=== PATIENT | male | born 1930 | race Hispanic/Latino ===

== ENCOUNTER 2017-06-23 10:18 | Observation (INO) | payer MEDICARE, MEDICAID ==
[2017-06-23] MEDS ORDERED: Lorazepam 2 MG/ML VIAL ONE (11:19)
[2017-06-23] MEDS ORDERED: Fentanyl 100 MCG/2 ML VIAL ONE (11:19)
[2017-06-23 11:27] LABS: #Basophils 0.1 thou/uL (0.0-0.2); #Eosinphils 0.1 thou/uL (0.0-0.7); #Lymphocytes 1.3 thou/uL (1.20-3.40); #Monocytes 0.6 thou/uL (0.11-0.59); #Neutrophils 6.5 thou/uL (1.40-6.50); %Basophils 0.7 % (0.0-1.0); %Eosinophils 1.6 % (0.0-10.0); %Lymphocytes 15.3 % (21.0-51.0); %Monocytes 6.5 % (0.0-10.0); %Neutrophils 75.9 % (42.0-75.0); Mean Corpuscular HGB CONC 33.1 g/dL (32.0-36.0); Mean Corpuscular Volume 90.7 fl (80.0-94.0); Mean Platelet Volume 8.8 fL (7.4-10.4); Platelet Count 233 thou/uL (130-400); RBC Distribution Width 12.7 % (11.5-14.5); Red Blood Cell (RBC) Count 4.99 mill/uL (4.70-6.10); White Blood Cell (WBC) Count 8.6 thou/uL (4.8-10.8)
[2017-06-23 11:40] LABS: ALT (SGPT) 20 U/L (8-55); AST (SGOT) 23 U/L (5-34); Albumin 3.8 g/dL (3.4-4.8); Alkaline Phosphatase 94 U/L (40-150); Anion Gap 14 mmol/L (10-20); BUN (Urea Nitrogen) 24 mg/dL (8.4-25.7); Bilirubin, Total 0.3 mg/dL (0.2-1.2); CK (CPK) 279 U/L (30-200); Calc. Creatinine Clearance 0 mL/min (70-130); Calcium 8.8 mg/dL (7.8-10.44); Carbon Dioxide 22 mmol/L (23-31); Chloride 101 mmol/L (98-107); Estimated GFR-MDRD 39; Globulin 3.2 g/dL (2.4-3.5); Glucose 224 mg/dL (83-110); Lipase 16 U/L (8-78); Potassium 4.8 mmol/L (3.5-5.1); Sodium 132 mmol/L (136-145)
[2017-06-23 11:45] LABS: CKMB 5.4 ng/mL (0-6.6); Troponin I 0.034 ng/mL (< 0.028)
--- NOTE | 2017-06-23 12:03 | RAD ---
2 VIEWS CHEST: Date: 06/23/17 PROVIDED CLINICAL HISTORY: Cough and rib pain. FINDINGS: Comparison made with the study dated 01/27/15. Cardiac and mediastinal silhouette is within normal limits. Vascular calcifications are noted involvi ng the aortic arch. No focal consolidation, pleural fluid, or pneumothorax apparent. IMPRESSION: No evidence for an acute cardiopulmonary process. POS: [facility]
--- NOTE | 2017-06-23 13:06 | CT ---
CT OF THE CHEST AND ABDOMEN AND PELVIS: Date: 06/23/17 PROVIDED CLINICAL HISTORY: Left lower chest/left upper quadrant pain for 1 week. FINDINGS: Vascular calcification, including coronary calcium, is demonstrated. The heart, pericardium, and grea t vessels demonstrate an otherwise unremarkable unenhanced CT appearance, suboptimally evaluated with out IV contrast material. There is no evidence for thoracic lymph node enlargement with limitations due to lack of IV contrast. Lungs are free of significant opacity. No pleural fluid or pneumothorax apparent. Nonspecific, somew hat focal area of plaque-like pleural thickening involving the left hemithorax laterally at the left upper lobe, nonspecific. Bilateral renal hypodensities are present, incompletely characterized without IV contrast, but statis tically reflecting cysts. 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 The solid a bdominal organs are suboptimally evaluated without IV contrast material, but demonstrate an otherwise unremarkable unenhanced CT appearance. There is no bowel dilatation, inflammatory fat stranding, free fluid, or free air apparent. Vascular calcifications are seen. Degenerative changes are noted involving the thoracic and lumbar spine. No concerning lytic or blasti c lesions are evident. No evidence for fracture. IMPRESSION: No evidence for an acute process. Chronic findings as above. POS: [facility]
[2017-06-23 13:49] LABS: Troponin I 0.045 ng/mL (< 0.028)
[2017-06-23] MEDS ORDERED: Nitroglycerin 2% Ointment 1 INCH/1 GM Packet ONE (13:57)
--- NOTE | 2017-06-23 14:22 | PDOC.FPRHP ---
- History of Present Illness Chief Complaint: Left sided rib pain History of Present Illness: 87 yo male that presents with left sided pain that began 1 week ago. His niece states that he has had more frequent falls over the last 6 months. She also notes that he fell roughly 2 weeks ago. The patient notes the pain is in his left side. It does not radiate. He states it feels "like a mule kicked me." He denies any shortness of breath, chest pain, fever, chills, n/v/d. He denies any injury to the area. Patient states he has become more unsteady on his feet and that is the cause of his more frequent falls. He denies any loss of consciousness or palpitations. He denies recent illness or sick contacts. No other complaints at this time. ED Course: In ED given Nitropatch, 500 ml Bolus, Aspirin, Ativan, and Fentanyl - Allergies/Adverse Reactions Allergies Allergy/AdvReac Type Severity Reaction Status Date / Time No Known Drug Allergies Allergy Verified 01/27/15 11:35 - Home Medications Medication Instructions Recorded Confirmed Type Albuterol Sulfate [Ventolin HFA] 8 gm INH PRN PRN 06/23/17 06/23/17 History Aspirin [Ecotrin Low Strength] 81 mg PO DAILY 06/23/17 06/23/17 History BuPROPion XL [Wellbutrin XL] 150 mg PO DAILY 06/23/17 06/23/17 History Gabapentin 100 mg PO BID 06/23/17 06/23/17 History Glimepiride 1 mg PO QAM- 06/23/17 06/23/17 History HumaLOG [HumaLOG Vial] 5 unit SC TID- 06/23/17 06/23/17 History Insulin Detemir 100 UNITS/ML 37 unit SQ HS 06/23/17 06/23/17 History [Levemir] Insulin Detemir 100 UNITS/ML 44 unit SQ QAM 06/23/17 06/23/17 History [Levemir] Lisinopril 5 mg PO DAILY 06/23/17 06/23/17 History Tiotropium [place] [Spiriva] 18 mcg IH 06/23/17 History metFORMIN [Glucophage] 500 mg BID 06/23/17 06/23/17 History Acetaminophen [Tylenol Regular 650 mg PO Q4H PRN tab 06/24/17 Rx Strength] - History PMHx: Renal Disease, HLD, HTN, DM2 PSHx: Cholecystectomy, Prostatectomy, Orthopedic surgery Right Thumb, Left Leg FHx: Non Contributory Social: Current 1/2 PPD smoker, 80 pack years. Denies alcohol or drug use. - Review of Systems General: denies: fever/chills, weight/appetite/sleep changes Eyes: denies: eye pain, vision changes ENT: denies: nasal congestion, rhinorrhea Respiratory: reports: cough, shortness of breath. denies: congestion Cardiovascular: reports: chest pain. denies: palpitation Gastrointestinal: reports: abdominal pain. denies: nausea, vomiting, diarrhea, constipation Genitourinary: denies: incontinence Skin: denies: rashes, lesions Musculoskeletal: denies: pain, tenderness, stiffness, swelling Neurological: denies: numbness, syncope - Vital signs BP: [130/73] HR: [70] RR: [20] Tmax: [98.7] Pox: [99]% on [Rm Air] Wt: [102 kg ] - Physical Exam Constitutional: NAD, awake, alert and oriented HEENT: normocephalic and atraumatic, PERRLA, no scleral icterus, grossly normal vision, grossly normal hearing, normal nasal mucosa Neck: supple, trachea midline Chest: no-tender to palpation Heart: RRR, normal S1/S2, no murmurs/rubs/gallops Lungs: CTAB, no wheezing Abdomen: soft, bowel sounds present, no masses/distention -Abdomen: Tenderness on Left side of abdomen Musculoskeletal: normal structure, normal tone Neurological: no focal deficit, CN II-XII intact, normal sensation Skin: no rash/lesions -Skin: 3+ pitting edema bilaterally to mid calf Psychiatric: normal mood and affect, good judgment and insight, intact recent and remote memory FMR H&P: Results - Labs Result Diagrams: 06/23/17 11:20 06/24/17 04:01 Lab results: WBC 8.6 thou/uL (4.8-10.8) 06/23/17 11:20 Hgb 15.0 g/dL (14.0-18.0) 06/23/17 11:20 Hct 45.2 % (42.0-52.0) 06/23/17 11:20 MCV 90.7 fl (80.0-94.0) 06/23/17 11:20 Plt Count 233 thou/uL (130-400) 06/23/17 11:20 Neutrophils % 75.9 % (42.0-75.0) H 06/23/17 11:20 Sodium 132 mmol/L (136-145) L 06/23/17 11:20 Potassium 4.8 mmol/L (3.5-5.1) 06/23/17 11:20 Chloride 101 mmol/L (98-107) 06/23/17 11:20 Carbon Dioxide 22 mmol/L (23-31) L 06/23/17 11:20 BUN 24 mg/dL (8.4-25.7) 06/23/17 11:20 Creatinine 1.66 mg/dL (0.6-1.3) H 06/23/17 11:20 Glucose 224 mg/dL (83-110) H 06/23/17 11:20 Calcium 8.8 mg/dL (7.8-10.44) 06/23/17 11:20 Total Bilirubin 0.3 mg/dL (0.2-1.2) 06/23/17 11:20 AST 23 U/L (5-34) 06/23/17 11:20 ALT 20 U/L (8-55) 06/23/17 11:20 Alkaline Phosphatase 94 U/L (40-150) 06/23/17 11:20 Creatine Kinase 279 U/L (30-200) H 06/23/17 11:20 CK-MB (CK-2) 5.4 ng/mL (0-6.6) 06/23/17 11:20 B-Natriuretic Peptide 319.1 pg/mL (0-100) H 06/23/17 11:20 Serum Total Protein 7.0 g/dL (5.8-8.1) 06/23/17 11:20 Albumin 3.8 g/dL (3.4-4.8) 06/23/17 11:20 Lipase 16 U/L (8-78) 06/23/17 11:20 - EKG Interpretation EKG: Stable from January 2015. Normal Sinus Rhythm Incomplete RBBB, Left anterior fascicular block. FMR H&P: A/P - Problem List (1) Atypical chest pain Current Visit: Yes Status: Acute Code(s): R07.89 - OTHER CHEST PAIN (2) DM2 (diabetes mellitus, type 2) Current Visit: Yes Status: Acute (3) HLD (hyperlipidemia) Current Visit: Yes Status: Acute Code(s): E78.5 - HYPERLIPIDEMIA, UNSPECIFIED (4) HTN (hypertension) Current Visit: Yes Status: Acute Code(s): I10 - ESSENTIAL (PRIMARY) HYPERTENSION (5) COPD (chronic obstructive pulmonary disease) Current Visit: Yes Status: Acute (6) CKD (chronic kidney disease) stage 3, GFR 30-59 ml/min Current Visit: Yes Status: Acute Code(s): N18.3 - CHRONIC KIDNEY DISEASE, STAGE 3 (MODERATE) (7) Tobacco abuse Current Visit: Yes Status: Acute Code(s): Z72.0 - TOBACCO USE (8) Elevated brain natriuretic peptide (BNP) level Current Visit: Yes Status: Acute Code(s): R79.89 - OTHER SPECIFIED ABNORMAL FINDINGS OF BLOOD CHEMISTRY - Plan 1. Atypical Chest pain - Trend troponins - Stress in am - Consider ECHO - TSH, Mg, Phos - CT chest, abdomen pelvis unremarkable 2. DM2 - Continue Insulin - Accuchecks 3. HTN - Continue Lisinopril 4. COPD - Continue home meds 5. Tobacco abuse - Continue wellbutrin - Counseled on cessation 6. CKD III - Creatinine at baseline - Avoid contrast - Monitor with BMP 7. Elevated BNP - ECHO pending - Will determine if patient has HF Disposition: Stable, await troponins and stress results. FMR H&P: Upper Level - Pertinent history 87 yo male here for left sided abdomen pain. Reports he has been having more frequent falls over the last 6 months, no head trauma or LOC. was seen in [facility] last month for arm injury after fall. About a week ago he began having pain in side of abdomen, like "mule kicked side" which worsens with coughing. Significant smoking history [id number]-yr. Currently chews tobacco. Also assoc b/l leg swelling. Reports BG has not been good, morning normally runs in the 200s. Last A1c on was 7.8. - Pertinent findings GEN: NAD, AAOx3 CARD: 3+ pitting edema b/l to mid-calf Pulm: CTAb ABD: BSx4, distended, tender on left side EKG: no ST segment changes or CXR: no acute CP process - Plan Date/Time: 06/23/17 1419 I, Jay Landeros DO, have evaluated this patient and agree with findings/plan as outlined by internet marketing specialist resident. Pertinent changes/additions are listed here. 1. atypical CP r/o ACS Trops in indeterminate range, continue to trend Order stress test Continue home meds Mg, Phos, TSH Heart score 4 2. Indeterminate BNP with swelling in legs b/l, we will check TTE 3. HTN continue home meds 4. DMII on insulin continue home regimen accuchecks ACHS 5. COPD continue home medications 6. CKD III stable from clinic notes continue to monitor 7. LE swelling ECHO DNR Attending Addendum - Attending Addendum Date/Time: 06/24/17 [id number] I personally evaluated the patient and discussed the management with Dr. Goodrich today. Dr Goodrich and I discussed his care together at the time of admission as well. I agree with the History, Examination, Assessment and Plan documented above with any addition or exceptions noted below.
[2017-06-23 15:08] LABS: Troponin I 0.041 ng/mL (< 0.028)
[2017-06-23] MEDS ORDERED: Ondansetron ODT 4 MG TAB PO PRN (16:31)
[2017-06-23] MEDS ORDERED: PROVENTIL INHALER 6.7 G (200 INHALATIONS) INH PRN (16:31)
[2017-06-23 16:32] VITALS: BMI 38.5
[2017-06-23] MEDS ORDERED: FLU VACC TS2017-18 (>65YR) 0.5 ML SYRINGE IM ONE (17:45)
[2017-06-23] MEDS ORDERED: Prevnar 13-Val Conj/PF 0.5 ML SYRINGE IM ONE (17:45)
[2017-06-23 17:50] LABS: Phosphorus 3.5 mg/dL (2.3-4.7)
[2017-06-23 17:57] LABS: Troponin I 0.037 ng/mL (< 0.028)
[2017-06-23] MEDS: HumaLOG 300 UNITS/3 ML VIAL SC SCH (18:02)
[2017-06-23] MEDS: metFORMIN 500 MG TAB PO SCH (20:06)
[2017-06-23] MEDS: Gabapentin 100 MG CAP PO SCH (20:06)
[2017-06-23] MEDS ORDERED: Insulin Detemir 100 UNITS/ML 44 UNITS in Pre-Filled Syringe 1 EACH SC SCH (21:00)
[2017-06-23] MEDS ORDERED: Insulin Detemir 100 UNITS/ML 37 UNITS in Pre-Filled Syringe 1 EACH SC SCH (21:00)
[2017-06-24] MEDS: Acetaminophen 325 MG TAB PO PRN ×2 (04:40→11:54)
[2017-06-24 04:59] LABS: Anion Gap 10 mmol/L (10-20); BUN (Urea Nitrogen) 23 mg/dL (8.4-25.7); Calc. Creatinine Clearance 60 mL/min (70-130); Calcium 8.5 mg/dL (7.8-10.44); Carbon Dioxide 25 mmol/L (23-31); Cardiac Risk 4.5 (Less than 4.5); Chloride 104 mmol/L (98-107); Cholesterol 217 mg/dl (< 200 Desired); Estimated GFR-MDRD 53; Glucose 82 mg/dL (83-110); HDL Cholesterol 48 mg/dL (>60 Neg Risk); LDL Cholesterol, Calculated 133 mg/dL; Potassium 4.3 mmol/L (3.5-5.1); Sodium 135 mmol/L (136-145); Triglycerides 179 mg/dL (Less than 150)
--- NOTE | 2017-06-24 06:13 | PDOC.FM ---
- Subjective Subjective: Patient states he had a good night. He states he had good sleep. He notes that his abdominal pain on his left side is only when he coughs. He specifically denies chest pain, sob, n/v/d. He also specifically denies lightheadedness, vision changes, or problems with urination. He denies fevers or chills. He does complain of a chronic cough that has been present for some time. No other complaints today. - Objective Vital Signs & Weight: Vital Signs (12 hours) Temp Pulse Resp BP Pulse Ox 06/24/17 04:47 69 16 93 L 06/24/17 04:00 97.7 F 69 18 152/80 H 92 L 06/23/17 20:03 97.9 F 70 18 06/23/17 19:31 94 L 06/23/17 19:23 97.9 F 70 18 115/67 93 L Weight Weight 104.871 kg I&O: 06/22/17 06/23/17 06/24/17 06:59 06:59 07:59 Intake Total 630 Output Total 350 Balance 280 Result Diagrams: 06/23/17 11:20 06/24/17 04:01 <Freeman Goodrich - Last Filed: 06/24/17 07:37> - Objective Vital Signs & Weight: Vital Signs (12 hours) Temp Pulse Resp BP BP Pulse Ox 06/24/17 07:35 97.8 F 65 16 117/61 99 06/24/17 07:31 69 117/61 06/24/17 07:20 97.8 F 65 16 06/24/17 04:47 69 16 93 L 06/24/17 04:00 97.7 F 69 18 152/80 H 92 L Weight Weight 104.871 kg I&O: 06/23/17 06/24/17 06/25/17 05:59 06:59 06:59 Intake Total Output Total Balance Result Diagrams: 06/23/17 11:20 06/24/17 04:01 <Florencio Clark - Last Filed: 06/24/17 09:58> Phys Exam - Physical Examination HEENT: PERRLA, moist MMs Neck: no nodes Respiratory: no wheezing, clear to auscultation bilateral Cardiovascular: RRR, no significant murmur Gastrointestinal: soft, non-tender, no distention, positive bowel sounds Musculoskeletal: edema present 2+ to midcalf Neurological: non-focal, normal sensation, moves all 4 limbs Lymphatic: no nodes Psychiatric: normal affect, A&O x 3 Skin: no rash <Freeman Goodrich - Last Filed: 06/24/17 07:37> Dx/Plan (1) Atypical chest pain Code(s): R07.89 - OTHER CHEST PAIN Status: Acute (2) DM2 (diabetes mellitus, type 2) Status: Acute (3) HLD (hyperlipidemia) Code(s): E78.5 - HYPERLIPIDEMIA, UNSPECIFIED Status: Acute (4) HTN (hypertension) Code(s): I10 - ESSENTIAL (PRIMARY) HYPERTENSION Status: Acute (5) COPD (chronic obstructive pulmonary disease) Status: Acute (6) CKD (chronic kidney disease) stage 3, GFR 30-59 ml/min Code(s): N18.3 - CHRONIC KIDNEY DISEASE, STAGE 3 (MODERATE) Status: Acute (7) Tobacco abuse Code(s): Z72.0 - TOBACCO USE Status: Acute (8) Elevated brain natriuretic peptide (BNP) level Code(s): R79.89 - OTHER SPECIFIED ABNORMAL FINDINGS OF BLOOD CHEMISTRY Status : Acute - Plan Plan: 1. Atypical Chest pain - Troponins downtrended - Stress today - ECHO ordered - TSH, Mg, Phos - CT chest, abdomen pelvis unremarkable 2. DM2 - Continue Insulin - Accuchecks 3. HTN - Continue Lisinopril 4. COPD - Continue home meds 5. Tobacco abuse - Continue wellbutrin - Counseled on cessation 6. CKD III - Creatinine at baseline - Avoid contrast - Stable 7. Elevated BNP - ECHO pending - Will determine if patient has HF Disposition: Stable, await stress results. <Freeman Goodrich - Last Filed: 06/24/17 07:37> (1) Atypical chest pain Code(s): R07.89 - OTHER CHEST PAIN Status: Acute (2) DM2 (diabetes mellitus, type 2) Status: Acute (3) HLD (hyperlipidemia) Code(s): E78.5 - HYPERLIPIDEMIA, UNSPECIFIED Status: Acute (4) HTN (hypertension) Code(s): I10 - ESSENTIAL (PRIMARY) HYPERTENSION Status: Acute (5) COPD (chronic obstructive pulmonary disease) Status: Acute (6) CKD (chronic kidney disease) stage 3, GFR 30-59 ml/min Code(s): N18.3 - CHRONIC KIDNEY DISEASE, STAGE 3 (MODERATE) Status: Acute (7) Tobacco abuse Code(s): Z72.0 - TOBACCO USE Status: Acute (8) Elevated brain natriuretic peptide (BNP) level Code(s): R79.89 - OTHER SPECIFIED ABNORMAL FINDINGS OF BLOOD CHEMISTRY Status : Acute <Florencio Clark - Last Filed: 06/24/17 09:58> Attending Addendum - Attending Addendum Date/Time: 06/24/1758 I personally evaluated the patient and discussed the management with Dr. Goodrich. I agree with the History, Examination, Assessment and Plan documented above with any addition or exceptions noted below. <Florencio Clark - Last Filed: 06/24/17 09:58>
[2017-06-24] MEDS: HumaLOG 300 UNITS/3 ML VIAL SC SCH ×2 (07:21→13:21)
[2017-06-24] MEDS: Gabapentin 100 MG CAP PO SCH (07:30)
[2017-06-24] MEDS: metFORMIN 500 MG TAB PO SCH (07:38)
[2017-06-24] MEDS ORDERED: Glimepiride 1 MG TAB PO SCH (08:00)
[2017-06-24] MEDS ORDERED: Enoxaparin Sodium 40 MG/0.4 ML SYRINGE SC SCH (09:00)
[2017-06-24] MEDS ORDERED: Aspirin 81 mg Enteric Coated Tablet PO SCH (09:00)
[2017-06-24] MEDS ORDERED: Lisinopril 5 MG TAB PO SCH (09:00)
[2017-06-24] MEDS ORDERED: Bupropion 150 MG XL TAB PO SCH (09:00)
[2017-06-24] MEDS ORDERED: Insulin Detemir 100 UNITS/ML 44 UNITS in Pre-Filled Syringe 1 EACH SC SCH (09:00)
[2017-06-24 11:38] VITALS: BP 128/91; TEMP 98
--- NOTE | 2017-06-24 12:04 | NM ---
MYOCARDIAL PERFUSION SCAN WITH SPECT IMAGING: HISTORY: Acute coronary syndrome. TECHNIQUE/FINDINGS: Stress portion of the examination performed using 29.4 mCi 99m-technetium sestamibi 11 mCi on the res ting images. This shows a small apical defect on the stress views, which appears to fill in on the re sting images, suggesting a small focus of ischemia. WALL MOTION: There is hypokinesis of the ventricle which appears slightly more pronounced in the apex. LEFT VENTRICULAR EJECTION FRACTION: The calculated left ventricular ejection fraction is 42%. IMPRESSION: 1. Suggestion of a small area of ischemic change within the apex of the left ventricle. 2. Diminished left ventricular ejection fraction of 42% with suggestion of apical hypokinesis. Corre lation with echocardiogram is recommended. POS: [facility]
--- NOTE | 2017-06-24 14:31 | CON ---
DATE OF CONSULTATION: 06/24/2017 REASON FOR CONSULTATION: Abnormal stress study. REFERRING PROVIDER: Florencio Clark M.D. HISTORY OF PRESENT ILLNESS: Mr. Dodge is a very pleasant 87-year-old gentleman with no previous his tory of underlying coronary artery disease, who recently presented with chest pain. He states this h as been left-sided. It began after he had a deep cough. He states this pain is sharp and much worse with cough. He states if he is in a sitting position, he does not have significant discomfort. His recent stress study suggested LVEF of 42% with apical ischemia. PAST MEDICAL HISTORY: Chronic kidney disease, hypertension, hyperlipidemia, diabetes mellitus. PAST SURGICAL HISTORY: Cholecystectomy, prostatectomy, and hand surgery. SOCIAL HISTORY: Positive tobacco use. Negative alcohol use. HOME MEDICATIONS: Lisinopril, glipizide, aspirin, insulin, bupropion, metformin, Humalog, Spiriva, a nd Lipitor. REVIEW OF SYSTEMS: Ten-point review of systems is reviewed and as above, otherwise negative. PHYSICAL EXAMINATION: GENERAL: Patient is a pleasant male who is in no acute distress. The patient appears his stated age . VITAL SIGNS: Blood pressure 128/91, pulse 76, temperature 98. NEUROLOGIC: The patient is alert and oriented times 3 with no focal neurologic deficits. HEENT: Sclerae without icterus. Mouth has moist mucous membranes with normal pallor. NECK: No JVD. Carotid upstroke brisk. No bruits bilaterally. LUNGS: Clear to auscultation with unlabored respirations. BACK: No scoliosis or kyphosis. CARDIAC: Regular rate and rhythm with normal S1 and S2. No S3 or S4 noted. No significant rubs, murmurs, thrills, or gallops noted throughout the precordium. PMI is not displa slick. There is no parasternal heave. Pain to palpation noted along the left mid axillary region. ABDOMEN: Soft, nontender, nondistended. No peritoneal signs present. No hepatosplenomegaly. No abnormal striae. EXTREMITIES: 2+ femoral and 2+ dorsalis pedis pulses. No cyanosis, clubbing, or edema. SKIN: No gross abnormalities. PERTINENT LABORATORY DATA: CK troponin negative. IMAGING DATA: Echo Doppler shows LVEF difficult to assess, but does appear at the lower limits of no rmal. IMPRESSION: 1. Atypical chest pain. 2. Abnormal stress study. 3. Diabetes mellitus. 4. Tobacco abuse. RECOMMENDATIONS: His symptoms are not felt to be suggestive of angina. His symptoms are more likely to be musculoskeletal. Would recommend nonsteroidal therapy and PPI. I did discuss angiography. T he patient defers and I would agree given his symptoms. I also counseled him on cessation of all tob acco products. Plan is to follow Mr. Dodge in the next 1-2 weeks in the office.
[2017-06-24] MEDS ORDERED: Regadenoson 0.4 MG/5 ML SYRINGE ONE (16:45)
--- NOTE | 2017-06-25 14:11 | DIS-2 ---
DATE OF ADMISSION: 06/23/2017 DATE OF DISCHARGE: 06/24/2017 RESIDENT: Dr. Freeman Goodrich ADMITTING ATTENDING: Dr. Florencio Clark DISCHARGE ATTENDING: Dr. Florencio Clark CONSULTS: Cardiology, Dr. Knowles. PROCEDURES: The patient underwent a chest x-ray on 06/23/2017 that showed no evidence for acute cardiopulmonary process. The patient also underwent a chest, abdomen, and pelvis CT on 06/23/2017 that showed no evidence of an acute process, chronic findings noted. The patient also underwent an echocardiogram that showed a left ventricle ejection fraction estimated at 50-55%, some flow reversal noted suggestive of diastolic dysfunction, mild mitral regurgitation is present, mild tricuspid regurgitation. The patient also underwent a stress test nuclear medicine test on 06/24/2017 that showed suggestion of a small area of ischemic change with apex of the left ventricle, diminished left ventricular ejection fraction 42% with suggestion of apical hypokinesis. Correlation with echocardiogram is recommended. PRIMARY DIAGNOSES: 1. Atypical chest pain. 2. Diabetes mellitus type 2. 3. Hyperlipidemia. 4. Hypertension. 5. Chronic obstructive pulmonary disease. 6. Chronic kidney disease stage 3. 7. Tobacco abuse. 8. Elevated BNP. DISCHARGE MEDICATIONS: 1. Atorvastatin 40 mg daily. 2. Metformin 500 mg b.i.d. 3. Humalog 5 units subq t.i.d. with meals. 4. Gabapentin 100 mg p.o. b.i.d. 5. Wellbutrin 150 mg p.o. daily. 6. Insulin detemir 44 units subcu a.m. and 37 units subcu at bedtime. 7. Lisinopril 5 mg p.o. daily. 8. Aspirin 81 mg daily. 9. Glimepiride 1 mg p.o. q.a.m. with meals. 10. Spiriva 18 mcg inhalation. 11. Ventolin HFA 8 grams inhalation p.r.n. 12. Acetaminophen 650 mg p.o. q.4h. p.r.n. DISCONTINUED MEDICATIONS: None. HISTORY OF PRESENT ILLNESS AND HOSPITAL COURSE: An 87-year-old male who presents with left-sided pain that began 1 week ago. His niece states that he has had more frequent falls over the last 6 months. He also notes that he fell roughly 2 weeks ago. The patient notes the pain is in his left side. It does not radiate. He states it feels like "a mule kicked me". He denies any shortness of breath, chest pain, fevers, chills, nausea, vomiting, diarrhea. He denies any injury to the area. The patient states he has become more unsteady on his feet and that has caused his more frequent falls. He denies any loss of consciousness or palpitations. He denies recent illness or sick contacts. No other complaints at this time. During this hospitalization, the patient did not have any further chest pain. He did continued to complain of his left-sided abdominal pain. Especially this pain was especially worse when he coughed. He was not tender to palpation and his CT scans were unremarkable for any acute pathology. The patient had some notable lab values of a cholesterol 217, LDL 133, HDL of 48 and a heart risk ratio 4.5. Also had a TSH of 4.55. The patient also had blood pressures that ranged from a systolic in the 1-teens to as high as 150s over diastolics from 60s to the 90s. Pulses are within normal limits and he was afebrile. The patient was seen by Dr. Knowles of Cardiology and he recommended that his symptoms were not suggestive of angina. He most likely has a musculoskeletal etiology to his pain. He recommends nonsteroidal therapy and a PPI. The patient deferred an angiography at this time. He was counseled extensively on cessation of tobacco products. Plan to follow up with Mr. Dodge in the next 1- 2 weeks in his office. The patient was counseled extensively on taking better care of himself with diet and exercise as well as smoking cessation. The patient will be following up with Dr. Bakari Shah his PCP and will try to work with his left-sided abdominal pain further. Otherwise, the patient had no further complications during his hospitalization and was discharged in appropriate condition. DISPOSITION: Stable. DISCHARGE INSTRUCTIONS: 1. Location: He will be discharged home to the care of himself and his niece. 2. Diet will be a heart healthy diet and a diabetic diet, combined. 3. Activity will be with as tolerated with cardiopulmonary limits. 4. Follow up will be with his PCP, Dr. Bakari Shah in the next 3-7 days as [address] as Dr. Knowles, of Cardiology in the next 1-2 weeks. I discussed further management of his abnormal stress test. We wish this ora the best of luck and hope he has no further complications from this disease. CHARLENE
--- NOTE | 2017-06-30 12:36 | EKG ---
Test Reason : Blood Pressure : / mmHG Vent. Rate : 069 BPM Atrial Rate : 069 BPM P-R Int : 180 ms QRS Dur : 124 ms QT Int : 430 ms P-R-T Axes : -25 -76 023 degrees QTc Int : 460 ms Normal sinus rhythm Right bundle branch block Left anterior fascicular block Bifascicular block Septal infarct , age undetermined Abnormal ECG Confirmed by CORRIE LEON, HU ([id number]), editorial director FERNANDO ALTMAN ([id number]) on 06/30/2017 12:36:01 PM Referred By: Confirmed By:HU DENTON MD
== END 2017-06-24 14:06 | disposition home or self-care (01) ==
LOC: ERS 10:18 → 2SW 14:25
PROVIDERS: ADMIT Family Medicine; ATTEND Family Medicine
DX: R07.89 Other chest pain (principal); E78.5 Hyperlipidemia, unspecified; J44.9 Chronic obstructive pulmonary disease, unspecified; E11.22 Type 2 diabetes mellitus with diabetic chronic kidney disease; I12.9 Hypertensive chronic kidney disease with stage 1 through stage 4 chronic kidney disease, or unspecified chronic kidney disease; N18.3 Chronic kidney disease, stage 3 (moderate); F17.200 Nicotine dependence, unspecified, uncomplicated; R79.89 Other specified abnormal findings of blood chemistry; R74.8 Abnormal levels of other serum enzymes; R26.81 Unsteadiness on feet; F17.210 Nicotine dependence, cigarettes, uncomplicated; Z79.82 Long term (current) use of aspirin; Z79.4 Long term (current) use of insulin; Z79.899 Other long term (current) drug therapy; Z90.49 Acquired absence of other specified parts of digestive tract; Z90.79 Acquired absence of other genital organ(s); Z98.890 Other specified postprocedural states; Z91.81 History of falling
CPT/HCPCS: 71046; 71250; 74177; 78452; 80048; 80061; 82010; 82550; 82553; 82962; 83690; 83735; 83880; 84100; 84484 ×2; 93005; 93017; 93306; 94640; 94760; 96361; 96372; 96374; 96375; 99285; A9500; G0378; 36415; 36416; 80053; 84443; 85025; J1650; J1815; J2060; J2785; J3010

== ENCOUNTER 2017-09-10 17:00 | Emergency (ER) | payer MEDICARE, MEDICAID ==
[2017-09-10] MEDS ORDERED: Adacel (T-DAP) 0.5 ML VIAL ONE (17:44)
--- NOTE | 2017-09-10 18:39 | RAD ---
RIGHT HIP SERIES: INDICATIONS: Laceration. Pain. FINDINGS: There is moderate osteoarthritis without evidence of acute fracture. Vascular calcification is prese nt. IMPRESSION: No acute osseous abnormality of the right hip. POS: [facility]
[2017-09-10] MEDS ORDERED: HYDROcodone/Acetaminophen 10/325 mg Tablet ONE (18:49)
--- NOTE | 2017-09-10 18:55 | RAD ---
LEFT HAND THREE VIEWS: INDICATIONS: Injury. Pain. FINDINGS: Scattered osteoarthritis is present. There is no fracture or dislocation. Vascular calcifications a re seen. IMPRESSION: No acute osseous abnormality of the left hand. POS: [facility]
--- NOTE | 2017-09-10 18:57 | RAD ---
RIGHT HAND THREE VIEWS: INDICATIONS: Injury. Pain. Laceration. FINDINGS: Extension of the thumb IP joint limits visualization. There is scattered osteoarthritis. No acute f racture. Vascular calcification is present. There is soft tissue prominence. Correlate clinically. IMPRESSION: No acute osseous abnormality of the right hand identified. There is persistent extension at the thum b interphalangeal joint, limiting visualization in this region. Correlate clinically. POS: [facility]
--- NOTE | 2017-09-10 18:57 | RAD ---
RIGHT WRIST THREE VIEWS: INDICATIONS: Injury. Pain. Laceration. FINDINGS: No evidence of fracture. There is osteoarthritis. Vascular calcification is present. IMPRESSION: No acute osseous abnormality of the right wrist. POS: [facility]
== END 2017-09-10 21:49 | disposition home or self-care (01) ==
LOC: ERS 17:00
DX: S61.411A Laceration without foreign body of right hand, initial encounter (principal); S60.222A Contusion of left hand, initial encounter; Z71.6 Tobacco abuse counseling; I10 Essential (primary) hypertension; E11.9 Type 2 diabetes mellitus without complications; E78.5 Hyperlipidemia, unspecified; Z79.4 Long term (current) use of insulin; F17.210 Nicotine dependence, cigarettes, uncomplicated; W19.XXXA Unspecified fall, initial encounter
CPT/HCPCS: 36416; 90471; 90715; 99406

== ENCOUNTER 2017-10-08 09:21 | Outpatient (CLI) | payer MEDICARE, OTHER ==
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
[2017-10-14] MEDS ORDERED: Sodium Chloride 0.9% 15 ML NEB ONE (14:42)
== END 2017-10-08 09:22 | disposition home or self-care (01) ==
LOC: WCC 09:21
PROVIDERS: ATTEND Family Medicine
DX: E11.622 Type 2 diabetes mellitus with other skin ulcer (principal); L98.499 Non-pressure chronic ulcer of skin of other sites with unspecified severity; E11.22 Type 2 diabetes mellitus with diabetic chronic kidney disease; I12.9 Hypertensive chronic kidney disease with stage 1 through stage 4 chronic kidney disease, or unspecified chronic kidney disease; N18.3 Chronic kidney disease, stage 3 (moderate); J44.9 Chronic obstructive pulmonary disease, unspecified
CPT/HCPCS: 11042; 82962; 97139; G0463; 36416; 99203; A4218

== ENCOUNTER 2017-10-18 20:10 | Emergency (ER) | payer MEDICARE, MEDICAID ==
[2017-10-18] MEDS ORDERED: Fleet Enema 133 ML BOT PR SCH (21:00)
--- NOTE | 2017-10-18 21:02 | RAD ---
ABDOMINAL SURVEY WITH UPRIGHT CHEST AND TWO VIEW ABDOMEN: 10/18/17 INDICATIONS: Abdominal pain. Constipation. FINDINGS: The lungs appear clear. Bowel gas pattern unremarkable. No free air. No soft tissue mass or abnormal calcification. IMPRESSION: Unremarkable bowel gas pattern. POS: CATY
== END 2017-10-18 22:12 | disposition home or self-care (01) ==
LOC: ERS 20:10
DX: K59.00 Constipation, unspecified (principal); E78.5 Hyperlipidemia, unspecified; I10 Essential (primary) hypertension; E11.9 Type 2 diabetes mellitus without complications; F17.210 Nicotine dependence, cigarettes, uncomplicated; Z79.4 Long term (current) use of insulin; Z79.891 Long term (current) use of opiate analgesic
CPT/HCPCS: 74022

== ENCOUNTER 2018-01-24 10:12 | Day surgery (SDC) | payer MEDICARE, MEDICAID ==
[2018-01-23 09:27] VITALS: BMI 36.3
--- NOTE | 2018-01-24 13:35 | OP ---
DATE OF PROCEDURE: 01/24/2018 GI ENDOSCOPY NOTE SURGEON: Gordo Ambrosio M.D. SCOOP OPERATOR SURGEON: None. PROCEDURES: 1. Esophagogastroduodenoscopy with biopsies. 2. Colonoscopy with snare polypectomy. INDICATIONS: 1. Dysphagia. 2. Left upper quadrant abdominal pain. 3. Constipation. MEDICATIONS: See anesthesia record. FINDINGS: After discussion of the risks, benefits and alternatives of the procedure, informed consen t was obtained and witnessed. Pre-endoscopic cardiopulmonary examination was satisfactory. Timeout was performed before sedation was achieved. Sedation was achieved with anesthesia assistance in the endoscopy unit. A Pentax adult upper endoscope was placed into the oropharynx and passed through the cricopharyngeus under direct visualization. The proximal and mid esophageal mucosa appeared normal. In the distal esophagus just above the GE junction, there is LA grade C erosive esophagitis for a d istance of about 2 cm. There is no associated stricture visible in this area. The endoscope was adv anced through the GE junction, and into the stomach. Forward and retroflexed views of the entire gas tric mucosa were obtained. In the gastric antrum and body, there is patchy erythema and edema with a few small nonbleeding erosions scattered throughout. Biopsies were obtained from the gastric antrum and body to rule out H. pylori infection. The endoscope was advanced through the pylorus and into t first and second portions of the duodenum, which were unremarkable. The upper endoscope was compl etely withdrawn and the patient was repositioned. Digital rectal exam was performed which was unremarkable. A Pentax adult colonoscope was inserted in to the anus and passed forward to the cecum in the usual fashion. The cecal base was identified by t he appendiceal orifice as well as the ileocecal valve. The terminal ileum was intubated and the ilea l mucosa appeared normal. The colonoscope was then slowly withdrawn in a gradual and circumferential manner with careful examination of the entire colonic mucosa. The quality of the prep was adequate. In the cecum, there were 3 polyps measuring from 3 mm to 8 mm in diameter. These were completely r emoved with hot snare and retrieved for pathology. In the sigmoid colon, there was a larger polyp me asuring about 1.4 cm in diameter. This was on a short stalk. This polyp was completely removed with hot snare and retrieved for pathology. In the rectum, there was a smaller polyp measuring about 3 m m. This was completely removed with hot snare and retrieved for pathology. There is diverticulosis throughout the colon, but quite heavy in the sigmoid colon. Retroflexion of the rectum was otherwise unremarkable. The colonoscope was completely withdrawn and the patient allowed to recover. The pat ient tolerated the procedure well. There were no immediate post-procedure complications. IMPRESSION: 1. Erosive gastritis, biopsied. 2. Distal erosive esophagitis. 3. Esophagus empirically dilated with Savary dilator to 18 mm without difficulty. 4. Three cecal polyps, all removed with hot snare. 5. Single sigmoid colon polyp, 1.4 cm in diameter, completely removed with hot snare. 6. A 3 mm rectal polyp, completely removed with hot snare. 7. Colonic diverticulosis, heaviest in the sigmoid colon. RECOMMENDATIONS: 1. We will start him on a daily PPI. 2. He needs to quit smoking. No NSAID use. 3. Follow up pathology on the gastric biopsies and colon polyps. 4. No further colonoscopy is recommended despite he is having polyps on this exam, due to his age an d comorbidities. 5. We will have him follow up in clinic in about 1 month.
== END 2018-01-24 14:00 | disposition home or self-care (01) ==
LOC: SDC 10:12
PROVIDERS: ATTEND Internal Medicine
PROC: 0DB68ZX Excision of Stomach, Via Natural or Artificial Opening Endoscopic, Diagnostic (ICD-10-PCS; principal; 2018-01-24)
PROC: 0D758ZZ Dilation of Esophagus, Via Natural or Artificial Opening Endoscopic (ICD-10-PCS; 2018-01-24)
PROC: 0DBH8ZX Excision of Cecum, Via Natural or Artificial Opening Endoscopic, Diagnostic (ICD-10-PCS; 2018-01-24)
PROC: 0DBN8ZX Excision of Sigmoid Colon, Via Natural or Artificial Opening Endoscopic, Diagnostic (ICD-10-PCS; 2018-01-24)
PROC: 0DBP8ZX Excision of Rectum, Via Natural or Artificial Opening Endoscopic, Diagnostic (ICD-10-PCS; 2018-01-24)
DX: D12.0 Benign neoplasm of cecum (principal); D12.5 Benign neoplasm of sigmoid colon; D12.8 Benign neoplasm of rectum; K29.50 Unspecified chronic gastritis without bleeding; K25.9 Gastric ulcer, unspecified as acute or chronic, without hemorrhage or perforation; K20.9 Esophagitis, unspecified; K57.30 Diverticulosis of large intestine without perforation or abscess without bleeding; R13.10 Dysphagia, unspecified; K59.09 Other constipation; E11.40 Type 2 diabetes mellitus with diabetic neuropathy, unspecified; M19.90 Unspecified osteoarthritis, unspecified site; F17.210 Nicotine dependence, cigarettes, uncomplicated; E78.00 Pure hypercholesterolemia, unspecified; I10 Essential (primary) hypertension; E66.9 Obesity, unspecified; Z68.36 Body mass index [BMI] 36.0-36.9, adult; Z79.4 Long term (current) use of insulin; Z79.82 Long term (current) use of aspirin; Z79.899 Other long term (current) drug therapy; Z91.010 Allergy to peanuts
CPT/HCPCS: 36416; 88305; 88312

== ENCOUNTER 2018-04-26 14:23 | Inpatient (IN) | payer MEDICARE, MEDICAID ==
[2018-04-26 14:47] LABS: #Eosinphils 0.2 thou/uL (0.0-0.7); #Monocytes 0.6 thou/uL (0.11-0.59); #Neutrophils 6.1 thou/uL (1.40-6.50); %Basophils 0.2 % (0.0-1.0); %Eosinophils 2.2 % (0.0-10.0); %Lymphocytes 12.4 % (21.0-51.0); %Monocytes 7.2 % (0.0-10.0); %Neutrophils 78.1 % (42.0-75.0); Hemoglobin 11.9 g/dL (14.0-18.0); Mean Corpuscular HGB CONC 30.7 g/dL (32.0-36.0); Mean Corpuscular Hemoglobin 26.9 pg (27.0-31.0); Mean Corpuscular Volume 87.7 fL (78.0-98.0); Mean Platelet Volume 8.8 fL (7.4-10.4); Platelet Count 231 thou/uL (130-400); RBC Distribution Width 14.5 % (11.5-14.5); Red Blood Cell (RBC) Count 4.41 mill/uL (4.70-6.10); White Blood Cell (WBC) Count 7.8 thou/uL (4.8-10.8)
--- NOTE | 2018-04-26 15:11 | RAD ---
RADIOGRAPH CHEST 1 VIEW: Date: 04/26/18 Time: 1438 HOURS HISTORY: 88-year-old male with dyspnea. COMPARISON: 06/23/17. FINDINGS: There is a new finding of a least mild cardiomegaly. The lungs are hypoinflated on current study. The re is another new finding of silhouetting of the bilateral hemidiaphragms, left greater than right, d ue to pulmonary parenchymal densities at the bases of the bilateral lower lobes, left greater than ri ght. It is uncertain whether or not there are small pleural effusions. All of the visualized lung fie lds appear diffusely slightly hazy. No pneumothorax. IMPRESSION: Opacities at the bilateral lower lobe lung bases, left greater than right. Uncertain whether these re present atelectasis, pneumonia, and/or pleura effusions. A lateral view may be useful. JN [] POS: TPC
[2018-04-26 15:20] LABS: ALT (SGPT) 16 U/L (8-55); AST (SGOT) 21 U/L (5-34); Albumin 3.5 g/dL (3.4-4.8); Alkaline Phosphatase 107 U/L (40-150); Anion Gap 16 mmol/L (10-20); BUN (Urea Nitrogen) 23 mg/dL (8.4-25.7); Bilirubin, Total 0.3 mg/dL (0.2-1.2); CK (CPK) 264 U/L (30-200); Calc. Creatinine Clearance 0 mL/min (70-130); Calcium 8.6 mg/dL (7.8-10.44); Carbon Dioxide 21 mmol/L (23-31); Chloride 105 mmol/L (98-107); Estimated GFR-MDRD 42; Globulin 3.2 g/dL (2.4-3.5); Glucose 126 mg/dL (83-110); Potassium 5.3 mmol/L (3.5-5.1); Protein, Total 6.7 g/dL (5.8-8.1); Sodium 137 mmol/L (136-145)
[2018-04-26] MEDS ORDERED: Furosemide 40 MG/4 ML VIAL ONE (15:33)
[2018-04-26] MEDS ORDERED: Furosemide 20 MG/2 ML VIAL ONE (15:38)
[2018-04-26 15:47] LABS: CKMB 7.3 ng/mL (0-6.6)
--- NOTE | 2018-04-26 16:26 | PDOC.FPRHP ---
- History of Present Illness Chief Complaint: SOB History of Present Illness: Mr Dodge presents directly from clinic for CHF exacerbation. He reports for the last week he has had increasing shortness of breath, especially when trying to move around. Denies SOB at rest. He reports lower extremity swelling for 1-2 months, his stomach has also felt enlarged. He reports that his penis has been too swollen to retract the foreskin to clean, however he has urinated normally. He denies any chest pain, nausea, vomiting or diarrhea. ED Course: aspirin, IV lasix 60 mg - Allergies/Adverse Reactions Allergies Allergy/AdvReac Type Severity Reaction Status Date / Time No Known Drug Allergies Allergy Verified 01/23/18 09:28 - Home Medications Medication Instructions Recorded Confirmed Type Albuterol Sulfate [Ventolin HFA] 8 gm INH PRN PRN 06/23/17 01/23/18 History Aspirin [Ecotrin Low Strength] 81 mg PO DAILY 06/23/17 01/23/18 History Gabapentin 100 mg PO BID 06/23/17 01/23/18 History Glimepiride 1 mg PO QAM-WM 06/23/17 01/23/18 History Tiotropium [place] [Spiriva] 18 mcg IH DAILY 06/23/17 01/23/18 History metFORMIN [Glucophage] 500 mg PO BID 06/23/17 01/23/18 History Atorvastatin Calcium [Lipitor] 40 mg PO DAILY 30 Days #30 tab 06/24/17 01/23/18 Rx Insulin Glargine,Hum.Rec.Anlog 35 unit SQ BID 01/23/18 01/23/18 History [Basaglar Kwikpen U-100] - History PMHx: DM2, diastolic CHF, COPD, HTN, CKD3 PSHx: cholecystectomy, prostatectomy, R thumb, L leg FHx: unknown Social: No recent alcohol, drug use. 1/2 PPD, 80 pack year hx. - Review of Systems General: denies: fever/chills Eyes: denies: vision changes ENT: denies: nasal congestion Respiratory: reports: cough, shortness of breath Cardiovascular: reports: edema. denies: chest pain Gastrointestinal: reports: other (abdominal swelling). denies: nausea, vomiting , diarrhea Genitourinary: reports: other (penile swelling, no difficulty with urination) Skin: denies: rashes Musculoskeletal: reports: tenderness, swelling - Vital signs BP: 175/84 HR: 97 RR: 19 Tmax: 98.5 Pox: 96% on RA Wt: 113 kg - Physical Exam Constitutional: awake, alert and oriented HEENT: normocephalic and atraumatic, PERRLA, grossly normal vision, grossly normal hearing, MMM, oropharynx clear Heart: RRR, normal S1/S2 (exam limited by body habitus) Lungs: CTAB, good air movement Abdomen: non-tender, bowel sounds present, other (distention with fluid wave) Musculoskeletal: normal structure, normal tone Neurological: no focal deficit Skin: capillary refill <2 seconds, other (significant pitting b/l LE edema up to chest. mild weeping of b/l LE. penile swelling, bah in place.) FMR H&P: Results - Labs Result Diagrams: 04/26/18 14:37 04/26/18 14:37 Lab results: WBC 7.8 thou/uL (4.8-10.8) 04/26/18 14:37 Hgb 11.9 g/dL (14.0-18.0) L 04/26/18 14:37 Hct 38.7 % (42.0-52.0) L 04/26/18 14:37 MCV 87.7 fL (78.0-98.0) 04/26/18 14:37 Plt Count 231 thou/uL (130-400) 04/26/18 14:37 Neutrophils % 78.1 % (42.0-75.0) H 04/26/18 14:37 Sodium 137 mmol/L (136-145) 04/26/18 14:37 Potassium 5.3 mmol/L (3.5-5.1) H 04/26/18 14:37 Chloride 105 mmol/L (98-107) 04/26/18 14:37 Carbon Dioxide 21 mmol/L (23-31) L 04/26/18 14:37 BUN 23 mg/dL (8.4-25.7) 04/26/18 14:37 Creatinine 1.57 mg/dL (0.7-1.3) H 04/26/18 14:37 Glucose 126 mg/dL (83-110) H 04/26/18 14:37 Calcium 8.6 mg/dL (7.8-10.44) 04/26/18 14:37 Total Bilirubin 0.3 mg/dL (0.2-1.2) 04/26/18 14:37 AST 21 U/L (5-34) 04/26/18 14:37 ALT 16 U/L (8-55) 04/26/18 14:37 Alkaline Phosphatase 107 U/L (40-150) 04/26/18 14:37 Creatine Kinase 264 U/L (30-200) H 04/26/18 14:37 CK-MB (CK-2) 7.3 ng/mL (0-6.6) H* 04/26/18 14:37 B-Natriuretic Peptide 1772.2 pg/mL (0-100) H 04/26/18 14:37 Serum Total Protein 6.7 g/dL (5.8-8.1) 04/26/18 14:37 Albumin 3.5 g/dL (3.4-4.8) 04/26/18 14:37 FMR H&P: A/P - Problem List (1) CHF exacerbation Current Visit: No Status: Acute Code(s): I50.9 - HEART FAILURE, UNSPECIFIED (2) Hyperkalemia Current Visit: No Status: Acute Code(s): E87.5 - HYPERKALEMIA (3) CKD (chronic kidney disease) stage 3, GFR 30-59 ml/min Current Visit: No Status: Acute Code(s): N18.3 - CHRONIC KIDNEY DISEASE, STAGE 3 (MODERATE) (4) COPD (chronic obstructive pulmonary disease) Current Visit: No Status: Acute (5) DM2 (diabetes mellitus, type 2) Current Visit: No Status: Acute (6) Elevated brain natriuretic peptide (BNP) level Current Visit: No Status: Acute Code(s): R79.89 - OTHER SPECIFIED ABNORMAL FINDINGS OF BLOOD CHEMISTRY (7) HLD (hyperlipidemia) Current Visit: No Status: Acute Code(s): E78.5 - HYPERLIPIDEMIA, UNSPECIFIED (8) HTN (hypertension) Current Visit: No Status: Acute Code(s): I10 - ESSENTIAL (PRIMARY) HYPERTENSION (9) Tobacco abuse Current Visit: No Status: Acute Code(s): Z72.0 - TOBACCO USE - Plan 88 yo M with PMH DM, diastolic CHF, COPD, CKD3 presents with one week history of worsening SOB with exertion. CHF exacerbation - 06/2017 echo showed EF 50-55% with diastolic dysfucntion - 06/2017 stress test showed small apex ischemia and hypokineses. Dr. Knowles at that time attributed symptoms to MSK, not angina, and recommended NSAIDs and PPI - per Dr. Goodrich, patient was taken off diuretics by Dr. Strickland - received 60 mg IV lasix in ED. Will continue diuresis with 40 mg IV daily - BNP 1772 - strict I/Os, fluid restriction - CKMB 7.3, trop 0.042, continue to trend two more trops - EKG with t wave inversion V1-3, right axis deviation, possible block. - Echo ordered Mild Hyperkalemia - 5.3 in ED - Expect lowering with diuretics, will monitor on am BMP Anemia - Hgb 11.9, MCV 87 - could be 2/2 chronic disease - will monitor on am CBC CKD3 - seems to be at baseline. Cr 1.57, GFR 42 on admission - per clinic has seen Dr. Strickland for this previously. May discuss case with him. IDDM - per clinic records, home regimen glargine 38 units BID with lispro 3u tid. Hold home glimepiride. - patient unable to confirm any home medications and says to ask niece who is not present - Will start home glargine with accuchecks and SSI HTN - BP 140-170s systolic in ED - ASA 81, nifedipine xl 30 mg daily, will restart HLD - continue home atorvastatin 40 mg daily COPD - current smoker, 80 pack year hx - has rx for ventolin prn, spiriva. Patient says he does not know what inhalers are. Tobacco abuse - nicotine patch, encourage cessation Diet: Ppx: lovenox Dispo: admit to inpatient telemetry, expected stay >2 midnights FMR H&P: Upper Level - Pertinent history 88 yo M who presents for chief complaint of worsening shortness of breath, LE edema and abdominal distention that has gotten progressively worse over the last couple of weeks. He said nothing he has tried works but cannot thoroughly describe what he has tried. He denies any chest pain, productive cough, dysuria , hematuria, fever or chills. He has never felt like this before. - Pertinent findings Slightly hypertensive Labs and imaging reviewed Gen: awake, alert, interactive HEENT: atraumatic, normocephalic CV: RRR, no murmur noted RESP: CTAB ABD: distended, nontender to palpation, bowel sounds present, fluid wave present : scrotal and penile swelling (approx 2-3X normal penile diameter) EXT: trace pitting edema to lower back - Plan Date/Time: 04/26/18 1626 88 yo M with PMHx dCHF who presents with anasarca and SOB 2/2 CHF exacerbation 1. CHF exacerbation - Diuresis, strict I/O, daily weights, fluid restrict diet - Repeat ECHO - Has seen Dr. Knowles 2. Anasarca - Possibly exclusively related to CHF however may be other source - Consider diagnostic paracentesis - Lasix diuresis 3. HTN - Home meds 4. Tobacco abuse, possible COPD - Denies using inhalers at home - Encouraged cessation 5. IDDM - Home insulin - ACHS accuchecks - CC diet 6. Hyperkalemia - Lasix as above 7. CKD - Follows with Dr. Strickland - Renally dose meds - Monitor BMP 8. Elevated troponin - No chest pain - Likely 2/2 demand ischemia - Repeat I, Susan Segundo MD, PGY-3, have evaluated this patient and agree with findings/ plan as outlined by internet application developer resident. Pertinent changes/additions are listed here. Addendum - Attending - Attending Attestation Date/Time: 04/26/18 1756 I personally evaluated the patient and discussed the management with Dr. Dia and Sanya I agree with the History, Examination, Assessment and Plan documented above with any addition or exceptions noted below. 88 yo male with multiple medical conditions presents for SOB Patient with progressive SOB and swelling. VS reviewed. Labs reviewed. Previous records reviewed. Imaging reviewed. Exam repeated by myself. 1. Acute CHF exacerbation: Continue diuresis. Repeat ECHO. Trend enzymes. Continuous tele monitoring. Cards as needed. 2. Ascites on exam: Would consider therapeutic and dx tap in AM. Previous imaging reviewed. However no dedicated liver imaging performed. No changes in liver enzymes. No significant findings on exam concerning for liver pathology. Likely right sided heart failure resulting in severe fluid overload. Albumin stable and adequate. 3. CKD3: Stable. Monitor. Will likely change due to lasix use. 4. HTN urgency: Elevated BP on arrival. Monitor and treat. Adjust home dose medications as needed. Will monitor other co-morbidities and adjust medications as needed. Hardik
[2018-04-26 16:47] LABS: Bilirubin Negative (Negative); Blood, Urine Negative (Negative); Clarity CLEAR (Clear); Glucose, Urine (Dipstick) Negative (Negative); Leukocyte Negative (Negative); Nitrite Negative (Negative); Protein, Urine (Dipstick) 30 mg/dL (Neg-Trace); Specific Gravity, Urine 1.015 (1.002-1.036); Urobilinogen 0.2 mg/dL (0.2-1.0)
[2018-04-26 16:49] LABS: Bacteria/HPF None Seen HPF (None Seen); Hyaline Casts/LPF 0-3 HYALINE CAST LPF (0-3 Hyaline); Pathc Cast-AUWi Flag 0.14 (0-2.49); RBC/HPF 0-3 HPF (0-3); Squamous Epithelial None Seen HPF (0-3); WBC/HPF None Seen HPF (0-3)
[2018-04-26] MEDS ORDERED: PROVENTIL INHALER 6.7 G (200 INHALATIONS) INH PRN (17:50)
[2018-04-26 18:24] LABS: Troponin I 0.054 ng/mL (< 0.028)
[2018-04-26 20:59] LABS: Troponin I 0.044 ng/mL (< 0.028)
[2018-04-26] MEDS ORDERED: INSULIN GLARGINE HUM REC ANLOG SQ SCH (21:00)
[2018-04-26] MEDS ORDERED: [UNRECOGNIZED DRUG - OTHER] SQ SCH (21:00)
[2018-04-26] MEDS ORDERED: Dextrose 5% in Water 1,000 ML IV PRN (21:17)
[2018-04-26] MEDS ORDERED: Ondansetron ODT 4 MG TAB PO PRN (21:17)
[2018-04-26] MEDS ORDERED: Dextrose 50% Abboject 50 ML SYRINGE SLOW IVP PRN (21:17)
[2018-04-26] MEDS: Ipratropium Bromide 2.5 ml Neb NEB SCH ×2 (21:48→21:49)
[2018-04-27 04:56] LABS: #Eosinphils 0.1 thou/uL (0.0-0.7); #Lymphocytes 1.5 thou/uL (1.20-3.40); #Monocytes 0.9 thou/uL (0.11-0.59); #Neutrophils 7.5 thou/uL (1.40-6.50); %Basophils 0.2 % (0.0-1.0); %Eosinophils 1.4 % (0.0-10.0); %Lymphocytes 14.5 % (21.0-51.0); %Monocytes 8.9 % (0.0-10.0); Hemoglobin 11.5 g/dL (14.0-18.0); Mean Corpuscular HGB CONC 31.3 g/dL (32.0-36.0); Mean Corpuscular Hemoglobin 26.8 pg (27.0-31.0); Mean Corpuscular Volume 85.7 fL (78.0-98.0); Mean Platelet Volume 9.2 fL (7.4-10.4); Platelet Count 236 thou/uL (130-400); RBC Distribution Width 14.3 % (11.5-14.5)
[2018-04-27] MEDS ORDERED: Furosemide 40 MG/4 ML VIAL SLOW IVP SCH ×2 (05:00→09:00)
[2018-04-27 05:01] LABS: Anion Gap 12 mmol/L (10-20); BUN (Urea Nitrogen) 25 mg/dL (8.4-25.7); Calc. Creatinine Clearance 59 mL/min (70-130); Calcium 8.8 mg/dL (7.8-10.44); Carbon Dioxide 27 mmol/L (23-31); Chloride 104 mmol/L (98-107); Estimated GFR-MDRD 49; Potassium 4.2 mmol/L (3.5-5.1); Sodium 139 mmol/L (136-145)
[2018-04-27 05:07] LABS: Glucose 39 mg/dL (83-110)
--- NOTE | 2018-04-27 05:09 | PDOC.EVN ---
Event Note - Event Note Event Note: Called to patient bedside by nursing staff for concern of hematuria around 0445. Patient sitting up in chair reporting SOB. He was unaware of any penile bleeding. Nursing staff reporting blood and pus from bah catheter earlier tonight. He has blood tinged urine now with some clots. Examined bah catheter bag- blood tinged urine, no gross clots seen in current bag. Bah catheter protruding very taut from meatus. Some evidence for dried blood around meatus. No active bleeding from meatus. Significant penile swelling. Recommend moving bah catheter thigh estrada (statlock) closer to penile shaft. Will hold AM ASA and DC ppx lovenox. Will obtain new UA and urine ccx. Consider consult to urology later this morning. Will give lasix dose now in nat[place] of waiting until 0900.
[2018-04-27] MEDS: Gabapentin 100 MG CAP PO SCH ×3 (05:16→20:18)
[2018-04-27] MEDS: Nicotine 21 MG PATCH TD SCH ×2 (05:17→15:40)
[2018-04-27] MEDS: Insulin Glargine 38 UNITS in Pre-Filled Syringe 1 EACH SC SCH ×2 (05:17→11:39)
--- NOTE | 2018-04-27 06:07 | PDOC.FM ---
- Subjective Subjective: Mr. Dodge was laying nearly flat in bed and complained of SOB ever since the nurse gave him lasix. I sat patient up on side of bed. Wheezing on exam, ordered a duoneb considering patient's history of copd. No chest pain or heart palpitations. Patient denies any other complaints apart from SOB. - Objective MAR Reviewed: Yes Vital Signs & Weight: Vital Signs (12 hours) Temp Pulse Resp BP Pulse Ox 04/27/18 04:00 98.3 F 90 19 144/75 H 93 L 04/26/18 23:55 98.0 F 86 22 H 159/91 H 95 04/26/18 21:49 80 12 96 Weight Weight 113.171 kg Result Diagrams: 04/27/18 04:21 04/27/18 04:21 Phys Exam - Physical Examination Constitutional: NAD Respiratory: wheezing present Cardiovascular: RRR, no significant murmur Gastrointestinal: non-tender, positive bowel sounds (distended w/ fluid wave) Musculoskeletal: edema present (anasarca, 4+ pitting edema b/l LE) some blood in bah, not actively bleeding, no clots Neurological: moves all 4 limbs Skin: cap refill <2 seconds Dx/Plan (1) CHF exacerbation Code(s): I50.9 - HEART FAILURE, UNSPECIFIED Status: Acute (2) Hyperkalemia Code(s): E87.5 - HYPERKALEMIA Status: Acute (3) CKD (chronic kidney disease) stage 3, GFR 30-59 ml/min Code(s): N18.3 - CHRONIC KIDNEY DISEASE, STAGE 3 (MODERATE) Status: Acute (4) COPD (chronic obstructive pulmonary disease) Status: Acute (5) DM2 (diabetes mellitus, type 2) Status: Acute (6) Elevated brain natriuretic peptide (BNP) level Code(s): R79.89 - OTHER SPECIFIED ABNORMAL FINDINGS OF BLOOD CHEMISTRY Status : Acute (7) HLD (hyperlipidemia) Code(s): E78.5 - HYPERLIPIDEMIA, UNSPECIFIED Status: Acute (8) HTN (hypertension) Code(s): I10 - ESSENTIAL (PRIMARY) HYPERTENSION Status: Acute (9) Tobacco abuse Code(s): Z72.0 - TOBACCO USE Status: Acute - Plan Plan: 88 yo M with PMH DM, diastolic CHF, COPD, CKD3 presents with one week history of worsening SOB with exertion. CHF exacerbation - 06/2017 echo showed EF 50-55% with diastolic dysfunction - 06/2017 stress test showed small apex ischemia and hypokineses. Dr. Knowles at that time attributed symptoms to MSK, not angina, and recommended NSAIDs and PPI - per Dr. Goodrich, patient was taken off diuretics by Dr. Strickland - received 60 mg IV lasix in ED. Will continue diuresis with 40 mg IV daily - BNP 1772 - strict I/Os, fluid restriction. No output recorded yet. Continue to monitor bah. - troponins trended x3 and stayed stable overnight - EKG with t wave inversion V1-3, right axis deviation, possible block. - Echo pending Mild Hyperkalemia, resolved - 5.3 in ED-->4.2 Anemia - Hgb 11, MCV 87 - likely 2/2 chronic disease - will monitor on CBC CKD3 - Cr 1.57, GFR 42 on admission, now 1.38 - per clinic has seen Dr. Strickland for this previously and was stopped on diuretics IDDM - per clinic records, home regimen glargine 38 units BID with lispro 3u tid. Hold home glimepiride. - patient unable to confirm any home medications and says to ask niece who is not present - Continue accuchecks and SSI - Patient given home 38 units, BG dropped to 39 overnight, will decrease insulin dose today. HTN - BP 140-170s systolic in ED - ASA 81, nifedipine xl 30 mg daily, continue HLD - continue home atorvastatin 40 mg daily COPD - current smoker, 80 pack year hx - has rx for ventolin prn, spiriva. Patient says he does not know what inhalers are. - added duonebs prn Tobacco abuse - nicotine patch, encourage cessation Diet: Ppx: lovenox Dispo: Plan to continue diuresis, pending workup Addendum - Attending - Attending Attestation Date/Time: 04/27/18 1022 I personally evaluated the patient and discussed the management with Dr. Dia. I agree with the History, Examination, Assessment and Plan documented above with any addition or exceptions noted below. The patient received IV lasix this morning. Lungs were mostly clear. He did have blood in his bah overnight. UA and culture are pending. Echo is pending. Continue diuresis.
[2018-04-27 07:42] LABS: Prothrombin Time 13.7 SEC (12.0-14.7)
[2018-04-27 07:43] LABS: PTT 32.2 SEC (22.9-36.1)
[2018-04-27] MEDS: Ipratropium Bromide 2.5 ml Neb NEB SCH ×3 (08:31→18:02)
[2018-04-27 08:58] LABS: RBC/HPF 21-50 HPF (0-3); Squamous Epithelial None Seen HPF (0-3); Transitional Epithelial NONE SEEN HPF (0-3)
[2018-04-27 08:59] LABS: Bacteria/HPF Rare-Few HPF (None Seen); WBC/HPF 0-3 HPF (0-3)
[2018-04-27] MEDS ORDERED: Spiriva 18 MCG CAP (Box of 5 Caps) INH SCH (09:00)
[2018-04-27] MEDS ORDERED: Enoxaparin Sodium 40 MG/0.4 ML SYRINGE SC SCH (09:00)
[2018-04-27] MEDS ORDERED: Prevnar 13-Val Conj/PF 0.5 ML SYRINGE IM ONE (09:00)
[2018-04-27] MEDS: Aspirin 81 mg Enteric Coated Tablet PO SCH (09:25)
[2018-04-27] MEDS: Atorvastatin Calcium 40 MG TAB PO SCH (09:25)
[2018-04-27] MEDS: NIFEdipine XL 30 MG TAB PO SCH (09:26)
[2018-04-27] MEDS: HumaLOG 300 UNITS/3 ML VIAL SC PRN ×2 (16:55→20:07)
[2018-04-27] MEDS: Insulin Glargine 20 UNITS in Pre-Filled Syringe 1 EACH SC SCH (20:06)
[2018-04-28] MEDS: Ipratropium Bromide 2.5 ml Neb NEB SCH ×5 (00:21→23:36)
[2018-04-28 05:26] LABS: #Eosinphils 0.1 thou/uL (0.0-0.7); #Lymphocytes 0.9 thou/uL (1.20-3.40); #Neutrophils 8.8 thou/uL (1.40-6.50); %Basophils 0.1 % (0.0-1.0); %Eosinophils 0.9 % (0.0-10.0); %Lymphocytes 8.3 % (21.0-51.0); %Monocytes 9.5 % (0.0-10.0); %Neutrophils 81.3 % (42.0-75.0); Hemoglobin 10.7 g/dL (14.0-18.0); Mean Corpuscular HGB CONC 31.1 g/dL (32.0-36.0); Mean Corpuscular Hemoglobin 26.9 pg (27.0-31.0); Mean Corpuscular Volume 86.5 fL (78.0-98.0); Platelet Count 207 thou/uL (130-400); RBC Distribution Width 14.2 % (11.5-14.5); Red Blood Cell (RBC) Count 3.99 mill/uL (4.70-6.10); White Blood Cell (WBC) Count 10.8 thou/uL (4.8-10.8)
[2018-04-28 05:53] LABS: Anion Gap 13 mmol/L (10-20); BUN (Urea Nitrogen) 29 mg/dL (8.4-25.7); Calc. Creatinine Clearance 56 mL/min (70-130); Calcium 8.6 mg/dL (7.8-10.44); Carbon Dioxide 28 mmol/L (23-31); Chloride 103 mmol/L (98-107); Estimated GFR-MDRD 46; Glucose 70 mg/dL (83-110); Potassium 4.1 mmol/L (3.5-5.1); Sodium 140 mmol/L (136-145)
--- NOTE | 2018-04-28 05:54 | PDOC.FM ---
- Subjective Subjective: Mr. Dodge says his SOB has improved some. Has no other complaints this morning other than feeling cold. - Objective MAR Reviewed: Yes Vital Signs & Weight: Vital Signs (12 hours) Temp Pulse Resp BP BP Pulse Ox 04/28/18 04:01 97.8 F 77 22 H 100/58 L 93 L 04/28/18 00:26 96 04/28/18 00:21 75 18 96 04/28/18 00:06 97.7 F 93 22 H 146/65 H 95 04/27/18 20:05 98.4 F 80 22 H 116/54 L 94 L 04/27/18 18:01 88 22 H 92 L Weight Weight 112.491 kg I&O: 04/26/18 04/27/18 04/28/18 06:59 06:59 06:59 Intake Total 1980 Output Total 900 Balance 1080 Result Diagrams: 04/28/18 04:29 04/28/18 04:29 Phys Exam - Physical Examination Constitutional: NAD Respiratory: wheezing present (diffuse expiratory wheezes) Cardiovascular: RRR, no significant murmur (exam limited d/t body habitus) Gastrointestinal: non-tender (distended w/ fluid wave), positive bowel sounds 4+ pitting edema b/l LE. Not weeping. Neurological: non-focal Skin: normal turgor, cap refill <2 seconds Deviation from normal: R face dark pigmentation Dx/Plan (1) CHF exacerbation Code(s): I50.9 - HEART FAILURE, UNSPECIFIED Status: Acute (2) Hyperkalemia Code(s): E87.5 - HYPERKALEMIA Status: Acute (3) CKD (chronic kidney disease) stage 3, GFR 30-59 ml/min Code(s): N18.3 - CHRONIC KIDNEY DISEASE, STAGE 3 (MODERATE) Status: Acute (4) COPD (chronic obstructive pulmonary disease) Status: Acute (5) DM2 (diabetes mellitus, type 2) Status: Acute (6) Elevated brain natriuretic peptide (BNP) level Code(s): R79.89 - OTHER SPECIFIED ABNORMAL FINDINGS OF BLOOD CHEMISTRY Status : Acute (7) HLD (hyperlipidemia) Code(s): E78.5 - HYPERLIPIDEMIA, UNSPECIFIED Status: Acute (8) HTN (hypertension) Code(s): I10 - ESSENTIAL (PRIMARY) HYPERTENSION Status: Acute (9) Tobacco abuse Code(s): Z72.0 - TOBACCO USE Status: Acute - Plan Plan: 88 yo M with PMH DM, diastolic CHF, COPD, CKD3 presents with one week history of worsening SOB with exertion. CHF exacerbation - 06/2017 echo showed EF 50-55% with diastolic dysfunction - 06/2017 stress test showed small apex ischemia and hypokineses. Dr. Knowles at that time attributed symptoms to MSK, not angina, and recommended NSAIDs and PPI - per Dr. Goodrich, patient was taken off diuretics by Dr. Strickland - received 60 mg IV lasix in ED. Will continue diuresis with 40 mg IV daily - BNP 1772 - strict I/Os, fluid restriction - Echo read pending - increase lasix to 40 iv bid today Penile/scrotal swelling - worsens with sitting upright, denies pain - bah in place. Has had blood tinged urine, likely 2/2 trauma. No active bleeding - will continue to hold lovenox for bleeding - pending urine culture COPD, with possible exacerbation - current smoker, 80 pack year hx - has rx for ventolin, spiriva. Patient says he does not know what inhalers are. - added duonebs prn - has had wheezing/SOB. No sign of infection - start prenidsone 40 PO for 5 day course - wean O2 to keep sats 88-92% Mild Hyperkalemia, resolved - 5.3 in ED-->4.2 Anemia - Hgb 10, MCV 87 - likely 2/2 chronic disease - will monitor on CBC CKD3 - Cr 1.57, GFR 42 on admission, now 1.38 - per clinic has seen Dr. Strickland for this previously and was stopped on diuretics IDDM - per clinic records, home regimen glargine 38 units BID with lispro 3u tid. Hold home glimepiride. - Continue accuchecks and SSI - Patient given home 38 units, BG dropped to 39 overnight. Insulin was decreased to 20 units BID, will titrate up as needed. HTN - BP 140-170s systolic in ED - ASA 81, nifedipine xl 30 mg daily, continue HLD - continue home atorvastatin 40 mg daily Tobacco abuse - nicotine patch, encourage cessation Diet: Ppx: lovenox Dispo: Plan to continue diuresis, pending workup Addendum - Attending - Attending Attestation Date/Time: 04/28/18 5719 I personally evaluated the patient and discussed the management with Dr. Dia. I agree with the History, Examination, Assessment and Plan documented above with any addition or exceptions noted below. Pt required oxygen again this morning and is wheezing on exam. He still has penile and lower extremity edema. Urine culture is pending but urine is still blood-tinged. Pt is afebrile. Will increase lasix to bid and monitor creatinine. Will also add prednisone for copd exacerbation and continue nebs.
[2018-04-28] MEDS ORDERED: Furosemide 40 MG/4 ML VIAL SLOW IVP SCH (09:00)
[2018-04-28] MEDS: Insulin Glargine 20 UNITS in Pre-Filled Syringe 1 EACH SC SCH ×2 (09:15→21:40)
[2018-04-28] MEDS: NIFEdipine XL 30 MG TAB PO SCH (09:17)
[2018-04-28] MEDS: Atorvastatin Calcium 40 MG TAB PO SCH (09:17)
[2018-04-28] MEDS: Gabapentin 100 MG CAP PO SCH ×2 (09:17→21:41)
[2018-04-28] MEDS ORDERED: predniSONE 20 MG TAB PO SCH (10:15)
[2018-04-28] MEDS: HumaLOG 300 UNITS/3 ML VIAL SC PRN ×2 (11:06→23:35)
[2018-04-28] MEDS: Furosemide 40 MG/4 ML VIAL SLOW IVP SCH (21:41)
[2018-04-28] MEDS: Nicotine 21 MG PATCH TD SCH (22:00)
[2018-04-29 05:51] LABS: #Lymphocytes 0.6 thou/uL (1.20-3.40); #Monocytes 0.6 thou/uL (0.11-0.59); #Neutrophils 9.3 thou/uL (1.40-6.50); %Eosinophils 0.1 % (0.0-10.0); Hemoglobin 11.3 g/dL (14.0-18.0); Mean Corpuscular HGB CONC 31.4 g/dL (32.0-36.0); Mean Corpuscular Hemoglobin 26.9 pg (27.0-31.0); Mean Corpuscular Volume 85.7 fL (78.0-98.0); Mean Platelet Volume 9.5 fL (7.4-10.4); Platelet Count 215 thou/uL (130-400); RBC Distribution Width 14.3 % (11.5-14.5); Red Blood Cell (RBC) Count 4.21 mill/uL (4.70-6.10); White Blood Cell (WBC) Count 10.5 thou/uL (4.8-10.8)
[2018-04-29 06:01] LABS: Anion Gap 16 mmol/L (10-20); BUN (Urea Nitrogen) 40 mg/dL (8.4-25.7); Calc. Creatinine Clearance 45 mL/min (70-130); Calcium 8.7 mg/dL (7.8-10.44); Carbon Dioxide 25 mmol/L (23-31); Chloride 101 mmol/L (98-107); Estimated GFR-MDRD 36; Glucose 228 mg/dL (83-110); Potassium 4.2 mmol/L (3.5-5.1); Sodium 138 mmol/L (136-145)
--- NOTE | 2018-04-29 06:55 | PDOC.FM ---
- Subjective Subjective: NAEO. Reports mild SOB with exertion. No dysuria or flank pain. Feels swelling is about the same. - Objective MAR Reviewed: Yes Vital Signs & Weight: Vital Signs (12 hours) Temp Pulse Resp BP Pulse Ox 04/29/18 04:00 97 F L 84 20 111/58 L 94 L 04/28/18 23:36 96 04/28/18 20:22 99.3 F 76 18 108/53 L 96 04/28/18 19:32 94 L 04/28/18 19:31 96 Weight Weight 111.448 kg I&O: 04/27/18 04/28/18 04/29/18 06:59 06:59 06:59 Intake Total 2290 730 Output Total 1450 1600 Balance 840 -870 Result Diagrams: 04/29/18 04:55 04/29/18 04:55 Phys Exam - Physical Examination Constitutional: NAD HEENT: moist MMs, sclera anicteric Respiratory: no wheezing, clear to auscultation bilateral Cardiovascular: RRR 2+ edema BLE Neurological: moves all 4 limbs Psychiatric: normal affect Deviation from normal: bah in place, white discharge in foreskin fold around penis Dx/Plan (1) Balanitis Code(s): N48.1 - BALANITIS Status: Acute (2) CHF exacerbation Code(s): I50.9 - HEART FAILURE, UNSPECIFIED Status: Acute (3) CKD (chronic kidney disease) stage 3, GFR 30-59 ml/min Code(s): N18.3 - CHRONIC KIDNEY DISEASE, STAGE 3 (MODERATE) Status: Acute (4) COPD (chronic obstructive pulmonary disease) Status: Acute (5) DM2 (diabetes mellitus, type 2) Status: Acute (6) HLD (hyperlipidemia) Code(s): E78.5 - HYPERLIPIDEMIA, UNSPECIFIED Status: Acute (7) HTN (hypertension) Code(s): I10 - ESSENTIAL (PRIMARY) HYPERTENSION Status: Acute (8) Tobacco abuse Code(s): Z72.0 - TOBACCO USE Status: Acute - Plan Plan: 88 yo M with PMH DM2, diastolic CHF, COPD, CKD3 presents with acute CHF exacerbation CHFrEF exacerbation - 06/2017 echo showed EF 50-55% with diastolic dysfunction - 06/2017 stress test showed small apex ischemia and hypokineses. Dr. Knowles at that time attributed symptoms to MSK, not angina, and recommended NSAIDs and PPI - per Dr. Goodrich, patient was taken off diuretics by Dr. Strickland - Echo 04/29: EF 35-39% - UOP 870cc/24hr, continue 40IV lasix BID - Continue strict I/Os, fluid restriction, daily wts - Will start on appropriate HF meds: BB - Will consult cards for new diagnosis of CHFrEF Balanitis -One time dose of fluconazole 75mg due to creatinine clearance -Nystatin powder Penile/scrotal swelling - worsens with sitting upright, denies pain - bah in place due to concern for obstruction from swelling - Hx of blood tinged urine, likely 2/2 trauma. No active bleeding at this time - however will continue to hold lovenox - AMEENA score 3 - Urine cx pending COPD, with possible exacerbation - current smoker, 80 pack year hx - home ventolin, spiriva - added duonebs prn - has had wheezing/SOB. No sign of infection - start prenidsone 40 PO for 5 day course - not on home O2 will wean with sat% goal range 88-92% Mild Hyperkalemia, resolved - 5.3 in ED-->4.2 Anemia, normocytic - Hgb 11, MCV 87 - likely 2/2 chronic disease - will monitor on daily CBC CKD3b - Cr 1.57 -> 1.8 - per clinic has seen Dr. Strickland for this previously and was stopped on diuretics IDDM2 - per clinic records, home regimen glargine 38 units BID with lispro 3u tid. Hold home glimepiride. - Required 6U SS yesterday, will Inc Lantus 22 units BID - Continue accuchecks and SSI HTN - BP 140-170s systolic in ED - ASA 81, nifedipine xl 30 mg daily, continue HLD - continue home atorvastatin 40 mg daily Tobacco abuse - nicotine patch, encourage cessation Diet: Ppx: lovenox (held) Dispo: Inc lantus to continue optimal glucose control. Continue diuresis with IV lasix. Nystatin and diflucan for balnitis. Awaiting cardiology recommendations Addendum - Attending - Attending Attestation Date/Time: 04/29/18 1421 I personally evaluated the patient and discussed the management with Dr. Strickland I agree with the History, Examination, Assessment and Plan documented above .
[2018-04-29] MEDS: Ipratropium Bromide 2.5 ml Neb NEB SCH ×3 (07:22→21:03)
[2018-04-29] MEDS: Gabapentin 100 MG CAP PO SCH ×2 (08:35→20:45)
[2018-04-29] MEDS: Atorvastatin Calcium 40 MG TAB PO SCH (08:35)
[2018-04-29] MEDS: NIFEdipine XL 30 MG TAB PO SCH (08:35)
[2018-04-29] MEDS: Insulin Glargine 22 UNITS in Pre-Filled Syringe 1 EACH SC SCH ×2 (08:35→20:43)
[2018-04-29] MEDS: predniSONE 20 MG TAB PO SCH (08:35)
[2018-04-29] MEDS: Furosemide 40 MG/4 ML VIAL SLOW IVP SCH (08:36)
[2018-04-29] MEDS ORDERED: Fluconazole 10 mg/ml Oral Suspension PO SCH (11:45)
[2018-04-29] MEDS: HumaLOG 300 UNITS/3 ML VIAL SC PRN ×3 (12:02→20:45)
[2018-04-29 13:42] LABS: Actual Bicarbonate (HCO3a) 21.3 mEq/L (22-28); CO2 Tension 40.1 mmHg (35.0-45.0); Calcium, Ionized 1.07 mmol/L (1.12-1.30); Carboxyhemoglobin (COHb) 1.3 gm% (0.0-3.0); Hemoglobin (Hb) 12.1 g/dL (14.0-18.0); O2 Tension (PaO2) 90.9 mmHg (> 60.0); Potassium - ABG Lab 4.54 mmol/L (3.70-5.30); pH, Arterial 7.34 (7.35-7.45)
[2018-04-29] MEDS ORDERED: Furosemide 40 MG TAB PO SCH (14:00)
[2018-04-29 14:17] LABS: ALV-art Gradient 58.615 (0-20); Puncture Site RRA
[2018-04-29] MEDS: hydrALAZINE 25 MG TAB PO SCH ×2 (15:55→20:44)
[2018-04-29] MEDS ORDERED: Furosemide 100 MG/10 ML VIAL SLOW IVP SCH ×2 (16:00)
[2018-04-29] MEDS: Nystatin Powder 15 GM BOT TOP PRN ×2 (16:08→20:46)
[2018-04-29] MEDS: DOBUTamine 500 mg/250 ml 250 ML IVPB SCH (16:10)
[2018-04-29] MEDS ORDERED: Furosemide 20 MG TAB PO SCH ×2 (21:00)
[2018-04-29] MEDS: Nicotine 21 MG PATCH TD SCH (21:39)
[2018-04-30] MEDS: Ipratropium Bromide 2.5 ml Neb NEB SCH ×4 (00:22→18:52)
[2018-04-30] MEDS ORDERED: Calcium Carbonate 500 MG ChewTAB PO PRN (00:26)
[2018-04-30] MEDS ORDERED: Simethicone Chewable 80 MG TAB PO PRN (00:26)
[2018-04-30] MEDS: DOBUTamine 500 mg/250 ml 250 ML IVPB SCH ×2 (05:34→23:16)
[2018-04-30] MEDS: Furosemide 100 MG/10 ML VIAL SLOW IVP SCH ×2 (05:35→14:42)
[2018-04-30] MEDS: HumaLOG 300 UNITS/3 ML VIAL SC PRN ×4 (05:37→20:56)
[2018-04-30 05:56] LABS: #Lymphocytes 0.7 thou/uL (1.20-3.40); #Monocytes 0.9 thou/uL (0.11-0.59); #Neutrophils 8.8 thou/uL (1.40-6.50); %Basophils 0.1 % (0.0-1.0); %Eosinophils 0.2 % (0.0-10.0); %Lymphocytes 6.3 % (21.0-51.0); %Monocytes 8.2 % (0.0-10.0); %Neutrophils 85.2 % (42.0-75.0); Hemoglobin 10.2 g/dL (14.0-18.0); Mean Corpuscular HGB CONC 31.2 g/dL (32.0-36.0); Mean Corpuscular Hemoglobin 26.7 pg (27.0-31.0); Mean Corpuscular Volume 85.7 fL (78.0-98.0); Mean Platelet Volume 9.6 fL (7.4-10.4); Platelet Count 197 thou/uL (130-400); RBC Distribution Width 14.4 % (11.5-14.5); Red Blood Cell (RBC) Count 3.81 mill/uL (4.70-6.10); White Blood Cell (WBC) Count 10.3 thou/uL (4.8-10.8)
[2018-04-30 06:13] LABS: Anion Gap 15 mmol/L (10-20); BUN (Urea Nitrogen) 57 mg/dL (8.4-25.7); Calc. Creatinine Clearance 39 mL/min (70-130); Calcium 8.5 mg/dL (7.8-10.44); Carbon Dioxide 27 mmol/L (23-31); Chloride 98 mmol/L (98-107); Estimated GFR-MDRD 30; Glucose 397 mg/dL (83-110); Potassium 4.6 mmol/L (3.5-5.1); Sodium 135 mmol/L (136-145)
--- NOTE | 2018-04-30 06:23 | PDOC.FM ---
- Objective Vital Signs & Weight: Vital Signs (12 hours) Temp Pulse Resp BP BP BP Pulse Ox 04/30/18 03:28 97.8 F 90 18 140/65 93 L 04/30/18 00:22 86 16 93 L 04/30/18 00:00 89 152/69 H 04/29/18 21:03 81 16 92 L 04/29/18 20:44 96 145/67 H 04/29/18 20:40 93 L 04/29/18 19:29 98.4 F 96 18 145/67 H 93 L Weight Admit Weight 113.171 kg Weight 111.811 kg I&O: 04/28/18 04/29/18 04/30/18 06:59 06:59 06:59 Intake Total 2290 730 1270 Output Total 1450 1600 850 Balance 840 -870 420 Result Diagrams: 04/30/18 05:43 04/30/18 05:43 Dx/Plan (1) Balanitis Code(s): N48.1 - BALANITIS Status: Acute (2) CHF exacerbation Code(s): I50.9 - HEART FAILURE, UNSPECIFIED Status: Acute (3) CKD (chronic kidney disease) stage 3, GFR 30-59 ml/min Code(s): N18.3 - CHRONIC KIDNEY DISEASE, STAGE 3 (MODERATE) Status: Acute (4) COPD (chronic obstructive pulmonary disease) Status: Acute (5) DM2 (diabetes mellitus, type 2) Status: Acute (6) HLD (hyperlipidemia) Code(s): E78.5 - HYPERLIPIDEMIA, UNSPECIFIED Status: Acute (7) HTN (hypertension) Code(s): I10 - ESSENTIAL (PRIMARY) HYPERTENSION Status: Acute (8) Tobacco abuse Code(s): Z72.0 - TOBACCO USE Status: Acute - Plan Plan: 88 yo M with PMH DM2, diastolic CHF, COPD, CKD3 presents with acute CHF exacerbation CHFrEF exacerbation - 06/2017 echo showed EF 50-55% with diastolic dysfunction - 06/2017 stress test showed small apex ischemia and hypokineses. Dr. Knowles at that time attributed symptoms to MSK, not angina, and recommended NSAIDs and PPI - per Dr. Goodrich, patient was taken off diuretics by Dr. Strickland - Echo 04/29: EF 35-39% - UOP 870cc/24hr, continue 40IV lasix BID - Continue strict I/Os, fluid restriction, daily wts - Will start on appropriate HF meds: BB - Will consult cards for new diagnosis of CHFrEF CHRISTIAN on CKD3b - Cr 1.57 -> 1.8 - per clinic has seen Dr. Strickland for this previously and was stopped on diuretics Balanitis -One time dose of fluconazole 75mg due to creatinine clearance -Nystatin powder Penile/scrotal swelling - worsens with sitting upright, denies pain - bah in place due to concern for obstruction from swelling - Hx of blood tinged urine, likely 2/2 trauma. No active bleeding at this time - however will continue to hold lovenox - AMEENA score 3 - Urine cx pending COPD, with possible exacerbation - current smoker, 80 pack year hx - home ventolin, spiriva - added duonebs prn - has had wheezing/SOB. No sign of infection - start prenidsone 40 PO for 5 day course - not on home O2 will wean with sat% goal range 88-92% Mild Hyperkalemia, resolved - 5.3 in ED-->4.2 Anemia, normocytic - Hgb 11, MCV 87 - likely 2/2 chronic disease - will monitor on daily CBC IDDM2 - per clinic records, home regimen glargine 38 units BID with lispro 3u tid. Hold home glimepiride. - Required 6U SS yesterday, will Inc Lantus 22 units BID - Continue accuchecks and SSI HTN - BP 140-170s systolic in ED - ASA 81, nifedipine xl 30 mg daily, continue HLD - continue home atorvastatin 40 mg daily Tobacco abuse - nicotine patch, encourage cessation Diet: HH Ppx: lovenox (held) Dispo: Inc lantus to continue optimal glucose control. Continue diuresis with IV lasix. Nystatin and diflucan for balnitis. Awaiting cardiology recommendations
[2018-04-30] MEDS ORDERED: Insulin Regular 300 UNITS/3 ML VIAL SC PRN (06:30)
[2018-04-30] MEDS ORDERED: Insulin Glargine 26 UNITS in Pre-Filled Syringe 1 EACH SC SCH (06:31)
[2018-04-30] MEDS ORDERED: Insulin Glargine 24 UNITS in Pre-Filled Syringe 1 EACH SC SCH (06:32)
--- NOTE | 2018-04-30 06:42 | PDOC.FM ---
Addendum entered and electronically signed by Aminta Strickland MD 04/30/18 10:07 : Will inc. Lantus 10units BID for optimal glucose control. Continue ACHS. Original Note: - Subjective Subjective: NAEO. Reports still feeling SOB with exertion. No dysuria or penile pain, but moist around area. - Objective MAR Reviewed: Yes Vital Signs & Weight: Vital Signs (12 hours) Temp Pulse Resp BP BP BP Pulse Ox 04/30/18 03:28 97.8 F 90 18 140/65 93 L 04/30/18 00:22 86 16 93 L 04/30/18 00:00 89 152/69 H 04/29/18 21:03 81 16 92 L 04/29/18 20:44 96 145/67 H 04/29/18 20:40 93 L 04/29/18 19:29 98.4 F 96 18 145/67 H 93 L Weight Admit Weight 113.171 kg Weight 111.811 kg I&O: 04/28/18 04/29/18 04/30/18 06:59 06:59 06:59 Intake Total 2290 730 1270 Output Total 1450 1600 850 Balance 840 -870 420 Result Diagrams: 04/30/18 05:43 04/30/18 05:43 Phys Exam - Physical Examination Constitutional: NAD hyperpigmented skin around R side of face (birthmark) Neck: full ROM Respiratory: no wheezing, clear to auscultation bilateral Cardiovascular: RRR, no significant murmur 2+ edema up to mid thighs. bandaged legs b/l Neurological: moves all 4 limbs Psychiatric: normal affect, A&O x 3 Deviation from normal: moist around penis when foreskin retracted, white residue Dx/Plan (1) CHF exacerbation Code(s): I50.9 - HEART FAILURE, UNSPECIFIED Status: Acute (2) Balanitis Code(s): N48.1 - BALANITIS Status: Acute (3) CKD (chronic kidney disease) stage 3, GFR 30-59 ml/min Code(s): N18.3 - CHRONIC KIDNEY DISEASE, STAGE 3 (MODERATE) Status: Acute (4) COPD (chronic obstructive pulmonary disease) Status: Acute (5) DM2 (diabetes mellitus, type 2) Status: Acute (6) HLD (hyperlipidemia) Code(s): E78.5 - HYPERLIPIDEMIA, UNSPECIFIED Status: Acute (7) HTN (hypertension) Code(s): I10 - ESSENTIAL (PRIMARY) HYPERTENSION Status: Acute (8) Tobacco abuse Code(s): Z72.0 - TOBACCO USE Status: Acute - Plan Plan: 88 yo M with PMH DM2, diastolic CHF, COPD, CKD3 presents with acute CHF exacerbation CHFrEF exacerbation - 06/2017 echo showed EF 50-55% with diastolic dysfunction - 06/2017 stress test showed small apex ischemia and hypokineses. Dr. Knowles at that time attributed symptoms to MSK, not angina, and recommended NSAIDs and PPI - Echo 04/29: EF 35-39% - UOP 850cc/24hr, continue 80IV lasix BID per cards - dobutamine gtt at 5mcg/hr - BB upon discharge - Continue strict I/Os, fluid restriction, daily wts CHRISTIAN on CKD3b - Cr 1.57 -> 1.8 -> 2.09 - Suspected cardiorenal component Balanitis -One time dose of fluconazole 75mg due to creatinine clearance -Nystatin powder, educate on care and maintenance Penile/scrotal swelling - worsens with sitting upright, denies pain - bah in place due to concern for obstruction from swelling - Hx of blood tinged urine, likely 2/2 trauma. No active bleeding at this time - however will continue to hold lovenox - AMEENA score 3 - Urine cx with presumptive enterococcus with <5000CFU, will d/c bah today COPD, with possible exacerbation - current smoker, 80 pack year hx - home ventolin, spiriva - added duonebs prn - has had wheezing/SOB. No sign of infection -continue prenidsone 40 PO for 5 day course - not on home O2 will wean with sat% goal range 88-92% Mild Hyperkalemia, resolved - 5.3 in ED-->4.2 Anemia, normocytic - Hgb 11, MCV 87 - likely 2/2 chronic disease - will monitor on daily CBC IDDM2 - per clinic records, home regimen glargine 38 units BID with lispro 3u tid. Hold home glimepiride. - High POC glucose, also on steroids - Continue Lantus BID, will continue to titrate to goal - Inc to moderate SS - Continue accuchecks and SSI HTN - Hydralazine TID - ASA 81, nifedipine xl 30 mg daily, continue HLD - continue home atorvastatin 40 mg daily Tobacco abuse - nicotine patch, encourage cessation Diet: HH Ppx: lovenox (held) Dispo: Inc to moderate SS for better coverage during this prednisone course. Continue diuresis with IV lasix. Nystatin and diflucan for balinitis. On dobutamine drip. Worsening renal function, likely cardiorenal, will continue to monitor with daily BMPs. Continue COPD meds and 5 day prednisone course. Will d/ c olvin. Addendum - Attending - Attending Attestation Date/Time: 04/30/18 1232 I personally evaluated the patient and discussed the management with Dr. Strickland I agree with the History, Examination, Assessment and Plan documented above with any addition or exceptions noted below.patient feeling better continue monitor RFT responding to dobutamine infusion. will need Improved BS control.
[2018-04-30] MEDS: hydrALAZINE 25 MG TAB PO SCH ×3 (09:32→20:56)
[2018-04-30] MEDS: predniSONE 20 MG TAB PO SCH (09:32)
[2018-04-30] MEDS: Atorvastatin Calcium 40 MG TAB PO SCH (09:32)
[2018-04-30] MEDS: Gabapentin 100 MG CAP PO SCH ×2 (09:32→20:57)
[2018-04-30] MEDS: Nystatin Powder 15 GM BOT TOP PRN (09:39)
--- NOTE | 2018-04-30 09:48 | CON ---
DATE OF CONSULTATION: HISTORY OF PRESENT ILLNESS: The patient is an unfortunate 88-year-old gentleman , who presents with lower extremity swelling and dyspnea .The patient has a history of diastolic heart failure. The patient also has diabetes mellitus and hypertension. The patient presented with increasing lower extremity swelling and scrotal edema. The patient denied having any chest discomfort. PAST MEDICAL HISTORY: 1. Diabetes mellitus. 2. Hypertension. 3. Chronic renal insufficiency. 4. Congestive heart failure. 5. COPD. PAST SURGICAL HISTORY: Prostatectomy, leg surgery, thumb surgery, and cholecystectomy. FAMILY HISTORY: No strong family history of coronary artery disease. SOCIAL HISTORY: Long history of tobacco abuse. MEDICATIONS ON ADMISSION: See nursing list. REVIEW OF SYSTEMS: Ten-point system, otherwise unremarkable. PHYSICAL EXAMINATION: GENERAL: Obese gentleman. VITAL SIGNS: Blood pressure 126/73. NECK: Showed neck is full. LUNGS: Have crackles in both bases. HEART: Regular rate and rhythm. Normal S1 and S2. ABDOMEN: His abdomen is distended. EXTREMITIES: Showed severe bilateral edema. VASCULAR: Radial pulses 2+. LABORATORY DATA: Sodium 138, potassium 4.2, chloride 101, bicarb 25, BUN 40, creatinine 1.8, and glucose is 228. His white blood cell count was 10.5, hemoglobin 11.3, hematocrit 36.1, and his platelets were 215. His EKG revealed him to have normal sinus rhythm, right bundle branch block, and left anterior fascicular block. Echocardiogram revealed a moderate decreased left ventricular ejection fraction 30% to 35%. IMPRESSION: 1. Congestive heart failure, acute systolic. 2. Hypertension. 3. Diabetes mellitus. 4. Renal insufficiency. 5. Tobacco abuse. 6. Obesity. This gentleman presents with new onset congestive heart failure. The patient's creatinine has been rising since being placed on Lasix. At this time, we would recommend treating the patient with dobutamine. The patient should not be taking any calcium channel trang with his low ejection fraction. We will add low-dose hydralazine for afterload reduction. We will follow this patient with you through his hospitalization. Job ID: [id number] [facility]
[2018-04-30 10:03] LABS: Lactic Acid 2.4 mmol/L (0.5-2.2)
--- NOTE | 2018-04-30 17:43 | PDOC.CTH ---
Cardiology Progress Note - Subjective Pt fels better today but still SOB. Crackles noted bilaterally on PE. - Objective Vital Signs Temp Pulse Pulse Pulse Resp BP BP 04/30/18 15:43 97.4 F L 82 16 04/30/18 12:56 86 16 04/30/18 12:05 97.4 F L 88 18 04/30/18 11:45 88 86 133/66 131/61 04/30/18 09:30 04/30/18 07:51 90 18 04/30/18 07:28 97.8 F 84 16 BP Pulse Ox Pulse Ox Pulse Ox 04/30/18 15:43 134/63 92 L 04/30/18 12:56 04/30/18 12:05 133/76 97 04/30/18 11:45 97 98 04/30/18 09:30 98 04/30/18 07:51 04/30/18 07:28 131/61 98 Admit Weight 249 lb 8 oz Weight 246 lb 8 oz 04/29/18 04/30/18 05/01/18 06:59 06:59 06:59 Intake Total 730 1270 Output Total 1600 850 Balance -870 420 - Physical Examination General/Neuro: alert & oriented x3, NAD Neck: carotid US brisk, no JVD present Lungs: CTA, other: (crackels bilaterally) Heart: PMI normal, RRR Abdomen: NT/ND, soft Extremities: + femoral B - Telemetry Telemetry Rhythm: SR - Labs Result Diagrams: 04/30/18 05:43 04/30/18 05:43 Troponin/CKMB CK-MB (CK-2) 7.3 ng/mL (0-6.6) H* 04/26/18 14:37 Troponin I 0.044 ng/mL (< 0.028) H 04/26/18 20:23 - Assessment/Plan Acute on chronic systolic HF Acute on chronic kidney disease HTN DM Difficult situation given recent increase in creatinine and continued need for diuresis Check in AM. If still elevated, consider dobutrex Pt has been against invasive measures in the past including angio
[2018-04-30] MEDS ORDERED: Insulin Glargine 27 UNITS in Pre-Filled Syringe 1 EACH SC SCH (21:00)
[2018-04-30] MEDS ORDERED: Insulin Glargine 22 UNITS in Pre-Filled Syringe 1 EACH SC SCH (21:00)
[2018-04-30] MEDS: Nicotine 21 MG PATCH TD SCH (21:06)
[2018-05-01] MEDS: Ipratropium Bromide 2.5 ml Neb NEB SCH ×4 (01:23→20:15)
[2018-05-01] MEDS ORDERED: Insulin Glargine 35 UNITS in Pre-Filled Syringe 1 EACH SC SCH ×2 (01:30→21:00)
[2018-05-01] MEDS ORDERED: Tamsulosin HCl 0.4 MG CAP PO SCH (01:45)
[2018-05-01] MEDS ORDERED: HumaLOG 300 UNITS/3 ML VIAL SC SCH ×3 (01:45→17:00)
[2018-05-01] MEDS: HumaLOG 300 UNITS/3 ML VIAL SC PRN (05:39)
[2018-05-01] MEDS: Furosemide 100 MG/10 ML VIAL SLOW IVP SCH ×2 (05:42→14:34)
--- NOTE | 2018-05-01 06:15 | PDOC.FM ---
- Subjective Subjective: Had bah placed back in due to bladder scan >500cc. Endorses SOB w/ exertion. Leg swelling about the same . - Objective Vital Signs & Weight: Vital Signs (12 hours) Temp Pulse Resp BP BP Pulse Ox 05/01/18 03:14 97.8 F 85 22 H 159/76 H 92 L 05/01/18 01:23 84 18 95 05/01/18 00:00 85 141/64 H 04/30/18 20:56 93 146/63 H 04/30/18 20:35 94 L 04/30/18 19:10 98.1 F 93 20 146/63 H 94 L 04/30/18 18:52 85 18 90 L Weight Admit Weight 113.171 kg Weight 113.489 kg I&O: 04/29/18 04/30/18 05/01/18 06:59 06:59 06:59 Intake Total 730 1270 509 Output Total 0881 517 7791 Balance -870 420 1316 Result Diagrams: 05/01/18 07:06 05/01/18 07:06 Phys Exam - Physical Examination Constitutional: NAD HEENT: PERRLA, moist MMs Respiratory: no wheezing, clear to auscultation bilateral Cardiovascular: RRR, no significant murmur 1+ edema up to lower knees b/l Neurological: non-focal Psychiatric: normal affect, A&O x 3 Dx/Plan (1) CHF exacerbation Code(s): I50.9 - HEART FAILURE, UNSPECIFIED Status: Acute (2) Balanitis Code(s): N48.1 - BALANITIS Status: Acute (3) CKD (chronic kidney disease) stage 3, GFR 30-59 ml/min Code(s): N18.3 - CHRONIC KIDNEY DISEASE, STAGE 3 (MODERATE) Status: Acute (4) COPD (chronic obstructive pulmonary disease) Status: Acute (5) DM2 (diabetes mellitus, type 2) Status: Acute (6) HLD (hyperlipidemia) Code(s): E78.5 - HYPERLIPIDEMIA, UNSPECIFIED Status: Acute (7) HTN (hypertension) Code(s): I10 - ESSENTIAL (PRIMARY) HYPERTENSION Status: Acute (8) Tobacco abuse Code(s): Z72.0 - TOBACCO USE Status: Acute - Plan Plan: 88 yo M with PMH DM2, diastolic CHF, COPD, CKD3 presents with acute CHF exacerbation CHFrEF exacerbation - 06/2017 echo showed EF 50-55% with diastolic dysfunction - 06/2017 stress test showed small apex ischemia and hypokineses. Dr. Knowles at that time attributed symptoms to MSK, not angina, and recommended NSAIDs and PPI - Echo 04/29: EF 35-39% - Weight and fluid status unchanged. Cards on board for continuing 80IV lasix, dobutamine gtt - BB upon discharge - Continue strict I/Os, daily wts, will dec to 1200cc/day for diet CHRISTIAN on CKD3b - Cr 1.57 -> 1.8 -> 2.09 - Suspected cardiorenal component IDDM2 - per clinic records, home regimen glargine 38 units BID with lispro 3u tid. Hold home glimepiride. - High POC glucose in 300-400s, also on steroids - Inc Lantus BID to 33units - Inc to moderate SS - Continue accuchecks and SSI Balanitis -One time dose of fluconazole 75mg due to creatinine clearance -Nystatin powder, educate on care and maintenance Penile/scrotal swelling - worsens with sitting upright, denies pain - bah in place due to urinary retention - Hx of blood tinged urine, likely 2/2 trauma. No active bleeding at this time - however will continue to hold lovenox - AMEENA score 3 - Urine cx with presumptive enterococcus with <5000CFU, will d/c bah today COPD, with possible exacerbation - current smoker, 80 pack year hx - home ventolin, spiriva - added duonebs prn - has had wheezing/SOB. No sign of infection -continue prenidsone 40 PO for 5 day course - not on home O2 will wean with sat% goal range 88-92% Mild Hyperkalemia, resolved - 5.3 in ED-->4.2 Anemia, normocytic - Hgb 11, MCV 87 - likely 2/2 chronic disease - will monitor on daily CBC HTN - Hydralazine TID - ASA 81, nifedipine xl 30 mg daily, continue HLD - continue home atorvastatin 40 mg daily Tobacco abuse - nicotine patch, encourage cessation Diet: HH Ppx: lovenox (held) Dispo: Inc to moderate SS for better coverage during this prednisone course. Also continue to titrate up Lantus BID to achieve glucose <200s. Continue diuresis with IV lasix and dobutamine gtt. Appreciate cards recs. Nystatin & conservative care for balinitis. Continue COPD meds and 5 day prednisone course. Continue bah at this time. Addendum - Attending - Attending Attestation Date/Time: 05/01/182006 I personally evaluated the patient and discussed the management with Dr. Strickland I agree with the History, Examination, Assessment and Plan documented above with any addition or exceptions noted below.
[2018-05-01 07:42] LABS: #Lymphocytes 0.7 thou/uL (1.20-3.40); #Monocytes 0.8 thou/uL (0.11-0.59); #Neutrophils 7.5 thou/uL (1.40-6.50); %Eosinophils 0.2 % (0.0-10.0); %Lymphocytes 7.3 % (21.0-51.0); %Monocytes 8.9 % (0.0-10.0); %Neutrophils 83.6 % (42.0-75.0); Hemoglobin 10.4 g/dL (14.0-18.0); Mean Corpuscular HGB CONC 31.5 g/dL (32.0-36.0); Mean Corpuscular Hemoglobin 26.9 pg (27.0-31.0); Mean Corpuscular Volume 85.5 fL (78.0-98.0); Mean Platelet Volume 9.6 fL (7.4-10.4); Platelet Count 185 thou/uL (130-400); RBC Distribution Width 14.4 % (11.5-14.5); Red Blood Cell (RBC) Count 3.86 mill/uL (4.70-6.10)
[2018-05-01 08:01] LABS: Anion Gap 16 mmol/L (10-20); BUN (Urea Nitrogen) 66 mg/dL (8.4-25.7); Calc. Creatinine Clearance 40 mL/min (70-130); Calcium 8.7 mg/dL (7.8-10.44); Carbon Dioxide 26 mmol/L (23-31); Chloride 98 mmol/L (98-107); Estimated GFR-MDRD 31; Glucose 269 mg/dL (83-110); Potassium 4.5 mmol/L (3.5-5.1); Sodium 135 mmol/L (136-145)
[2018-05-01] MEDS: Gabapentin 100 MG CAP PO SCH ×2 (08:14→21:07)
[2018-05-01] MEDS: predniSONE 20 MG TAB PO SCH (08:14)
[2018-05-01] MEDS: hydrALAZINE 25 MG TAB PO SCH ×3 (08:14→21:07)
[2018-05-01] MEDS ORDERED: INSULIN GLARGINE SC SCH (09:00)
[2018-05-01] MEDS ORDERED: PRE FILLED SC SCH (09:00)
[2018-05-01] MEDS ORDERED: Calcium Carbonate 500 MG ChewTAB PO PRN (11:01)
--- NOTE | 2018-05-01 14:08 | RAD ---
RADIOGRAPH CHEST FRONTAL VIEW: Comparison: 04-26-18 Indication: Shortness of breath, decreased oscultation of the lower lung zones. FINDINGS: There is added pleural and parenchymal density at the inferior chest bilaterally. There is enlargemen t of the cardiac silhouette and pulmonary vasculature with interstitial prominence bilaterally. IMPRESSION: 1. Bibasilar opacities indicating pleural fluid with adjacent edema and/or pneumonia. 2. Evidence of CHF. 3. Recommend follow up to resolution. POS: LIA
[2018-05-01] MEDS: DOBUTamine 500 mg/250 ml 250 ML IVPB SCH (14:34)
--- NOTE | 2018-05-01 15:38 | PRG ---
DATE OF SERVICE: SUBJECTIVE: The patient continues with shortness of breath. He continues to have crackles noted bilaterally. His urine output has been less than ideal. His blood pressure and heart rate are stable. No chest pain or pressure noted. After review of his previous records, his LVEF on a stress study was estimated at 42%. He did have apical ischemia with no overt areas of ischemia. Medical therapy is recommended. This was in 2018. His followup echo yesterday did show an LVEF of 30% to 35% per Dr. Daniel Suh. This is likely slightly lower than his previous stress study. I had discussed angiography with the patient in the past, the patient preferred medical therapy. OBJECTIVE: VITAL SIGNS: Blood pressure 144/62, pulse 88, and temperature 97.9. Weight up 1 pound per nurse's notes with total output of 1316. GENERAL: Patient is a pleasant male who is in no acute distress. The patient appears their stated age. NEUROLOGIC: The patient is alert and oriented x3 with no focal neurologic deficits. HEENT: Sclerae without icterus. Mouth has moist mucous membranes with normal pallor. NECK: No JVD. Carotid upstroke brisk. No bruits bilaterally. LUNGS: Clear to auscultation with unlabored respirations. Crackles noted bilaterally with decreased breath sounds on right versus left. BACK: No scoliosis or kyphosis. CARDIAC: Regular rate and rhythm with normal S1 and S2. No S3 or S4 noted. No significant rubs, murmurs, thrills, or gallops noted throughout the precordium. PMI is not displaced. There is no parasternal heave. ABDOMEN: Soft, nontender, nondistended. No peritoneal signs present. No hepatosplenomegaly. No abnormal striae. EXTREMITIES: 2+ femoral and 2+ dorsalis pedis pulses. No cyanosis, clubbing, or edema. SKIN: No gross abnormalities. IMAGING: Chest x-ray dated 05/01/2018, pneumonia versus a pleural effusion. PERTINENT LABS: Hemoglobin 10.4. Creatinine 2.04, which is up from 1.8. IMPRESSION: 1. Acute on chronic systolic heart failure. 2. Questionable pneumonia. 3. Acute on chronic kidney disease. RECOMMENDATIONS: At this point, Lasix will be continued. We will need to consult with Nephrology. This may be prerenal, but does have a baseline chronic kidney disease. At this point, we will continue conservative therapy until the patient stabilizes and we will consider angiography, although at this point, we will need to discuss with the patient and family. Continue low-dose Dobutrex, aspirin, and atorvastatin. Beta trang therapy has been discontinued. Avoid DELBERT inhibitors therapy and ARB. Job ID: [id number]
[2018-05-01] MEDS: Insulin Regular 300 UNITS/3 ML VIAL SC PRN ×2 (15:46→21:09)
[2018-05-01] MEDS: Atorvastatin Calcium 40 MG TAB PO SCH (21:07)
[2018-05-01] MEDS: Tamsulosin HCl 0.4 MG CAP PO SCH (21:07)
[2018-05-01] MEDS: Nicotine 21 MG PATCH TD SCH (21:08)
[2018-05-02] MEDS: Ipratropium Bromide 2.5 ml Neb NEB SCH ×5 (02:00→23:39)
[2018-05-02 05:12] LABS: #Lymphocytes 0.6 thou/uL (1.20-3.40); #Monocytes 0.8 thou/uL (0.11-0.59); #Neutrophils 6.5 thou/uL (1.40-6.50); %Basophils 0.4 % (0.0-1.0); %Eosinophils 0.2 % (0.0-10.0); %Monocytes 9.9 % (0.0-10.0); %Neutrophils 81.5 % (42.0-75.0); Hemoglobin 10.4 g/dL (14.0-18.0); Mean Corpuscular HGB CONC 31.3 g/dL (32.0-36.0); Mean Corpuscular Hemoglobin 26.8 pg (27.0-31.0); Mean Corpuscular Volume 85.7 fL (78.0-98.0); Mean Platelet Volume 9.7 fL (7.4-10.4); Platelet Count 182 thou/uL (130-400); RBC Distribution Width 14.2 % (11.5-14.5); Red Blood Cell (RBC) Count 3.86 mill/uL (4.70-6.10)
[2018-05-02] MEDS: Furosemide 100 MG/10 ML VIAL SLOW IVP SCH ×2 (05:36→15:01)
[2018-05-02 05:38] LABS: Anion Gap 15 mmol/L (10-20); BUN (Urea Nitrogen) 66 mg/dL (8.4-25.7); Calc. Creatinine Clearance 44 mL/min (70-130); Calcium 8.4 mg/dL (7.8-10.44); Carbon Dioxide 26 mmol/L (23-31); Chloride 95 mmol/L (98-107); Estimated GFR-MDRD 34; Glucose 252 mg/dL (83-110); Potassium 4.2 mmol/L (3.5-5.1); Sodium 132 mmol/L (136-145)
[2018-05-02] MEDS: DOBUTamine 500 mg/250 ml 250 ML IVPB SCH ×2 (06:15→20:55)
[2018-05-02] MEDS ORDERED: HumaLOG 300 UNITS/3 ML VIAL SC SCH (08:00)
[2018-05-02] MEDS: hydrALAZINE 25 MG TAB PO SCH ×3 (09:35→20:36)
[2018-05-02] MEDS: Gabapentin 100 MG CAP PO SCH ×2 (09:35→20:36)
[2018-05-02] MEDS: predniSONE 20 MG TAB PO SCH (09:35)
[2018-05-02] MEDS: Insulin Regular 300 UNITS/3 ML VIAL SC PRN ×4 (09:39→20:39)
--- NOTE | 2018-05-02 11:43 | PDOC.FM ---
- Subjective Subjective: NAEO. No complaints. Swelling feels the same. Denies fevers, productive cough, SOB. - Objective MAR Reviewed: Yes Vital Signs & Weight: Vital Signs (12 hours) Temp Pulse Resp BP Pulse Ox 05/02/18 09:35 87 05/02/18 08:00 98.2 F 87 18 136/66 94 L 05/02/18 06:42 88 16 95 05/02/18 03:40 97.9 F 91 12 159/71 H 95 05/02/18 02:00 91 16 94 L Weight Admit Weight 113.171 kg Weight 113.081 kg I&O: 05/01/18 05/02/18 05/03/18 06:59 06:59 06:59 Intake Total 509 1416 Output Total 1825 1625 Balance -1316 -209 Result Diagrams: 05/02/18 04:32 05/02/18 04:32 Phys Exam - Physical Examination Constitutional: NAD HEENT: moist MMs, sclera anicteric Neck: no JVD, full ROM dec lung sounds in R lower base, fine expiratory wheezing lower legs wrapped, 2+ edema up toknees Neurological: moves all 4 limbs Psychiatric: normal affect, A&O x 3 Dx/Plan (1) CHF exacerbation Code(s): I50.9 - HEART FAILURE, UNSPECIFIED Status: Acute (2) Balanitis Code(s): N48.1 - BALANITIS Status: Acute (3) CKD (chronic kidney disease) stage 3, GFR 30-59 ml/min Code(s): N18.3 - CHRONIC KIDNEY DISEASE, STAGE 3 (MODERATE) Status: Acute (4) COPD (chronic obstructive pulmonary disease) Status: Acute (5) DM2 (diabetes mellitus, type 2) Status: Acute (6) HLD (hyperlipidemia) Code(s): E78.5 - HYPERLIPIDEMIA, UNSPECIFIED Status: Acute (7) HTN (hypertension) Code(s): I10 - ESSENTIAL (PRIMARY) HYPERTENSION Status: Acute (8) Tobacco abuse Code(s): Z72.0 - TOBACCO USE Status: Acute (9) BPH (benign prostatic hyperplasia) Code(s): N40.0 - BENIGN PROSTATIC HYPERPLASIA WITHOUT LOWER URINRY TRACT SYMP Status: Acute - Plan Plan: 88 yo M with PMH DM2, diastolic CHF, COPD, CKD3 presents with acute CHF exacerbation CHFrEF exacerbation - 06/2017 echo showed EF 50-55% with diastolic dysfunction - 06/2017 stress test showed small apex ischemia and hypokineses. Dr. Knowels at that time attributed symptoms to MSK, not angina, and recommended NSAIDs and PPI - Echo 04/29: EF 35-39% - Weight and fluid status unchanged. Cards on board for continuing 80IV lasix, dobutamine gtt - BB upon discharge - Continue strict I/Os, daily wts, will dec to 1200cc/day for diet - Possible cardiac cath today CHRISTIAN on CKD3b - Cr 1.57 -> 1.8 -> 2.09 -> 1.8 - Suspected cardiorenal component IDDM2 - per clinic records, home regimen glargine 38 units BID with lispro 3u tid. Hold home glimepiride. - High POC glucose in 300-400s, also on steroids - Inc Lantus BID to 33units - Inc to moderate SS - Continue accuchecks and SSI Balanitis -One time dose of fluconazole 75mg due to creatinine clearance -Nystatin powder, educate on care and maintenance Penile/scrotal swelling - worsens with sitting upright, denies pain - bah in place due to urinary retention - Hx of blood tinged urine, likely 2/2 trauma. No active bleeding at this time - however will continue to hold lovenox - AMEENA score 3 - Urine cx with presumptive enterococcus with <5000CFU, will d/c bah today COPD, with possible exacerbation - current smoker, 80 pack year hx - home ventolin, spiriva - added duonebs prn - has had wheezing/SOB. No sign of infection -continue prenidsone 40 PO for 5 day course - not on home O2 will wean with sat% goal range 88-92% Mild Hyperkalemia, resolved - 5.3 in ED-->4.2 Anemia, normocytic - Hgb 11, MCV 87 - likely 2/2 chronic disease - will monitor on daily CBC HTN - Hydralazine TID - ASA 81, nifedipine xl 30 mg daily, continue HLD - continue home atorvastatin 40 mg daily Tobacco abuse - nicotine patch, encourage cessation BPH -flomax Diet: HH Ppx: lovenox (held for possible cardiac cath) Dispo: Inc pre-meal and long acting insulin. Continue diuresis with IV lasix and dobutamine gtt, renal function improved. Appreciate cards recs-possible cardiac cath today. Nystatin & conservative care for balinitis. Continue COPD meds and 5 day prednisone course. Bah clamp. Addendum - Attending - Attending Attestation Date/Time: 05/02/18 [id number] I personally evaluated the patient and discussed the management with Dr. Strickland I agree with the History, Examination, Assessment and Plan documented above with any addition or exceptions noted below.
[2018-05-02] MEDS ORDERED: Metolazone 5 MG TAB PO SCH (12:15)
[2018-05-02] MEDS: Insulin Glargine 38 UNITS in Pre-Filled Syringe 1 EACH SC SCH ×2 (12:22→20:54)
[2018-05-02] MEDS: HumaLOG 300 UNITS/3 ML VIAL SC SCH ×2 (12:23→17:21)
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
--- NOTE | 2018-05-02 16:46 | PRG ---
DATE OF SERVICE: 05/02/2018 SUBJECTIVE: Mr. Dodge is doing better. His shortness of breath has improved, his creatinine has also improved. Less crackles noted on physical exam. OBJECTIVE: VITAL SIGNS: Blood pressure 167/77, pulse 85, and temperature 98.1. LUNGS: Crackles bilaterally, although improved. HEART: Regular rate and rhythm. ABDOMEN: Soft, nontender, and nondistended. EXTREMITIES: 2+ pitting edema. LABORATORY DATA: Hemoglobin 10.4, creatinine of 1.8 which is down from 2.04. IMPRESSION: 1. Acute systolic heart failure. 2. Chronic kidney disease. RECOMMENDATION: I had a long discussion with Mr. Dodge about how to proceed. I discussed and recommended coronary angiography given his decrease in LVEF. I did feel he likely has underlying coronary disease as the etiology. I also discussed medical therapy as a second option. The patient has no immediate family. He has difficulty in deciding how to proceed. At this point, he would like to proceed with medical therapy. This was his previous decision as well. Certainly, at 88, maybe no mortality benefit. We will discuss the LifeVest with the patient in a.m. Otherwise, continue to avoid DELBERT inhibitor therapy and ARB. He is currently on Dobutrex. We will discontinue Dobutrex in a.m. and add p.o. Coreg. Job ID: [id number]
[2018-05-02] MEDS: Atorvastatin Calcium 40 MG TAB PO SCH (20:36)
[2018-05-02] MEDS: Tamsulosin HCl 0.4 MG CAP PO SCH (20:40)
[2018-05-02] MEDS: Nicotine 21 MG PATCH TD SCH (20:41)
[2018-05-03] MEDS: Furosemide 100 MG/10 ML VIAL SLOW IVP SCH ×2 (05:25→15:10)
--- NOTE | 2018-05-03 07:11 | PRG ---
DATE OF SERVICE: 05/03/2018 RENAL MEDICINE SUBJECTIVE: Mr. Dodge is an 88-year-old male, who was seen by the Renal Service for his acute kidney injury on top of his chronic renal failure. He was initially admitted for CHF. He is on IV dobutamine and diuretics. Creatinine is stable. We are awaiting this a.m. repeat creatinine. No new complaints. Shortness of breath is clinically improved. OBJECTIVE: VITAL SIGNS: Blood pressure is 128/63, heart rate 86, respiratory rate 16, temperature 97.9, and pulse ox 93%. GENERAL: Noted to be awake, alert, sitting comfortable, obese, not in distress. SKIN: Adequate turgor. HEENT: Slightly pale conjunctivae. Anicteric sclerae. NECK: No neck mass. No carotid bruits. No JVD. CHEST: No deformities. LUNGS: Decreased breath sounds. HEART: Normal sinus rhythm. No murmurs. No gallops. No rubs. ABDOMEN: Globular, soft, nontender. No masses. EXTREMITIES: Positive for edema. MEDICATIONS: Medications of May 03, 2018, was reviewed. LABORATORY DATA: Laboratories of May 02, 2018, white count 8, hemoglobin 10.4. Sodium 132, potassium 4.2, chloride 95, carbon dioxide 26, BUN 66, creatinine 1.88, glucose 252, and calcium 8.4. Basic met of May 03, 2018, pending. ASSESSMENT AND PLAN: 1. Acute kidney injury on top of his chronic renal failure, superimposed prerenal azotemia on top of his chronic renal failure. Creatinine yesterday was 1.88, which is slightly improved from the last few days. Continue current management. Continue IV dobutamine and IV Lasix. We will adjust Lasix as needed. There is no indication for any dialytic intervention. 2. Congestive heart failure, clinically improving on IV diuretics. Consider rechecking basic met and CBC in a.m. again. 3. Borderline anemia. We will continue to observe. If it drops below 10, we will initiate Epogen and iron supplementation. Job ID: [id number]
[2018-05-03] MEDS: Ipratropium Bromide 2.5 ml Neb NEB SCH ×3 (07:53→18:29)
[2018-05-03 08:15] LABS: #Lymphocytes 0.7 thou/uL (1.20-3.40); #Monocytes 0.7 thou/uL (0.11-0.59); #Neutrophils 6.8 thou/uL (1.40-6.50); %Basophils 0.2 % (0.0-1.0); %Eosinophils 0.3 % (0.0-10.0); %Lymphocytes 7.9 % (21.0-51.0); %Monocytes 8.8 % (0.0-10.0); %Neutrophils 82.8 % (42.0-75.0); Hemoglobin 11.3 g/dL (14.0-18.0); Mean Corpuscular HGB CONC 30.6 g/dL (32.0-36.0); Platelet Count 197 thou/uL (130-400); RBC Distribution Width 14.2 % (11.5-14.5); Red Blood Cell (RBC) Count 4.35 mill/uL (4.70-6.10); White Blood Cell (WBC) Count 8.3 thou/uL (4.8-10.8)
[2018-05-03 08:39] LABS: Anion Gap 16 mmol/L (10-20); BUN (Urea Nitrogen) 65 mg/dL (8.4-25.7); Calc. Creatinine Clearance 43 mL/min (70-130); Carbon Dioxide 30 mmol/L (23-31); Chloride 95 mmol/L (98-107); Estimated GFR-MDRD 35; Glucose 148 mg/dL (83-110); Potassium 4.1 mmol/L (3.5-5.1); Sodium 137 mmol/L (136-145)
[2018-05-03] MEDS: Gabapentin 100 MG CAP PO SCH ×2 (08:44→21:42)
[2018-05-03] MEDS: predniSONE 20 MG TAB PO SCH (08:44)
[2018-05-03] MEDS: Metolazone 2.5 MG TAB PO SCH (08:45)
[2018-05-03] MEDS: hydrALAZINE 25 MG TAB PO SCH ×3 (08:45→21:41)
[2018-05-03] MEDS: Insulin Glargine 38 UNITS in Pre-Filled Syringe 1 EACH SC SCH ×2 (08:47→21:42)
[2018-05-03] MEDS: HumaLOG 300 UNITS/3 ML VIAL SC SCH ×3 (08:48→17:36)
--- NOTE | 2018-05-03 09:14 | PDOC.FM ---
- Subjective Subjective: NAEO. Feels much better with breathing. Denies productive cough, fevers. Reports no change in leg swelling. - Objective MAR Reviewed: Yes Vital Signs & Weight: Vital Signs (12 hours) Temp Pulse Resp BP BP Pulse Ox 05/03/18 08:45 76 141/67 H 05/03/18 07:56 92 L 05/03/18 07:53 76 16 05/03/18 03:50 97.9 F 86 16 128/63 93 L 05/02/18 23:39 92 L Weight Admit Weight 113.171 kg Weight 111.402 kg I&O: 05/02/18 05/03/18 05/04/18 06:59 06:59 06:59 Intake Total 1416 1390 Output Total 1625 3850 Balance -209 -2460 Result Diagrams: 05/03/18 07:15 05/03/18 07:15 Phys Exam - Physical Examination Constitutional: NAD HEENT: moist MMs dec lung sounds in R base Cardiovascular: RRR, no significant murmur Gastrointestinal: soft, non-tender 2+ edema up to mid thights Psychiatric: normal affect, A&O x 3 Deviation from normal: bah in place Dx/Plan (1) CHF exacerbation Code(s): I50.9 - HEART FAILURE, UNSPECIFIED Status: Acute (2) Balanitis Code(s): N48.1 - BALANITIS Status: Acute (3) CKD (chronic kidney disease) stage 3, GFR 30-59 ml/min Code(s): N18.3 - CHRONIC KIDNEY DISEASE, STAGE 3 (MODERATE) Status: Acute (4) COPD (chronic obstructive pulmonary disease) Status: Acute (5) DM2 (diabetes mellitus, type 2) Status: Acute (6) HLD (hyperlipidemia) Code(s): E78.5 - HYPERLIPIDEMIA, UNSPECIFIED Status: Acute (7) HTN (hypertension) Code(s): I10 - ESSENTIAL (PRIMARY) HYPERTENSION Status: Acute (8) Tobacco abuse Code(s): Z72.0 - TOBACCO USE Status: Acute (9) BPH (benign prostatic hyperplasia) Code(s): N40.0 - BENIGN PROSTATIC HYPERPLASIA WITHOUT LOWER URINRY TRACT SYMP Status: Acute - Plan Plan: 88 yo M with PMH DM2, diastolic CHF, COPD, CKD3 presents with acute CHF exacerbation CHFrEF exacerbation - 06/2017 echo showed EF 50-55% with diastolic dysfunction - 06/2017 stress test showed small apex ischemia and hypokineses. Dr. Knowles at that time attributed symptoms to MSK, not angina, and recommended NSAIDs and PPI - Echo 04/29: EF 35-39% - Weight and fluid status unchanged. Cards on board for continuing 80IV lasix, dobutamine gtt - BB upon discharge - Continue strict I/Os, daily wts, will dec to 1200cc/day for diet - Continue cardiac medical mgmt - Another dose of metolazone CHRISTIAN on CKD3b - Cr 1.57 -> 1.8 -> 2.09 -> 1.8 - Suspected cardiorenal component IDDM2 - per clinic records, home regimen glargine 38 units BID with lispro 3u tid. Hold home glimepiride. - High POC glucose in 300-400s, also on steroids - Inc Lantus BID to 33units - Inc lispro - Inc to moderate SS - Continue accuchecks and SSI Balanitis -One time dose of fluconazole 75mg due to creatinine clearance -Nystatin powder, educate on care and maintenance Penile/scrotal swelling - worsens with sitting upright, denies pain - bah in place due to urinary retention - Hx of blood tinged urine, likely 2/2 trauma. No active bleeding at this time - however will continue to hold lovenox - AMEENA score 3 - Urine cx with presumptive enterococcus with <5000CFU, will d/c bah today COPD, with possible exacerbation - current smoker, 80 pack year hx - home ventolin, spiriva - added duonebs prn - has had wheezing/SOB. No sign of infection -continue prenidsone 40 PO for 5 day course - not on home O2 will wean with sat% goal range 88-92% Mild Hyperkalemia, resolved - 5.3 in ED-->4.2 Anemia, normocytic - Hgb 11, MCV 87 - likely 2/2 chronic disease - will monitor on daily CBC HTN - Hydralazine TID - ASA 81, nifedipine xl 30 mg daily, continue HLD - continue home atorvastatin 40 mg daily Tobacco abuse - nicotine patch, encourage cessation BPH -flomax Diet: HH Ppx: lovenox (held for possible cardiac cath) Dispo: Inc pre-meal and long acting insulin. Continue diuresis with IV lasix and dobutamine gtt, renal function mildly improved. Will give another dose of metolazone. Patient opted for medical mgmt, possible life vest. Nystatin & conservative care for balinitis. Bladder training with bah clamp trial. SNF/ [facility] placement. Have PT reassess. Addendum - Attending - Attending Attestation Date/Time: 05/03/18 5619 I personally evaluated the patient and discussed the management with Dr. Strickland I agree with the History, Examination, Assessment and Plan documented above with any addition or exceptions noted below. Patient declining heart cath request medical management.
[2018-05-03] MEDS ORDERED: Carvedilol 6.25 MG TAB PO SCH (10:00)
[2018-05-03] MEDS: Insulin Regular 300 UNITS/3 ML VIAL SC PRN ×2 (11:11→17:35)
--- NOTE | 2018-05-03 12:15 | PDOC.CTH ---
Cardiology Progress Note - Subjective No complaints other than lack of sleep. Good output. No CP. Still edematous. - Objective Vital Signs Temp Pulse Resp BP BP Pulse Ox 05/03/18 11:10 121/55 L 05/03/18 08:45 76 141/67 H 05/03/18 08:00 97.4 F L 77 18 141/67 H 92 L 05/03/18 07:56 92 L 05/03/18 07:53 76 16 05/03/18 03:50 97.9 F 86 16 128/63 93 L Admit Weight 249 lb 8 oz Weight 245 lb 9.6 oz 05/02/18 05/03/18 05/04/18 06:59 06:59 06:59 Intake Total 1416 1390 Output Total 1625 3850 Balance -209 -2460 - Physical Examination General/Neuro: alert & oriented x3 Neck: no JVD present Lungs: CTA, other: ( BS at bases bilaterally.) Heart: RRR Abdomen: NT/ND Extremities: + edema B - Telemetry Telemetry Rhythm: SR - Labs Result Diagrams: 05/03/18 07:15 05/03/18 07:15 Troponin/CKMB CK-MB (CK-2) 7.3 ng/mL (0-6.6) H* 04/26/18 14:37 Troponin I 0.044 ng/mL (< 0.028) H 04/26/18 20:23 - Assessment/Plan 1. Acute on chronic systolic CHF 2. DORA on CKD 3. HTN 4. HLD 5. DM-II Continue diuresis. Coreg started today. Will titrate dosage. Vest prior to discharge if patient agreeable.
[2018-05-03] MEDS: Heparin 5,000 UNITS/ML VIAL SC SCH ×2 (15:10→21:43)
[2018-05-03] MEDS: Carvedilol 6.25 MG TAB PO SCH (17:38)
[2018-05-03] MEDS: Atorvastatin Calcium 40 MG TAB PO SCH (21:42)
[2018-05-03] MEDS: Nicotine 21 MG PATCH TD SCH (21:42)
[2018-05-03] MEDS: Tamsulosin HCl 0.4 MG CAP PO SCH (21:42)
[2018-05-04] MEDS: Ipratropium Bromide 2.5 ml Neb NEB SCH ×4 (00:19→19:12)
--- NOTE | 2018-05-04 06:00 | PDOC.FM ---
- Subjective Subjective: NAEO. Denies dysuria. Reports diuresing well. No problems with breathing, keeping feet elevated. Able to walk around without problems. - Objective MAR Reviewed: Yes Vital Signs & Weight: Vital Signs (12 hours) Temp Pulse Resp BP BP Pulse Ox 05/04/18 04:00 97.8 F 70 20 116/66 92 L 05/04/18 00:19 67 16 95 05/04/18 00:00 64 106/60 05/03/18 19:00 98.3 F 67 18 95/63 92 L 05/03/18 18:29 75 16 93 L Weight Admit Weight 113.171 kg Weight 111.402 kg I&O: 05/02/18 05/03/18 05/04/18 06:59 06:59 06:59 Intake Total 1416 1390 650 Output Total 1625 3850 1600 Balance -209 -2460 -950 Result Diagrams: 05/03/18 07:15 05/04/18 07:23 Phys Exam - Physical Examination Constitutional: NAD HEENT: sclera anicteric mild expiratory wheezing 1+ edema up to shins bilat. Neurological: non-focal, moves all 4 limbs Psychiatric: normal affect, A&O x 3 Dx/Plan (1) CHF exacerbation Code(s): I50.9 - HEART FAILURE, UNSPECIFIED Status: Acute (2) Balanitis Code(s): N48.1 - BALANITIS Status: Acute (3) CKD (chronic kidney disease) stage 3, GFR 30-59 ml/min Code(s): N18.3 - CHRONIC KIDNEY DISEASE, STAGE 3 (MODERATE) Status: Acute (4) COPD (chronic obstructive pulmonary disease) Status: Acute (5) DM2 (diabetes mellitus, type 2) Status: Acute (6) HLD (hyperlipidemia) Code(s): E78.5 - HYPERLIPIDEMIA, UNSPECIFIED Status: Acute (7) HTN (hypertension) Code(s): I10 - ESSENTIAL (PRIMARY) HYPERTENSION Status: Acute (8) Tobacco abuse Code(s): Z72.0 - TOBACCO USE Status: Acute (9) BPH (benign prostatic hyperplasia) Code(s): N40.0 - BENIGN PROSTATIC HYPERPLASIA WITHOUT LOWER URINRY TRACT SYMP Status: Acute - Plan Plan: 88 yo M with PMH DM2, diastolic CHF, COPD, CKD3 presents with acute CHF exacerbation CHFrEF exacerbation - 06/2017 echo showed EF 50-55% with diastolic dysfunction - 06/2017 stress test showed small apex ischemia and hypokineses. Dr. Knowles at that time attributed symptoms to MSK, not angina, and recommended NSAIDs and PPI - Echo 04/29: EF 35-39% - Weight and fluid status unchanged. 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 No active bleeding at this time - however will continue to hold lovenox - AMEENA score 3 - Urine cx with presumptive enterococcus with <5000CFU, will d/c bah today COPD, with possible exacerbation - current smoker, 80 pack year hx - home ventolin, spiriva - added duonebs prn - has had wheezing/SOB. No sign of infection -continue prenidsone 40 PO for 5 day course - not on home O2 will wean with sat% goal range 88-92% Mild Hyperkalemia, resolved - 5.3 in ED-->4.2 Anemia, normocytic - Hgb 11, MCV 87 - likely 2/2 chronic disease - will monitor on daily CBC HTN - Hydralazine TID - ASA 81, nifedipine xl 30 mg daily, continue HLD - continue home atorvastatin 40 mg daily Tobacco abuse - nicotine patch, encourage cessation BPH -flomax Diet: HH Ppx: lovenox Dispo: Inc qAM insulin to achieve better daytime glycemic control. Good diuresing s/p metolazone, continue IV lasix. Possible life vest, appreciate cards recs. Nystatin & conservative care for balinitis. Bladder training with bah clamp trial. SNF placement pending. Have PT reassess for SNF candidacy. Addendum - Attending - Attending Attestation Date/Time: 05/04/18 0359 I personally evaluated the patient and discussed the management with Dr. Strickland I agree with the History, Examination, Assessment and Plan documented above with any addition or exceptions noted below.
[2018-05-04] MEDS: Furosemide 100 MG/10 ML VIAL SLOW IVP SCH (06:24)
[2018-05-04 07:57] LABS: Anion Gap 17 mmol/L (10-20); BUN (Urea Nitrogen) 82 mg/dL (8.4-25.7); Calc. Creatinine Clearance 41 mL/min (70-130); Calcium 8.9 mg/dL (7.8-10.44); Carbon Dioxide 29 mmol/L (23-31); Chloride 96 mmol/L (98-107); Estimated GFR-MDRD 33; Potassium 3.8 mmol/L (3.5-5.1); Sodium 138 mmol/L (136-145)
[2018-05-04] MEDS ORDERED: Glimepiride 1 MG TAB PO SCH (08:00)
[2018-05-04 08:01] LABS: Glucose 55 mg/dL (83-110)
[2018-05-04] MEDS: HumaLOG 300 UNITS/3 ML VIAL SC SCH ×3 (08:33→17:17)
[2018-05-04] MEDS: Aspirin 81 mg Enteric Coated Tablet PO SCH (08:39)
[2018-05-04] MEDS: Carvedilol 6.25 MG TAB PO SCH ×2 (08:39→17:26)
[2018-05-04] MEDS: hydrALAZINE 25 MG TAB PO SCH ×3 (08:39→21:38)
[2018-05-04] MEDS: Heparin 5,000 UNITS/ML VIAL SC SCH ×3 (08:40→21:20)
[2018-05-04] MEDS: Metolazone 2.5 MG TAB PO SCH (08:40)
[2018-05-04] MEDS: Gabapentin 100 MG CAP PO SCH ×2 (08:40→21:20)
[2018-05-04] MEDS: Insulin Glargine 42 UNITS in Pre-Filled Syringe 1 EACH SC SCH (08:41)
[2018-05-04] MEDS ORDERED: Metolazone 2.5 MG TAB PO SCH ×2 (08:45→09:00)
[2018-05-04] MEDS ORDERED: Furosemide 100 MG/10 ML VIAL SLOW IVP SCH (09:55)
[2018-05-04] MEDS ORDERED: Furosemide 40 MG/4 ML VIAL SLOW IVP SCH (10:00)
--- NOTE | 2018-05-04 13:02 | EKG ---
Test Reason : DIFF BREATHING Blood Pressure : / mmHG Vent. Rate : 089 BPM Atrial Rate : 089 BPM P-R Int : 180 ms QRS Dur : 120 ms QT Int : 392 ms P-R-T Axes : 024 -64 102 degrees QTc Int : 476 ms Normal sinus rhythm Right bundle branch block Left anterior fascicular block Bifascicular block Abnormal ECG Confirmed by JAGDEEP GRAHAM ([id number]), web content editor BRADEN POOLE ([id number]) on 05/04/2018 1:01:49 PM Referred By: Confirmed By:JAGDEEP GRAHAM
[2018-05-04] MEDS: Furosemide 40 MG/4 ML VIAL SLOW IVP SCH (15:10)
[2018-05-04] MEDS ORDERED: Lisinopril 2.5 MG TAB PO SCH (18:00)
[2018-05-04] MEDS ORDERED: Insulin Glargine 38 UNITS in Pre-Filled Syringe 1 EACH SC SCH (21:00)
[2018-05-04] MEDS: Atorvastatin Calcium 40 MG TAB PO SCH (21:20)
[2018-05-04] MEDS: Tamsulosin HCl 0.4 MG CAP PO SCH (21:20)
[2018-05-04] MEDS: Nicotine 21 MG PATCH TD SCH (21:22)
[2018-05-05] MEDS: Ipratropium Bromide 2.5 ml Neb NEB SCH ×4 (00:17→18:45)
[2018-05-05] MEDS: Furosemide 40 MG/4 ML VIAL SLOW IVP SCH ×2 (05:29→14:00)
--- NOTE | 2018-05-05 06:06 | PDOC.FM ---
- Subjective Subjective: NAEO. Reports breathing about the same. Feels weak today. - Objective MAR Reviewed: Yes Vital Signs & Weight: Vital Signs (12 hours) Temp Pulse Resp BP BP BP Pulse Ox 05/05/18 03:33 97.5 F L 65 20 101/63 94 L 05/05/18 00:17 62 16 95 05/04/18 23:50 101/53 L 05/04/18 21:38 61 106/51 L 05/04/18 20:10 97.7 F 62 16 106/51 L 92 L 05/04/18 19:12 65 20 90 L Weight Admit Weight 113.171 kg Weight 108.908 kg I&O: 05/03/18 05/04/18 05/05/18 06:59 06:59 06:59 Intake Total 3854 749 9760 Output Total 3850 3150 1950 Balance -2460 -2350 -497 Result Diagrams: 05/03/18 07:15 05/05/18 07:09 Phys Exam - Physical Examination Constitutional: NAD HEENT: PERRLA Neck: no JVD Respiratory: no wheezing mildly dec breath sounds on RLL base Cardiovascular: RRR, no significant murmur 2+ edema up to knees bilat Neurological: moves all 4 limbs Psychiatric: normal affect, A&O x 3 Dx/Plan (1) CHF exacerbation Code(s): I50.9 - HEART FAILURE, UNSPECIFIED Status: Acute (2) Balanitis Code(s): N48.1 - BALANITIS Status: Acute (3) CKD (chronic kidney disease) stage 3, GFR 30-59 ml/min Code(s): N18.3 - CHRONIC KIDNEY DISEASE, STAGE 3 (MODERATE) Status: Acute (4) COPD (chronic obstructive pulmonary disease) Status: Acute (5) DM2 (diabetes mellitus, type 2) Status: Acute (6) HLD (hyperlipidemia) Code(s): E78.5 - HYPERLIPIDEMIA, UNSPECIFIED Status: Acute (7) HTN (hypertension) Code(s): I10 - ESSENTIAL (PRIMARY) HYPERTENSION Status: Acute (8) Tobacco abuse Code(s): Z72.0 - TOBACCO USE Status: Acute (9) BPH (benign prostatic hyperplasia) Code(s): N40.0 - BENIGN PROSTATIC HYPERPLASIA WITHOUT LOWER URINRY TRACT SYMP Status: Acute - Plan Plan: 88 yo M with PMH DM2, diastolic CHF, COPD, CKD3 presents with acute CHF exacerbation CHFrEF exacerbation - 06/2017 echo showed EF 50-55% with diastolic dysfunction - 06/2017 stress test showed small apex ischemia and hypokineses. Dr. Knowles at that time attributed symptoms to MSK, not angina, and recommended NSAIDs and PPI - Echo 04/29: EF 35-39% - Weight and fluid status unchanged. 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 No active bleeding at this time - Urine cx with presumptive enterococcus with <5000CFU, will d/c bah today COPD, with possible exacerbation - current smoker, 80 pack year hx - home ventolin, spiriva - added duonebs prn - has had wheezing/SOB. No sign of infection -continue prenidsone 40 PO for 5 day course - not on home O2 will wean with sat% goal range 88-92% Mild Hyperkalemia, resolved - 5.3 in ED-->4.2 Anemia, normocytic - Hgb 11, MCV 87 - likely 2/2 chronic disease - will monitor on daily CBC HTN - Hydralazine TID - ASA 81, nifedipine xl 30 mg daily, continue HLD - continue home atorvastatin 40 mg daily Tobacco abuse - nicotine patch, encourage cessation BPH -flomax Diet: HH Ppx: lovenox Dispo: Continue monitoring POC glucoses, will dec nighttime insulin and premeal insulin. Good diuresing s/p metolazone, continue IV lasix. Possible life vest, appreciate cards recs. Nystatin & conservative care for balinitis. SNF placement pending. Have PT reassess for SNF candidacy. Addendum - Attending - Attending Attestation Date/Time: 05/05/18 1065 I personally evaluated the patient and discussed the management with Dr. Strickland I agree with the History, Examination, Assessment and Plan documented above with any addition or exceptions noted below. continue adjust insulin hypogylcemia s/p completion steroids. Recommend tolerating higher BS verse hypogylcemia at this time. Consult Urology regard failed voiding trials.
[2018-05-05 08:04] LABS: Anion Gap 18 mmol/L (10-20); BUN (Urea Nitrogen) 90 mg/dL (8.4-25.7); Calc. Creatinine Clearance 40 mL/min (70-130); Calcium 8.5 mg/dL (7.8-10.44); Carbon Dioxide 29 mmol/L (23-31); Chloride 95 mmol/L (98-107); Estimated GFR-MDRD 33; Potassium 3.6 mmol/L (3.5-5.1); Sodium 138 mmol/L (136-145)
[2018-05-05 08:09] LABS: Glucose 47 mg/dL (83-110)
[2018-05-05] MEDS: Gabapentin 100 MG CAP PO SCH ×2 (08:49→21:59)
[2018-05-05] MEDS: Carvedilol 6.25 MG TAB PO SCH ×2 (08:49→18:32)
[2018-05-05] MEDS: HumaLOG 300 UNITS/3 ML VIAL SC SCH ×4 (08:49→18:30)
[2018-05-05] MEDS: Aspirin 81 mg Enteric Coated Tablet PO SCH (08:49)
[2018-05-05] MEDS: Metolazone 2.5 MG TAB PO SCH ×2 (08:50→10:01)
[2018-05-05] MEDS: hydrALAZINE 25 MG TAB PO SCH ×3 (08:50→22:00)
[2018-05-05] MEDS: Heparin 5,000 UNITS/ML VIAL SC SCH ×3 (08:52→22:03)
[2018-05-05] MEDS ORDERED: Furosemide 20 MG TAB PO SCH (09:00)
--- NOTE | 2018-05-05 09:46 | PRG ---
DATE OF SERVICE: 05/05/2018 RENAL MEDICINE SUBJECTIVE: Mr. Dodge is an 88-year-old male, who was admitted for CHF. He is being seen by the Renal Service for his acute kidney injury. This is on top of his underlying chronic renal failure from diabetic nephropathy. Renal function remained stable. Still currently on diuretics, which has been adjusted recently. No new complaints. Still feeling tired, but shortness of breath is improved. OBJECTIVE: VITAL SIGNS: Blood pressure 106/51, heart rate 65, respiratory rate 20, temperature 97.5, and pulse oximetry 94%. GENERAL: The patient is awake, obese, sitting comfortable, not in overt distress. SKIN: Adequate turgor. HEENT: He has pinkish conjunctivae. Anicteric sclerae. No neck mass. No carotid bruits. No JVD. CHEST: No deformities. LUNGS: Decreased breath sounds. HEART: Normal sinus rhythm. No murmur. No gallops. No rubs. ABDOMEN: Globular, soft, and nontender. No masses. EXTREMITIES: Positive for edema. MEDICATIONS: Medications of May 05, 2018 were reviewed. LABORATORY DATA: Laboratories of May 03, 2018; white count 8.3, hemoglobin 11.3. May 05, 2018; sodium 138, potassium 3.6, chloride 95, carbon dioxide 29, BUN 90, creatinine 1.95, glucose 47, repeat is 88, and calcium 8.5. ASSESSMENT AND PLAN: 1. Acute kidney injury on top of his chronic renal failure. Stable renal function. Continue current diuretic regimen. Recently Lasix has been decreased to 40 mg IV q.12. Continue current management. No indication for any dialytic intervention. 2. Congestive heart failure, clinically much improved. 3. Agree with current management. Job ID: [id number]
[2018-05-05] MEDS: Insulin Glargine 42 UNITS in Pre-Filled Syringe 1 EACH SC SCH (10:01)
--- NOTE | 2018-05-05 13:36 | PRG ---
DATE OF SERVICE: 05/04/2018 SUBJECTIVE: Mr. Dodge is an 88-year-old male with chronic renal failure from diabetic nephropathy, admitted for CHF. IV dobutamine and IV diuresis have been started. Creatinine is about the same. My plan is to decrease Lasix from 80 IV q.12 to 40 mg IV q.12. He still has some mild edema. His shortness of breath is much improved. The patient denies any chest pain. OBJECTIVE: VITAL SIGNS: Blood pressure is 119/57, heart rate 60, respiratory rate 18, temperature 97.4, and pulse ox 95%. GENERAL: Awake, alert, sitting comfortable, obese, not in distress. SKIN: Adequate turgor. HEENT: Pinkish conjunctivae. Anicteric sclerae. NECK: No neck mass. No carotid bruits. No JVD. CHEST: No deformities. LUNGS: Clear breath sounds. No wheezing. No crackles. HEART: Normal sinus rhythm. No murmur. No gallops. No rubs. ABDOMEN: Globular, soft, nontender. No masses. EXTREMITIES: Positive for edema. MEDICATIONS: Medications of May 04, 2018, was reviewed. LABORATORY DATA: Laboratories of 05/04/18 - reviewed Job ID: [id number] MTDD
--- NOTE | 2018-05-05 13:37 | PRG ---
DATE OF SERVICE: 05/04/2018 ADDENDUM: PHYSICAL EXAMINATION: VITAL SIGNS: Blood pressure 119/57, heart rate 60, respiratory rate 12, and pulse ox 95%. General: Awake, alert, obese, comfortable, not in distress. SKIN: Adequate turgor. HEENT: Pinkish conjunctivae. Anicteric sclerae. NECK: No neck mass. No carotid bruits. No JVD. CHEST: No deformities. LUNGS: Clear breath sounds. No wheezing. No crackles. HEART: Normal sinus rhythm. No murmurs. No gallops. No rubs. ABDOMEN: Globular, soft, and nontender. No masses. EXTREMITIES: Positive for edema. MEDICATIONS: Medications of May 04, 2018, reviewed. LABORATORY DATA: Laboratories of May 03, 2018; hemoglobin 11.3. On May 04, 2018; BUN is 82, creatinine 1.95, calcium 8.9, and potassium 3.8. ASSESSMENT AND PLAN: 1. Congestive heart failure, clinically much improved. Continue diuretic regimen. My plan is to decrease Lasix from 80 IV q.12 to 40 mg IV q.12. 2. Acute kidney injury/chronic renal failure - creatinine is now at 1.95, slightly higher from yesterday. His baseline is about 1.4. I will reduce Lasix dose. No indication for any dialytic intervention. Job ID: [id number]
--- NOTE | 2018-05-05 18:47 | CON ---
DATE OF CONSULTATION: 05/05/2018 REASON FOR CONSULTATION: Urinary retention and hematuria. HISTORY OF PRESENT ILLNESS: Mr. Dodge is an 88-year-old gentleman admitted to the hospital for exacerbation of CHF on 04/26/2018. He actually presented to the emergency room complaining that he was unable to expose the head of his penis for cleaning. This is a result of rather significant edema of the foreskin and scrotum. He was noted that time to be in exacerbation of CHF and has since been admitted in being treated for that diagnosis. He denies any voiding problems with the Moreland catheter was placed. He had a little hematuria when the catheter was placed, but it cleared. The catheter was removed several days ago and replaced when he was unable to void. He denied any sensation of the need to void prior to the catheter being replaced. He also denies any prior voiding difficulties. His prior urologic history does include surgery on the prostate approximately 6 years ago. According to the patient, he had a prostate surgery six years ago in [place]. He also states that he was told he had prostate cancer after the surgery. To the best of my understanding, he underwent a TURP at that time. He denies knowing why he had the surgery performed. Other than the scrotal and penile edema, he denies any urologic history other than erectile dysfunction. PAST MEDICAL HISTORY: Congestive heart failure, type 2 diabetes mellitus, COPD, hypertension, and chronic kidney disease. PAST SURGICAL HISTORY: Left leg surgery, right thumb surgery, cholecystectomy, and TURP. FAMILY HISTORY: Noncontributory. SOCIAL HISTORY: He was a half pack a day smoker for many years. He denies excessive alcohol use. He currently lives with his niece. REVIEW OF SYSTEMS: RESPIRATORY: He does have shortness of breath on exertion. CARDIOVASCULAR: History of CHF and worsening edema. GASTROINTESTINAL: Denies any nausea or vomiting. GENITOURINARY: Please see history of present illness. MUSCULOSKELETAL: He is unable to walk well, although he can move some with a walker. PHYSICAL EXAMINATION: VITAL SIGNS: Blood pressure 138/82, pulse 82, and respiratory rate 16. GENERAL: He is overweight. He is in no distress. He is alert and oriented x3. CARDIOVASCULAR: No murmurs auscultated. ABDOMEN: Soft and nontender. No palpable masses. Liver and spleen not palpable. No abdominal tenderness. : He has edema of the foreskin, which makes exposure of the glans penis difficult. He also has scrotal edema. EXTREMITIES: Lower extremities, marked edema. 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 Urine culture 04/26, small growth of enterococcus. IMPRESSION: Mr. Dodge has penoscrotal edema from congestive heart failure. A Moreland catheter was placed to monitor urine output. I believe as he did not complain of any voiding problems. It was removed several days ago and replaced as he was unable to void. The patient; however, states that he can urinate normally. Apparently, he has had a prior TURP and was diagnosed with prostate cancer at that time. I am unaware that he has received any followup since then. RECOMMENDATIONS: 1. I would leave the catheter in place until his edema is improved as it may be difficult to replace the Moreland catheter because of the penile edema. 2. PSA. 3. Urine for cytology. 4. He needs cystoscopy, cytology is abnormal and/or his urinary retention persists. Job ID: [id number]
[2018-05-05] MEDS: Tamsulosin HCl 0.4 MG CAP PO SCH (21:59)
[2018-05-05] MEDS: Lisinopril 2.5 MG TAB PO SCH (22:00)
[2018-05-05] MEDS: Atorvastatin Calcium 40 MG TAB PO SCH (22:00)
[2018-05-05] MEDS: Nicotine 21 MG PATCH TD SCH (22:01)
[2018-05-05] MEDS: Insulin Glargine 28 UNITS in Pre-Filled Syringe 1 EACH SC SCH (22:02)
[2018-05-05] MEDS: Insulin Regular 300 UNITS/3 ML VIAL SC PRN (22:03)
[2018-05-06] MEDS: Ipratropium Bromide 2.5 ml Neb NEB SCH ×5 (00:32→23:24)
[2018-05-06] MEDS: Furosemide 40 MG/4 ML VIAL SLOW IVP SCH ×2 (05:43→13:10)
--- NOTE | 2018-05-06 05:51 | PDOC.FM ---
- Subjective Subjective: NAEO. Pt feels weak. No dysuria. - Objective MAR Reviewed: Yes Vital Signs & Weight: Vital Signs (12 hours) Temp Pulse Resp BP BP Pulse Ox 05/06/18 03:44 97.5 F L 69 20 98/54 L 94 L 05/05/18 22:00 70 99/51 L 05/05/18 20:05 98.5 F 69 18 99/54 L 94 L 05/05/18 18:45 70 16 92 L 05/05/18 18:32 106/51 L Weight Admit Weight 113.171 kg Weight 108.908 kg I&O: 05/04/18 05/05/18 05/06/18 06:59 06:59 06:59 Intake Total 800 1453 960 Output Total 3150 8626 1300 Balance -7554 -286 -303 Result Diagrams: 05/06/18 08:46 05/06/18 08:46 Phys Exam - Physical Examination Constitutional: NAD HEENT: PERRLA, moist MMs Neck: no nodes, full ROM dec breath sounds Cardiovascular: RRR, no significant murmur Gastrointestinal: soft, non-tender 2+ edema up to ankle, 1+ right below knees Neurological: moves all 4 limbs Psychiatric: normal affect, A&O x 3 Dx/Plan (1) CHF exacerbation Code(s): I50.9 - HEART FAILURE, UNSPECIFIED Status: Acute (2) Balanitis Code(s): N48.1 - BALANITIS Status: Acute (3) CKD (chronic kidney disease) stage 3, GFR 30-59 ml/min Code(s): N18.3 - CHRONIC KIDNEY DISEASE, STAGE 3 (MODERATE) Status: Acute (4) COPD (chronic obstructive pulmonary disease) Status: Acute (5) DM2 (diabetes mellitus, type 2) Status: Acute (6) HLD (hyperlipidemia) Code(s): E78.5 - HYPERLIPIDEMIA, UNSPECIFIED Status: Acute (7) HTN (hypertension) Code(s): I10 - ESSENTIAL (PRIMARY) HYPERTENSION Status: Acute (8) Tobacco abuse Code(s): Z72.0 - TOBACCO USE Status: Acute (9) BPH (benign prostatic hyperplasia) Code(s): N40.0 - BENIGN PROSTATIC HYPERPLASIA WITHOUT LOWER URINRY TRACT SYMP Status: Acute - Plan Plan: 88 yo M with PMH DM2, diastolic CHF, COPD, CKD3 presents with acute CHF exacerbation CHFrEF exacerbation - 06/2017 echo showed EF 50-55% with diastolic dysfunction - 06/2017 stress test showed small apex ischemia and hypokineses. Dr. Knowles at that time attributed symptoms to MSK, not angina, and recommended NSAIDs and PPI - Echo 04/29: EF 35-39% -dobutamine gtt discontinued - Continuing 40IV lasix, nephro recs - BB upon discharge - Continue strict I/Os, daily wts, 1200cc/day for diet - s/p metolazone x3, will give another dose today - Life vest discussion and planning Acute urinary retention with hematuria -History of what sounds like TURP with dx of prostate CA, per pt -Unsure of whether he had follow up with this -PSA mildly elevated, but low value likely from bah trauma -Urology on board -Pending urine cell block/cytology -Continue bah for now -Outpt f/u if continues to experience AUR or abnl cell block 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 No active bleeding at this time - Urine cx with presumptive enterococcus with <5000CFU, will d/c bah today COPD, with possible exacerbation - current smoker, 80 pack year hx - home ventolin, spiriva - added duonebs prn - has had wheezing/SOB. No sign of infection - completed prenidsone 40 PO for 5 day course - not on home O2 will wean with sat% goal range 88-92% Mild Hyperkalemia, resolved - 5.3 in ED-->4.2 Anemia, normocytic - Hgb 11, MCV 87 - likely 2/2 chronic disease - will monitor on daily CBC HTN - Hydralazine TID - ASA 81, nifedipine xl 30 mg daily, continue HLD - continue home atorvastatin 40 mg daily Tobacco abuse - nicotine patch, encourage cessation BPH -flomax Diet: HH Ppx: lovenox Dispo: Continue monitoring POC glucoses, will dec nighttime insulin and premeal insulin. Good diuresing s/p metolazone, continue IV lasix. Possible life vest, appreciate cards recs. Nystatin & conservative care for balinitis. SNF placement pending. Have PT reassess for SNF candidacy. Addendum - Attending - Attending Attestation Date/Time: 05/06/18 0550 I personally evaluated the patient and discussed the management with Dr. Strickland I agree with the History, Examination, Assessment and Plan documented above with any addition or exceptions noted below. patient complaining of weakness this morning and is less alert than baseline. Acute on chronic CHF exacerbation-diuresing well. On beta trang/DELBERT inh. Had to hold metolazone this am as bp borderline low. Acute kidney injury of CKD- mild bump to 2.23. Continue to check daily and adjust meds as needed Borderline hypotension- hold hydralazine for now. If BP <90 consider IV bolus. Leukocytosis- in light of weakness and bp will check procalcitonin, UA and cx, CXR, and blood cx to rule out infection as the cause. DM- several hypoglycemia events yesterday. Titrate insulin to goal sugar <200. Urinary retention- appreciate urology recs. Bah catheter for now.
[2018-05-06] MEDS ORDERED: Insulin Glargine 28 UNITS in Pre-Filled Syringe 1 EACH SC SCH (06:44)
[2018-05-06] MEDS ORDERED: Insulin Glargine 26 UNITS in Pre-Filled Syringe 1 EACH SC SCH (06:47)
[2018-05-06] MEDS ORDERED: Metolazone 2.5 MG TAB PO SCH (08:49)
[2018-05-06] MEDS: Carvedilol 6.25 MG TAB PO SCH ×2 (09:00→18:11)
[2018-05-06] MEDS: Aspirin 81 mg Enteric Coated Tablet PO SCH (09:01)
[2018-05-06] MEDS: HumaLOG 300 UNITS/3 ML VIAL SC SCH ×3 (09:01→18:03)
[2018-05-06] MEDS: Gabapentin 100 MG CAP PO SCH ×2 (09:01→20:16)
[2018-05-06] MEDS: Heparin 5,000 UNITS/ML VIAL SC SCH ×3 (09:01→20:18)
--- NOTE | 2018-05-06 09:05 | PRG ---
DATE OF SERVICE: 05/06/2018 SUBJECTIVE: Mr. Dodge is an 88-year-old male, who was admitted for exacerbation of CHF and being followed by the Renal Service for his acute kidney injury on top of his chronic renal failure. Renal function has remained stable. Adjustment with his medications have been made. Recently, he was started on lisinopril at 25 mg p.o. b.i.d. This was suggested by Cardiology. In addition, his CHF remains improved. For that reason, metolazone is being given. We will continue with the current diuretic regimen. No indication for any dialytic intervention. The patient denies any chest pain or any worsening shortness of breath. OBJECTIVE: VITAL SIGNS: Blood pressure is 98/54, heart rate 69, respiratory rate 20, temperature 97.5, and pulse ox 94%. GENERAL: Awake, sitting comfortable, not in overt distress. Obese. SKIN: Adequate turgor. HEENT: He has a pinkish conjunctivae. Anicteric sclerae. NECK: No neck mass. No carotid bruits. No JVD. CHEST: No deformities. LUNGS: Decreased breath sounds. HEART: Normal sinus rhythm. No murmurs. No gallops. No rubs. ABDOMEN: Globular, soft, nontender. No masses. EXTREMITIES: No edema. No deformities. MEDICATIONS: Medications of May 06, 2018, reviewed. LABORATORY DATA: Laboratories of May 06, 2018, pending. Laboratories of May 05, 2018; BUN 90, creatinine 1.95. PSA is noted at 89.96. ASSESSMENT AND PLAN: 1. Acute kidney injury on top of his chronic renal failure. Stable renal function. Continue current diuretic regimen. Please note, the patient is on Lasix, metolazone, and lisinopril. Should the renal function worsen in the next few days, I will probably decrease the dose of lisinopril. 2. Continue current management. No indication for any dialytic intervention. 3. Elevated PSA - follow up with his urologist as an outpatient. Overall, agree with current management. Job ID: [id number]
[2018-05-06 09:22] LABS: Anion Gap 17 mmol/L (10-20); BUN (Urea Nitrogen) 95 mg/dL (8.4-25.7); Calc. Creatinine Clearance 35 mL/min (70-130); Calcium 8.3 mg/dL (7.8-10.44); Carbon Dioxide 29 mmol/L (23-31); Chloride 93 mmol/L (98-107); Estimated GFR-MDRD 28; Glucose 221 mg/dL (83-110); Potassium 3.7 mmol/L (3.5-5.1); Sodium 135 mmol/L (136-145)
[2018-05-06 10:06] LABS: Band 2 % (5-11); Eosinophils 1 % (0-10); Hemoglobin 11.8 g/dL (14.0-18.0); Hypochromia SLIGHT = 6-15 cells (100X) (0-5/hpf); Lymphocytes 4 % (21-51); MDiff Complete? YES; Mean Corpuscular HGB CONC 30.8 g/dL (32.0-36.0); Mean Corpuscular Hemoglobin 26.6 pg (27.0-31.0); Mean Corpuscular Volume 86.5 fL (78.0-98.0); Mean Platelet Volume 10.7 fL (7.4-10.4); Monocytes 4 % (0-10); Neutrophil 89 % (42-75); Platelet Count 194 thou/uL (130-400); Platelet Morphology Comment Appears Adequate; RBC Distribution Width 14.2 % (11.5-14.5); Red Blood Cell (RBC) Count 4.42 mill/uL (4.70-6.10); White Blood Cell (WBC) Count 13.6 thou/uL (4.8-10.8)
[2018-05-06] MEDS: Insulin Glargine 26 UNITS in Pre-Filled Syringe 1 EACH SC SCH (11:19)
[2018-05-06] MEDS: hydrALAZINE 25 MG TAB PO SCH ×3 (11:28→20:22)
[2018-05-06] MEDS: Lisinopril 2.5 MG TAB PO SCH ×2 (11:29→20:17)
[2018-05-06] MEDS: Metolazone 2.5 MG TAB PO SCH (11:34)
[2018-05-06 12:47] LABS: Bilirubin Negative (Negative); Blood, Urine Large (Negative); Clarity CLOUDY (Clear); Glucose, Urine (Dipstick) Negative (Negative); Leukocyte Moderate (Negative); Nitrite Negative (Negative); Protein, Urine (Dipstick) Negative (Neg-Trace); Specific Gravity, Urine 1.012 (1.002-1.036); Urobilinogen 0.2 mg/dL (0.2-1.0); pH, Urine 6.5 (5.0-9.0)
[2018-05-06 12:51] LABS: Bacteria/HPF 2+ HPF (None Seen); Hyaline Casts/LPF 4-6 HYALINE CAST LPF (0-3 Hyaline); Pathc Cast-AUWi Flag 1.88 (0-2.49); RBC/HPF GREATER THAN 50-TNTC HPF (0-3)
[2018-05-06 13:08] LABS: Renal Epithelial None Seen HPF (0-3); Transitional Epithelial NONE SEEN HPF (0-3)
[2018-05-06 13:12] VITALS: BMI 39.5
--- NOTE | 2018-05-06 14:04 | RAD ---
PORTABLE AP CHEST: Date: 05/06/18 HISTORY: Shortness of breath. COMPARISON: 05/01/18. FINDINGS: Again noted are pleural and parenchymal changes at each lung base, which may be related to bilateral pleural effusions and atelectasis. Bibasilar pneumonia cannot be entirely excluded. Cardiac silhouett e is magnified by projection. Pulmonary vasculature is within normal limits. There has been no interv al change from prior exam. IMPRESSION: Overall stable bibasilar pleural and parenchymal lung changes, probably related to bilateral pleural effusions and atelectasis. Pneumonia at either lung base could not be excluded. POS: [facility]
--- NOTE | 2018-05-06 16:14 | PDOC.EVN ---
Event Note - Event Note Event Note: Called and spoke with Renny Mejía who has decided to make patient DNAR. I informed her this means that in the event of cardiac or respiratory distress or arrest the patient would be allowed to pass without intervention. She expressed understanding. I also informed her the primary team thinks the patients AMS may be caused by an infection and have started him on antibiotics. Also checking cardiac enzymes. Will update later. Discussed with Dr. Chauhan.
[2018-05-06] MEDS: Vancomycin HCl 1.5 GM in Sodium Chloride 0.9% 250 ML 300 ML IVPB SCH (16:37)
[2018-05-06] MEDS: Acetaminophen 325 MG TAB PO PRN ×2 (16:40→20:17)
[2018-05-06 17:49] LABS: CKMB 2.6 ng/mL (0-6.6)
[2018-05-06] MEDS: Piperacillin/Tazobactam 2.25 GM in Sodium Chloride 0.9% 100 ML IVPB SCH ×2 (18:15→23:30)
--- NOTE | 2018-05-06 18:16 | PRG ---
DATE OF SERVICE: 05/06/2018 SUBJECTIVE: The patient's breathing has improved. His creatinine did worsen over the weekend. His platelet count also has decreased. OBJECTIVE: VITAL SIGNS: Blood pressure 132/65, pulse 71, temperature 101.5. LUNGS: Clear to auscultation, much improved. HEART: Regular rate and rhythm. ABDOMEN: Soft, nontender, and nondistended. EXTREMITIES: 1+ pitting edema. PERTINENT LABORATORY DATA: Hemoglobin 11.8, white blood cell count increased to 13.6. Peak troponin 0.386. IMPRESSION: 1. Mildly elevated troponin. 2. Cardiomyopathy likely ischemic. 3. Recent infection. RECOMMENDATIONS: Mr. Dodge's situation has certainly been complex. He has not been wanting to be forthcoming in his decisions. He has had no family to assist in his decision management. He is not interested in proceeding with a more aggressive approach from a CV standpoint. At this point, recommend medical therapy. He had a recent fever. He was also made DNR. At this point, we will continue medical therapy. His elevated troponin is likely related to demand ischemia. Job ID: [id number]
[2018-05-06] MEDS: Tamsulosin HCl 0.4 MG CAP PO SCH (20:16)
[2018-05-06] MEDS: Atorvastatin Calcium 40 MG TAB PO SCH (20:17)
[2018-05-06] MEDS: guaiFENesin ER 600 MG TAB PO SCH (20:17)
[2018-05-06] MEDS: Nicotine 21 MG PATCH TD SCH (20:18)
[2018-05-06] MEDS: Insulin Glargine 28 UNITS in Pre-Filled Syringe 1 EACH SC SCH (20:19)
[2018-05-06] MEDS ORDERED: Furosemide 40 MG/4 ML VIAL SLOW IVP SCH (23:00)
[2018-05-07] MEDS: Piperacillin/Tazobactam 2.25 GM in Sodium Chloride 0.9% 100 ML IVPB SCH ×4 (05:11→23:37)
[2018-05-07] MEDS: Furosemide 40 MG/4 ML VIAL SLOW IVP SCH (05:12)
[2018-05-07 05:41] LABS: Anion Gap 17 mmol/L (10-20); BUN (Urea Nitrogen) 103 mg/dL (8.4-25.7); Calc. Creatinine Clearance 30 mL/min (70-130); Calcium 7.8 mg/dL (7.8-10.44); Carbon Dioxide 30 mmol/L (23-31); Chloride 94 mmol/L (98-107); Estimated GFR-MDRD 23; Glucose 113 mg/dL (83-110); Potassium 3.7 mmol/L (3.5-5.1); Sodium 137 mmol/L (136-145)
[2018-05-07 06:09] LABS: Band 11 % (5-11); Hemoglobin 10.4 g/dL (14.0-18.0); Lymphocytes 7 % (21-51); MDiff Complete? YES; Mean Corpuscular HGB CONC 31.2 g/dL (32.0-36.0); Mean Corpuscular Volume 86.4 fL (78.0-98.0); Mean Platelet Volume 10.7 fL (7.4-10.4); Monocytes 1 % (0-10); Neutrophil 81 % (42-75); Platelet Count 202 thou/uL (130-400); RBC Distribution Width 14.3 % (11.5-14.5); Red Blood Cell (RBC) Count 3.85 mill/uL (4.70-6.10); White Blood Cell (WBC) Count 19.6 thou/uL (4.8-10.8)
--- NOTE | 2018-05-07 07:43 | PDOC.FM ---
- Subjective Subjective: Elevated troponins overnight, seen by cardiology and thought to be due to demand ischemia. Pt not interested in aggressive intervention at this time. Denies chest pain this morning, feels week. - Objective MAR Reviewed: Yes Vital Signs & Weight: Vital Signs (12 hours) Temp Pulse Resp BP BP Pulse Ox 05/07/18 04:00 98.4 F 58 L 20 99/54 L 96 05/07/18 00:00 98.2 F 60 20 90/46 L 94 L 05/06/18 23:24 65 16 94 L 05/06/18 22:00 90 L 05/06/18 20:22 99 119/60 05/06/18 20:17 99 119/60 05/06/18 19:40 100.2 F H 87 20 119/60 90 L Weight Admit Weight 113.171 kg Weight 108.318 kg I&O: 05/06/18 05/07/18 05/08/18 06:59 06:59 06:59 Intake Total 1320 945 Output Total 2325 1200 Balance -1005 -255 Result Diagrams: 05/07/18 04:41 05/07/18 04:41 Phys Exam - Physical Examination looks weak HEENT: moist MMs Neck: full ROM dec breath sounds, no crackles or wheezing Gastrointestinal: soft, non-tender 2+ edema up to mid shins Neurological: non-focal, moves all 4 limbs Deviation from normal: bah in place, A&O x1 (around baseline) Dx/Plan (1) CHF exacerbation Code(s): I50.9 - HEART FAILURE, UNSPECIFIED Status: Acute (2) Balanitis Code(s): N48.1 - BALANITIS Status: Acute (3) CKD (chronic kidney disease) stage 3, GFR 30-59 ml/min Code(s): N18.3 - CHRONIC KIDNEY DISEASE, STAGE 3 (MODERATE) Status: Acute (4) COPD (chronic obstructive pulmonary disease) Status: Acute (5) DM2 (diabetes mellitus, type 2) Status: Acute (6) HLD (hyperlipidemia) Code(s): E78.5 - HYPERLIPIDEMIA, UNSPECIFIED Status: Acute (7) HTN (hypertension) Code(s): I10 - ESSENTIAL (PRIMARY) HYPERTENSION Status: Acute (8) Tobacco abuse Code(s): Z72.0 - TOBACCO USE Status: Acute (9) BPH (benign prostatic hyperplasia) Code(s): N40.0 - BENIGN PROSTATIC HYPERPLASIA WITHOUT LOWER URINRY TRACT SYMP Status: Acute - Plan Plan: 88 yo M with PMH DM2, diastolic CHF, COPD, CKD3 presents with acute CHF exacerbation CHFrEF exacerbation - 06/2017 echo showed EF 50-55% with diastolic dysfunction - 06/2017 stress test showed small apex ischemia and hypokineses. Dr. Knowles at that time attributed symptoms to MSK, not angina, and recommended NSAIDs and PPI - Echo 04/29: EF 35-39% - dobutamine gtt discontinued - Continuing 40IV lasix, however due to low-normal BPs appreciate further nephro recs on this - BB upon discharge - Continue strict I/Os, daily wts, 1200cc/day for diet - s/p metolazone x3 - Will call niece (POA) to discuss life vest as option Elevated troponins -Per cards 2/2 demand ischemia -EKG no ST elevation -gave IV lasix x1 -Will recheck Leukocytosis - no bands, however due to clinical status & CXR with possible PNA, will continue until blood cultures return - vanc & zosyn renally dosed - trend CBC Acute urinary retention with hematuria -History of what sounds like TURP with dx of prostate CA, per pt -Unsure of whether he had follow up with this -PSA mildly elevated, but low value likely from bah trauma -Urology on board -Pending urine cell block/cytology -Continue bah for now -Outpt f/u if continues to experience AUR or abnl cell block 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 prerenal from diuresing Non-hemolytic strep UTI -covered with vanc & zosyn -will adjust based on urine cx IDDM2 - per clinic records, home regimen glargine 38 units BID with lispro 3u tid - Continue Lantus BID, d/c home glimepiride - Continue lispro TID - Moderate SS - Continue accuchecks and SSI Balanitis -One time dose of fluconazole 75mg due to creatinine clearance -Nystatin powder, educate on care and maintenance Penile/scrotal swelling - worsens with sitting upright, denies pain - bah in place due to urinary retention - Hx of blood tinged urine, likely 2/2 trauma. No active bleeding at this time - Urine cx with presumptive enterococcus with <5000CFU, will d/c bah today COPD, with possible exacerbation - current smoker, 80 pack year hx - home ventolin, spiriva - added duonebs prn - has had wheezing/SOB. No sign of infection - completed prenidsone 40 PO for 5 day course - not on home O2 will wean with sat% goal range 88-92% Mild Hyperkalemia, resolved - 5.3 in ED-->4.2 Anemia, normocytic - Hgb 11, MCV 87 - likely 2/2 chronic disease - will monitor on daily CBC HTN - Hydralazine TID - ASA 81, nifedipine xl 30 mg daily, continue HLD - continue home atorvastatin 40 mg daily Tobacco abuse - nicotine patch, encourage cessation BPH -flomax Diet: HH Ppx: lovenox Dispo: Continue monitoring POC glucoses, no change to insulin todya. Hold IV lasix for nodue to low-normal BPs and worsening creatinine, appreciate further nephro recso on this. Possible life vest-will discuss with marv. Continue renally dosed vanc & zosyn, pending urine culture. Will closely monitor today. Nystatin & conservative care for balinitis. Approved for SNF at [facility]. Addendum - Attending - Attending Attestation Date/Time: 05/07/18 7727 I personally evaluated the patient and discussed the management with Dr. Strickland I agree with the History, Examination, Assessment and Plan documented above with any addition or exceptions noted below. GBS UTI and bacteremia-continue vanc and zosyn until susceptibilites return. acute on chronic systolic CHF Demand ischemia Acute kidney injury of CKD -Dec IV lasix to once daily and d/c metolazone and hold lisinopril until kidney function improves.
[2018-05-07] MEDS: Ipratropium Bromide 2.5 ml Neb NEB SCH ×3 (07:56→19:15)
[2018-05-07 08:49] LABS: CKMB 2.2 ng/mL (0-6.6)
[2018-05-07] MEDS: Gabapentin 100 MG CAP PO SCH ×2 (09:01→20:40)
[2018-05-07] MEDS: Aspirin 81 mg Enteric Coated Tablet PO SCH (09:01)
[2018-05-07] MEDS: guaiFENesin ER 600 MG TAB PO SCH ×2 (09:01→20:40)
[2018-05-07] MEDS: Insulin Glargine 26 UNITS in Pre-Filled Syringe 1 EACH SC SCH (09:01)
[2018-05-07] MEDS: Heparin 5,000 UNITS/ML VIAL SC SCH ×3 (09:02→20:40)
[2018-05-07] MEDS: hydrALAZINE 25 MG TAB PO SCH (09:02)
[2018-05-07] MEDS: HumaLOG 300 UNITS/3 ML VIAL SC SCH ×3 (09:03→17:34)
[2018-05-07] MEDS: Carvedilol 6.25 MG TAB PO SCH ×2 (09:04→16:47)
[2018-05-07] MEDS: Lisinopril 2.5 MG TAB PO SCH (09:05)
--- NOTE | 2018-05-07 09:29 | PRG ---
DATE OF SERVICE: 05/07/2018 RENAL MEDICINE SUBJECTIVE: Mr. Dodge is an 88-year-old male, who was admitted for CHF and being followed by the Renal Service for his acute kidney injury on top of his chronic renal failure. During the last few days, renal function has been worsening. His lisinopril has been placed on hold. Diuretics have also been placed on hold. His CHF remains unimproved. He is off IV dobutamine at the present time. The patient is undecided regarding long-term treatment. This morning, he is mildly short of breath, but not in upper respiratory distress. OBJECTIVE: VITAL SIGNS: Blood pressure 99/54, heart rate 58, respiratory rate 20, temperature 98.4, pulse ox 96%. GENERAL: Noted to be awake, supine, obese, not in distress. SKIN: Adequate turgor. HEENT: He has a pinkish conjunctivae. Anicteric sclerae. No neck mass. No carotid bruits. No JVD. CHEST: No deformities. LUNGS: Decreased breath sounds. HEART: Normal sinus rhythm. No murmur. No gallops. No rubs. ABDOMEN: Globular, soft, nontender. No masses. EXTREMITIES: Positive for edema. MEDICATIONS: Medications of May 07, 2018, was reviewed. LABORATORY DATA: Laboratories of May 07, 2018; white count 19.6, hemoglobin 10.4, sodium 137, potassium 3.7, chloride 94, carbon dioxide 30, BUN 103, creatinine 2.62, glucose 113, calcium 7.8. Troponin I 0.726. ASSESSMENT AND PLAN: 1. Congestive heart failure-clinically unimproved. Underlying ischemia remains as a possibility. The patient is unable to decide whether to pursue an aggressive treatment, but he is veering towards conservative management. 2. Acute kidney injury/chronic renal failure, worsening renal dysfunction. This may be a reflection of worsening heart failure. Continue supportive care. Agree with resumption of diuretic regimen. No indication for an emergent dialysis with this patient. 3. Elevated PSA-the patient has been evaluated by his urologist in the past. He is not a surgical candidate for any intervention at the present time. Overall, prognosis remains guarded with this patient. Agree with conservative management. Job ID: [id number]
[2018-05-07] MEDS: Insulin Regular 300 UNITS/3 ML VIAL SC PRN ×2 (12:22→17:34)
--- NOTE | 2018-05-07 19:43 | PRG ---
DATE OF SERVICE: 05/07/2018 SUBJECTIVE: Mr. Dodge continues to be hypotensive. He did have positive blood cultures for strep. He currently has no complaints. PHYSICAL EXAMINATION: VITAL SIGNS: Blood pressure 91/50, pulse 60, and temperature 97.7. LUNGS: Minimal crackles noted bilaterally. HEART: Regular rate and rhythm. ABDOMEN: Soft, nontender, and nondistended. EXTREMITIES: 2+ pitting edema. PERTINENT LABORATORY DATA: White blood cell count 19.6, hemoglobin 10.4, and platelet count of 202. Creatinine 2.62 with a GFR of 23. IMPRESSION: 1. Hypotension. 2. Sepsis. 3. Cardiomyopathy, likely ischemic. RECOMMENDATIONS: At this point, we will discontinue all blood pressure medication. We will discontinue lisinopril and Lasix in addition to Coreg and hydralazine. He is on antibiotic therapy for coverage of sepsis. His hypotension is likely related to underlying sepsis. Unfortunately, his creatinine also continues to be elevated. Prognosis, currently guarded. Job ID: [id number]
[2018-05-07] MEDS: Atorvastatin Calcium 40 MG TAB PO SCH (20:39)
[2018-05-07] MEDS: Tamsulosin HCl 0.4 MG CAP PO SCH (20:42)
[2018-05-07] MEDS: Insulin Glargine 28 UNITS in Pre-Filled Syringe 1 EACH SC SCH (20:42)
[2018-05-07] MEDS: Nicotine 21 MG PATCH TD SCH (20:43)
[2018-05-08] MEDS: Ipratropium Bromide 2.5 ml Neb NEB SCH ×5 (02:07→23:51)
[2018-05-08] MEDS: Piperacillin/Tazobactam 2.25 GM in Sodium Chloride 0.9% 100 ML IVPB SCH ×4 (05:59→23:35)
--- NOTE | 2018-05-08 06:00 | PDOC.FM ---
Addendum entered and electronically signed by Aminta Strickland MD 05/08/18 09:32 : Plan: sepsis 2/2UTI: WBC and procal trending down. ucx growing enterococcus and strep. cover with zosyn pending s/s, will transition then Original Note: - Subjective Subjective: NAEO. Patient a little more alert today. Still feels weak. No complaints. - Objective MAR Reviewed: Yes Vital Signs & Weight: Vital Signs (12 hours) Temp Pulse Resp BP BP Pulse Ox 05/08/18 04:00 97.9 F 59 L 20 120/57 L 96 05/08/18 02:07 58 L 18 97 05/07/18 23:54 97.5 F L 68 20 112/53 L 97 05/07/18 19:30 98.0 F 66 20 121/57 L 93 L 05/07/18 19:15 63 20 94 L Weight Admit Weight 113.171 kg Weight 108.318 kg I&O: 05/06/18 05/07/18 05/08/18 06:59 06:59 06:59 Intake Total 1320 945 920 Output Total 2325 1200 450 Balance -1005 -255 470 Result Diagrams: 05/08/18 06:24 05/08/18 06:24 Phys Exam - Physical Examination Constitutional: NAD HEENT: moist MMs dec breath sounds b/l Cardiovascular: RRR, no significant murmur Gastrointestinal: soft, non-tender Musculoskeletal: edema present 2+ at knees Neurological: non-focal, moves all 4 limbs Dx/Plan (1) Bacteremia due to coagulase-negative Staphylococcus Code(s): R78.81 - BACTEREMIA Status: Acute (2) UTI (urinary tract infection), bacterial Code(s): N39.0 - URINARY TRACT INFECTION, SITE NOT SPECIFIED; A49.9 - BACTERIAL INFECTION, UNSPECIFIED Status: Acute (3) Demand ischemia of myocardium Code(s): I24.8 - OTHER FORMS OF ACUTE ISCHEMIC HEART DISEASE Status: Acute (4) CHF exacerbation Code(s): I50.9 - HEART FAILURE, UNSPECIFIED Status: Acute (5) Balanitis Code(s): N48.1 - BALANITIS Status: Acute (6) CKD (chronic kidney disease) stage 3, GFR 30-59 ml/min Code(s): N18.3 - CHRONIC KIDNEY DISEASE, STAGE 3 (MODERATE) Status: Acute (7) COPD (chronic obstructive pulmonary disease) Status: Acute (8) DM2 (diabetes mellitus, type 2) Status: Acute (9) HLD (hyperlipidemia) Code(s): E78.5 - HYPERLIPIDEMIA, UNSPECIFIED Status: Acute (10) HTN (hypertension) Code(s): I10 - ESSENTIAL (PRIMARY) HYPERTENSION Status: Acute (11) Tobacco abuse Code(s): Z72.0 - TOBACCO USE Status: Acute (12) BPH (benign prostatic hyperplasia) Code(s): N40.0 - BENIGN PROSTATIC HYPERPLASIA WITHOUT LOWER URINRY TRACT SYMP Status: Acute - Plan Plan: 88 yo M with PMH DM2, diastolic CHF, COPD, CKD3 presents with acute CHF exacerbation Strep. agalactiae bacteremia -positive /2 cultures on 05/07 -Continue zosyn, pending s/s -trend CBC, procal Non-hemolytic strep UTI ->100K CFU -zosyn for empiric coverage, pending s/s Low BPs -ddx includes heart failure vs. early sepsis -BPs >90/50 with MAP >62 -hold all anti-hypertensives, per cards -continue to closely monitor, bolus if MAPs drop CHFrEF exacerbation - 06/2017 echo showed EF 50-55% with diastolic dysfunction - 06/2017 stress test showed small apex ischemia and hypokineses. Dr. Knowles at that time attributed symptoms to MSK, not angina, and recommended NSAIDs and PPI - Echo 04/29: EF 35-39% - dobutamine gtt discontinued -continue 40 IV lasix - BB upon discharge - Continue strict I/Os, daily wts, 1200cc/day for diet - s/p metolazone x3 - Will call niece (POA) to discuss life vest as option Demand ischemia in setting of acute CHF -elevated troponins -EKG no ST elevation, tele monitoring Acute urinary retention with hematuria -History of what sounds like TURP with dx of prostate CA, per pt -Unsure of whether he had follow up with this -PSA mildly elevated, but low value likely from bah trauma -Urology on board -Pending urine cell block/cytology -Continue bah for now -Outpt f/u if continues to experience AUR or abnl cell block 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 prerenal from diuresing IDDM2 - per clinic records, home regimen glargine 38 units BID with lispro 3u tid - Continue Lantus BID, d/c home glimepiride - Continue lispro TID - Moderate SS - Continue accuchecks and SSI Balanitis -One time dose of fluconazole 75mg due to creatinine clearance -Nystatin powder, educate on care and maintenance Penile/scrotal swelling - worsens with sitting upright, denies pain - bah in place due to urinary retention - Hx of blood tinged urine, likely 2/2 trauma. No active bleeding at this time - Urine cx with presumptive enterococcus with <5000CFU, will d/c bah today COPD, with possible exacerbation - current smoker, 80 pack year hx - home ventolin, spiriva - added duonebs prn - has had wheezing/SOB. No sign of infection - completed prenidsone 40 PO for 5 day course - not on home O2 will wean with sat% goal range 88-92% Mild Hyperkalemia, resolved - 5.3 in ED-->4.2 Anemia, normocytic - Hgb 11, MCV 87 - likely 2/2 chronic disease - will monitor on daily CBC HTN - Hydralazine TID - ASA 81, nifedipine xl 30 mg daily, continue HLD - continue home atorvastatin 40 mg daily Tobacco abuse - nicotine patch, encourage cessation BPH -flomax Diet: HH Ppx: lovenox Dispo: Continue monitoring POC glucoses, continue to trate insulin as needed. CHF: holding diuretics due to low BPs from bacteremia. Possible life vest-will discuss with niece when pt more stabilized. Strep bacteremia & UTI: Continue renally zosyn, pending urine and blood culture. Low BPs: hold antihypertensives per cards. Continue to closely monitor to maintain MAP >60 . Nystatin & conservative care for balinitis. Acute urinary retention: pending cell block, bah in place.. Approved for SNF at [facility]. Addendum - Attending - Attending Attestation Date/Time: 05/08/18 [id number] I personally evaluated the patient and discussed the management with Dr. Strickland I agree with the History, Examination, Assessment and Plan documented above with any addition or exceptions noted below. GBS bacteremia Enterococcus UTI -continue Zosyn until sensitivities return. Will get Dr. Ballard input once sensitivities arrive for length of treatment Hypotension- resolved with holding medications. Continue to hold Acute on chronic CKD- check Cr daily- appreciate renal recs Acute systolic CHF exac-holding all bp meds secondary to bp. demand ischemia- patient asymptomatic.
[2018-05-08 07:22] LABS: #Eosinphils 0.2 thou/uL (0.0-0.7); #Lymphocytes 0.9 thou/uL (1.20-3.40); #Monocytes 0.9 thou/uL (0.11-0.59); #Neutrophils 7.5 thou/uL (1.40-6.50); %Basophils 0.5 % (0.0-1.0); %Eosinophils 2.2 % (0.0-10.0); %Lymphocytes 9.1 % (21.0-51.0); %Neutrophils 79.3 % (42.0-75.0); Hemoglobin 10.6 g/dL (14.0-18.0); Mean Corpuscular HGB CONC 30.9 g/dL (32.0-36.0); Mean Corpuscular Volume 87.5 fL (78.0-98.0); Mean Platelet Volume 10.5 fL (7.4-10.4); Platelet Count 205 thou/uL (130-400); RBC Distribution Width 14.2 % (11.5-14.5); Red Blood Cell (RBC) Count 3.94 mill/uL (4.70-6.10); White Blood Cell (WBC) Count 9.4 thou/uL (4.8-10.8)
[2018-05-08 07:42] LABS: Anion Gap 20 mmol/L (10-20); BUN (Urea Nitrogen) 114 mg/dL (8.4-25.7); Calc. Creatinine Clearance 27 mL/min (70-130); Calcium 7.7 mg/dL (7.8-10.44); Carbon Dioxide 29 mmol/L (23-31); Chloride 94 mmol/L (98-107); Estimated GFR-MDRD 21; Glucose 72 mg/dL (83-110); Potassium 3.6 mmol/L (3.5-5.1); Sodium 139 mmol/L (136-145)
[2018-05-08] MEDS ORDERED: Furosemide 40 MG/4 ML VIAL SLOW IVP SCH (09:00)
[2018-05-08] MEDS: HumaLOG 300 UNITS/3 ML VIAL SC SCH ×3 (09:12→17:46)
[2018-05-08] MEDS: guaiFENesin ER 600 MG TAB PO SCH ×2 (09:13→21:01)
[2018-05-08] MEDS: Gabapentin 100 MG CAP PO SCH ×2 (09:13→21:01)
[2018-05-08] MEDS: Insulin Glargine 26 UNITS in Pre-Filled Syringe 1 EACH SC SCH (09:13)
[2018-05-08] MEDS: Heparin 5,000 UNITS/ML VIAL SC SCH ×3 (09:13→14:38)
[2018-05-08] MEDS: Aspirin 81 mg Enteric Coated Tablet PO SCH (09:13)
--- NOTE | 2018-05-08 09:41 | PRG ---
DATE OF SERVICE: 05/08/2018 SUBJECTIVE: Mr. Dodge is an 88-year-old male, who was admitted for CHF. He has developed bacteremia and is currently being treated with IV antibiotics. Due to the low blood pressure, his DELBERT inhibitors, diuretics have been placed on hold. We are following him up for his acute kidney injury on top of his chronic renal failure. The worsening BUN and creatinine may be explained from possible prerenal azotemia-secondary to? of a possible sepsis. If renal function will further worsen over the next several days, my bias is to consider giving him some albumin infusion. His BUN is noted at 114 today. I do not feel there is any indication for any dialytic intervention. His GFR is 21 mL/minute. The patient looks comfortable. He denies any chest pain or shortness of breath. OBJECTIVE: VITAL SIGNS: Blood pressure 120/57, heart rate 59, respiratory rate 20, temperature 97.9, pulse oximetry 96%. GENERAL: Awake, supine, comfortable, not in distress. SKIN: Adequate turgor. HEENT: He has pinkish conjunctivae. Anicteric sclerae. No neck mass. No carotid bruits. No JVD. CHEST: No deformities. LUNGS: Clear breath sounds. No wheezing. No crackles. HEART: Normal sinus rhythm. No murmurs, gallops, or rubs. ABDOMEN: Globular, soft, nontender. No masses. Positive for bowel sounds. Negative for epigastric bruits. EXTREMITIES: Positive for edema. MEDICATIONS: Medications of May 08, 2018, was reviewed. LABORATORY DATA: Laboratories of May 08, 2018, white count 9.4, hemoglobin 10.6. Sodium 139, potassium 3.6, chloride 94, carbon dioxide 29, BUN 114, creatinine 2.88, GFR 21 mL/minute, calcium 7.7, procalcitonin 1.56. ASSESSMENT AND PLAN: 1. Acute kidney injury/chronic renal failure secondary to assume prerenal azotemia. This could be hemodynamically-mediated renal dysfunction. This has multifactorial etiologies. This includes history of decreased ejection fraction, previous use of diuretics, and DELBERT inhibitors. Sepsis is also consideration. 2. No indication for any dialytic intervention. Continue supportive care. Continue to hold off diuretics. If renal function remains unimproved, I will probably challenge him with albumin infusion in a.m. 3. Bacteremia on IV antibiotics. 4. Congestive heart failure, clinically asymptomatic of DELBERT inhibitors and diuretics. 5. Overall prognosis remains guarded. Job ID: [id number]
--- NOTE | 2018-05-08 12:23 | RAD ---
PA AND LATERAL VIEWS CHEST: Date: 05/08/18 HISTORY: Shortness of breath. FINDINGS/IMPRESSION: Comparison made with exam of 05/06/18. The heart is enlarged. The aorta is tortuous. Interval improvement of the bibasilar infiltrates has o ccurred with small bilateral pleural effusions and adjacent mild infiltrate/atelectatic changes. POS: [facility]
[2018-05-08 15:24] LABS: Vancomycin, Trough 10.7 ug/mL
--- NOTE | 2018-05-08 15:48 | PDOC.CTH ---
Cardiology Progress Note - Subjective No overnight events. Chart reviewed - Objective Vital Signs Temp Pulse Pulse Pulse Resp BP BP 05/08/18 13:58 68 20 05/08/18 13:50 61 20 05/08/18 11:26 97.1 F L 63 20 05/08/18 09:30 60 63 121/56 L 107/55 L 05/08/18 09:00 97.2 F L 60 18 05/08/18 07:23 60 20 05/08/18 04:00 97.9 F 59 L 20 BP BP Pulse Ox 05/08/18 13:58 94 L 05/08/18 13:50 94 L 05/08/18 11:26 117/56 L 94 L 05/08/18 09:30 05/08/18 09:00 110/56 L 98 05/08/18 07:23 96 05/08/18 04:00 120/57 L 96 Admit Weight 249 lb 8 oz Weight 241 lb 8 oz 05/07/18 05/08/18 05/09/18 06:59 06:59 06:59 Intake Total 945 1010 Output Total 1200 850 Balance -255 160 - Physical Examination General/Neuro: alert & oriented x3 Lungs: CTA Heart: RRR Abdomen: soft Extremities: + edema B - Labs Result Diagrams: 05/08/18 06:24 05/08/18 06:24 Troponin/CKMB CK-MB (CK-2) 2.2 ng/mL (0-6.6) 05/07/18 04:41 Troponin I 0.726 ng/mL (< 0.028) H* 05/07/18 04:41 - Assessment/Plan 1. Acute on chronic systolic CHF 2. DORA on CKD 3. HTN 4. HLD 5. DM-II 6. urosepsis Cardiac medications held for now as patient hypotensive and septic. Cr increasing and monitored through renal. Will try to resume Coreg as BP tolerates.
[2018-05-08 16:46] LABS: PTT 27.7 SEC (22.9-36.1); Prothrombin Time 13.3 SEC (12.0-14.7)
[2018-05-08] MEDS: Insulin Glargine 28 UNITS in Pre-Filled Syringe 1 EACH SC SCH (21:01)
[2018-05-08] MEDS: Atorvastatin Calcium 40 MG TAB PO SCH (21:01)
[2018-05-08] MEDS: Tamsulosin HCl 0.4 MG CAP PO SCH (21:01)
[2018-05-08] MEDS: Nicotine 21 MG PATCH TD SCH (21:05)
[2018-05-09] MEDS: Piperacillin/Tazobactam 2.25 GM in Sodium Chloride 0.9% 100 ML IVPB SCH (05:23)
[2018-05-09 05:50] LABS: Anion Gap 18 mmol/L (10-20); BUN (Urea Nitrogen) 110 mg/dL (8.4-25.7); Calc. Creatinine Clearance 30 mL/min (70-130); Calcium 7.9 mg/dL (7.8-10.44); Carbon Dioxide 27 mmol/L (23-31); Chloride 95 mmol/L (98-107); Estimated GFR-MDRD 23; Glucose 246 mg/dL (83-110); Potassium 3.6 mmol/L (3.5-5.1); Sodium 136 mmol/L (136-145)
--- NOTE | 2018-05-09 05:51 | PDOC.FM ---
- Subjective Subjective: Patient much improved today, has appetite. Denies fevers, chills, chest pain, problems breathing. - Objective MAR Reviewed: Yes Vital Signs & Weight: Vital Signs (12 hours) Temp Pulse Resp BP BP Pulse Ox 05/09/18 03:22 98.4 F 65 14 109/51 L 92 L 05/08/18 23:51 67 20 05/08/18 20:56 98.4 F 63 20 130/61 93 L 05/08/18 18:28 69 16 92 L 05/08/18 17:54 96.9 F L 87 16 123/60 92 L Weight Admit Weight 113.171 kg Weight 109.543 kg I&O: 05/07/18 05/08/18 05/09/18 06:59 06:59 06:59 Intake Total 945 1010 1640 Output Total 9091 117 4947 Balance -255 160 390 Result Diagrams: 05/09/18 04:50 05/09/18 04:50 Phys Exam - Physical Examination Constitutional: NAD HEENT: moist MMs Neck: supple, full ROM fair respiratory effort with dec breath sounds Cardiovascular: RRR, no significant murmur Gastrointestinal: soft, non-tender 2+ edema up to knees bilaterally Neurological: non-focal, moves all 4 limbs Psychiatric: normal affect, A&O x 3 Dx/Plan (1) Bacteremia due to coagulase-negative Staphylococcus Code(s): R78.81 - BACTEREMIA Status: Acute (2) UTI (urinary tract infection), bacterial Code(s): N39.0 - URINARY TRACT INFECTION, SITE NOT SPECIFIED; A49.9 - BACTERIAL INFECTION, UNSPECIFIED Status: Acute (3) Demand ischemia of myocardium Code(s): I24.8 - OTHER FORMS OF ACUTE ISCHEMIC HEART DISEASE Status: Acute (4) CHF exacerbation Code(s): I50.9 - HEART FAILURE, UNSPECIFIED Status: Acute (5) Balanitis Code(s): N48.1 - BALANITIS Status: Acute (6) CKD (chronic kidney disease) stage 3, GFR 30-59 ml/min Code(s): N18.3 - CHRONIC KIDNEY DISEASE, STAGE 3 (MODERATE) Status: Acute (7) COPD (chronic obstructive pulmonary disease) Status: Acute (8) DM2 (diabetes mellitus, type 2) Status: Acute (9) HLD (hyperlipidemia) Code(s): E78.5 - HYPERLIPIDEMIA, UNSPECIFIED Status: Acute (10) HTN (hypertension) Code(s): I10 - ESSENTIAL (PRIMARY) HYPERTENSION Status: Acute (11) Tobacco abuse Code(s): Z72.0 - TOBACCO USE Status: Acute (12) BPH (benign prostatic hyperplasia) Code(s): N40.0 - BENIGN PROSTATIC HYPERPLASIA WITHOUT LOWER URINRY TRACT SYMP Status: Acute - Plan Plan: 88 yo M with PMH DM2, diastolic CHF, COPD, CKD3 presents with acute CHF exacerbation Strep. agalactiae bacteremia -positive 2/2 cultures on 05/07 -Continue zosyn, ID consult for abx duration -WBC and procal trending dwn Enterococcus UTI ->100K CFU -zosyn for empiric coverage, bah care -consult Dr. Ballard for duration of tx once s/s return Low BPs, improved -ddx includes heart failure vs. early sepsis -BPs improved with holding antihypertensives and abx tx -BP>100s, DBP >50s -consider resuming antihypertensives today, appreciate cards recs -consider resuming lasix as renal fx allows -continue to closely monitor, bolus if MAPs drop CHFrEF exacerbation - 06/2017 echo showed EF 50-55% with diastolic dysfunction - 06/2017 stress test showed small apex ischemia and hypokineses. Dr. Knowles at that time attributed symptoms to MSK, not angina, and recommended NSAIDs and PPI - Echo 04/29: EF 35-39% - dobutamine gtt discontinued - BB upon discharge - Continue strict I/Os, daily wts, 1200cc/day for diet - s/p metolazone x3 - Will call niece (POA) to discuss life vest as option - Consider resuming IV lasix as renal function allows, appreciate nephro recs Demand ischemia in setting of acute CHF -elevated troponins -EKG no ST elevation, tele monitoring Acute urinary retention with hematuria -History of what sounds like TURP with dx of prostate CA, per pt -Unsure of whether he had follow up with this -PSA mildly elevated, but low value likely from bah trauma -Urology on board -Pending urine cell block/cytology -Continue bha for now -Outpt f/u if continues to experience AUR or abnl cell block 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 prerenal from diuresing IDDM2 - per clinic records, home regimen glargine 38 units BID with lispro 3u tid - Continue Lantus BID, d/c home glimepiride - stable on current regimen, continue Balanitis -One time dose of fluconazole 75mg due to creatinine clearance -Nystatin powder, educate on care and maintenance Penile/scrotal swelling - worsens with sitting upright, denies pain - bah in place due to urinary retention - Hx of blood tinged urine, likely 2/2 trauma. No active bleeding at this time COPD, with possible exacerbation - current smoker, 80 pack year hx - home ventolin, spiriva - added duonebs prn - has had wheezing/SOB. No sign of infection - completed prenidsone 40 PO for 5 day course - not on home O2 will wean with sat% goal range 88-92% Mild Hyperkalemia, resolved - 5.3 in ED-->4.2 Anemia, normocytic - Hgb 11, MCV 87 - likely 2/2 chronic disease - will monitor on daily CBC HTN - see plan above - Hydralazine TID - ASA 81, nifedipine xl 30 mg daily, continue HLD - continue home atorvastatin 40 mg daily Tobacco abuse - nicotine patch, encourage cessation BPH -flomax Diet: HH Ppx: heparin Dispo: Enterococcus UTI- GBS bacteremia-Change to IV ampicillin, appreciate ID recs. BPs improved with abx course SBP >100, DBP >50. Will consider IV lasix for HF if renal fx improves, can consider resuming anti hypertensives. HF- restart coreg, hold off on diuretics. Possible life vest-will discuss with niece when pt more stabilized. Nystatin & conservative care for balinitis. Acute urinary retention: pending cell block, bah in place. Approved for SNF at [place]. Addendum - Attending - Attending Attestation Date/Time: 05/09/18 9818 I personally evaluated the patient and discussed the management with Dr. Strickland. Patient much more alert and closer to baseline. I agree with the History, Examination, Assessment and Plan documented above with any addition or exceptions noted below. GBS bacteremia Enterococcus UTI- will deescalate to IV ampicillin and appreciate ID recs on length of treatment Acute renal insufficiency on CKD- cr improved this am. Continue to hold lasix and DELBERT Inh. Working toward d/c to SNF- possible tomorrow vs sunday pending course
[2018-05-09] MEDS: Ipratropium Bromide 2.5 ml Neb NEB SCH ×3 (06:59→18:59)
[2018-05-09 07:57] LABS: #Eosinphils 0.2 thou/uL (0.0-0.7); #Lymphocytes 0.9 thou/uL (1.20-3.40); #Monocytes 0.8 thou/uL (0.11-0.59); #Neutrophils 7.3 thou/uL (1.40-6.50); %Basophils 0.1 % (0.0-1.0); %Eosinophils 2.4 % (0.0-10.0); %Lymphocytes 9.4 % (21.0-51.0); %Monocytes 8.5 % (0.0-10.0); %Neutrophils 79.7 % (42.0-75.0); Mean Corpuscular HGB CONC 29.4 g/dL (32.0-36.0); Mean Corpuscular Hemoglobin 25.4 pg (27.0-31.0); Mean Corpuscular Volume 86.5 fL (78.0-98.0); Mean Platelet Volume 10.7 fL (7.4-10.4); Platelet Count 236 thou/uL (130-400); RBC Distribution Width 14.2 % (11.5-14.5); Red Blood Cell (RBC) Count 4.32 mill/uL (4.70-6.10); White Blood Cell (WBC) Count 9.2 thou/uL (4.8-10.8)
[2018-05-09 08:45] LABS: MDiff Complete? YES; Polychromasia SLIGHT = 2-3 cells (100X) (0-2/hpf)
[2018-05-09] MEDS ORDERED: Heparin 5,000 UNITS/ML VIAL SC SCH (09:00)
--- NOTE | 2018-05-09 09:18 | PRG ---
DATE OF SERVICE: 05/09/2018 RENAL MEDICINE. SUBJECTIVE: The patient remains unchanged. No acute events noted last night. No new complaints today. Please note, diuretics and blood pressure medication has been hold previously due to low blood pressure. Creatinine is actually remaining stable with this patient with a creatinine today of 2.6 and yesterday this was 2.88 at 1 time. The patient's creatinine was said to have fluctuated in the past. No other complaints today. OBJECTIVE: VITAL SIGNS: Blood pressure is 102/60 and heart rate 70. GENERAL: Awake, sitting comfortable, not in overt distress, and obese. SKIN: Adequate turgor. HEENT: He has pinkish conjunctivae. Anicteric sclerae. NECK: No neck mass. No carotid bruits. No JVD. CHEST: No deformities. LUNGS: Decreased breath sounds. HEART: Normal sinus rhythm. No murmurs, gallops, or rubs. ABDOMEN: Globular, soft, and nontender. No masses. EXTREMITIES: Positive for edema. MEDICATIONS: Medications of May 09, 2018, was reviewed. LABORATORY DATA: Laboratories of May 09, 2018, white count 9.2 and hemoglobin is 11. Sodium 135, potassium 3.7, chloride 93, carbon dioxide 29, BUN 95, and creatinine 2.23, this was May 06, 2018. May 09, 2018; sodium 136, potassium 3.6, chloride 95, carbon dioxide 27, BUN 110, creatinine 2.6, glucose 246, and calcium 7.9. ASSESSMENT AND PLAN: 1. Bacteremia - on IV antibiotics. 2. Acute kidney injury/chronic renal failure. Hemodynamically-mediated dysfunction. Continue supportive care. No indication for any dialytic intervention. Continuing to hold off diuretics and angiotensin-converting enzyme inhibitors. Overall prognosis remains guarded. Job ID: [id number]
[2018-05-09] MEDS: Gabapentin 100 MG CAP PO SCH ×2 (09:27→20:17)
[2018-05-09] MEDS: guaiFENesin ER 600 MG TAB PO SCH ×2 (09:27→20:17)
[2018-05-09] MEDS: Aspirin 81 mg Enteric Coated Tablet PO SCH (09:27)
[2018-05-09] MEDS: HumaLOG 300 UNITS/3 ML VIAL SC SCH ×3 (09:27→17:06)
[2018-05-09] MEDS: Insulin Glargine 26 UNITS in Pre-Filled Syringe 1 EACH SC SCH (09:29)
[2018-05-09] MEDS ORDERED: Ampicillin 2 GM in Sodium Chloride 0.9% 100 ML IVPB SCH (13:00)
--- NOTE | 2018-05-09 13:50 | PRG ---
DATE OF SERVICE: SUBJECTIVE: Mr. Dodge appears much better today. He is more alert. His blood pressures have been more stable. His lisinopril, Coreg, and hydralazine were all discontinued yesterday. OBJECTIVE: VITAL SIGNS: Blood pressure 132/88, pulse 65, temperature 97.8. LUNGS: Minimal crackles bilaterally. HEART: Regular rate and rhythm. ABDOMEN: Soft, nontender, and nondistended. 1+ pitting edema. IMPRESSION: 1. Sepsis. 2. Cardiomyopathy of unknown etiology. 3. Edema. 4. Hypertension. RECOMMENDATIONS: Mr. Dodge appears improved. At this point, recommend slowly adding back hydralazine. His creatinine is elevated at 2.6. We will avoid DELBERT inhibitor therapy and ARB. We will also avoid Coreg given a heart rate in the low 60s. Job ID: [id number]
[2018-05-09] MEDS: hydrALAZINE 10 MG TAB PO SCH ×2 (16:29→20:17)
[2018-05-09] MEDS: Ampicillin 2 GM in Sodium Chloride 0.9% 100 ML IVPB SCH (16:30)
[2018-05-09] MEDS: Insulin Glargine 28 UNITS in Pre-Filled Syringe 1 EACH SC SCH (20:15)
[2018-05-09] MEDS: Acetaminophen 325 MG TAB PO PRN (20:15)
[2018-05-09] MEDS: Nicotine 21 MG PATCH TD SCH (20:16)
[2018-05-09] MEDS: Atorvastatin Calcium 40 MG TAB PO SCH (20:17)
[2018-05-09] MEDS: Tamsulosin HCl 0.4 MG CAP PO SCH (20:17)
--- NOTE | 2018-05-09 22:13 | CON ---
DATE OF CONSULTATION: 05/09/2018 REASON FOR CONSULTATION: Bacteremia. HISTORY OF PRESENT ILLNESS: This is an 88-year-old patient who has a history of hyperlipidemia, hypertension, type 2 diabetes, and stage 3 chronic renal insufficiency, who presented to the emergency room with worsening swelling in the lower extremities and dyspnea on exertion, unable to cross one of his rooms without getting short of breath. He did not have any fever or chills. No chest pain or cough. No abdominal pain. He also complains of swelling of the foreskin of his penis, which would prevent him from retracting it. He is still able to urinate without difficulty. Initial BP was 150/84, pulse 74, and temperature 98.5, and he remained afebrile in the emergency room. Initial exam showed inspiratory crackles in the right and left lung base. Normal heart sounds. The abdomen was protuberant, but not tender. He had penile edema. The lower extremities with venous insufficiency and 4+ lower extremity edema all the way to the knees. Initial laboratory data with white cell count 8.3, hemoglobin 11, platelets 197, 82% neutrophils. Sodium 137 and creatinine 1.57, which is a little bit higher than his baseline. His initial troponin 0.042 and C-reactive protein 10.86, albumin 3.5. Since admission, the patient has had 2/2 sets of blood cultures on the with positive for group B Streptococcus. Urine culture with Enterococcus faecalis. He did not have blood culture sets obtained upon admission. On May 01, about 5 days after admission, he had a Moreland catheter inserted because of urinary retention and a postvoid residual greater than 500 mL. Echocardiogram demonstrated EF 50 % to 55% with diastolic dysfunction, apical hypokinesis. On May 06, the patient had a temp elevation up to 101.5 and 2 sets of blood cultures were submitted which resulted with group B Streptococcus. At the same time, there was an increase in the white cell count, which peaked at 19.6 with a left shift. Repeat chest x-ray showed cardiomegaly, improvement in bibasilar infiltrates. Currently, Mr. Dodge is sitting by the bedside. He denies any headaches. No sore throat. Mild to moderate dyspnea. No chest pain. No abdominal pain. Tenderness in the scrotal area, but only when doing exam. No knee pain. He denies any leg symptoms at this point in time. PAST MEDICAL HISTORY: Type 2 diabetes, CHF mostly diastolic, COPD, chronic smoking, CKD 3, hypertension. PAST SURGICAL HISTORY: Cholecystectomy, TURP. FAMILY HISTORY: Includes diabetes type 2 and obesity. SOCIAL HISTORY: Current smoking habit, still active for many years. No alcoholic beverage use. CURRENT MEDICATIONS: Proventil, ampicillin q.6, Lipitor, Tums, dextrose, Mucinex, insulin, nicotine, tamsulosin, and vancomycin. PHYSICAL EXAMINATION: VITAL SIGNS: T-max 101.5 on May 06. He has been afebrile since. Blood pressure 140/66, pulse 66, respirations 18, O2 saturation 93% to 96%. SKIN: With bilateral stasis dermatitis and lower extremity edema. Multiple areas of superficial ulceration in the lower extremities with hyperpigmentation. The patient has peripheral IV access and Moreland catheter. The patient has a birthmark with hyperpigmentation on the right side of the facial area. Ocular movements conjugate with mild conjunctival hyperemia. Nasal passages are patent. Oral cavity with no remarkable findings. NECK: Supple. No jugular venous distention. LUNGS: Symmetric air entry. Faint basilar crackles. No wheezing. CARDIAC: S1, S2. No S3 or S4. ABDOMEN: Protuberant, but not tender to palpation. : Penile and scrotal edema. Scrotum is tender to palpation, but no erythema. EXTREMITIES: Lower extremities are covered by dressing, but they do have evidence of stasis dermatitis, quite a bit of edema and superficial ulcerations. LABORATORY DATA: The latest labs; white cell count is 9.2, hemoglobin 11, platelets 236. Creatinine is 2.62, sodium 137, potassium 3.7. ASSESSMENT: 1. Type 2 diabetes. 2. Renal insufficiency stage 3. 3. Diastolic dysfunction with congestive heart failure. 4. Venous insufficiency with numerous ulcerations in the lower extremities with some areas of early cellulitis. 5. Scrotal edema. 6. Group B strep bacteremia, which was identified after admission. 7. Urinary retention, requiring Moreland catheterization. DISCUSSION: The organism isolated from the blood cultures is probably unrelated to the urinary findings. It is more likely to represent a penetration of the blood stream from the skin ulcers in the lower extremities. He also has some cellulitis associated with those ulcers. I do not see any evidence of vascular access inflammatory change. Blood cultures were not taken on admission, so it is possible that he had positive blood cultures upon admission that it was not identified. He does not have evidence of deep-seated dissemination to endocardium, lungs, bone and joints. Therefore, should be able to transition to oral amoxicillin for discharge planning and treat for approximately 2 weeks. He will need continuation of compressive dressing. Evidently, he has so many other issues that are poorly controlled, particularly the persistent smoking. Job ID: [id number] MTDD
[2018-05-10] MEDS: Ipratropium Bromide 2.5 ml Neb NEB SCH ×3 (00:42→13:36)
[2018-05-10] MEDS: Ampicillin 2 GM in Sodium Chloride 0.9% 100 ML IVPB SCH ×3 (00:55→12:50)
[2018-05-10 04:16] VITALS: TEMP 97.9
[2018-05-10 05:33] LABS: #Eosinphils 0.3 thou/uL (0.0-0.7); #Lymphocytes 0.7 thou/uL (1.20-3.40); #Monocytes 0.6 thou/uL (0.11-0.59); #Neutrophils 5.6 thou/uL (1.40-6.50); %Basophils 0.5 % (0.0-1.0); %Eosinophils 3.8 % (0.0-10.0); %Lymphocytes 9.2 % (21.0-51.0); %Monocytes 8.7 % (0.0-10.0); %Neutrophils 77.8 % (42.0-75.0); Hemoglobin 11.8 g/dL (14.0-18.0); Mean Corpuscular HGB CONC 30.9 g/dL (32.0-36.0); Mean Corpuscular Volume 87.3 fL (78.0-98.0); Platelet Count 242 thou/uL (130-400); RBC Distribution Width 14.6 % (11.5-14.5); Red Blood Cell (RBC) Count 4.36 mill/uL (4.70-6.10); White Blood Cell (WBC) Count 7.2 thou/uL (4.8-10.8)
[2018-05-10 05:40] LABS: Anion Gap 19 mmol/L (10-20); BUN (Urea Nitrogen) 99 mg/dL (8.4-25.7); Calc. Creatinine Clearance 34 mL/min (70-130); Calcium 8.1 mg/dL (7.8-10.44); Carbon Dioxide 25 mmol/L (23-31); Chloride 97 mmol/L (98-107); Estimated GFR-MDRD 27; Glucose 215 mg/dL (83-110); Potassium 4.5 mmol/L (3.5-5.1); Sodium 136 mmol/L (136-145)
--- NOTE | 2018-05-10 09:00 | PDOC.FM ---
- Subjective Subjective: NAEO. Wants to eat more. No SOB, no chest pain, fevers dysuria. - Objective MAR Reviewed: Yes Vital Signs & Weight: Vital Signs (12 hours) Temp Pulse Resp BP Pulse Ox 05/10/18 07:41 65 18 95 05/10/18 04:12 97.9 F 60 18 134/62 94 L 05/10/18 00:42 62 20 Weight Admit Weight 113.171 kg Weight 109.543 kg I&O: 05/09/18 05/10/18 05/11/18 06:59 06:59 06:59 Intake Total 1640 1840 Output Total 1250 1450 Balance 390 390 Result Diagrams: 05/10/18 04:42 05/10/18 04:41 Phys Exam - Physical Examination Constitutional: NAD HEENT: PERRLA, moist MMs Neck: full ROM Respiratory: no wheezing, clear to auscultation bilateral Gastrointestinal: soft, non-tender Musculoskeletal: edema present 2+ edema up to knees, no erythma in LE Neurological: non-focal, moves all 4 limbs Psychiatric: normal affect, A&O x 3 Dx/Plan (1) Bacteremia due to coagulase-negative Staphylococcus Code(s): R78.81 - BACTEREMIA Status: Acute (2) UTI (urinary tract infection), bacterial Code(s): N39.0 - URINARY TRACT INFECTION, SITE NOT SPECIFIED; A49.9 - BACTERIAL INFECTION, UNSPECIFIED Status: Acute (3) Demand ischemia of myocardium Code(s): I24.8 - OTHER FORMS OF ACUTE ISCHEMIC HEART DISEASE Status: Acute (4) CHF exacerbation Code(s): I50.9 - HEART FAILURE, UNSPECIFIED Status: Acute (5) Balanitis Code(s): N48.1 - BALANITIS Status: Acute (6) CKD (chronic kidney disease) stage 3, GFR 30-59 ml/min Code(s): N18.3 - CHRONIC KIDNEY DISEASE, STAGE 3 (MODERATE) Status: Acute (7) COPD (chronic obstructive pulmonary disease) Status: Acute (8) DM2 (diabetes mellitus, type 2) Status: Acute (9) HLD (hyperlipidemia) Code(s): E78.5 - HYPERLIPIDEMIA, UNSPECIFIED Status: Acute (10) HTN (hypertension) Code(s): I10 - ESSENTIAL (PRIMARY) HYPERTENSION Status: Acute (11) Tobacco abuse Code(s): Z72.0 - TOBACCO USE Status: Acute (12) BPH (benign prostatic hyperplasia) Code(s): N40.0 - BENIGN PROSTATIC HYPERPLASIA WITHOUT LOWER URINRY TRACT SYMP Status: Acute - Plan Plan: 88 yo M with PMH DM2, diastolic CHF, COPD, CKD3 presents with acute CHF exacerbation Strep. agalactiae bacteremia likely from lower extremity cellulitis -positive 2/2 cultures on 05/07 -WBC and procal trending dwn -oral ampicillin Enterococcus UTI ->100K CFU - oral ampicillin Low BPs, improved -ddx includes heart failure vs. early sepsis -BPs improved with holding antihypertensives and abx tx -BP>100s, DBP >50s -consider resuming antihypertensives today, appreciate cards recs -consider resuming lasix as renal fx allows -continue to closely monitor, bolus if MAPs drop CHFrEF exacerbation - 06/2017 echo showed EF 50-55% with diastolic dysfunction - 06/2017 stress test showed small apex ischemia and hypokineses. Dr. Knowles at that time attributed symptoms to MSK, not angina, and recommended NSAIDs and PPI - Echo 04/29: EF 35-39% - dobutamine gtt discontinued - BB upon discharge - Continue strict I/Os, daily wts, 1200cc/day for diet - s/p metolazone x3 - Consider resuming IV lasix as renal function allows, appreciate nephro recs Demand ischemia in setting of acute CHF -elevated troponins -EKG no ST elevation, tele monitoring Acute urinary retention with hematuria -History of what sounds like TURP with dx of prostate CA, per pt -Unsure of whether he had follow up with this -PSA mildly elevated, but low value likely from bah trauma -Urology on board -Pending urine cell block/cytology -Continue bah for now -Outpt f/u if continues to experience AUR or abnl cell block 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 prerenal from diuresing IDDM2 - per clinic records, home regimen glargine 38 units BID with lispro 3u tid - Continue Lantus BID, d/c home glimepiride - stable on current regimen, continue Balanitis -One time dose of fluconazole 75mg due to creatinine clearance -Nystatin powder, educate on care and maintenance Penile/scrotal swelling - worsens with sitting upright, denies pain - bah in place due to urinary retention - Hx of blood tinged urine, likely 2/2 trauma. No active bleeding at this time COPD, with possible exacerbation - current smoker, 80 pack year hx - home ventolin, spiriva - added duonebs prn - has had wheezing/SOB. No sign of infection - completed prenidsone 40 PO for 5 day course - not on home O2 will wean with sat% goal range 88-92% Mild Hyperkalemia, resolved - 5.3 in ED-->4.2 Anemia, normocytic - Hgb 11, MCV 87 - likely 2/2 chronic disease - will monitor on daily CBC HTN - see plan above - Hydralazine TID - ASA 81, nifedipine xl 30 mg daily, continue HLD - continue home atorvastatin 40 mg daily Tobacco abuse - nicotine patch, encourage cessation BPH -flomax Diet: HH Ppx: heparin (held) Dispo: Enterococcus UTI;GBS bacteremia-oral amoxicillin for two weeks. BPs improved with abx course SBP >100, DBP >50, hydalazine resumed. CHRISTIAN-improving- Continue IV lasix PRN today, give renal function time to improve. HF- lasix, prn, hydralazine to reduce afterload, hold coreg due to low pulse. Nystatin & conservative care for balinitis. Acute urinary retention: pending cell block, bah in place. uro outpt followup. Approved for SNF at [place]. Stable for d/c today. Addendum - Attending - Attending Attestation Date/Time: 05/10/18 6973 I personally evaluated the patient and discussed the management with Dr. Strickland I agree with the History, Examination, Assessment and Plan documented above with any addition or exceptions noted below. Stable for transfer to SNF. No lasix or lisinopril on discharge as CHRISTIAN. Can consider restarting in the outpatient setting. Restart beta trang as HR and bp will tolerate
--- NOTE | 2018-05-10 09:19 | PRG ---
DATE OF SERVICE: 05/10/2018 SUBJECTIVE: Mr. Dodge is an 88-year-old male with acute kidney injury on top of his chronic renal failure. He had a presumptive hemodynamically-mediated renal dysfunction. Overtime, renal function has been stabilizing. His diuretics and DELBERT inhibitors have been placed on hold. During this hospitalization, he was also found to be bacteremic, currently on IV antibiotics. ID has evaluated this patient and recommendation is to convert him to oral antibiotics in the next few days. No other complaints today. He is complaining of not getting enough food from his diet. No complaints of chest pain or shortness of breath. OBJECTIVE: VITAL SIGNS: Blood pressure is 134/62, heart rate 60, respiratory rate 18, temperature 97.9, and pulse ox 94%. GENERAL: The patient is awake, alert, comfortable, not in overt distress. SKIN: Adequate turgor. HEENT: He has pinkish conjunctivae. Anicteric sclerae. NECK: No neck mass. No carotid bruits. No JVD. CHEST: No deformities. LUNGS: Clear breath sounds. HEART: Normal sinus rhythm. No murmurs. No gallops. No rubs. ABDOMEN: Globular, soft, nontender. No masses. EXTREMITIES: Positive for edema. Positive for dressing. MEDICATIONS: Medications of May 10, 2018, was reviewed. LABORATORY DATA: Laboratories of May 10, 2018; sodium 136, potassium 4.5, chloride 97, carbon dioxide 25, BUN 99, creatinine 2.31, glucose 215, and calcium 8.1. White count 7.2, hemoglobin 11.8, hematocrit 38.1. Sodium 136, potassium 4.5, chloride 97, carbon dioxide 25, BUN 99, creatinine 2.31, glucose 215, and calcium 8.1. ASSESSMENT AND PLAN: 1. Acute kidney injury on top of chronic renal failure, improving renal function. Most recent creatinine now is 2.31. I would probably continue to hold off diuretics for the moment. With this patient, there is no indication for any dialytic intervention. 2. Congestive heart failure, clinically improved. Coreg has been resumed. 3. Bacteremia - ID following. Currently, the patient is on IV ampicillin. Overall, prognosis remains guarded. Job ID: [id number]
[2018-05-10] MEDS: hydrALAZINE 10 MG TAB PO SCH ×2 (09:45→16:47)
[2018-05-10] MEDS: Aspirin 81 mg Enteric Coated Tablet PO SCH (09:45)
[2018-05-10] MEDS: Gabapentin 100 MG CAP PO SCH (09:46)
[2018-05-10] MEDS: guaiFENesin ER 600 MG TAB PO SCH (09:46)
[2018-05-10] MEDS: Insulin Glargine 26 UNITS in Pre-Filled Syringe 1 EACH SC SCH (09:46)
[2018-05-10] MEDS: HumaLOG 300 UNITS/3 ML VIAL SC SCH ×3 (09:50→17:26)
--- NOTE | 2018-05-10 13:27 | PRG ---
DATE OF SERVICE: 05/10/2018 SUBJECTIVE: Mr. Dodge is currently stable, no current complaints. His main concern today is not getting enough biscuits for breakfast. OBJECTIVE: VITAL SIGNS: Blood pressure 182/70, pulse 66, and temperature 97.9. LUNGS: Clear to auscultation. HEART: Regular rate and rhythm. ABDOMEN: Soft, nontender, and nondistended. EXTREMITIES: 1+ pitting edema. IMPRESSION: 1. Cardiomyopathy of unknown etiology. 2. Sepsis. 3. Renal insufficiency. RECOMMENDATIONS: Mr. Dodge appears to be cardiovascularly stable. There is no interest in LifeVest or ICD at this point. We will continue current medical therapy. We would recommend adding Coreg 3.125 one p.o. b.i.d. in addition to continuing hydralazine. The patient is going to be sent to detention. No further recommendations. Job ID: [id number]
[2018-05-10] MEDS ORDERED: Furosemide 20 MG TAB PO SCH (14:00)
[2018-05-10] MEDS: Insulin Regular 300 UNITS/3 ML VIAL SC PRN (14:11)
[2018-05-10] MEDS ORDERED: AMOXicillin 250 MG CAP PO SCH (15:00)
[2018-05-10] MEDS: Vancomycin HCl 1.5 GM in Sodium Chloride 0.9% 250 ML 300 ML IVPB SCH (16:48)
[2018-05-10 16:53] VITALS: BP 158/70
[2018-05-10] MEDS ORDERED: Carvedilol 3.125 MG TAB PO SCH (17:00)
--- NOTE | 2018-05-11 07:22 | DIS ---
DATE OF ADMISSION: 04/26/2018 DATE OF DISCHARGE: 05/10/2018 ADMITTING ATTENDING: Dr. Baca. DISCHARGE ATTENDING: Dr. Chauhan. CONSULTS: 1. Cardiology, Dr. Suh and Dr. Knowles 2. Nephrology, Dr. Suman Strickland. 3. Urology, Dr. Faith. 4. Infectious Disease, Dr. Ballard. PROCEDURES: None. PRIMARY DIAGNOSES: 1. Streptococcus agalactiae bacteremia, likely secondary to lower extremity cellulitis. 2. Enterococcus faecalis urinary tract infection. 3. Acute on chronic heart failure exacerbation with reduced ejection fraction ( 30 to 35%) 4. Demand ischemia. 5. Chronic obstructive pulmonary disease exacerbation. 6. Balanitis. 7. Acute urinary retention, requiring Moreland. 8. Acute kidney injury on chronic kidney disease. 9. Anasarca. SECONDARY DIAGNOSES: 1. Insulin dependent diabetes mellitus 2. 2. Hyperlipidemia. 3. Hypertension. 4. CKD 3. 5. Tobacco abuse. 6. BPH. DISCHARGE MEDICATIONS: 1. Aspirin 81 mg p.o. daily. 2. Coreg 3.125 mg p.o. b.i.d. with meal. 3. Lasix 20 mg p.o. b.i.d. 4. Hydralazine 10 mg p.o. t.i.d. 5. Amoxicillin 250 mg p.o. t.i.d. for 14 days. 6. Aspirin 100 mg p.o. b.i.d. 7. Spiriva 18 mcg inhaled daily. 8. Ventolin 8 g inhaled p.r.n. short of breath and wheezing. 9. Atorvastatin 40 mg p.o. daily. 10. Tylenol 650 mg p.o. q.4 hours p.r.n. for fever or pain. 11. Tums 1000 mg p.o. q.4 hours p.r.n. for upset stomach. 12. Glucagon 1 mg/1 mL vial 1 mg IM p.r.n. for hypoglycemia. 13. Mucinex 600 mg p.o. q.12 hours p.r.n. for chest congestion. 14. Humalog 8 units subcu t.i.d. with meals. 15. Lantus 28 units subcu h.s. 16. Lantus 26 units subcu a.m. 17. DuoNeb 3 mL nebulized q.4 hours p.r.n. for short of breath and wheezing. 18. Nicotine 21 mg transdermal patch q.24 hours. 19. Nystatin one bottle topical b.i.d. p.r.n., now scheduled. 20. Zofran 4 mg p.o. q.6 hours p.r.n. for nausea. 21. Simethicone 80 mg p.o. p.r.n. for constipation. 22. Flomax 0.4 mg p.o. q.h.s. 23. Please titrate Lantus units as needed to achieve a fasting blood glucose of less than 120 or postprandial less than 200. 24. Metformin 500 mg p.o. b.i.d. 25. Glimepiride 1 mg p.o. q.a.m. with meal. 26. Lantus 35 units subcu b.i.d. HISTORY OF PRESENT ILLNESS/HOSPITAL COURSE: Mr. Dodge is an 88-year-old male with heart failure with reduced ejection fraction, who presented to the ED for feeling short of breath and scrotal swelling. He was admitted for acute on chronic CHF exacerbation and extreme anasarca. Echo showed an ejection fraction of 35% to 39%, which was decreased from a June 2017 echo showing EF of 50% to 55%. Hospital course was complicated by diuretics causing an CHRISTIAN. Worsening CHRISTIAN was also thought to be due to his worsening heart failure. He was started on dobutamine drip for duration of 4 days with mild improvement in his creatinine. We continued aggressive diuresing during the whole course of admission with improvement in clinical fluid status. CHRISTIAN on CKD: Nephrology consulted due to rising creatinine despite cardiac inotropic support and IV diuretics. No indications for HD as it was thought worsening CHRISTIAN was secondary to decompensating heart failure and low BPs. Pt. later developed systemic infection with strep agalactiae which could also have contributed to his CHRISTIAN. Strep agalactiae bacteremia: Patient developed this likely secondary to lower extremity cellulitis from inc. hydrostatic pressure skin changes. He was started on antibiotics and clinically improved over the course of a few days. As blood pressure improved so did his renal function. Infectious disease was consulted with rx to continue oral abx for two weeks. Acute urinary retention: The patient also experienced new onset acute urinary retention during this hospital admission. He failed multiple Moreland clamping trials. Due to patient's history requiring TURP . However, Flomax did not improve retention. Urology was then consulted and recommended outpatient followup. He did continue to experience acute urinary retention. Cell block cytology came back abnormal. PSA was mildly elevated at 89. However, Dr. Faith required no further workup in regard to that since prostate cancer typically manifest levels greater than 500. Balanitis: The patient experienced balanitis infection during hospital course and was given a one time dose of Diflucan with continued conservative care with nystatin powder. He will need continuation of this at SNF until scrotal swelling has decreased with continued diuresis. COPD:: Pt was also treated for chronic obstructive pulmonary disease exacerbation, and received a 5-day course of steroids in addition to intermittently requiring DuoNeb treatment. He is typically on maintenance medications, all of which have been resumed upon his discharge. Hematuria: In addition, the patient experienced intermittent episodes of hematuria. Urinalysis confirmed presence of red blood cells, but the first two UAs were not consistent with UTI. It was thought this was due to trauma from insertion of Moreland catheter. Due to this, patient was discontinued on any DVT prophylaxis. Insulin-dependent DM 2: The patient is a type 2 diabetic. Typically takes Lantus 35 units subcu b.i.d. with short-acting premeal insulin. However, the patient's home requirement was decreased in this hospital course due to a couple of mildly symptomatic hypoglycemic episodes, never involving seizures. Please continue to adjust insulin as required as the patient may have an overall new requirement upon leaving the hospital. Acute kidney injury on chronic kidney disease: Due to persistence of acute kidney injury, Nephrology was consulted. Never had indication for hemodialysis, however, DELBERT and ARB therapy was held. In addition, IV Lasix had to be held for a couple of days due to the rise in creatinine. Upon discharge, the patient's creatinine was still elevated but improved at 2.31 (admission creatinine 1.57). Instructions were made to hold off on DELBERT and ARB therapy. Mildly diuresing with 20 mg p.o. Lasix b.i.d. Plan to follow up with Nephrology in 3 to 4 weeks to reassess this. Demand ischemia: During hospital course, patient decompensated and had elevated troponins of 0.3. EKG did not show any acute ST elevations. Cardiology was immediately consulted and thought that the rising troponins were due to demand ischemia from extreme heart failure since the patient has been off diuretics for the past few days due to low blood pressures and worsening kidney function. At this time, discussion was held with the patient, who once again opted out of aggressive management, only want to continue with medical management. Troponin trended down. Social circumstances: Before admission, the patient was living with niece. However, upon talking with her, she was unable to care for him adequately. The patient agreed to going to SNF for few weeks in order to regain his strength. HF: Gave metolazone in order to appropriately diurese. Upon discharge, the patient was mildly clinically fluid overloaded with 2+ edema up to the knees; however, no respiratory distress. He will need to be continuously diuresed in the outpatient setting, keeping a close eye on his renal function and electrolytes. Upon discharge, a lower dose of Coreg was added due to his pulse rate in the low 60s. Also, hydralazine t.i.d. will be used to reduce afterload for his heart failure to manage blood pressure. DISPOSITION: Stable with long-term prognosis guarded. DISCHARGE INSTRUCTIONS: 1. Location, SNF at [facility]. 2. Diet, fluid-restricted diet less than 1200 mL a day unless otherwise indicated by Cardiology. Heart healthy and carb consistent diet. 3. Activity, as tolerated. FOLLOWUP: 1. Please follow up with PCP, Dr. oGodrich within 7 days. 2. Please follow up with Dr. Knowles in about 2 weeks. 3. Please follow up at cardiac rehab 4. Please follow up with Dr. Faith if still experiencing acute urinary retention requiring Moreland assistance. Also, please follow up with him if results of urine cell block cytology are abnormal. 5. Please follow up with applicator sprayer, Dr. Strickland, in 4 weeks to review renal function and to discuss resuming DELBERT and ARB therapy. 6. Please follow up with [facility]. Additional instructions for SNF: 1. Please check BMP in one week. If creatinine increases, hold Lasix only giving it p.r.n. for edema. Follow up with applicator sprayer, Dr. Suman Strickland in 3 to 4 weeks. 2. Diet. Please allow him to eat what he wants to eat as long as he can stick with less than 1200 mL a day of fluids. 3. Insulin-dependent diabetes: Please titrate long-acting insulin as needed to avoid hypoglycemics with goal of fasting blood glucose of less than 120, postprandial less than 220, using sliding scale as needed. 4. If pulse is less than 60, hold Coreg, follow up with PCP or Cardiology for further management of this. 5. Please continue with wound care for lower extremities, continue to elevate legs. 6. Strict I and Os to make sure not retaining fluid. 7. Moreland care, contract Moreland clamping trial. If unable to remove Moreland, please follow up with Urology. 8. Please make sure to contact PCP for results of urine cell cytology. If abnormal, will need referral to urology. 9. Balanitis: Please continue conservative care with nystatin powder. Job ID: [id number] [facility]
== END 2018-05-10 17:40 | DRG 291 ==
LOC: ERS 14:23 → ERHOLD 17:38 → 2SE 23:24 → 2NO 04-28 12:46
PROVIDERS: ADMIT Student in an Organized Health Care Education/Training Program; ATTEND Student in an Organized Health Care Education/Training Program
DX: I13.0 Hypertensive heart and chronic kidney disease with heart failure and stage 1 through stage 4 chronic kidney disease, or unspecified chronic kidney disease (principal); I50.23 Acute on chronic systolic (congestive) heart failure; R18.8 Other ascites; N17.9 Acute kidney failure, unspecified; I24.8 Other forms of acute ischemic heart disease; N39.0 Urinary tract infection, site not specified; R78.81 Bacteremia; L03.119 Cellulitis of unspecified part of limb; J44.1 Chronic obstructive pulmonary disease with (acute) exacerbation; F17.210 Nicotine dependence, cigarettes, uncomplicated; E11.22 Type 2 diabetes mellitus with diabetic chronic kidney disease; N18.3 Chronic kidney disease, stage 3 (moderate); E87.5 Hyperkalemia; R79.89 Other specified abnormal findings of blood chemistry; E78.5 Hyperlipidemia, unspecified; D64.9 Anemia, unspecified; I16.0 Hypertensive urgency; R31.9 Hematuria, unspecified; Z66 Do not resuscitate; N48.1 Balanitis; N50.89 Other specified disorders of the male genital organs; N40.1 Benign prostatic hyperplasia with lower urinary tract symptoms; R33.8 Other retention of urine; E11.40 Type 2 diabetes mellitus with diabetic neuropathy, unspecified; E11.51 Type 2 diabetes mellitus with diabetic peripheral angiopathy without gangrene; B95.1 Streptococcus, group B, as the cause of diseases classified elsewhere; B95.2 Enterococcus as the cause of diseases classified elsewhere; I42.9 Cardiomyopathy, unspecified; Z79.82 Long term (current) use of aspirin; Z79.4 Long term (current) use of insulin
CPT/HCPCS: 36415; 36416; 51702; 71045; 71046; 80048; 80053; 80202; 81003; 81015; 82550; 82553; 82805; 83605; 83735; 83880; 84145; 84153; 84443; 84484; 85025; 85610; 85652; 85730; 86140; 87040; 87077; 87086; 87149; 87186; 88112; 93005; 93010; 93306; 93798; 94640; 94760; 96374; J0290; J1250; J1644; J1815; J1940; J2543; J3370; J7050; J7506; J7620

== ENCOUNTER 2018-05-21 15:43 | Inpatient (IN) | payer MEDICARE, MEDICAID ==
[2018-05-21 16:17] LABS: #Eosinphils 0.1 thou/uL (0.0-0.7); #Lymphocytes 0.9 thou/uL (1.20-3.40); #Monocytes 0.5 thou/uL (0.11-0.59); #Neutrophils 4.3 thou/uL (1.40-6.50); %Basophils 0.2 % (0.0-1.0); %Eosinophils 2.3 % (0.0-10.0); %Lymphocytes 15.3 % (21.0-51.0); %Neutrophils 74.2 % (42.0-75.0); Hemoglobin 10.1 g/dL (14.0-18.0); Mean Corpuscular HGB CONC 30.6 g/dL (32.0-36.0); Mean Corpuscular Volume 88.3 fL (78.0-98.0); Mean Platelet Volume 9.6 fL (7.4-10.4); Platelet Count 182 thou/uL (130-400); RBC Distribution Width 15.2 % (11.5-14.5); Red Blood Cell (RBC) Count 3.75 mill/uL (4.70-6.10); White Blood Cell (WBC) Count 5.8 thou/uL (4.8-10.8)
--- NOTE | 2018-05-21 16:21 | RAD ---
CHEST ONE VIEW: History: Chest pain. Leg swelling. Comparison: 05-08-18 FINDINGS: Cardiac silhouette is magnified and enlarged. Pulmonary vasculature is slightly engorged with widespr ead reticular nodular interstitial prominence. Mediastinum is midline with aortic calcification. No l obar consolidation or evidence of pneumothorax. IMPRESSION: 1. Cardiomegaly with mild pulmonary vascular congestion. 2. Atherosclerosis. POS: [facility]
[2018-05-21 16:36] LABS: Bilirubin Negative (Negative); Blood, Urine Negative (Negative); Clarity CLEAR (Clear); Glucose, Urine (Dipstick) 250 mg/dL (Negative); Leukocyte Negative (Negative); Nitrite Negative (Negative); Protein, Urine (Dipstick) Trace mg/dL (Neg-Trace); Specific Gravity, Urine 1.015 (1.002-1.036); Urobilinogen 0.2 mg/dL (0.2-1.0); pH, Urine 5.5 (5.0-9.0)
[2018-05-21 16:37] LABS: ALT (SGPT) 25 U/L (8-55); AST (SGOT) 23 U/L (5-34); Albumin 3.2 g/dL (3.4-4.8); Alkaline Phosphatase 121 U/L (40-150); Anion Gap 12 mmol/L (10-20); BUN (Urea Nitrogen) 63 mg/dL (8.4-25.7); Bilirubin, Total 0.3 mg/dL (0.2-1.2); Calc. Creatinine Clearance 0 mL/min (70-130); Calcium 8.6 mg/dL (7.8-10.44); Carbon Dioxide 28 mmol/L (23-31); Chloride 101 mmol/L (98-107); Estimated GFR-MDRD 24; Globulin 3.6 g/dL (2.4-3.5); Glucose 273 mg/dL (83-110); Potassium 5.4 mmol/L (3.5-5.1); Protein, Total 6.8 g/dL (5.8-8.1); Sodium 136 mmol/L (136-145)
[2018-05-21 17:00] LABS: CKMB 2.8 ng/mL (0-6.6)
[2018-05-21] MEDS ORDERED: Furosemide 40 MG/4 ML VIAL ONE (17:21)
--- NOTE | 2018-05-21 18:09 | ULT ---
SCROTAL ULTRASOUND: 05/21/18 HISTORY: Testicular pain and swelling. Multiple longitudinal and transverse images of the scrotum is obtained using a multihertz linear arra y transducer. Real time, color flow and spectral waveform doppler analysis demonstrate both testicles to be of normal contour, axis and size. The right testicle measures 3.6 x 3.2 x 2.9 cm, while the le ft measures 3.6 x 2.8 x 2.6 cm. good flow seen in both testicles. No evidence of testicular torsion s een. A small cyst seen in the right testicle measuring 1.0 x 0.9 x 0.8 cm. There is diffuse edema seen within the scrotum. The epididymi are also mildly enlarged. No evidence of varicocele seen. IMPRESSION: 1. No evidence of testicular masses or torsions. 2. Diffuse scrotal edema. POS: [facility]
--- NOTE | 2018-05-21 18:38 | PDOC.FPRHP ---
- History of Present Illness Chief Complaint: BLE and scrotal swelling History of Present Illness: 88 yo M with PMH DM2, diastolic CHF, COPD, CKD3 presents with BLE edema and scrotal swelling. Per the ED, patient was sent in as nurse reported worsening bilateral lower extremity and scrotal swelling for the past few days. It appears that the patient checked himself out from SNF because he didn't like it and went home with niece. Patient is a poor historian. Denies CP, states his SOB is improved, has chronic cough. States that his scrotum and penis only hurt when touched. Denies fevers/chills, palpitations. ED: Patient received 40 mg PO lasix. CXR showed cardiomegaly with pulmonary vascular congestion and atherosclerosis. EKG showed wide QRS, RBBB, and T wave inversions in 2,3 and AVF, and left axis deviation. Trop was 0.047, BNP almost 1500. K elevated at 5.4. BUN/Cr 63/2.50. Scrotal sono showed diffuse scrotal edema. - Allergies/Adverse Reactions Allergies Allergy/AdvReac Type Severity Reaction Status Date / Time No Known Drug Allergies Allergy Verified 01/23/18 09:28 - Home Medications Medication Instructions Recorded Confirmed Type Albuterol Sulfate [Ventolin HFA] 8 gm INH PRN PRN 06/23/17 04/27/18 History Aspirin [Ecotrin Low Strength] 81 mg PO DAILY 06/23/17 04/27/18 History Gabapentin 100 mg PO BID 06/23/17 04/27/18 History Tiotropium Hunter [Spiriva] 18 mcg IH DAILY 06/23/17 04/27/18 History Atorvastatin Calcium [Lipitor] 40 mg PO DAILY 30 Days #30 tab 06/24/17 04/27/18 Rx Acetaminophen [Tylenol Regular 650 mg PO Q4H PRN tab 05/10/18 Rx Strength] Amoxicillin [Amoxil] 250 mg PO TID 14 Days cap 05/10/18 Rx Calcium Carbonate [Tums] 1,000 mg PO Q4H PRN tab 05/10/18 Rx Carvedilol [Coreg] 3.125 mg PO BID-WM tab 05/10/18 Rx Furosemide [Lasix] 20 mg PO 0900,1400 tab 05/10/18 Rx Glucagon 1 mg IM PRN PRN vial 05/10/18 Rx HumaLOG [HumaLOG Vial] 8 units SC TID-WM vial 05/10/18 Rx Insulin Glargine [Lantus Vial] 26 units SC QAM vial 05/10/18 Rx Insulin Glargine [Lantus Vial] 28 units SC HS vial 05/10/18 Rx Ipratropium/Albuterol Sulfate 3 ml NEB [id number] PRN neb 05/10/18 Rx [DuoNeb] Nicotine [Nicoderm CQ] 21 mg TD Q24HR patch 05/10/18 Rx Nystatin [Mycostatin Powder] 1 bot TOP BID PRN bot 05/10/18 Rx Ondansetron [Zofran ODT] 4 mg PO Q6H PRN tab 05/10/18 Rx Simethicone [Mylicon Chewable] 80 mg PO PCHS PRN tab 05/10/18 Rx Tamsulosin HCl [Flomax] 0.4 mg PO HS cap 05/10/18 Rx guaiFENesin ER [Mucinex] 600 mg PO Q12HR tab 05/10/18 Rx hydrALAZINE [Apresoline] 10 mg PO TID tab 05/10/18 Rx - History PMHx: DM2, systolic and diastolic CHF, COPD, HTN, CKD3, HLD PSHx: cholecystectomy, prostatectomy, R thumb, L leg vein surgery FHx: son with "hole in his heart" Social: Denied recent alcohol use, denied illicit drug use. Recently quit smoking (3 weeks ago) and uses nicoderm patch. 40 pack year hx (80 years, 1/2 ppd) - Review of Systems General: denies: fever/chills, weight/appetite/sleep changes (no appetite changes) Eyes: denies: eye pain, vision changes ENT: denies: nasal congestion, rhinorrhea Respiratory: reports: cough, shortness of breath. denies: congestion Cardiovascular: reports: edema. denies: chest pain, palpitation Gastrointestinal: reports: diarrhea. denies: nausea, vomiting, constipation, abdominal pain, GI bleeding Genitourinary: reports: incontinence, other (swollen penis) Skin: denies: rashes, lesions Musculoskeletal: reports: pain (penis TTP), swelling Psychological: denies: anxiety, depression - Vital signs BP: [119/63] HR: [61] RR: [18] Tmax: [99] Pox: [98]% on [RA] Wt: [115 kg] - Physical Exam Constitutional: NAD, awake, alert and oriented HEENT: normocephalic and atraumatic, PERRLA, conjunctiva clear, MMM, oropharynx clear, other (Right sided shaquille, decreased hearing bilat) Neck: supple, no LAD Heart: RRR, normal S1/S2, no murmurs/rubs/gallops, other (3+ pitting edema in BLE, scrotum and penis very edematous, urinary catheter in place) Lungs: CTAB, no respiratory distress, no wheezing, no retractions Abdomen: non-tender, bowel sounds present, other (distended) Musculoskeletal: normal structure, normal tone Skin: other (Ulcer on L leg, venous stasis rash on BLE) Heme/Lymphatic: no unusual bruising or bleeding, no purpura Psychiatric: other (Poor historian, intact recent and remote memory) FMR H&P: Results - Labs Result Diagrams: 05/21/18 16:04 05/21/18 16:04 Lab results: WBC 5.8 thou/uL (4.8-10.8) 05/21/18 16:04 Hgb 10.1 g/dL (14.0-18.0) L 05/21/18 16:04 Hct 33.1 % (42.0-52.0) L 05/21/18 16:04 MCV 88.3 fL (78.0-98.0) 05/21/18 16:04 Plt Count 182 thou/uL (130-400) 05/21/18 16:04 Neutrophils % 74.2 % (42.0-75.0) 05/21/18 16:04 Sodium 136 mmol/L (136-145) 05/21/18 16:04 Potassium 5.4 mmol/L (3.5-5.1) H 05/21/18 16:04 Chloride 101 mmol/L (98-107) 05/21/18 16:04 Carbon Dioxide 28 mmol/L (23-31) 05/21/18 16:04 BUN 63 mg/dL (8.4-25.7) H 05/21/18 16:04 Creatinine 2.50 mg/dL (0.7-1.3) H 05/21/18 16:04 Glucose 273 mg/dL (83-110) H 05/21/18 16:04 Calcium 8.6 mg/dL (7.8-10.44) 05/21/18 16:04 Total Bilirubin 0.3 mg/dL (0.2-1.2) 05/21/18 16:04 AST 23 U/L (5-34) 05/21/18 16:04 ALT 25 U/L (8-55) 05/21/18 16:04 Alkaline Phosphatase 121 U/L (40-150) 05/21/18 16:04 CK-MB (CK-2) 2.8 ng/mL (0-6.6) 05/21/18 16:04 B-Natriuretic Peptide 1493.4 pg/mL (0-100) H 05/21/18 16:04 Serum Total Protein 6.8 g/dL (5.8-8.1) 05/21/18 16:04 Albumin 3.2 g/dL (3.4-4.8) L 05/21/18 16:04 Urine Ketones Negative mg/dL (Negative) 05/21/18 16:17 Urine Blood Negative (Negative) 05/21/18 16:17 Urine Nitrite Negative (Negative) 05/21/18 16:17 Ur Leukocyte Esterase Negative (Negative) 05/21/18 16:17 - EKG Interpretation EKG: Stable from last EKG RBBB, T wave inversion 2, 3, AVF; left axis deviation QRS prolonged today, 130 from 120 last visit - Radiology Interpretation Chest x-ray Status: image reviewed by me, report reviewed by me Additional comment: cardiomegaly and pulmonary vascular congestion Other Status: report reviewed by me Additional comment: Ultrasound scrotum: diffuse scrotal edema FMR H&P: A/P - Problem List (1) Anemia Current Visit: Yes Status: Acute Code(s): D64.9 - ANEMIA, UNSPECIFIED (2) Diarrhea Current Visit: Yes Status: Acute Code(s): R19.7 - DIARRHEA, UNSPECIFIED (3) Venous stasis ulcer Current Visit: Yes Status: Acute Code(s): I83.009 - VARICOSE VEINS OF UNSP LOWER EXTREMITY W ULCER OF UNSP SITE; L97.909 - NON-PRS CHRONIC ULC UNSP PRT OF UNSP LOW LEG W UNSP SEVERITY (4) Urinary retention Current Visit: Yes Status: Acute Code(s): R33.9 - RETENTION OF URINE, UNSPECIFIED (5) BPH (benign prostatic hyperplasia) Current Visit: No Status: Acute Code(s): N40.0 - BENIGN PROSTATIC HYPERPLASIA WITHOUT LOWER URINRY TRACT SYMP (6) CHF exacerbation Current Visit: No Status: Acute Code(s): I50.9 - HEART FAILURE, UNSPECIFIED (7) CKD (chronic kidney disease) stage 3, GFR 30-59 ml/min Current Visit: No Status: Acute Code(s): N18.3 - CHRONIC KIDNEY DISEASE, STAGE 3 (MODERATE) (8) COPD (chronic obstructive pulmonary disease) Current Visit: No Status: Acute (9) DM2 (diabetes mellitus, type 2) Current Visit: No Status: Acute (10) Demand ischemia of myocardium Current Visit: No Status: Acute Code(s): I24.8 - OTHER FORMS OF ACUTE ISCHEMIC HEART DISEASE (11) Elevated brain natriuretic peptide (BNP) level Current Visit: No Status: Acute Code(s): R79.89 - OTHER SPECIFIED ABNORMAL FINDINGS OF BLOOD CHEMISTRY (12) HLD (hyperlipidemia) Current Visit: No Status: Acute Code(s): E78.5 - HYPERLIPIDEMIA, UNSPECIFIED (13) HTN (hypertension) Current Visit: No Status: Acute Code(s): I10 - ESSENTIAL (PRIMARY) HYPERTENSION (14) Hyperkalemia Current Visit: No Status: Acute Code(s): E87.5 - HYPERKALEMIA (15) Tobacco abuse Current Visit: No Status: Acute Code(s): Z72.0 - TOBACCO USE - Plan 88 yo M with PMH DM2, diastolic CHF, COPD, CKD3 presents with acute CHF exacerbation and BLE edema CHFrEF exacerbation - LE edema bilaterally with scrotal swelling - Patient has likely not been fluid-restricting at nieces home after checking himself out of SNF - 06/2017 stress test showed small apex ischemia and hypokineses. Dr. Knowles at that time attributed symptoms to MSK, not angina, and recommended NSAIDs and PPI - Echo 04/29: EF 35-39% - Strict I/Os, daily wts, 1200 ml/day fluid restriction - Lasix 40 mg IV given in ED - Continue lasix, hold if hypotensive, continue monitoring kidney function - Start metolazone 5 mg - Hold Kevin/ARB due to decreased kidney function - Consult Heart failure team Bilateral Lower Extremity Edema with Penile and Scrotal swelling 2/2 CHF exacerbation -3+ in legs, up to level of scrotum and penis -Present on last visit, appears to be worsening -Penile U/S showed diffuse scrotal edema -Keep Bah in place Demand ischemia in setting of acute CHF -elevated troponin, continue to trend -EKG no ST elevation, tele monitoring CHRISTIAN on CKD3b - Cr 2.50, stable from last visit - Consider cardio-renal syndrome - likely will improve with diuresis Mild Hyperkalemia - 5.4 in ED - Likely will resolve with lasix - Monitor with AM CMP Hx Strep. agalactiae bacteremia likely from lower extremity cellulitis -positive 2/2 cultures on 05/07 -WBC wnl today -on Oral amoxicillin for 2 weeks, d/c after May 24, 2018 Hx Enterococcus UTI ->100K CFU - oral amoxicillin x2 weeks, discontinue after May Hx of urinary retention -History of likely TURP with dx of prostate CA -PSA mildly elevated last hospitalization -Bah in place since last hospitalization, continue -Consult urology outpatient for urinary retention, as planned after last hospital visit IDDM2 - Continue home regimen glargine 38 units BID with lispro 3u tid - Continue Lantus BID COPD - Quit smoking 3 weeks ago, on nicotine patch daily, 40 pack year hx - home ventolin, spiriva - duonebs prn Anemia, normocytic - Hgb 10.1 - likely 2/2 chronic disease - will monitor on daily CBC HTN - see plan above - continue home medications HLD - continue home atorvastatin 40 mg daily Tobacco abuse - nicotine patch - Quit smoking 3 weeks ago - 40 PY history BPH -flomax -Consult urology outpatient Venous Stasis ulcer -Wound Care consulted Diarrhea -Patient reported had diarrhea this AM -C diff pending Diet: HH, Consistent carb, fluid restrict 1200 ml/day Ppx: Heparin Dispo: Admit to tele inpatient. LOS> 2midnights FMR H&P: Upper Level - Pertinent history Jayjay Dodge is an 88 year old male with a history of HFrEF (EF 30-35%) who was sent to the ED from home due to worsening bilateral extremity and scrotal edema over the past 3 days. Was recently hospitalized for HFwith reduced EF about 2 weeks ago and was discharged to [facility]. - Pertinent findings BP: 134/72 P: 71 RR: 18 T: 99.1 O2: 99% on RA General: alert and oriented; in no distress Heart: RRR, no MRG Lungs: clear to auscultation bilaterally, no crackles, wheezes, rhonchi Abdomen: softly distended; no tenderness; Extremities: 2+ pitting edema; lower extremity redness with no clear demarcation ; no increase warmth. LLE with ~ 5x2 cm superficial ulceration. Genitourinary: diffuse scrotal and penile edema; bah catheter in place. - Plan Date/Time: 05/21/181837 I, Isa Shelton, have evaluated this patient and agree with findings/plan as outlined by internal affairs investigator resident. Pertinent changes/additions are listed here. Acute decompensated Heart failure with reduced ejection fraction - lower extremity and scrotal edema - BNP worse compared to discharge. - evidence of end organ damage (renal hypoperfusion?) - Will give Lasix now and Metolazone. - may consider dobutamine gtt to improve renal perfusion - Lasix 40 IV mg BID;will start Coreg and Hydralazine; hold for hypotension - will hold off on KEVIN given depressed renal function - strict I&Os, daily weights, O2 prn; fluid restriction Elevated troponin - likely secondary to demand ischemia. - EKG shows stable RBBB. - trend trops. Acute on chronic kidney failure - likely secondary to cardiorenal syndrome. - will continue diuresis - pt may need dobutamine if no improvement with IV diuresis - Monitor BMPs Hyperkalemia - mild; will likely improve with Lasix - No EKG changes. - recheck BMP in AM. Diabetes Mellltius - will restart home regimen - ACHS accuchecks. Chronic venous stasis, with possible LLE ulcer - will consult wound care. COPD - not in acute exacerbation - continue home meds. Urinary retention - will keep bah in place, as it will likely be extremely difficult to replace once removed. - continue Flomax. Addendum - Attending - Attending Attestation Date/Time: 05/21/182122 I personally evaluated the patient and discussed the management with Dr. Parnell/ Cat. I agree with the History, Examination, Assessment and Plan documented above with any addition or exceptions noted below. Patient with history of HFrEF and recent hospitalization for fluid overload as well as bacteremia presenting with progressive lower extremity edema. He denies chest, shortness of breath at rest, palpitations. Exam shows dependent edema and pitting edema in the lower extremities as well as scrotal edema. Lungs overtly clear. BNP elevated from previous admission, Cr elevated mildly. Patient will be admitted for HF exacerbation. Lasix IV as well as Metolazone, monitor BP closely. Will have to consider Dobutamine with cardiology consultation if renal function worsens with diuresis. Monitor mild hyperkalemia likely to resolve with diuresis. Has bah in place for urinary retention and will remain and strict I/O obtained.
[2018-05-21 19:48] LABS: Troponin I 0.047 ng/mL (< 0.028)
[2018-05-21] MEDS ORDERED: Metolazone 5 MG TAB PO SCH (20:45)
[2018-05-21] MEDS ORDERED: Dextrose 5% in Water 1,000 ML IV PRN ×2 (21:09→21:52)
[2018-05-21] MEDS ORDERED: Acetaminophen 325 MG TAB PO PRN (21:09)
[2018-05-21] MEDS ORDERED: Acetaminophen 650 MG Suppository PR PRN (21:09)
[2018-05-21] MEDS ORDERED: Ondansetron PF 4 MG/2 ML Vial IVP PRN (21:09)
[2018-05-21] MEDS ORDERED: Ondansetron ODT 4 MG TAB PO PRN (21:09)
[2018-05-21] MEDS ORDERED: Dextrose 50% Abboject 50 ML SYRINGE SLOW IVP PRN ×2 (21:09→21:52)
[2018-05-21] MEDS: Heparin 5,000 UNITS/ML VIAL SC SCH (21:41)
[2018-05-21] MEDS: Insulin Regular 300 UNITS/3 ML VIAL SC PRN (21:42)
[2018-05-21] MEDS ORDERED: Furosemide 40 MG/4 ML VIAL SLOW IVP SCH (21:45)
[2018-05-21] MEDS ORDERED: Nystatin Powder 15 GM BOT TOP PRN (21:52)
[2018-05-21] MEDS ORDERED: Nicotine 14 MG PATCH TD SCH (22:00)
[2018-05-21] MEDS: Nicotine 21 MG PATCH TD SCH (23:50)
[2018-05-22] MEDS ORDERED: Ondansetron ODT 4 MG TAB PO PRN (01:19)
[2018-05-22] MEDS ORDERED: PROVENTIL INHALER 6.7 G (200 INHALATIONS) INH PRN (01:19)
[2018-05-22] MEDS ORDERED: Simethicone Chewable 80 MG TAB PO PRN (01:19)
[2018-05-22 05:37] LABS: #Eosinphils 0.1 thou/uL (0.0-0.7); #Lymphocytes 1.1 thou/uL (1.20-3.40); #Monocytes 0.6 thou/uL (0.11-0.59); #Neutrophils 5.2 thou/uL (1.40-6.50); %Basophils 0.5 % (0.0-1.0); %Eosinophils 1.7 % (0.0-10.0); %Lymphocytes 16.1 % (21.0-51.0); %Monocytes 8.8 % (0.0-10.0); Hemoglobin 9.9 g/dL (14.0-18.0); Mean Corpuscular HGB CONC 31.1 g/dL (32.0-36.0); Mean Corpuscular Volume 86.7 fL (78.0-98.0); Mean Platelet Volume 9.3 fL (7.4-10.4); Platelet Count 181 thou/uL (130-400); RBC Distribution Width 14.9 % (11.5-14.5); Red Blood Cell (RBC) Count 3.68 mill/uL (4.70-6.10); White Blood Cell (WBC) Count 7.1 thou/uL (4.8-10.8)
[2018-05-22] MEDS: Furosemide 40 MG/4 ML VIAL SLOW IVP SCH ×2 (05:40→14:27)
[2018-05-22 05:59] LABS: ALT (SGPT) 26 U/L (8-55); AST (SGOT) 25 U/L (5-34); Albumin 3.1 g/dL (3.4-4.8); Alkaline Phosphatase 114 U/L (40-150); Anion Gap 14 mmol/L (10-20); BUN (Urea Nitrogen) 59 mg/dL (8.4-25.7); Bilirubin, Total 0.5 mg/dL (0.2-1.2); Calc. Creatinine Clearance 38 mL/min (70-130); Calcium 8.4 mg/dL (7.8-10.44); Carbon Dioxide 28 mmol/L (23-31); Chloride 101 mmol/L (98-107); Estimated GFR-MDRD 29; Globulin 3.3 g/dL (2.4-3.5); Glucose 210 mg/dL (83-110); Potassium 4.9 mmol/L (3.5-5.1); Protein, Total 6.4 g/dL (5.8-8.1); Sodium 138 mmol/L (136-145)
[2018-05-22] MEDS ORDERED: Furosemide 40 MG/4 ML VIAL SLOW IVP SCH (06:00)
--- NOTE | 2018-05-22 06:07 | PDOC.FM ---
- Subjective Subjective: NAEO. Patient reports being uncomfortable sitting in bed and wants to hang his feet of side of bed. Denies any SOB worse than baseline. Denies any diarrhea. Says he just had a loose BM after taking Mg for constipation. - Objective MAR Reviewed: Yes Vital Signs & Weight: Vital Signs (12 hours) Temp Pulse Resp BP Pulse Ox 05/22/18 04:00 97.8 F 76 20 168/77 H 94 L 05/22/18 03:19 94 L 05/22/18 01:55 24 H 92 L 05/22/18 01:50 24 H 85 L 05/22/18 00:00 98.0 F 71 20 137/63 92 L 05/21/18 20:00 94 L 05/21/18 19:57 98 F 68 20 122/57 L 94 L Weight Weight 114.487 kg I&O: 05/20/18 05/21/18 05/22/18 06:59 06:59 06:59 Intake Total 628 Output Total 2150 Balance -1522 Result Diagrams: 05/22/18 05:24 05/22/18 05:24 Phys Exam - Physical Examination Constitutional: NAD HEENT: moist MMs, sclera anicteric Neck: supple, full ROM Respiratory: wheezing present Cardiovascular: RRR, no significant murmur Gastrointestinal: positive bowel sounds + distension Musculoskeletal: edema present pitting edema up to scrotum that is TTP Neurological: non-focal, moves all 4 limbs Psychiatric: normal affect, A&O x 3 Skin: no rash Deviation from normal: chronic venous stasis changed in B/L LEs w/ scattered ulcerations -: LLE wrapped with clean, dry and intact gauze on exam Dx/Plan (1) CHF exacerbation Code(s): I50.9 - HEART FAILURE, UNSPECIFIED Status: Acute (2) Anemia Code(s): D64.9 - ANEMIA, UNSPECIFIED Status: Acute (3) Diarrhea Code(s): R19.7 - DIARRHEA, UNSPECIFIED Status: Acute (4) Venous stasis ulcer Code(s): I83.009 - VARICOSE VEINS OF UNSP LOWER EXTREMITY W ULCER OF UNSP SITE; L97.909 - NON-PRS CHRONIC ULC UNSP PRT OF UNSP LOW LEG W UNSP SEVERITY Status : Acute (5) BPH (benign prostatic hyperplasia) Code(s): N40.0 - BENIGN PROSTATIC HYPERPLASIA WITHOUT LOWER URINRY TRACT SYMP Status: Acute (6) CKD (chronic kidney disease) stage 3, GFR 30-59 ml/min Code(s): N18.3 - CHRONIC KIDNEY DISEASE, STAGE 3 (MODERATE) Status: Acute (7) COPD (chronic obstructive pulmonary disease) Status: Acute (8) DM2 (diabetes mellitus, type 2) Status: Acute (9) Elevated brain natriuretic peptide (BNP) level Code(s): R79.89 - OTHER SPECIFIED ABNORMAL FINDINGS OF BLOOD CHEMISTRY Status : Acute (10) HLD (hyperlipidemia) Code(s): E78.5 - HYPERLIPIDEMIA, UNSPECIFIED Status: Acute (11) HTN (hypertension) Code(s): I10 - ESSENTIAL (PRIMARY) HYPERTENSION Status: Acute (12) Hyperkalemia Code(s): E87.5 - HYPERKALEMIA Status: Acute (13) Tobacco abuse Code(s): Z72.0 - TOBACCO USE Status: Acute (14) UTI (urinary tract infection), bacterial Code(s): N39.0 - URINARY TRACT INFECTION, SITE NOT SPECIFIED; A49.9 - BACTERIAL INFECTION, UNSPECIFIED Status: Acute - Plan Plan: 88 yo M with PMH DM2, diastolic CHF, COPD, CKD3 presents with acute CHF exacerbation and BLE edema CHFrEF exacerbation - LE edema bilaterally extending up into scrotum. Scrotal U/S done to r/o any other potential causes of swelling and just showed diffuse scrotal edema, therefore mostly likely onyl 2/2 CHf exacerbation. - Patient has likely not been fluid-restricting at [facility] after checking himself out of SNF - Echo 04/29: EF 35-39% - Strict I/Os, daily wts, 1200 ml/day fluid restriction - Lasix 40 mg IV given in ED - negative fluid balance of 2.15L overnight - Will continue metolazone with lasix as tolerated by patient and continue monitoring kidney function closely. - Will hold Kevin/ARB due to decreased kidney function but consider initiating an additional med for HTN as patient's BP has been persistently elevated. - Will consult Heart failure team Demand ischemia in setting of acute CHF - Slightly elevated troponin on admission, but much less compared to last visit. Repeat trop stable at .047. - EKG showed no ST elevation. Will continue tele monitoring. 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 - Will continue diuresis as tolerated by patient and continue to monitor renal function closely. Mild Hyperkalemia, resovled. - K down to 4.9 this AM. - Will continue to monitor with AM BMPs. Hx Strep. agalactiae bacteremia likely from lower extremity cellulitis -positive 2/2 cultures on 05/07 -WBC wnl today - Will continue pral amoxicillin through May 24, 2018, to complete 2 week course as recommended by ID during last admission. Hx Enterococcus UTI ->100K CFU on last admission - Will continue oral amoxicillin x2 weeks, discontinue after May 24, 2018. Hx of urinary retention -History of likely TURP with dx of prostate CA -PSA mildly elevated last hospitalization -[place] in place since last hospitalization, continue -Consult urology outpatient for urinary retention, as planned after last hospital visit IDDM2 - Aware, will start on ACHS accuchecks and moderate SSI. - Continue home regimen with glargine 35 units BID with lispro 8u tid w/ meals. Will adjust insulin regimen PRN based on SSI requirements. - Will continue to monitor BG closely while in hospital. COPD - Quit smoking 3 weeks ago, on nicotine patch daily, 40 pack year hx - Will continue home ventolin & spiriva - duonebs prn Anemia, normocytic - Hgb 10.1 & stable at 9.9 this AM - likely 2/2 chronic disease - will monitor w/ daily CBCs HTN - see plan above - holding home KEVIN/ARB 2/2 CHRISTIAN HLD - continue home atorvastatin 40 mg daily Tobacco abuse - nicotine patch - Quit smoking 3 weeks ago - 40 PY history BPH -flomax -Consult urology outpatient Venous Stasis ulcer -Wound Care consulted Diarrhea -Patient reported had diarrhea this AM but says it is from taking Mg citrate. -Will consider d/c C diff order. Diet: HH, Consistent carb, fluid restrict 1200 ml/day Ppx: Heparin IVFs: None Abx: PO amoxicillin Dispo: Will continue aggressive diueresis as tolerated by patient consult CM for placement to a different facility upon d/c.
[2018-05-22] MEDS: Ipratropium Bromide 2.5 ml Neb NEB SCH ×3 (06:34→18:23)
[2018-05-22] MEDS ORDERED: Carvedilol 3.125 MG TAB PO SCH (08:00)
[2018-05-22] MEDS: HumaLOG 300 UNITS/3 ML VIAL SC SCH ×3 (08:42→16:58)
[2018-05-22] MEDS: Atorvastatin Calcium 40 MG TAB PO SCH (08:43)
[2018-05-22] MEDS: hydrALAZINE 10 MG TAB PO SCH ×3 (08:43→20:57)
[2018-05-22] MEDS: Carvedilol 25 MG TAB PO SCH ×2 (08:43→20:58)
[2018-05-22] MEDS: Gabapentin 100 MG CAP PO SCH ×2 (08:43→20:57)
[2018-05-22] MEDS: AMOXicillin 250 MG CAP PO SCH ×3 (08:43→20:57)
[2018-05-22] MEDS: guaiFENesin ER 600 MG TAB PO SCH ×2 (08:43→20:58)
[2018-05-22] MEDS: Heparin 5,000 UNITS/ML VIAL SC SCH ×3 (08:43→20:59)
[2018-05-22] MEDS: Aspirin 81 mg Enteric Coated Tablet PO SCH (08:44)
[2018-05-22] MEDS ORDERED: Prevnar 13-Val Conj/PF 0.5 ML SYRINGE IM ONE (09:00)
[2018-05-22] MEDS ORDERED: Insulin Glargine 26 UNITS in Pre-Filled Syringe SC SCH (09:00)
[2018-05-22] MEDS: Insulin Glargine 35 UNITS in Pre-Filled Syringe SC SCH ×2 (10:44→20:59)
[2018-05-22 11:42] LABS: Troponin I 0.059 ng/mL (< 0.028)
[2018-05-22] MEDS: Insulin Regular 300 UNITS/3 ML VIAL SC PRN ×2 (11:55→16:57)
--- NOTE | 2018-05-22 12:43 | PRG ---
DATE OF SERVICE: 05/22/2018 Mr. Dodge is an 88-year-old man with a history of heart failure. Evidently, he left a SNF facility about 4 days ago and returned home to a niece. Over the ensuing days, he has developed increased edema to the point where he has significant scrotal edema. He presented to our emergency room with these above complaints and has been admitted. We are currently diuresing him. Even during our morning round interview, he fell asleep during the interview and certainly suggestive of obstructive sleep apnea for which he has the appropriate body habitus. I would suggest a sleep study as an outpatient when he is discharged. For now, we will continue with medical management of his heart failure and also increase diuresis given his significant edema. Job ID: [id number]
--- NOTE | 2018-05-22 13:19 | PQF ---
CLINICAL DOCUMENTATION IMPROVEMENT CLARIFICATION FORM: ICD-10 Updated PLEASE DO AN ADDENDUM TO THE PROGRESS NOTE WITH ANY DOCUMENTATION UPDATES OR ADDITIONS AND CARRY THROUGH TO DC SUMMARY. THANK YOU. DATE: 05/22/18 ATTN: DR. MAYNARD Please exercise your independent, professional judgment in responding to the clarification form. Clinical indicators are provided on the bottom of this form for your review Please check appropriate box(s): HEART FAILURE: TYPE: [ x ] Systolic / HFrEF [ ] Diastolic / HFpEF [ ] Combined Systolic / Diastolic [ ] Other diagnosis [ ] Unable to determine In addition, please specify: Present on Admission (POA): [x ] Yes [ ] No [ ] Unable to determine For continuity of documentation, please document condition throughout progress notes and discharge summary. Thank You. CLINICAL INDICATORS - SIGNS / SYMPTOMS / LABS PROGRESS NOTE 05/22: "CHF EXACERBATION, ACUTE" BNP 1493.4 RISKS: HYPERTENSION H/O CHF CKD STAGE 3 TREATMENT: LASIX IV (ER-PRESENT) COREG (STARTED 05/22) TELEMETRY MONITORING FLUID RESTRICTION (PER PROGRESS NOTE 05/22) (This form is maintained as a part of the permanent medical record) 2014 [employer]. All Rights Reserved CARLOS ENRIQUE [email or web address] Office: [phone] [facility]
[2018-05-22] MEDS: Tamsulosin HCl 0.4 MG CAP PO SCH (20:57)
[2018-05-22] MEDS: Nicotine 21 MG PATCH TD SCH (20:59)
[2018-05-22] MEDS ORDERED: Insulin Glargine 28 UNITS in Pre-Filled Syringe SC SCH (21:00)
[2018-05-23] MEDS: Ipratropium Bromide 2.5 ml Neb NEB SCH ×5 (01:53→23:07)
[2018-05-23] MEDS: Furosemide 40 MG/4 ML VIAL SLOW IVP SCH ×2 (05:30→15:26)
[2018-05-23 05:44] LABS: ALT (SGPT) 22 U/L (8-55); AST (SGOT) 25 U/L (5-34); Alkaline Phosphatase 91 U/L (40-150); Anion Gap 15 mmol/L (10-20); BUN (Urea Nitrogen) 58 mg/dL (8.4-25.7); Bilirubin, Total 0.5 mg/dL (0.2-1.2); Calc. Creatinine Clearance 41 mL/min (70-130); Calcium 8.3 mg/dL (7.8-10.44); Carbon Dioxide 27 mmol/L (23-31); Chloride 100 mmol/L (98-107); Estimated GFR-MDRD 32; Globulin 3.3 g/dL (2.4-3.5); Glucose 164 mg/dL (83-110); Potassium 4.7 mmol/L (3.5-5.1); Protein, Total 6.3 g/dL (5.8-8.1); Sodium 137 mmol/L (136-145)
[2018-05-23] MEDS ORDERED: HumaLOG 300 UNITS/3 ML VIAL SC SCH (06:07)
--- NOTE | 2018-05-23 06:12 | PDOC.FM ---
- Subjective Subjective: NAEO. Patient reports feeling like his SOB is improving. Denies any chest pain, N/V/D or constipation. Says he feel pretty good this AM. - Objective MAR Reviewed: Yes Vital Signs & Weight: Vital Signs (12 hours) Temp Pulse Resp BP BP BP Pulse Ox 05/23/18 03:15 99.2 F 57 L 15 126/58 L 94 L 05/23/18 01:53 54 L 18 97 05/22/18 20:57 61 159/70 H 05/22/18 20:00 96.5 F L 61 18 159/70 H 97 05/22/18 18:23 55 L 18 99 Weight Admit Weight 115.212 kg Weight 113.653 kg I&O: 05/21/18 05/22/18 05/23/18 06:59 06:59 06:59 Intake Total 628 480 Output Total 2150 1880 Balance -1522 -1400 Result Diagrams: 05/22/18 05:24 05/23/18 04:34 Phys Exam - Physical Examination Constitutional: NAD HEENT: moist MMs, sclera anicteric birthmark across R face Neck: supple, full ROM Respiratory: no wheezing, no rales, no rhonchi, clear to auscultation bilateral Cardiovascular: RRR, no significant murmur Gastrointestinal: positive bowel sounds + distension Musculoskeletal: edema present Edema from B/L feet extending into his scrotum, slightly improved from yesterday Neurological: non-focal, moves all 4 limbs Psychiatric: normal affect, A&O x 3 Skin: no rash, normal turgor Dx/Plan (1) CHF exacerbation Code(s): I50.9 - HEART FAILURE, UNSPECIFIED Status: Acute (2) Anemia Code(s): D64.9 - ANEMIA, UNSPECIFIED Status: Acute (3) Diarrhea Code(s): R19.7 - DIARRHEA, UNSPECIFIED Status: Acute (4) Venous stasis ulcer Code(s): I83.009 - VARICOSE VEINS OF UNSP LOWER EXTREMITY W ULCER OF UNSP SITE; L97.909 - NON-PRS CHRONIC ULC UNSP PRT OF UNSP LOW LEG W UNSP SEVERITY Status : Acute (5) BPH (benign prostatic hyperplasia) Code(s): N40.0 - BENIGN PROSTATIC HYPERPLASIA WITHOUT LOWER URINRY TRACT SYMP Status: Acute (6) CKD (chronic kidney disease) stage 3, GFR 30-59 ml/min Code(s): N18.3 - CHRONIC KIDNEY DISEASE, STAGE 3 (MODERATE) Status: Acute (7) COPD (chronic obstructive pulmonary disease) Status: Acute (8) DM2 (diabetes mellitus, type 2) Status: Acute (9) Elevated brain natriuretic peptide (BNP) level Code(s): R79.89 - OTHER SPECIFIED ABNORMAL FINDINGS OF BLOOD CHEMISTRY Status : Acute (10) HLD (hyperlipidemia) Code(s): E78.5 - HYPERLIPIDEMIA, UNSPECIFIED Status: Acute (11) HTN (hypertension) Code(s): I10 - ESSENTIAL (PRIMARY) HYPERTENSION Status: Acute (12) Hyperkalemia Code(s): E87.5 - HYPERKALEMIA Status: Acute (13) Tobacco abuse Code(s): Z72.0 - TOBACCO USE Status: Acute (14) UTI (urinary tract infection), bacterial Code(s): N39.0 - URINARY TRACT INFECTION, SITE NOT SPECIFIED; A49.9 - BACTERIAL INFECTION, UNSPECIFIED Status: Acute - Plan Plan: 88 yo M with PMH DM2, diastolic CHF, COPD, CKD3 presents with acute CHF exacerbation and BLE edema CHFrEF exacerbation - LE edema bilaterally extending up into scrotum. - Strict I/Os, daily wts, 1200 ml/day fluid restriction. - negative fluid balance of 1400mL overnight. - Will continue IV lasix BID and consider increasing the dose today as tolerated by patient. Kidney function has actually improved since initiating diuresis. Will continue to monitor closely. - Will hold Kevin/ARB due to decreased kidney function but increasing hydralazine as patient's BP has been persistently elevated. - Will consult Heart failure team. Demand ischemia in setting of acute CHF - Slightly elevated troponin on admission, but much less compared to last visit. Repeat trop x 3 increased slightly but patient denies any CP and trop still much lower than previous admission. - EKG showed no ST elevation. Will continue tele monitoring. 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 - Will continue diuresis as tolerated by patient and continue to monitor renal function closely. Mild Hyperkalemia, resovled. - K stable at 4.7 this AM. - Will continue to monitor with AM BMPs. Hx Strep. agalactiae bacteremia likely from lower extremity cellulitis -positive 2/2 cultures on 05/07 - WBC wnls on admission - Will continue pral amoxicillin through May 24, 2018, to complete 2 week course as recommended by ID during last admission. Hx Enterococcus UTI ->100K CFU on last admission - Will continue oral amoxicillin x2 weeks, discontinue after May 24, 2018. Hx of urinary retention -History of likely TURP with dx of prostate CA -PSA mildly elevated last hospitalization -[place] in place since last hospitalization, will continue & have patient f/u w/ Urology as an outpatient in ~2 weeks as planned during last hospital visit IDDM2 - Aware, will start on ACHS accuchecks and moderate SSI. - Patient required 6 units of SSI yesterday total. Will consider increasing Humalog from 8 to 11 units TID-WM and lantus to 36 or 38 units BID. - Will continue to monitor BG closely while in hospital. COPD - Quit smoking 3 weeks ago, on nicotine patch daily, 40 pack year hx - Will continue home ventolin & spiriva - duonebs prn Anemia, normocytic - Hgb 9.9 yesterday within baseline - likely 2/2 chronic disease - will monitor Q3 days or so or only if patient becomes symptomatic HTN - see plan above - holding home KEVIN/ARB 2/2 CHRISTIAN HLD - continue home atorvastatin 40 mg daily Tobacco abuse - nicotine patch - Quit smoking 3 weeks ago - 40 PY history BPH -flomax -F/u with urology as an outpatient Venous Stasis ulcer -Wound Care consulted Diarrhea, resolved -Patient reported had diarrhea this AM but says it is from taking Mg citrate. Diet: HH, Consistent carb, fluid restrict 1200 ml/day Ppx: Heparin IVFs: None Abx: PO amoxicillin Dispo: Will continue aggressive diueresis as tolerated by patient & f/u with CM for placement upon d/c.
[2018-05-23] MEDS: Heparin 5,000 UNITS/ML VIAL SC SCH ×3 (08:18→21:40)
[2018-05-23] MEDS: Insulin Glargine 35 UNITS in Pre-Filled Syringe SC SCH ×2 (08:19→21:45)
[2018-05-23] MEDS: HumaLOG 300 UNITS/3 ML VIAL SC SCH ×3 (08:19→17:31)
[2018-05-23] MEDS: Gabapentin 100 MG CAP PO SCH ×2 (08:20→21:39)
[2018-05-23] MEDS: Atorvastatin Calcium 40 MG TAB PO SCH (08:20)
[2018-05-23] MEDS: guaiFENesin ER 600 MG TAB PO SCH ×2 (08:20→21:40)
[2018-05-23] MEDS: hydrALAZINE 10 MG TAB PO SCH ×3 (08:20→21:39)
[2018-05-23] MEDS: AMOXicillin 250 MG CAP PO SCH ×3 (08:20→21:44)
[2018-05-23] MEDS: Carvedilol 25 MG TAB PO SCH ×2 (08:20→21:39)
[2018-05-23] MEDS: Aspirin 81 mg Enteric Coated Tablet PO SCH (08:20)
--- NOTE | 2018-05-23 11:50 | PRG ---
DATE OF SERVICE: 05/23/2018 Mr. Dodge is much more alert this morning. He denies any shortness of breath. We are still diuresing him aggressively with improvement in his symptomatology. We have consulted case management for placement. Blood glucoses are ranging between 250 and 170. BUN 58, creatinine is 2.01, which is actually much improved since his admission of 2.50. Overall improvement in his heart failure. Job ID: [id number]
[2018-05-23] MEDS: Insulin Regular 300 UNITS/3 ML VIAL SC PRN (11:56)
[2018-05-23] MEDS: Tamsulosin HCl 0.4 MG CAP PO SCH (21:40)
[2018-05-23] MEDS: Nicotine 21 MG PATCH TD SCH (21:46)
[2018-05-24] MEDS: Furosemide 40 MG/4 ML VIAL SLOW IVP SCH ×2 (05:58→14:24)
[2018-05-24 06:25] LABS: ALT (SGPT) 22 U/L (8-55); AST (SGOT) 25 U/L (5-34); Alkaline Phosphatase 91 U/L (40-150); Anion Gap 16 mmol/L (10-20); BUN (Urea Nitrogen) 57 mg/dL (8.4-25.7); Bilirubin, Total 0.4 mg/dL (0.2-1.2); Calc. Creatinine Clearance 41 mL/min (70-130); Calcium 8.4 mg/dL (7.8-10.44); Carbon Dioxide 29 mmol/L (23-31); Chloride 98 mmol/L (98-107); Estimated GFR-MDRD 33; Globulin 3.5 g/dL (2.4-3.5); Glucose 102 mg/dL (83-110); Potassium 4.4 mmol/L (3.5-5.1); Protein, Total 6.5 g/dL (5.8-8.1); Sodium 139 mmol/L (136-145)
[2018-05-24] MEDS: Ipratropium Bromide 2.5 ml Neb NEB SCH ×3 (06:28→19:29)
--- NOTE | 2018-05-24 06:47 | PDOC.FM ---
- Subjective Subjective: NAEO. Patient states he feels well this AM. Denies any chest pain, SOB, N/V/D. Only complaint is that he doesn't get enough food. - Objective MAR Reviewed: Yes Vital Signs & Weight: Vital Signs (12 hours) Temp Pulse Resp BP BP Pulse Ox 05/24/18 06:31 93 L 05/24/18 06:28 56 L 16 05/24/18 04:00 98.2 F 55 L 21 H 124/57 L 96 05/23/18 23:59 58 L 15 90/52 L 98 05/23/18 23:07 94 L 05/23/18 21:44 96 05/23/18 21:39 61 183/79 H 05/23/18 21:38 97.7 F 61 20 183/79 H 96 05/23/18 18:57 94 L Weight Admit Weight 115.212 kg Weight 111.947 kg I&O: 05/22/18 05/23/18 05/24/18 06:59 06:59 06:59 Intake Total 936 246 3726 Output Total 5928 1360 5390 Balance -8964 -6437 -1698 Result Diagrams: 05/22/18 05:24 05/24/18 04:37 Phys Exam - Physical Examination Constitutional: NAD HEENT: moist MMs, sclera anicteric Neck: supple, full ROM Respiratory: no wheezing, no rales, no rhonchi, clear to auscultation bilateral Cardiovascular: RRR, no significant murmur Gastrointestinal: positive bowel sounds + distension but non-TTP Musculoskeletal: edema present 2+ pitting edema from mid-calf down in B/L LEs Neurological: non-focal, moves all 4 limbs Psychiatric: normal affect, A&O x 3 Skin: no rash, normal turgor Deviation from normal: skin changes in B/L LEs consistent w/ stasis dermatitis w / left LE covered -: in a dry, clean & intact dressing; RLE w/ scattered ulcerations Dx/Plan (1) CHF exacerbation Code(s): I50.9 - HEART FAILURE, UNSPECIFIED Status: Acute (2) Anemia Code(s): D64.9 - ANEMIA, UNSPECIFIED Status: Acute (3) Diarrhea Code(s): R19.7 - DIARRHEA, UNSPECIFIED Status: Acute (4) Venous stasis ulcer Code(s): I83.009 - VARICOSE VEINS OF UNSP LOWER EXTREMITY W ULCER OF UNSP SITE; L97.909 - NON-PRS CHRONIC ULC UNSP PRT OF UNSP LOW LEG W UNSP SEVERITY Status : Acute (5) BPH (benign prostatic hyperplasia) Code(s): N40.0 - BENIGN PROSTATIC HYPERPLASIA WITHOUT LOWER URINRY TRACT SYMP Status: Acute (6) CKD (chronic kidney disease) stage 3, GFR 30-59 ml/min Code(s): N18.3 - CHRONIC KIDNEY DISEASE, STAGE 3 (MODERATE) Status: Acute (7) COPD (chronic obstructive pulmonary disease) Status: Acute (8) DM2 (diabetes mellitus, type 2) Status: Acute (9) Elevated brain natriuretic peptide (BNP) level Code(s): R79.89 - OTHER SPECIFIED ABNORMAL FINDINGS OF BLOOD CHEMISTRY Status : Acute (10) HLD (hyperlipidemia) Code(s): E78.5 - HYPERLIPIDEMIA, UNSPECIFIED Status: Acute (11) HTN (hypertension) Code(s): I10 - ESSENTIAL (PRIMARY) HYPERTENSION Status: Acute (12) Hyperkalemia Code(s): E87.5 - HYPERKALEMIA Status: Acute (13) Tobacco abuse Code(s): Z72.0 - TOBACCO USE Status: Acute (14) UTI (urinary tract infection), bacterial Code(s): N39.0 - URINARY TRACT INFECTION, SITE NOT SPECIFIED; A49.9 - BACTERIAL INFECTION, UNSPECIFIED Status: Acute - Plan Plan: 88 yo M with PMH DM2, diastolic CHF, COPD, CKD3 who presents with acute CHF exacerbation and BLE edema. CHFrEF exacerbation - LE edema bilaterally extending up into scrotum. - Strict I/Os, daily wts, 1200 ml/day fluid restriction. - negative fluid balance of 1726mL overnight w. almost 3L of UO. - Will continue IV lasix BID. Kidney function has actually continued to improve since initiating diuresis. Will continue to monitor closely. - Will hold Kevin/ARB due to decreased kidney function & will continue hydralazine at current dose as average BP is decent. - Will consult Heart failure team. Demand ischemia in setting of acute CHF - Slightly elevated troponin on admission, but much less compared to last visit. Repeat trop x 3 increased slightly but patient denies any CP and trop still much lower than previous admission. - EKG showed no ST elevation. Will continue tele monitoring. 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 - Will continue aggressive diuresis as tolerated by patient and continue to monitor renal function closely. Mild Hyperkalemia, resovled. - K stable at 4.4 this AM. - Will continue to monitor with AM BMPs. Hx Strep. agalactiae bacteremia likely from lower extremity cellulitis - positive 2/2 cultures on 05/07 - WBC wnls on admission - Will continue oral amoxicillin through today to complete 2 week course as recommended by ID during last admission. Hx Enterococcus UTI ->100K CFU on last admission - Will continue oral amoxicillin x2 weeks, discontinue after today. Hx of urinary retention -History of likely TURP with dx of prostate CA -PSA mildly elevated last hospitalization -[place] in place since last hospitalization, will continue & have patient f/u w/ Urology as an outpatient in ~2 weeks as planned during last hospital visit IDDM2 - Aware, will start on ACHS accuchecks and moderate SSI. - Patient required 6 units of SSI again yesterday total. Will consider increasing lantus 38 units QAM as most elevated BG levels are earlier in the day. - Will continue to monitor BG closely while in hospital & adjust insulin PRN. COPD - Quit smoking 3 weeks ago, on nicotine patch daily, 40 pack year hx - Will continue home ventolin/albuterol & spiriva - duonebs prn Anemia, normocytic - Hgb 9.9 yesterday within baseline - likely 2/2 chronic disease - will monitor Q3 days or so or only if patient becomes symptomatic HTN - see plan above - holding home KEVIN/ARB 2/2 CHRISTIAN HLD - continue home atorvastatin 40 mg daily Tobacco abuse - nicotine patch - Quit smoking 3 weeks ago - 40 PY history BPH -flomax -F/u with urology as an outpatient Venous Stasis ulcer - Wound Care on board. Diarrhea, resolved - Patient reported had diarrhea this AM but says it is from taking Mg citrate. Diet: HH, Consistent carb, fluid restrict 1200 ml/day Ppx: Heparin IVFs: None Abx: PO amoxicillin Dispo: Will continue aggressive diueresis as tolerated by patient & f/u with CM for placement upon d/c.
[2018-05-24] MEDS ORDERED: Spiriva 18 MCG CAP (Box of 5 Caps) INH SCH (07:00)
[2018-05-24] MEDS: hydrALAZINE 10 MG TAB PO SCH ×3 (09:48→20:44)
[2018-05-24] MEDS: Gabapentin 100 MG CAP PO SCH ×2 (09:48→20:44)
[2018-05-24] MEDS: Aspirin 81 mg Enteric Coated Tablet PO SCH (09:48)
[2018-05-24] MEDS: guaiFENesin ER 600 MG TAB PO SCH ×2 (09:48→20:44)
[2018-05-24] MEDS: Heparin 5,000 UNITS/ML VIAL SC SCH ×3 (09:48→20:45)
[2018-05-24] MEDS: AMOXicillin 250 MG CAP PO SCH ×3 (09:48→20:43)
[2018-05-24] MEDS: Atorvastatin Calcium 40 MG TAB PO SCH (09:48)
[2018-05-24] MEDS: Carvedilol 25 MG TAB PO SCH ×2 (09:48→20:43)
[2018-05-24] MEDS: Insulin Glargine 35 UNITS in Pre-Filled Syringe SC SCH ×2 (09:50→20:48)
[2018-05-24] MEDS: HumaLOG 300 UNITS/3 ML VIAL SC SCH ×3 (09:51→16:45)
--- NOTE | 2018-05-24 11:42 | PRG ---
DATE OF SERVICE: 05/24/2018 Mr. Dodge is looking and feeling better today. He is getting some mild dyspnea on exertion, but overall, he is feeling improved. He states he is hungry and is demanding more food. We are also waiting placement with SNF, which however, the patient refused last visit. Clinically, the patient improved. Job ID: [id number]
[2018-05-24] MEDS: Insulin Regular 300 UNITS/3 ML VIAL SC PRN (13:03)
[2018-05-24] MEDS: Tamsulosin HCl 0.4 MG CAP PO SCH (20:44)
[2018-05-24] MEDS: Nicotine 21 MG PATCH TD SCH (20:48)
[2018-05-25] MEDS: Furosemide 40 MG/4 ML VIAL SLOW IVP SCH ×2 (05:31→14:42)
--- NOTE | 2018-05-25 06:20 | PDOC.FM ---
- Subjective Subjective: Reports feeling well this AM, states his breathing is improved with decreased SOB. No new medical complaints or concerns at this time. no fever/chills, no cp no palpitations - Objective MAR Reviewed: Yes Vital Signs & Weight: Vital Signs (12 hours) Temp Pulse Resp BP BP Pulse Ox 05/25/18 04:00 98.2 F 59 L 20 126/58 L 92 L 05/25/18 00:00 56 L 18 94 L 05/24/18 20:44 60 05/24/18 20:00 98.7 F 62 18 124/64 92 L 05/24/18 19:26 60 18 92 L Weight Admit Weight 115.212 kg Weight 111.947 kg I&O: 05/23/18 05/24/18 05/25/18 06:59 06:59 06:59 Intake Total 480 1224 240 Output Total 1880 2950 1700 Balance -3443 -1313 -9626 Result Diagrams: 05/22/18 05:24 05/25/18 04:46 Phys Exam - Physical Examination Constitutional: NAD HEENT: moist MMs, sclera anicteric Neck: supple, full ROM Respiratory: no wheezing, clear to auscultation bilateral Cardiovascular: RRR, no significant murmur Gastrointestinal: soft, non-tender Musculoskeletal: pulses present, edema present +2 pitting edema in bilat LEs Neurological: normal sensation, moves all 4 limbs Psychiatric: normal affect, A&O x 3 Skin: no rash, normal turgor Deviation from normal: venous stasis ulcers in bilat LE. clean and dry dressing on LLE Dx/Plan (1) CHF exacerbation Code(s): I50.9 - HEART FAILURE, UNSPECIFIED Status: Acute (2) Anemia Code(s): D64.9 - ANEMIA, UNSPECIFIED Status: Acute (3) Urinary retention Code(s): R33.9 - RETENTION OF URINE, UNSPECIFIED Status: Acute (4) Venous stasis ulcer Code(s): I83.009 - VARICOSE VEINS OF UNSP LOWER EXTREMITY W ULCER OF UNSP SITE; L97.909 - NON-PRS CHRONIC ULC UNSP PRT OF UNSP LOW LEG W UNSP SEVERITY Status : Acute (5) BPH (benign prostatic hyperplasia) Code(s): N40.0 - BENIGN PROSTATIC HYPERPLASIA WITHOUT LOWER URINRY TRACT SYMP Status: Acute (6) CKD (chronic kidney disease) stage 3, GFR 30-59 ml/min Code(s): N18.3 - CHRONIC KIDNEY DISEASE, STAGE 3 (MODERATE) Status: Acute (7) COPD (chronic obstructive pulmonary disease) Status: Acute (8) DM2 (diabetes mellitus, type 2) Status: Acute (9) Demand ischemia of myocardium Code(s): I24.8 - OTHER FORMS OF ACUTE ISCHEMIC HEART DISEASE Status: Acute (10) HLD (hyperlipidemia) Code(s): E78.5 - HYPERLIPIDEMIA, UNSPECIFIED Status: Acute (11) HTN (hypertension) Code(s): I10 - ESSENTIAL (PRIMARY) HYPERTENSION Status: Acute (12) Tobacco abuse Code(s): Z72.0 - TOBACCO USE Status: Acute - Plan Plan: 88 yo M with PMH DM2, diastolic CHF, COPD, CKD3 who presents with acute CHF exacerbation and BLE edema. CHFrEF exacerbation A- LE edema bilaterally extending up into scrotum. negative fluid balance of 1460mL overnight. P- Strict I/Os, daily wts, 1200 ml/day fluid restriction. - Will continue IV lasix BID - Will hold Kevin/ARB due to decreased kidney function - continue hydralazine at current dose as average BP is decent. - consulted Heart failure team. CHRISTIAN on CKD3b A- likely due to cardiorenal syndrome, Kidney function has actually continued to improve since initiating diuresis. Cr down to 1.95 after diuresis for 2 days - 1.99 today P- Will continue diuresis as tolerated by patient - continue to monitor renal function Demand ischemia in setting of acute CHF A- Slightly elevated troponin on admission, but much less compared to last visit. Repeat trop x 3 increased slightly but patient denies any CP and trop still much lower than previous admission. EKG showed no ST elevation. P- continue tele monitoring. Mild Hyperkalemia, resolved. - resolved Hx Strep. agalactiae bacteremia likely from lower extremity cellulitis A- positive 2/2 cultures on 05/07. WBC wnls on admission. Completed oral amoxicillin through today to complete 2 week course as recommended by ID during last admission. P- monitor for signs of systemic infection Hx Enterococcus UTI A->100K CFU on last admission. completed continue oral amoxicillin x2 weeks P- monitor for signs of systemic infection Hx of urinary retention A-History of likely TURP with dx of prostate CA. PSA mildly elevated last hospitalization. [place] in place since last hospitalization P- will continue & have patient f/u w/ Urology as an outpatient in ~2 weeks as planned during last hospital visit IDDM2 A- BG remains high P- Will increase AM insulin to 38u - Continue ACHS accuchecks and moderate SSI. - Will continue to monitor BG closely while in hospital COPD A- Quit smoking 3 weeks ago, on nicotine patch daily, 40 pack year hx P- Will continue home ventolin/albuterol & spiriva - duonebs prn Anemia, normocytic A- Hgb 9.9 on 05/23 within baseline, likely 2/2 chronic disease P- will monitor Q3 days or so or only if patient becomes symptomatic HTN - see plan above - holding home KEVIN/ARB 2/2 CHRISTIAN HLD - continue home atorvastatin 40 mg daily Tobacco abuse - nicotine patch - Quit smoking 3 weeks ago - 40 PY history BPH -flomax -F/u with urology as an outpatient Venous Stasis ulcer - Wound Care on board. Diet: HH, Consistent carb, fluid restrict 1200 ml/day Ppx: Heparin Dispo: Will continue aggressive diueresis as tolerated by patient & f/u with CM for placement upon d/c
[2018-05-25 06:22] LABS: ALT (SGPT) 20 U/L (8-55); AST (SGOT) 24 U/L (5-34); Albumin 3.1 g/dL (3.4-4.8); Alkaline Phosphatase 95 U/L (40-150); Anion Gap 14 mmol/L (10-20); BUN (Urea Nitrogen) 57 mg/dL (8.4-25.7); Bilirubin, Total 0.4 mg/dL (0.2-1.2); Calc. Creatinine Clearance 41 mL/min (70-130); Calcium 8.2 mg/dL (7.8-10.44); Carbon Dioxide 32 mmol/L (23-31); Chloride 96 mmol/L (98-107); Estimated GFR-MDRD 32; Globulin 3.5 g/dL (2.4-3.5); Glucose 194 mg/dL (83-110); Potassium 4.3 mmol/L (3.5-5.1); Protein, Total 6.6 g/dL (5.8-8.1); Sodium 138 mmol/L (136-145)
[2018-05-25] MEDS: Ipratropium Bromide 2.5 ml Neb NEB SCH ×4 (06:59→19:41)
[2018-05-25] MEDS: hydrALAZINE 10 MG TAB PO SCH ×3 (08:56→21:58)
[2018-05-25] MEDS: Atorvastatin Calcium 40 MG TAB PO SCH (08:57)
[2018-05-25] MEDS: Carvedilol 25 MG TAB PO SCH ×2 (08:57→21:57)
[2018-05-25] MEDS: Aspirin 81 mg Enteric Coated Tablet PO SCH (08:57)
[2018-05-25] MEDS: Gabapentin 100 MG CAP PO SCH ×2 (08:57→21:57)
[2018-05-25] MEDS: guaiFENesin ER 600 MG TAB PO SCH ×2 (08:57→21:57)
[2018-05-25] MEDS: Heparin 5,000 UNITS/ML VIAL SC SCH ×3 (08:59→21:58)
[2018-05-25] MEDS: Insulin Glargine 38 UNITS in Pre-Filled Syringe 1 EACH SC SCH (08:59)
[2018-05-25] MEDS: HumaLOG 300 UNITS/3 ML VIAL SC SCH ×3 (09:03→16:56)
--- NOTE | 2018-05-25 10:33 | PRG ---
DATE OF SERVICE: 05/25/2018 Mr. Dodge is cheerful this morning. He is sitting up in his chair. He has no respiratory distress, but still has of course significant peripheral and scrotal edema. His BMP this morning shows stability with a sodium of 138, potassium 4.3, chloride 96, bicarb is 32, BUN is 57, creatinine is 1.99, translating to a GFR of 32. His renal function has slowly improved from an admission level of creatinine 2.5 with a GFR of 24. We will continue aggressive diuresis. Job ID: [id number]
--- NOTE | 2018-05-25 19:51 | EKG ---
Test Reason : Blood Pressure : / mmHG Vent. Rate : 061 BPM Atrial Rate : 060 BPM P-R Int : 000 ms QRS Dur : 130 ms QT Int : 438 ms P-R-T Axes : 000 -72 244 degrees QTc Int : 440 ms Wide QRS rhythm Right bundle branch block Left anterior fascicular block Bifascicular block T wave abnormality, consider inferolateral ischemia Abnormal ECG Confirmed by DEVONTE SNOW DO ([id number]), communications editor FERNANDO ALTMAN ([id number] on 05/25/2018 7:50:52 PM Referred By: Confirmed By:DEVONTE SNOW DO
[2018-05-25] MEDS: Tamsulosin HCl 0.4 MG CAP PO SCH (21:57)
[2018-05-25] MEDS: Insulin Glargine 35 UNITS in Pre-Filled Syringe SC SCH (22:23)
[2018-05-25] MEDS: Nicotine 21 MG PATCH TD SCH (22:24)
[2018-05-26] MEDS: Ipratropium Bromide 2.5 ml Neb NEB SCH ×5 (00:02→23:08)
[2018-05-26] MEDS: Furosemide 40 MG/4 ML VIAL SLOW IVP SCH ×2 (05:21→14:04)
[2018-05-26 05:56] LABS: ALT (SGPT) 18 U/L (8-55); AST (SGOT) 25 U/L (5-34); Albumin 2.9 g/dL (3.4-4.8); Alkaline Phosphatase 78 U/L (40-150); Anion Gap 13 mmol/L (10-20); BUN (Urea Nitrogen) 52 mg/dL (8.4-25.7); Bilirubin, Total 0.4 mg/dL (0.2-1.2); Calc. Creatinine Clearance 42 mL/min (70-130); Calcium 8.4 mg/dL (7.8-10.44); Carbon Dioxide 33 mmol/L (23-31); Chloride 98 mmol/L (98-107); Estimated GFR-MDRD 34; Globulin 3.2 g/dL (2.4-3.5); Glucose 111 mg/dL (83-110); Potassium 3.7 mmol/L (3.5-5.1); Protein, Total 6.1 g/dL (5.8-8.1); Sodium 140 mmol/L (136-145)
--- NOTE | 2018-05-26 05:57 | PDOC.FM ---
- Subjective Subjective: Pt doing well this AM. reports continued improvement. SOB is improved. no new complaints at this time. no cp no palpitations, no fever no chills - Objective MAR Reviewed: Yes Vital Signs & Weight: Vital Signs (12 hours) Temp Pulse Resp BP BP Pulse Ox 05/26/18 03:15 97.9 F 64 20 119/58 L 95 05/26/18 00:02 59 L 18 97 05/25/18 21:58 64 05/25/18 20:00 98.2 F 56 L 18 135/70 96 05/25/18 19:41 57 L 18 95 Weight Admit Weight 115.212 kg Weight 108.862 kg I&O: 05/24/18 05/25/18 05/26/18 06:59 06:59 06:59 Intake Total 1224 240 500 Output Total 2950 1700 1300 Balance -1726 -1460 -800 Result Diagrams: 05/22/18 05:24 05/26/18 05:17 Phys Exam - Physical Examination Constitutional: NAD HEENT: moist MMs, sclera anicteric Neck: supple, full ROM Respiratory: no wheezing, clear to auscultation bilateral Cardiovascular: RRR, no significant murmur Gastrointestinal: soft, non-tender +2pitting edema in bilat LE Neurological: normal sensation, moves all 4 limbs Psychiatric: normal affect, A&O x 3 Skin: cap refill <2 seconds Deviation from normal: venous stasis ulcers in bilat LE. LLE has clean and dry dressing Dx/Plan (1) CHF exacerbation Code(s): I50.9 - HEART FAILURE, UNSPECIFIED Status: Acute (2) Anemia Code(s): D64.9 - ANEMIA, UNSPECIFIED Status: Acute (3) Urinary retention Code(s): R33.9 - RETENTION OF URINE, UNSPECIFIED Status: Acute (4) Venous stasis ulcer Code(s): I83.009 - VARICOSE VEINS OF UNSP LOWER EXTREMITY W ULCER OF UNSP SITE; L97.909 - NON-PRS CHRONIC ULC UNSP PRT OF UNSP LOW LEG W UNSP SEVERITY Status : Acute (5) BPH (benign prostatic hyperplasia) Code(s): N40.0 - BENIGN PROSTATIC HYPERPLASIA WITHOUT LOWER URINRY TRACT SYMP Status: Acute (6) CKD (chronic kidney disease) stage 3, GFR 30-59 ml/min Code(s): N18.3 - CHRONIC KIDNEY DISEASE, STAGE 3 (MODERATE) Status: Acute (7) COPD (chronic obstructive pulmonary disease) Status: Acute (8) DM2 (diabetes mellitus, type 2) Status: Acute (9) Demand ischemia of myocardium Code(s): I24.8 - OTHER FORMS OF ACUTE ISCHEMIC HEART DISEASE Status: Acute (10) HLD (hyperlipidemia) Code(s): E78.5 - HYPERLIPIDEMIA, UNSPECIFIED Status: Acute (11) HTN (hypertension) Code(s): I10 - ESSENTIAL (PRIMARY) HYPERTENSION Status: Acute (12) Tobacco abuse Code(s): Z72.0 - TOBACCO USE Status: Acute - Plan Plan: 88 yo M with PMH DM2, diastolic CHF, COPD, CKD3 who presents with acute CHF exacerbation and BLE edema. CHFrEF exacerbation A- Overall modest but consistent improvement. LE edema bilaterally extending up into scrotum. negative fluid balance of 800mL overnight. P- Strict I/Os, daily wts, 1200 ml/day fluid restriction. - Will continue IV lasix BID - Will hold Kevin/ARB due to decreased kidney function - continue hydralazine at current dose as average BP is decent. - consulted Heart failure team. CHRISTIAN on CKD3b A- likely due to cardio-renal syndrome, Kidney function has actually continued to improve since initiating diuresis. Cr down to 1.95 after diuresis for 2 days - 1.89 today P- Will continue diuresis as tolerated by patient - continue to monitor renal function Demand ischemia in setting of acute CHF A- Slightly elevated troponin on admission, but much less compared to last visit. Repeat trop x 3 increased slightly but patient denies any CP and trop still much lower than previous admission. EKG showed no ST elevation. P- continue tele monitoring. Mild Hyperkalemia, resolved. - resolved Hx Strep. agalactiae bacteremia likely from lower extremity cellulitis A- positive 2/2 cultures on 05/07. WBC wnls on admission. Completed oral amoxicillin through today to complete 2 week course as recommended by ID during last admission. P- monitor for signs of systemic infection Hx Enterococcus UTI A->100K CFU on last admission. completed continue oral amoxicillin x2 weeks P- monitor for signs of systemic infection Hx of urinary retention A-History of likely TURP with dx of prostate CA. PSA mildly elevated last hospitalization. [place] in place since last hospitalization P- will continue & have patient f/u w/ Urology as an outpatient in ~2 weeks as planned during last hospital visit IDDM2 A- BG improved P- Will continue AM insulin 38u, otherwise follow home regimen - Continue ACHS accuchecks and moderate SSI. - Will continue to monitor BG closely while in hospital COPD A- Quit smoking 3 weeks ago, on nicotine patch daily, 40 pack year hx P- Will continue home ventolin/albuterol & spiriva - duonebs prn Anemia, normocytic A- Hgb 9.9 on 05/23 within baseline, likely 2/2 chronic disease P- will monitor Q3 days or so or only if patient becomes symptomatic HTN - see plan above - holding home KEVIN/ARB 2/2 CHRISTIAN HLD - continue home atorvastatin 40 mg daily Tobacco abuse - nicotine patch - Quit smoking 3 weeks ago - 40 PY history BPH -flomax -F/u with urology as an outpatient Venous Stasis ulcer - Wound Care on board. Diet: HH, Consistent carb, fluid restrict 1200 ml/day Ppx: Heparin Dispo: Will continue aggressive diueresis as tolerated by patient & f/u with CM for placement upon d/c
[2018-05-26] MEDS: Atorvastatin Calcium 40 MG TAB PO SCH (09:09)
[2018-05-26] MEDS: Aspirin 81 mg Enteric Coated Tablet PO SCH (09:09)
[2018-05-26] MEDS: guaiFENesin ER 600 MG TAB PO SCH ×2 (09:09→20:06)
[2018-05-26] MEDS: Carvedilol 25 MG TAB PO SCH ×2 (09:09→20:05)
[2018-05-26] MEDS: Gabapentin 100 MG CAP PO SCH ×2 (09:10→20:10)
[2018-05-26] MEDS: Insulin Glargine 38 UNITS in Pre-Filled Syringe 1 EACH SC SCH (09:10)
[2018-05-26] MEDS: hydrALAZINE 10 MG TAB PO SCH ×3 (09:10→20:05)
[2018-05-26] MEDS: HumaLOG 300 UNITS/3 ML VIAL SC SCH ×3 (09:11→18:07)
[2018-05-26] MEDS: Heparin 5,000 UNITS/ML VIAL SC SCH ×3 (09:15→20:06)
--- NOTE | 2018-05-26 11:10 | PRG ---
DATE OF SERVICE: 05/26/2018 Mr. Dodge is awake and alert this morning. He is very cheerful, in no distress. His breathing has much improved. We are still taking over a liter every 24 hours. He is nearing time for discharge and we are awaiting SNF placement. Job ID: [id number]
[2018-05-26] MEDS: Tamsulosin HCl 0.4 MG CAP PO SCH (20:05)
[2018-05-26] MEDS: Nicotine 21 MG PATCH TD SCH (20:12)
[2018-05-26] MEDS: Insulin Glargine 35 UNITS in Pre-Filled Syringe SC SCH (20:24)
[2018-05-27] MEDS: Furosemide 40 MG/4 ML VIAL SLOW IVP SCH ×2 (05:25→14:21)
[2018-05-27 05:49] LABS: #Eosinphils 0.2 thou/uL (0.0-0.7); #Lymphocytes 1.8 thou/uL (1.20-3.40); #Monocytes 0.8 thou/uL (0.11-0.59); #Neutrophils 3.5 thou/uL (1.40-6.50); %Basophils 0.6 % (0.0-1.0); %Eosinophils 3.2 % (0.0-10.0); %Lymphocytes 28.9 % (21.0-51.0); %Monocytes 12.2 % (0.0-10.0); %Neutrophils 55.1 % (42.0-75.0); Hemoglobin 10.5 g/dL (14.0-18.0); Mean Corpuscular Hemoglobin 25.8 pg (27.0-31.0); Mean Corpuscular Volume 86.1 fL (78.0-98.0); Mean Platelet Volume 10.1 fL (7.4-10.4); Platelet Count 194 thou/uL (130-400); RBC Distribution Width 15.1 % (11.5-14.5); Red Blood Cell (RBC) Count 4.08 mill/uL (4.70-6.10); White Blood Cell (WBC) Count 6.3 thou/uL (4.8-10.8)
[2018-05-27 06:08] LABS: ALT (SGPT) 25 U/L (8-55); AST (SGOT) 34 U/L (5-34); Albumin 3.1 g/dL (3.4-4.8); Alkaline Phosphatase 91 U/L (40-150); Anion Gap 14 mmol/L (10-20); BUN (Urea Nitrogen) 49 mg/dL (8.4-25.7); Bilirubin, Total 0.3 mg/dL (0.2-1.2); Calc. Creatinine Clearance 39 mL/min (70-130); Calcium 8.4 mg/dL (7.8-10.44); Carbon Dioxide 31 mmol/L (23-31); Chloride 97 mmol/L (98-107); Estimated GFR-MDRD 31; Globulin 3.7 g/dL (2.4-3.5); Glucose 215 mg/dL (83-110); Potassium 4.1 mmol/L (3.5-5.1); Protein, Total 6.8 g/dL (5.8-8.1); Sodium 138 mmol/L (136-145)
--- NOTE | 2018-05-27 06:19 | PDOC.FM ---
- Subjective Subjective: SOB improving. Reports leg edema improved. Having good urine output through bah cath. No overnight events. Not satisfied with diet restriction here, he eats food high in sodium at home. - Objective MAR Reviewed: Yes Vital Signs & Weight: Vital Signs (12 hours) Temp Pulse Resp BP BP BP Pulse Ox 05/27/18 04:05 98.1 F 77 18 126/63 95 05/26/18 23:20 98.5 F 81 16 125/60 97 05/26/18 23:08 56 L 16 05/26/18 20:05 60 105/58 L 05/26/18 20:04 99.0 F 60 18 105/58 L 95 05/26/18 19:14 60 16 Weight Admit Weight 115.212 kg Weight 109.18 kg I&O: 05/25/18 05/26/18 05/27/18 06:59 06:59 06:59 Intake Total 240 500 500 Output Total 1700 1300 800 Balance -1460 -800 -300 Result Diagrams: 05/27/18 04:19 05/27/18 04:18 Phys Exam - Physical Examination Constitutional: NAD HEENT: moist MMs Neck: supple bibasilar crackles Cardiovascular: RRR Gastrointestinal: soft, non-tender Musculoskeletal: pulses present, edema present left leg with dressing over venous stasis ulcer Neurological: moves all 4 limbs Psychiatric: normal affect, A&O x 3 Skin: cap refill <2 seconds Deviation from normal: venous stasis changes b/l lower legs Dx/Plan (1) CHF exacerbation Code(s): I50.9 - HEART FAILURE, UNSPECIFIED Status: Acute (2) Anemia Code(s): D64.9 - ANEMIA, UNSPECIFIED Status: Acute (3) Urinary retention Code(s): R33.9 - RETENTION OF URINE, UNSPECIFIED Status: Acute (4) Venous stasis ulcer Code(s): I83.009 - VARICOSE VEINS OF UNSP LOWER EXTREMITY W ULCER OF UNSP SITE; L97.909 - NON-PRS CHRONIC ULC UNSP PRT OF UNSP LOW LEG W UNSP SEVERITY Status : Acute (5) Atypical chest pain Code(s): R07.89 - OTHER CHEST PAIN Status: Acute (6) BPH (benign prostatic hyperplasia) Code(s): N40.0 - BENIGN PROSTATIC HYPERPLASIA WITHOUT LOWER URINRY TRACT SYMP Status: Acute (7) CKD (chronic kidney disease) stage 3, GFR 30-59 ml/min Code(s): N18.3 - CHRONIC KIDNEY DISEASE, STAGE 3 (MODERATE) Status: Acute (8) COPD (chronic obstructive pulmonary disease) Status: Acute (9) DM2 (diabetes mellitus, type 2) Status: Acute (10) Elevated brain natriuretic peptide (BNP) level Code(s): R79.89 - OTHER SPECIFIED ABNORMAL FINDINGS OF BLOOD CHEMISTRY Status : Acute (11) HLD (hyperlipidemia) Code(s): E78.5 - HYPERLIPIDEMIA, UNSPECIFIED Status: Acute (12) HTN (hypertension) Code(s): I10 - ESSENTIAL (PRIMARY) HYPERTENSION Status: Acute (13) (HFpEF) heart failure with preserved ejection fraction Code(s): I50.30 - UNSPECIFIED DIASTOLIC (CONGESTIVE) HEART FAILURE Status: Acute - Plan Plan: Mr Dodge is a 88yo male with pmh of DM2, HFpEF, COPD, and CKD3 who presented with acute CHF exacerbation HFrEF exacerbation, improving - LE edema bilaterally extending up into scrotum. - Net neg 1100ml in 24hrs - Strict I/Os, daily wts, 1200 ml/day fluid restriction. - Continue IV lasix 40mg BID - Holding DELBERT/ARB for CKD CHRISTIAN on CKD3b - Likely 2/2 cardiorenal syndrome, improving with diuresis. - Cr increased to 2.03 today - Continue diuresis - Continue to monitor renal function with daily BMP Demand ischemia in setting of acute CHF - Slightly elevated troponin on admission, but much less compared to last visit. - Repeat trop x 3 increased slightly. Pt denies CP. EKG with no ST segment changes - Monitor on tele Mild Hyperkalemia, resolved Hx Strep. agalactiae bacteremia likely from lower extremity cellulitis - No leukocytosis or fever on admission - Positive 2/2 cultures on 05/07. Completed 2wk course of PO Amoxicillin - Monitor for signs of systemic infection Hx Enterococcus UTI - >100K CFU on last admission, Completed oral amoxicillin x2 weeks - Monitor for signs of systemic infection Hx of urinary retention - Hx of likely TURP with dx of prostate CA - PSA mildly elevated last hospitalization - Bah in place since last hospitalization - F/u with Urology outpatient in 2 weeks as planned during last hospital visit DM2, insulin dependent - BG improved - Continue AM insulin 38U, otherwise follow home regimen - ACHS accuchecks - Moderate SSI - Hypoglycemic protocol COPD - Quit smoking 3 weeks ago, on nicotine patch daily, 40 pack year hx - Will continue home ventolin/albuterol & spiriva - duonebs prn Anemia, normocytic - likely 2/2 chronic disease - Will obtain iron studies - Continue to monitor q3d HTN - Holding home DELBERT/ARB for CKD/CHRISTIAN - Continue hydralazine HLD - Continue home atorvastatin 40mg Tobacco abuse - Nicotine patch PRN - Quit smoking 3 weeks ago - Encourage cessation BPH - Continue Flomax - Bah Cath in place - F/u with urology as an outpatient Venous Stasis ulcer - Wound Care consulted Code Status: DNR DVT ppx: Heparin Addendum - Attending - Attending Attestation Date/Time: 05/27/18 6678 I personally evaluated the patient and discussed the management with Dr. Hatch I agree with the History, Examination, Assessment and Plan documented above with any addition or exceptions noted below.Rec anemia w/u Anemia chronic disease r/o GI blood loss.
[2018-05-27] MEDS: Ipratropium Bromide 2.5 ml Neb NEB SCH ×3 (06:35→20:06)
[2018-05-27] MEDS: Insulin Glargine 38 UNITS in Pre-Filled Syringe 1 EACH SC SCH (09:22)
[2018-05-27] MEDS: HumaLOG 300 UNITS/3 ML VIAL SC SCH ×3 (09:25→17:19)
[2018-05-27] MEDS: Heparin 5,000 UNITS/ML VIAL SC SCH ×3 (09:25→21:13)
[2018-05-27] MEDS: Carvedilol 25 MG TAB PO SCH ×2 (09:30→21:11)
[2018-05-27] MEDS: hydrALAZINE 10 MG TAB PO SCH ×3 (09:30→21:11)
[2018-05-27] MEDS: Atorvastatin Calcium 40 MG TAB PO SCH (09:30)
[2018-05-27] MEDS: guaiFENesin ER 600 MG TAB PO SCH ×2 (09:30→21:12)
[2018-05-27] MEDS: Gabapentin 100 MG CAP PO SCH ×2 (09:30→21:12)
[2018-05-27] MEDS: Aspirin 81 mg Enteric Coated Tablet PO SCH (09:30)
[2018-05-27] MEDS: Insulin Regular 300 UNITS/3 ML VIAL SC PRN (11:55)
[2018-05-27 12:07] LABS: Iron 34 ug/dL (65-175); Iron Binding Capacity, Total 238 mcg/dL (261-462)
[2018-05-27] MEDS: Tamsulosin HCl 0.4 MG CAP PO SCH (21:12)
[2018-05-27] MEDS: Insulin Glargine 35 UNITS in Pre-Filled Syringe SC SCH (21:25)
[2018-05-27] MEDS: Nicotine 21 MG PATCH TD SCH (21:33)
[2018-05-28] MEDS: Ipratropium Bromide 2.5 ml Neb NEB SCH ×4 (01:29→19:31)
[2018-05-28 05:28] LABS: ALT (SGPT) 25 U/L (8-55); AST (SGOT) 32 U/L (5-34); Albumin 3.1 g/dL (3.4-4.8); Alkaline Phosphatase 76 U/L (40-150); Anion Gap 11 mmol/L (10-20); BUN (Urea Nitrogen) 47 mg/dL (8.4-25.7); Bilirubin, Total 0.3 mg/dL (0.2-1.2); Calc. Creatinine Clearance 41 mL/min (70-130); Calcium 8.3 mg/dL (7.8-10.44); Carbon Dioxide 35 mmol/L (23-31); Chloride 100 mmol/L (98-107); Estimated GFR-MDRD 33; Globulin 3.6 g/dL (2.4-3.5); Potassium 3.9 mmol/L (3.5-5.1); Protein, Total 6.7 g/dL (5.8-8.1); Sodium 142 mmol/L (136-145)
[2018-05-28] MEDS: Furosemide 40 MG/4 ML VIAL SLOW IVP SCH (05:36)
[2018-05-28 05:43] LABS: Glucose 45 mg/dL (83-110)
--- NOTE | 2018-05-28 05:55 | PDOC.FM ---
- Subjective Subjective: No overnight events. Endorses SOB, stable from yesterday. Nasal cannula laying beside him in bed. Reports the temp of his room is cold this morning. Concerned if the swelling in his legs is improving. Catheter in place. Stooling. No other concerns. - Objective MAR Reviewed: Yes Vital Signs & Weight: Vital Signs (12 hours) Temp Pulse Resp BP Pulse Ox 05/28/18 04:00 97.4 F L 58 L 20 131/62 94 L 05/28/18 01:29 66 18 92 L 05/27/18 21:11 64 05/27/18 20:40 98.9 F 62 18 117/56 L 97 05/27/18 20:06 64 18 90 L Weight Admit Weight 115.212 kg Weight 108.59 kg I&O: 05/26/18 05/27/18 05/28/18 06:59 06:59 06:59 Intake Total 500 860 720 Output Total 1300 1400 1100 Balance -800 -540 -380 Result Diagrams: 05/27/18 04:19 05/28/18 04:15 Phys Exam - Physical Examination Constitutional: NAD HEENT: moist MMs Neck: supple Respiratory: no wheezing, clear to auscultation bilateral Cardiovascular: RRR, no significant murmur Gastrointestinal: soft, non-tender, positive bowel sounds Musculoskeletal: pulses present Neurological: moves all 4 limbs Psychiatric: A&O x 3 Deviation from normal: Venous stasis changes and ulcers Dx/Plan (1) CHF exacerbation Code(s): I50.9 - HEART FAILURE, UNSPECIFIED Status: Acute (2) Anemia Code(s): D64.9 - ANEMIA, UNSPECIFIED Status: Acute (3) Urinary retention Code(s): R33.9 - RETENTION OF URINE, UNSPECIFIED Status: Acute (4) Venous stasis ulcer Code(s): I83.009 - VARICOSE VEINS OF UNSP LOWER EXTREMITY W ULCER OF UNSP SITE; L97.909 - NON-PRS CHRONIC ULC UNSP PRT OF UNSP LOW LEG W UNSP SEVERITY Status : Acute (5) Atypical chest pain Code(s): R07.89 - OTHER CHEST PAIN Status: Acute (6) BPH (benign prostatic hyperplasia) Code(s): N40.0 - BENIGN PROSTATIC HYPERPLASIA WITHOUT LOWER URINRY TRACT SYMP Status: Acute (7) CKD (chronic kidney disease) stage 3, GFR 30-59 ml/min Code(s): N18.3 - CHRONIC KIDNEY DISEASE, STAGE 3 (MODERATE) Status: Acute (8) COPD (chronic obstructive pulmonary disease) Status: Acute (9) DM2 (diabetes mellitus, type 2) Status: Acute (10) Elevated brain natriuretic peptide (BNP) level Code(s): R79.89 - OTHER SPECIFIED ABNORMAL FINDINGS OF BLOOD CHEMISTRY Status : Acute (11) HLD (hyperlipidemia) Code(s): E78.5 - HYPERLIPIDEMIA, UNSPECIFIED Status: Acute (12) HTN (hypertension) Code(s): I10 - ESSENTIAL (PRIMARY) HYPERTENSION Status: Acute (13) (HFpEF) heart failure with preserved ejection fraction Code(s): I50.30 - UNSPECIFIED DIASTOLIC (CONGESTIVE) HEART FAILURE Status: Acute - Plan Plan: Mr Dodge is a 88yo male with pmh of DM2, HFpEF, COPD, and CKD3 who presented with acute CHF exacerbation HFrEF exacerbation, improving - Echo 04/28: EF 30-35% - LE edema bilaterally extending up into scrotum. - Net neg 540ml over last 24hrs - Strict I/Os, daily wts, 1200 ml/day fluid restriction. - Increase IV lasix to 80mg BID for one day. - Holding DELBERT/ARB for CKD CHRISTIAN on CKD3b - Likely 2/2 cardiorenal syndrome, improving with diuresis. - Continue diuresis - Continue to monitor renal function with daily BMP Demand ischemia in setting of acute CHF - Slightly elevated troponin on admission, but much less compared to last visit. - Repeat trop x 3 increased slightly. Pt denies CP. EKG with no ST segment changes - Monitor on tele Mild Hyperkalemia, resolved Hx Strep. agalactiae bacteremia likely from lower extremity cellulitis - No leukocytosis or fever on admission - Positive 2/2 cultures on 05/07. Completed 2wk course of PO Amoxicillin - Monitor for signs of systemic infection Hx Enterococcus UTI - >100K CFU on last admission, Completed oral amoxicillin x2 weeks - Monitor for signs of systemic infection Hx of urinary retention - Hx of likely TURP with dx of prostate CA - PSA mildly elevated last hospitalization - [facility] in place since last hospitalization - F/u with Urology outpatient in 2 weeks as planned during last hospital visit DM2, insulin dependent - Episode of hypoglycemia this AM, glucose 45 - Will decrease AM insulin from 38U-> 35U and 1400 dose from 36-> 35U. Will restart home dose at discharge. Hypoglycemia related to increased compliance with diet recommendation in hospital - ACHS accuchecks - Moderate SSI - Hypoglycemic protocol COPD - Quit smoking 3 weeks ago, on nicotine patch daily, 40 pack year hx - Will continue home ventolin/albuterol & spiriva - duonebs prn Anemia of Chronic Disease - Iron studies support dx HTN - Holding home DELBERT/ARB for CKD/CHRISTIAN - Continue hydralazine HLD - Continue home atorvastatin 40mg Tobacco abuse - Nicotine patch PRN - Quit smoking 3 weeks ago - Encourage cessation BPH - Continue Flomax - [place] Cath in place - F/u with urology as an outpatient Venous Stasis ulcer - Wound Care consulted Code Status: DNR DVT ppx: Heparin Dispo: Pt approved for SNF placement at [facility] in [place]. Will d/c once condition is stable. Addendum - Attending - Attending Attestation Date/Time: 05/28/181945 I personally evaluated the patient and discussed the management with Dr. Lauren Miranda I agree with the History, Examination, Assessment and Plan documented above with any addition or exceptions noted below.Patient with c/o regard food intake looking into stable environment for dismissal patient non compliance with diabetic diet and fluid restriction. Continue to educate benefits/risk associated with non-compliance.
[2018-05-28] MEDS: Insulin Glargine 38 UNITS in Pre-Filled Syringe 1 EACH SC SCH (08:53)
[2018-05-28] MEDS: HumaLOG 300 UNITS/3 ML VIAL SC SCH ×3 (08:54→16:27)
[2018-05-28] MEDS: Atorvastatin Calcium 40 MG TAB PO SCH (08:55)
[2018-05-28] MEDS: Gabapentin 100 MG CAP PO SCH ×2 (08:55→21:13)
[2018-05-28] MEDS: guaiFENesin ER 600 MG TAB PO SCH ×2 (08:55→21:13)
[2018-05-28] MEDS: Aspirin 81 mg Enteric Coated Tablet PO SCH (08:55)
[2018-05-28] MEDS: hydrALAZINE 10 MG TAB PO SCH ×3 (08:55→21:13)
[2018-05-28] MEDS: Carvedilol 25 MG TAB PO SCH ×2 (08:55→21:14)
[2018-05-28] MEDS: Heparin 5,000 UNITS/ML VIAL SC SCH ×3 (08:56→21:16)
[2018-05-28] MEDS: Insulin Regular 300 UNITS/3 ML VIAL SC PRN (12:17)
[2018-05-28] MEDS: Furosemide 100 MG/10 ML VIAL SLOW IVP SCH (13:22)
[2018-05-28] MEDS ORDERED: Furosemide 40 MG/4 ML VIAL SLOW IVP SCH (14:00)
[2018-05-28] MEDS ORDERED: Insulin Glargine 30 UNITS in Pre-Filled Syringe 1 EACH SC SCH (21:00)
[2018-05-28] MEDS: Tamsulosin HCl 0.4 MG CAP PO SCH (21:13)
[2018-05-28] MEDS: Nicotine 21 MG PATCH TD SCH (21:18)
[2018-05-29] MEDS: Ipratropium Bromide 2.5 ml Neb NEB SCH ×4 (00:24→19:48)
[2018-05-29 05:07] LABS: ALT (SGPT) 26 U/L (8-55); AST (SGOT) 34 U/L (5-34); Albumin 3.1 g/dL (3.4-4.8); Alkaline Phosphatase 81 U/L (40-150); Anion Gap 12 mmol/L (10-20); BUN (Urea Nitrogen) 47 mg/dL (8.4-25.7); Bilirubin, Total 0.4 mg/dL (0.2-1.2); Calc. Creatinine Clearance 44 mL/min (70-130); Calcium 8.4 mg/dL (7.8-10.44); Carbon Dioxide 33 mmol/L (23-31); Chloride 98 mmol/L (98-107); Estimated GFR-MDRD 36; Globulin 3.7 g/dL (2.4-3.5); Potassium 3.8 mmol/L (3.5-5.1); Protein, Total 6.8 g/dL (5.8-8.1); Sodium 139 mmol/L (136-145)
[2018-05-29 05:09] LABS: Glucose 46 mg/dL (83-110)
[2018-05-29] MEDS: Furosemide 100 MG/10 ML VIAL SLOW IVP SCH (05:20)
--- NOTE | 2018-05-29 08:48 | PDOC.FM ---
- Subjective Subjective: Feeling well this morning. Breathing has improved. Denies Chest pain or headache. Only complaint is that he is cold. No overnight events. - Objective MAR Reviewed: Yes Vital Signs & Weight: Vital Signs (12 hours) Temp Pulse Resp BP BP Pulse Ox 05/29/18 07:58 97.3 F L 63 16 133/61 95 05/29/18 06:35 91 L 05/29/18 06:32 59 L 20 91 L 05/29/18 04:00 97.5 F L 70 18 158/73 H 94 L 05/29/18 00:24 58 L 18 92 L 05/28/18 21:13 61 Weight Admit Weight 115.212 kg Weight 108.318 kg I&O: 05/28/18 05/29/18 05/30/18 06:59 06:59 06:59 Intake Total 720 1200 Output Total 1100 2125 Balance -380 925 Result Diagrams: 05/27/18 04:19 05/29/18 04:29 Phys Exam - Physical Examination Constitutional: NAD HEENT: moist MMs Neck: supple bibasilar crackles Cardiovascular: RRR, no significant murmur Gastrointestinal: soft, non-tender Scrotal edema improving Musculoskeletal: pulses present 2+ pitting edema, improving Neurological: non-focal Psychiatric: normal affect, A&O x 3 Deviation from normal: venous stasis wounds with dressing Dx/Plan (1) CHF exacerbation Code(s): I50.9 - HEART FAILURE, UNSPECIFIED Status: Acute (2) Anemia Code(s): D64.9 - ANEMIA, UNSPECIFIED Status: Acute (3) Urinary retention Code(s): R33.9 - RETENTION OF URINE, UNSPECIFIED Status: Acute (4) Venous stasis ulcer Code(s): I83.009 - VARICOSE VEINS OF UNSP LOWER EXTREMITY W ULCER OF UNSP SITE; L97.909 - NON-PRS CHRONIC ULC UNSP PRT OF UNSP LOW LEG W UNSP SEVERITY Status : Acute (5) Atypical chest pain Code(s): R07.89 - OTHER CHEST PAIN Status: Acute (6) BPH (benign prostatic hyperplasia) Code(s): N40.0 - BENIGN PROSTATIC HYPERPLASIA WITHOUT LOWER URINRY TRACT SYMP Status: Acute (7) CKD (chronic kidney disease) stage 3, GFR 30-59 ml/min Code(s): N18.3 - CHRONIC KIDNEY DISEASE, STAGE 3 (MODERATE) Status: Acute (8) COPD (chronic obstructive pulmonary disease) Status: Acute (9) DM2 (diabetes mellitus, type 2) Status: Acute (10) Elevated brain natriuretic peptide (BNP) level Code(s): R79.89 - OTHER SPECIFIED ABNORMAL FINDINGS OF BLOOD CHEMISTRY Status : Acute (11) HLD (hyperlipidemia) Code(s): E78.5 - HYPERLIPIDEMIA, UNSPECIFIED Status: Acute (12) HTN (hypertension) Code(s): I10 - ESSENTIAL (PRIMARY) HYPERTENSION Status: Acute (13) (HFpEF) heart failure with preserved ejection fraction Code(s): I50.30 - UNSPECIFIED DIASTOLIC (CONGESTIVE) HEART FAILURE Status: Acute - Plan Plan: Mr Dodge is a 88yo male with pmh of DM2, HFpEF, COPD, and CKD3 who presented with acute CHF exacerbation HFrEF exacerbation, improving - Echo 04/28: EF 30-35% - Continues to diurese - Strict I/Os, daily wts, 1200 ml/day fluid restriction. - IV lasix 40mg BID - Holding DELBERT/ARB for CKD DM2, insulin dependent - 2nd Episode of hypoglycemia this AM, glucose 46 after reducing AM insulin from 38U-> 35U and 1400 dose from 36-> 30U. - Will further reduce 1400 insulin 30U-> 25U - Will restart home dose at discharge. Hypoglycemia related to increased compliance with diet recommendation in hospital - ACHS accuchecks - Moderate SSI - Hypoglycemic protocol CHRISTIAN on CKD3b - Likely 2/2 cardiorenal syndrome, improving with diuresis. - Continue diuresis - Continue to monitor renal function with daily BMP Anemia of Chronic Disease - Iron studies support dx HTN - Holding home DELBERT/ARB for CKD/CHRISTIAN - Continue hydralazine HLD - Continue home atorvastatin 40mg Tobacco abuse - Nicotine patch PRN - Quit smoking 3 weeks ago BPH - Continue Flomax - [place] Cath in place - F/u with urology as an outpatient Venous Stasis ulcer - Wound Care consulted Demand ischemia in setting of acute CHF - Slightly elevated troponin on admission, but much less compared to last visit. - Repeat trop x 3 increased slightly. Pt denies CP. EKG with no ST segment changes - Monitor on tele COPD - Quit smoking 3 weeks ago, on nicotine patch daily, 40 pack year hx - Continue home ventolin/albuterol - On spiriva at home - duonebs prn Mild Hyperkalemia, resolved Hx Strep. agalactiae bacteremia likely from lower extremity cellulitis - No leukocytosis or fever on admission - Positive 2/2 cultures on 05/07. Completed 2wk course of PO Amoxicillin - Monitor for signs of systemic infection Hx Enterococcus UTI - >100K CFU on last admission, Completed oral amoxicillin x2 weeks - Monitor for signs of systemic infection Hx of urinary retention - Hx of likely TURP with dx of prostate CA - PSA mildly elevated last hospitalization - [place] in place since last hospitalization - F/u with Urology outpatient in 2 weeks as planned during last hospital visit Code Status: DNR DVT ppx: Heparin Dispo: Pt approved for SNF placement at [facility] in [place]. Will d/c once condition is stable. Addendum - Attending - Attending Attestation Date/Time: 05/29/18 8252 I personally evaluated the patient and discussed the management with Dr. Miranda I agree with the History, Examination, Assessment and Plan documented above with any addition or exceptions noted below. Note hypogylcemia and adjust basa insulin accordingly he continues to benefit from continued diuresis.
[2018-05-29] MEDS: HumaLOG 300 UNITS/3 ML VIAL SC SCH ×3 (09:09→16:26)
[2018-05-29] MEDS: Heparin 5,000 UNITS/ML VIAL SC SCH ×3 (09:10→21:23)
[2018-05-29] MEDS: hydrALAZINE 10 MG TAB PO SCH ×3 (09:10→21:21)
[2018-05-29] MEDS: Gabapentin 100 MG CAP PO SCH ×2 (09:11→21:22)
[2018-05-29] MEDS: Aspirin 81 mg Enteric Coated Tablet PO SCH (09:11)
[2018-05-29] MEDS: Carvedilol 25 MG TAB PO SCH ×2 (09:11→21:22)
[2018-05-29] MEDS: Atorvastatin Calcium 40 MG TAB PO SCH (09:11)
[2018-05-29] MEDS: guaiFENesin ER 600 MG TAB PO SCH ×2 (09:11→21:23)
[2018-05-29] MEDS: Insulin Glargine 35 UNITS in Pre-Filled Syringe 1 EACH SC SCH (09:57)
[2018-05-29] MEDS: Insulin Regular 300 UNITS/3 ML VIAL SC PRN (12:10)
[2018-05-29] MEDS ORDERED: Furosemide 40 MG/4 ML VIAL SLOW IVP SCH (14:00)
[2018-05-29] MEDS ORDERED: Furosemide 100 MG/10 ML VIAL SLOW IVP SCH (14:00)
[2018-05-29] MEDS ORDERED: Insulin Glargine 25 UNITS in Pre-Filled Syringe 1 EACH SC SCH (21:00)
[2018-05-29] MEDS: Tamsulosin HCl 0.4 MG CAP PO SCH (21:22)
[2018-05-29] MEDS: Nicotine 21 MG PATCH TD SCH (21:27)
[2018-05-30] MEDS: Ipratropium Bromide 2.5 ml Neb NEB SCH ×3 (01:26→12:43)
[2018-05-30 05:29] VITALS: BMI 35.6
[2018-05-30 06:33] LABS: ALT (SGPT) 23 U/L (8-55); AST (SGOT) 30 U/L (5-34); Albumin 3.1 g/dL (3.4-4.8); Alkaline Phosphatase 80 U/L (40-150); Anion Gap 14 mmol/L (10-20); BUN (Urea Nitrogen) 48 mg/dL (8.4-25.7); Bilirubin, Total 0.4 mg/dL (0.2-1.2); Calc. Creatinine Clearance 37 mL/min (70-130); Calcium 8.3 mg/dL (7.8-10.44); Carbon Dioxide 33 mmol/L (23-31); Chloride 96 mmol/L (98-107); Estimated GFR-MDRD 30; Globulin 3.8 g/dL (2.4-3.5); Glucose 199 mg/dL (83-110); Potassium 4.5 mmol/L (3.5-5.1); Protein, Total 6.9 g/dL (5.8-8.1); Sodium 138 mmol/L (136-145)
--- NOTE | 2018-05-30 06:36 | PDOC.FM ---
- Subjective Subjective: Feeling well. Denies SOB, CP. Feels ready to go home today. Npo overnight events. - Objective MAR Reviewed: Yes Vital Signs & Weight: Vital Signs (12 hours) Temp Pulse Resp BP BP Pulse Ox 05/30/18 04:00 98.5 F 58 L 20 112/55 L 94 L 05/30/18 01:26 68 18 92 L 05/29/18 21:22 99.2 F 60 18 109/55 L 99 05/29/18 21:21 60 05/29/18 20:00 99 05/29/18 19:48 59 L 18 95 Weight Admit Weight 115.212 kg Weight 106.141 kg I&O: 05/28/18 05/29/18 05/30/18 06:59 06:59 06:59 Intake Total 720 1200 960 Output Total 1100 2125 2600 Balance -380 -925 -1640 Result Diagrams: 05/27/18 04:19 05/30/18 05:14 Phys Exam - Physical Examination Constitutional: NAD HEENT: moist MMs shaquille on left side of face Neck: supple Respiratory: clear to auscultation bilateral Cardiovascular: RRR, no significant murmur Gastrointestinal: soft, non-tender Musculoskeletal: edema present Neurological: non-focal Psychiatric: normal affect, A&O x 3 Deviation from normal: Venous stasis ulcers wrapped with dressings Dx/Plan (1) CHF exacerbation Code(s): I50.9 - HEART FAILURE, UNSPECIFIED Status: Acute (2) Anemia Code(s): D64.9 - ANEMIA, UNSPECIFIED Status: Acute (3) Urinary retention Code(s): R33.9 - RETENTION OF URINE, UNSPECIFIED Status: Acute (4) Venous stasis ulcer Code(s): I83.009 - VARICOSE VEINS OF UNSP LOWER EXTREMITY W ULCER OF UNSP SITE; L97.909 - NON-PRS CHRONIC ULC UNSP PRT OF UNSP LOW LEG W UNSP SEVERITY Status : Acute (5) Atypical chest pain Code(s): R07.89 - OTHER CHEST PAIN Status: Acute (6) BPH (benign prostatic hyperplasia) Code(s): N40.0 - BENIGN PROSTATIC HYPERPLASIA WITHOUT LOWER URINRY TRACT SYMP Status: Acute (7) CKD (chronic kidney disease) stage 3, GFR 30-59 ml/min Code(s): N18.3 - CHRONIC KIDNEY DISEASE, STAGE 3 (MODERATE) Status: Acute (8) COPD (chronic obstructive pulmonary disease) Status: Acute (9) DM2 (diabetes mellitus, type 2) Status: Acute (10) Elevated brain natriuretic peptide (BNP) level Code(s): R79.89 - OTHER SPECIFIED ABNORMAL FINDINGS OF BLOOD CHEMISTRY Status : Acute (11) HLD (hyperlipidemia) Code(s): E78.5 - HYPERLIPIDEMIA, UNSPECIFIED Status: Acute (12) HTN (hypertension) Code(s): I10 - ESSENTIAL (PRIMARY) HYPERTENSION Status: Acute (13) (HFpEF) heart failure with preserved ejection fraction Code(s): I50.30 - UNSPECIFIED DIASTOLIC (CONGESTIVE) HEART FAILURE Status: Acute - Plan Plan: Mr Dodge is a 88yo male with pmh of DM2, HFpEF, COPD, and CKD3 who presented with acute CHF exacerbation HFrEF exacerbation, improving - Echo 04/28: EF 30-35% - Continues to diurese with IV lasix 40mg BID - Strict I/Os, daily wts, 1200 ml/day fluid restriction. - Holding DELBERT/ARB for CKD DM2, insulin dependent - 2 episodes of hypoglycemia, insulin dose adjusted. Glucose 199 this AM. - Will need dose adjusted after discharge. Expect spike in glucose due to diet noncompliance. 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 - Continue diuresis - Continue to monitor renal function with daily BMP Anemia of Chronic Disease - Iron studies support dx HTN - Holding home DELBERT/ARB for CKD/CHRISTIAN - Continue hydralazine HLD - Continue home atorvastatin 40mg Tobacco abuse - Nicotine patch PRN - Quit smoking 3 weeks ago BPH - Continue Flomax - [place] Cath in place - F/u with urology as an outpatient Venous Stasis ulcer - Will need wound care at rehab unit Demand ischemia in setting of acute CHF - Slightly elevated troponin on admission, but much less compared to last visit. - Repeat trop x 3 increased slightly. Pt denies CP. EKG with no ST segment changes COPD - Quit smoking 3 weeks ago, on nicotine patch daily, 40 pack year hx - D/c with Spiriva - duonebs prn Mild Hyperkalemia, resolved Hx Strep. agalactiae bacteremia likely from lower extremity cellulitis - No leukocytosis or fever on admission - Positive 2/2 cultures on 05/07. Completed 2wk course of PO Amoxicillin - Monitor for signs of systemic infection Hx Enterococcus UTI - >100K CFU on last admission, Completed oral amoxicillin x2 weeks - Monitor for signs of systemic infection Hx of urinary retention - Hx of likely TURP with dx of prostate CA - PSA mildly elevated last hospitalization - [place] in place since last hospitalization - F/u with Urology outpatient in 2 weeks as planned during last hospital visit Code Status: DNR DVT ppx: Heparin Dispo: Pt approved for SNF placement at [facility] facility in [place]. Likely today Addendum - Attending - Attending Attestation Date/Time: 05/30/18 5009 I personally evaluated the patient and discussed the management with Dr. Miranda I agree with the History, Examination, Assessment and Plan documented above with any addition or exceptions noted below.Stable for dismissal to rehab and outpt f/u with Urology.
[2018-05-30] MEDS: guaiFENesin ER 600 MG TAB PO SCH (09:28)
[2018-05-30] MEDS: Heparin 5,000 UNITS/ML VIAL SC SCH ×2 (09:28→15:16)
[2018-05-30] MEDS: Furosemide 40 MG TAB PO SCH ×2 (09:29→15:16)
[2018-05-30] MEDS: hydrALAZINE 10 MG TAB PO SCH ×2 (09:29→15:16)
[2018-05-30] MEDS: Aspirin 81 mg Enteric Coated Tablet PO SCH (09:29)
[2018-05-30] MEDS: Carvedilol 25 MG TAB PO SCH (09:29)
[2018-05-30] MEDS: Gabapentin 100 MG CAP PO SCH (09:30)
[2018-05-30] MEDS: Atorvastatin Calcium 40 MG TAB PO SCH (09:30)
[2018-05-30] MEDS: HumaLOG 300 UNITS/3 ML VIAL SC SCH ×2 (09:33→11:54)
[2018-05-30] MEDS: Insulin Glargine 35 UNITS in Pre-Filled Syringe 1 EACH SC SCH (09:33)
[2018-05-30 12:00] VITALS: BP 105/56; TEMP 99.1
--- NOTE | 2018-05-31 05:35 | DIS ---
DATE OF ADMISSION: 05/21/2018 DATE OF DISCHARGE: 05/30/2018 RESIDENT: Petra Miranda, PGY-1. DISCHARGE ATTENDING: Dr. Tristan Lamas. CONSULT: Cardiology. PROCEDURES: Chest x-ray, cardiomegaly with mild pulmonary vascular congestion, atherosclerosis. DISCHARGE DIAGNOSES: DISCHARGE MEDICATIONS: 1. Albuterol sulfate. 2. ProAir. 3. Proventil 1 puff p.r.n. 4. Aspirin 81 mg daily. 5. Atorvastatin 40 mg daily. 6. Coreg 12.5 mg b.i.d. 7. Lasix 40 mg p.o. b.i.d. 8. Gabapentin 100 mg b.i.d. 9. Hydralazine 10 mg t.i.d. 10. Lantus 35 units q.a.m. 11. Lantus 30 units q.h.s. 12. Spiriva b.i.d. 13. Nystatin powder topical b.i.d. p.r.n. 14. Flomax 0.4 mg q.h.s. 15. Ipratropium-albuterol 3 mL q.4 hours p.r.n. Discontinued medications, none. HISTORY OF PRESENT ILLNESS/HOSPITAL COURSE: Mr. Dodge is an 88-year-old male with past medical history of type 2 insulin-dependent diabetes, heart failure with preserved ejection fraction, COPD, CKD stage 3, presented with acute CHF exacerbation. The patient apparently has been in a senior living facility and had discharged himself and was living with a niece. On admission, his vitals were stable. He was noted to have 3+ pitting edema in his bilateral lower extremities. His scrotum and penis were also very edematous. He did have urinary catheter in place at admission, plan was to follow up with urology to have this removed/ evaluated. He had a small ulcer on his right lower leg and an ulcer on his left lower leg as well as venous stasis changes. His EKG was stable from his last visit. Chest x-ray showed cardiomegaly and pulmonary vascular congestion. An ultrasound was performed of his scrotum that showed diffuse scrotal edema. Last echo, April 29, 2018, that showed an EF of 35% to 40%. He was started on IV Lasix 40 mg b.i.d., received a dose of metolazone 5 mg. DELBERT/ARB was held due to his kidney function. He did have an elevated troponin at admission, 0.047, 0.047 and 0.059, this was thought to be due to demand ischemia 2/2 to fluid overload. Urine culture was negative. BNP 1493. Potassium was elevated at 5.4. Creatinine 2.5. GFR 24. His shortness of breath, edema, and kidney function improved with IV diuresis. He did respond well to higher dosed lasix 80 mg b.i.d. two consecutive days. For his insulin-dependent diabetes, he was continued on his home regimen, Lantus 38 units BID. with lispro 3 units t.i.d., as well as a diabetic compliant diet in the hospital. He had two episodes of hypoglycemia, first episode at 45, so his insulin was adjusted to 35 in the a.m. and 30 h.s. He again had a hypoglycemic episode , glucose 46. We adjusted Lantus HS Lantus by decreasing to 25 units from 30U. The next morning, his blood sugar was 199. I discharged him with 35 units a.m. and 30 units h.s. This will need to be followed outpatient as patient will likely be noncompliant with diet after discharge and insulin will therefore need to be adjusted accordingly. He did have a mild hyperkalemia at 5.4 in the ED. This resolved with diuresis. He was noted to have an anemia of 10.1. Iron studies were obtained that supported anemia of chronic disease. His hypertension and hyperlipidemia were controlled with home medications. As far as his tobacco abuse, he has been using nicotine patch. He reported quitting 3 weeks prior to admission. His BPH was controlled with Flomax. He had a Moreland catheter in place at admission. He was discharged with a Moreland catheter with plans to follow up with Urology outpatient. Venous stasis ulcers were treated by Wound Care. They showed improvement with diuresis. COPD was managed with Atrovent q.6 hours. The patient is on Spiriva at home and this can be discontinued at discharge with DuoNebs and albuterol p.r.n. He has a [id number] history of smoking, but quit 3 weeks prior to admission. Continue nicotine patch daily. He has a history of strep agalactiae bacteremia, likely secondary to his lower extremity cellulitis treated at prior admission. He had showed no signs of systemic infection throughout hospital stay and did complete a 2-week course of amoxicillin after blood cultures were positive 05/18 on May 07, 2018. He had a history of UTI, past admission treated with amoxicillin for 2 weeks. He had no symptoms of UTI during hospitalization, but did have Moreland catheter in place throughout the course of the hospitalization. DISPOSITION: Stable. DISCHARGE INSTRUCTIONS: 1. Location: [facility]. 2. Diet: Heart healthy, low-sodium, consistent carb 2000 calorie diet. 3. Activity: As tolerated. FOLLOWUP: Follow up with Dr. Goodrich within 3 to 7 days of discharge. Job ID: [id number] MTDD
== END 2018-05-30 15:35 | DRG 291 ==
LOC: ERS 15:43 → 2NO 17:49 → OBSVTOIN 20:16
PROVIDERS: ADMIT Student in an Organized Health Care Education/Training Program; ATTEND Student in an Organized Health Care Education/Training Program
DX: I13.0 Hypertensive heart and chronic kidney disease with heart failure and stage 1 through stage 4 chronic kidney disease, or unspecified chronic kidney disease (principal); I50.23 Acute on chronic systolic (congestive) heart failure; I24.8 Other forms of acute ischemic heart disease; N17.9 Acute kidney failure, unspecified; N39.0 Urinary tract infection, site not specified; E11.22 Type 2 diabetes mellitus with diabetic chronic kidney disease; N18.3 Chronic kidney disease, stage 3 (moderate); J44.9 Chronic obstructive pulmonary disease, unspecified; E78.5 Hyperlipidemia, unspecified; F17.210 Nicotine dependence, cigarettes, uncomplicated; D64.9 Anemia, unspecified; R19.7 Diarrhea, unspecified; I87.8 Other specified disorders of veins; N40.1 Benign prostatic hyperplasia with lower urinary tract symptoms; R33.8 Other retention of urine; R79.89 Other specified abnormal findings of blood chemistry; E87.5 Hyperkalemia; Z66 Do not resuscitate; Z79.82 Long term (current) use of aspirin; Z79.4 Long term (current) use of insulin; Z90.49 Acquired absence of other specified parts of digestive tract
CPT/HCPCS: 36415; 36416; 71045; 76870; 80053; 81003; 82553; 82728; 83540; 83550; 83880; 84484; 85025; 93005; 93798; 93976; 94640; J1644; J1815; J1825; J1940; J7620

== ENCOUNTER 2018-08-13 19:51 | Inpatient (IN) | payer MEDICARE, MEDICAID ==
[2018-08-13] MEDS ORDERED: Dextrose 50% Abboject 50 ML SYRINGE ONE ×2 (20:01→20:09)
[2018-08-13 20:24] LABS: Hemoglobin 10.4 g/dL (14.0-18.0); Mean Corpuscular Hemoglobin 25.3 pg (27.0-31.0); Mean Corpuscular Volume 84.2 fL (78.0-98.0); Mean Platelet Volume 11.4 fL (7.4-10.4); Platelet Count 167 thou/uL (130-400); RBC Distribution Width 16.6 % (11.5-14.5); White Blood Cell (WBC) Count 10.3 thou/uL (4.8-10.8)
[2018-08-13 20:29] LABS: INR-International Normal Ratio 1.1; Prothrombin Time 14.2 SEC (12.0-14.7)
[2018-08-13 20:31] LABS: Hemoglobin A1c 7.1 % (4.0-6.0)
--- NOTE | 2018-08-13 20:38 | RAD ---
Radiograph chest one view: 08/13/2018 at 8:31 PM HISTORY: 88-year-old male with hypoxemia and hypoglycemia COMPARISON: 05/21/2018 FINDINGS: Again noted is the cardiomegaly. New finding of complete silhouetting of bilateral hemidiaphragms. In creased attenuation of bilateral lower lobes, right greater than left. A new finding of diffuse haziness of almost the entire right lung, except for relative sparing of the right apex. Left apex is relatively clear. No pneumothorax. IMPRESSION: 1. Bilateral pleural effusions and bilateral lower lobe consolidations (uncertain whether these are a telectasis or pneumonia). 2. Cardiomegaly.
[2018-08-13 20:42] LABS: #Eosinphils 0.1 thou/uL (0.0-0.7); #Lymphocytes 1.4 thou/uL (1.20-3.40); #Monocytes 0.8 thou/uL (0.11-0.59); %Basophils 0.2 % (0.0-1.0); %Lymphocytes 13.7 % (21.0-51.0); %Monocytes 7.7 % (0.0-10.0); %Neutrophils 77.4 % (42.0-75.0); Anisocytosis SLIGHT = 6-15 cells (100X) (0-5/hpf); Elliptocytes SLIGHT = 2-5 cells (100X) (0-1/hpf); Hypochromia SLIGHT = 6-15 cells (100X) (0-5/hpf); MDiff Complete? YES; Platelet Morphology Comment Appears Adequate; Poikilocytosis SLIGHT = 6-15 cells (100X) (0-5/hpf)
[2018-08-13 20:45] LABS: ALT (SGPT) 31 U/L (8-55); AST (SGOT) 33 U/L (5-34); Albumin 3.6 g/dL (3.4-4.8); Alkaline Phosphatase 126 U/L (40-150); Anion Gap 12 mmol/L (10-20); BUN (Urea Nitrogen) 74 mg/dL (8.4-25.7); Bilirubin, Total 0.3 mg/dL (0.2-1.2); Calc. Creatinine Clearance 0 mL/min (70-130); Calcium 8.9 mg/dL (7.8-10.44); Carbon Dioxide 30 mmol/L (23-31); Chloride 105 mmol/L (98-107); Estimated GFR-MDRD 40; Globulin 4.1 g/dL (2.4-3.5); Potassium 3.7 mmol/L (3.5-5.1); Protein, Total 7.7 g/dL (5.8-8.1); Sodium 143 mmol/L (136-145)
[2018-08-13 20:49] LABS: Glucose 18 mg/dL (83-110)
[2018-08-13 21:09] LABS: CKMB 8.1 ng/mL (0-6.6)
[2018-08-13] MEDS ORDERED: Furosemide 40 MG/4 ML VIAL ONE (21:51)
[2018-08-13] MEDS ORDERED: Aspirin Chewable 81 MG TAB ONE (21:51)
--- NOTE | 2018-08-13 23:35 | PDOC.FPRHP ---
- History of Present Illness Chief Complaint: AMS, hypoglycemia History of Present Illness: 88 yo M with PMH IDDM2, CKD, COPD [facility] decreased responsiveness. On initial presentation to ED, pt unresponsive to sternal rub. BG was 23, patient given 2 amps of D50. Hypothermia of 94.9 and bearhugger placed. Concern for CHF exacerbation as well so patient given IV lasix. Unable to obtain any further history from patient. He denies pain. Will squeeze hands on command. Patient sleepy but will awake startled to loud verbal stimuli. ED Course: 4 amps D50, aspirin, Lasix 40 IV - Allergies/Adverse Reactions Allergies Allergy/AdvReac Type Severity Reaction Status Date / Time No Known Drug Allergies Allergy Verified 01/23/18 09:28 - Home Medications Medication Instructions Recorded Confirmed Type Albuterol Sulfate [Ventolin HFA] 8 gm INH PRN PRN 06/23/17 05/21/18 History Aspirin [Ecotrin Low Strength] 81 mg PO DAILY 06/23/17 05/30/18 History Gabapentin 100 mg PO BID 06/23/17 05/21/18 History Tiotropium [place] [Spiriva] 18 mcg IH DAILY 06/23/17 05/21/18 History Atorvastatin Calcium [Lipitor] 40 mg PO DAILY 30 Days #30 tab 06/24/17 05/21/18 Rx Acetaminophen [Tylenol Regular 650 mg PO Q4H PRN tab 05/10/18 05/21/18 Rx Strength] HumaLOG [HumaLOG Vial] 8 units SC TID-WM vial 05/10/18 05/30/18 Rx Ipratropium/Albuterol Sulfate 3 ml NEB A2ND-GR PRN neb 05/10/18 05/21/18 Rx [DuoNeb] Nicotine [Nicoderm CQ] 21 mg TD Q24HR patch 05/10/18 05/21/18 Rx Nystatin [Mycostatin Powder] 1 bot TOP BID PRN bot 05/10/18 05/30/18 Rx Simethicone [Mylicon Chewable] 80 mg PO PCHS PRN tab 05/10/18 05/21/18 Rx Tamsulosin HCl [Flomax] 0.4 mg PO HS cap 05/10/18 05/21/18 Rx guaiFENesin ER [Mucinex] 600 mg PO Q12HR tab 05/10/18 05/21/18 Rx hydrALAZINE [Apresoline] 10 mg PO TID tab 05/10/18 05/21/18 Rx Carvedilol [Coreg] 12.5 mg PO BID 05/21/18 05/21/18 History Ondansetron [Zofran ODT] 4 mg PO Q6HR PRN 05/21/18 05/21/18 History Furosemide [Lasix] 40 mg PO 0900,1400 #60 tab 05/30/18 Rx Insulin Glargine [Lantus Vial] 30 units SC HS #1 vial 05/30/18 Rx Insulin Glargine [Lantus Vial] 35 units SC QAM #1 vial 05/30/18 Rx - History History per chart review as unable to obtain from patient PMHx: IDDM2, CKD3, anemia of chronic disease, HTN, HLD, BPH, venous stasis ulcer , COPD, Hx strep agalactiae bacteremia, Hx enterococcus UTI, hx urinary retention, systolic and diastolic CHF PSHx: cholecystectomy, prostatectomy, R thumb, L leg vein FHx: son with "hole in his heart" Social: No alcohol or drug use. Recently quit smoking, 40 pack years (80 years, 1/2 PPD) - Review of Systems ROS unobtainable: due to mental status - Vital signs BP: 135/68, Pulse: 46, Resp: 17, Temp: 97.6 (Rectal), O2 sat: 98 on 3L Oxygen, weight 113 kg - Physical Exam Constitutional: other (lethargic, follows commands, responds to verbal stimuli. Will not answer any questions with distinguishable words) HEENT: normocephalic and atraumatic, PERRLA, other (dry mucus membranes, R sided facial shaquille) Heart: RRR, normal S1/S2, pulses present, other Lungs: other (unable to auscultate posteriorly, exam limited d/t body habitus. Expiratory wheeze.) Abdomen: bowel sounds present, other (distended) Neurological: other (unable to perform complete neuro exam d/t mental status. Moves all extremities on command.) Skin: capillary refill <2 seconds, other (3+ piting BLE edema, LLE skin weeping. RLE with bandage in place for chronic wound) Heme/Lymphatic: no unusual bruising or bleeding FMR H&P: Results - Labs Result Diagrams: 08/13/18 20:01 08/13/18 20:01 Lab results: WBC 10.3 thou/uL (4.8-10.8) 08/13/18 20: Hgb 10.4 g/dL (14.0-18.0) L 08/13/18 20: Hct 34.6 % (42.0-52.0) L 08/13/18 20: MCV 84.2 fL (78.0-98.0) 08/13/18 20: Plt Count 167 thou/uL (130-400) 08/13/18 20: Neutrophils % 77.4 % (42.0-75.0) H 08/13/18 20:01 Sodium 143 mmol/L (136-145) 08/13/18 20: Potassium 3.7 mmol/L (3.5-5.1) 08/13/18 20: Chloride 105 mmol/L (98-107) 08/13/18 20: Carbon Dioxide 30 mmol/L (23-31) 08/13/18 20: BUN 74 mg/dL (8.4-25.7) H 08/13/18 20:01 Creatinine 1.64 mg/dL (0.7-1.3) H 08/13/18 20: Glucose 18 mg/dL (83-110) L* 08/13/18 20: Lactic Acid 0.6 mmol/L (0.5-2.2) 08/13/18 20: Calcium 8.9 mg/dL (7.8-10.44) 08/13/18 20:01 Total Bilirubin 0.3 mg/dL (0.2-1.2) 08/13/18 20:01 AST 33 U/L (5-34) 08/13/18 20:01 ALT 31 U/L (8-55) 08/13/18 20:01 Alkaline Phosphatase 126 U/L (40-150) 08/13/18 20:01 CK-MB (CK-2) 8.1 ng/mL (0-6.6) H* 08/13/18 20: B-Natriuretic Peptide 1579.8 pg/mL (0-100) H 08/13/18 20:01 Serum Total Protein 7.7 g/dL (5.8-8.1) 08/13/18 20:01 Albumin 3.6 g/dL (3.4-4.8) 08/13/18 20:01 FMR H&P: A/P - Problem List (1) Hypoglycemia Current Visit: Yes Status: Acute Code(s): E16.2 - HYPOGLYCEMIA, UNSPECIFIED (2) Hypothermia Current Visit: Yes Status: Acute Code(s): T68.XXXA - HYPOTHERMIA, INITIAL ENCOUNTER (3) BPH (benign prostatic hyperplasia) Current Visit: Yes Status: Acute Code(s): N40.0 - BENIGN PROSTATIC HYPERPLASIA WITHOUT LOWER URINRY TRACT SYMP (4) CHF exacerbation Current Visit: Yes Status: Acute Code(s): I50.9 - HEART FAILURE, UNSPECIFIED (5) CKD (chronic kidney disease) stage 3, GFR 30-59 ml/min Current Visit: Yes Status: Chronic Code(s): N18.3 - CHRONIC KIDNEY DISEASE, STAGE 3 (MODERATE) (6) COPD (chronic obstructive pulmonary disease) Current Visit: Yes Status: Chronic (7) DM2 (diabetes mellitus, type 2) Current Visit: Yes Status: Chronic (8) Demand ischemia of myocardium Current Visit: Yes Status: Acute Code(s): I24.8 - OTHER FORMS OF ACUTE ISCHEMIC HEART DISEASE (9) Elevated brain natriuretic peptide (BNP) level Current Visit: Yes Status: Acute Code(s): R79.89 - OTHER SPECIFIED ABNORMAL FINDINGS OF BLOOD CHEMISTRY (10) HLD (hyperlipidemia) Current Visit: Yes Status: Chronic Code(s): E78.5 - HYPERLIPIDEMIA, UNSPECIFIED (11) HTN (hypertension) Current Visit: Yes Status: Chronic Code(s): I10 - ESSENTIAL (PRIMARY) HYPERTENSION (12) Venous stasis ulcer Current Visit: Yes Status: Chronic Code(s): I83.009 - VARICOSE VEINS OF UNSP LOWER EXTREMITY W ULCER OF UNSP SITE; L97.909 - NON-PRS CHRONIC ULC UNSP PRT OF UNSP LOW LEG W UNSP SEVERITY (13) CAP (community acquired pneumonia) Current Visit: Yes Status: Acute Code(s): J18.9 - PNEUMONIA, UNSPECIFIED ORGANISM (14) CAP (community acquired pneumonia) Current Visit: Yes Status: Acute Code(s): J18.9 - PNEUMONIA, UNSPECIFIED ORGANISM - Plan 88 yo M with PMH IDDM2, CKD, COPD, HFrEF is brought in from [place] for AMS and found to be hypoglycemic and hypothermic. Hypoglycemia - s/p 4 amps D50 in ED - q1h BG checks, then will space out as able - hold home insulin. Hypoglycemia protocol. HFrEF exacerbation - echo 04/29 with EF 35-39% - takes lasix 40 BID PO at home - CXR with cardiomegaly, bilateral pleural effusions and possible b/l infiltrates - BNP 1500 - fluid restrict 1200, daily weights, strict I/Os - Lasix 40 mg IV given in ED. Continue Lasix 40 IV BID and will adjust as needed Hypothermia - 94.9 on initial ED presentation, on bearhugger with temps improving CAP - patient did not meet SIRS criteria. Only point is for hypothermia. CXR findings consistent with possible infiltrates. - Blood cx pending from ED. Ordered urine cultures as well. - Will start levaquin (08/14) for now. Pending procalcitonin. Will trend WBC. 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 Unchanged compared to prior. - 0.2, will continue to trend CKD3 - Cr 1.6, actually better compared to prior - Will continue to monitor considering diuresis COPD - reportedly quit smoking though unable to confirm with patient - continue inhalers - duonebs prn IDDM2 - hold home insulin as above - A1c 7.1 HLD - home atorvastatin HTN - takes coreg, hydralazine, aspirin at home Chronic normocytic anemia, stable - 2/2 chronic disease. Iron studies done recently support this. BPH - hx of urinary retention requiring prolonged bah use - home flomax Chronic venous stasis ulcer - consult wound care Bedside swallow ordered considering patient's lethargy and altered mental status. Will restart home medications when safe to swallow. Diet: CC, 1200 fluid restriction Dispo: Admit to tele inpatient PCP: Joleen Case discussed with Dr. Santamaria FMDolores H&P: Upper Level - Pertinent history 88 yo M with PMHx IDDM, CKD and COPD was [facility] in from [facility] for decreased responsiveness and persistent hypoglycemia not responsive to initial interventions. He was intially found to be hypothermic and hypoglycemic on presentation to ED. Unable to obtain any further history from patient. He denies pain. Will squeeze hands on command. Patient sleepy but will awake startled to loud verbal stimuli. - Pertinent findings Gen: sleepy, in no distress HEENT: NCAT, slightly dry MM, trachea midline CV: RRR, heart sounds distant, no murmur noted RESP: CTAB anteriorly ABD: tense, nontender, bowel sounds present EXT: trace pitting edema to knees BL, mild erythema BL c/w chronic venous stasis , no warmth KEVIN hugger in place - Plan Date/Time: 08/13/18 2335 88 yo M with PMHx of IDDM, CKD, COPD, HFrEF [place] found to have symptomatic hypoglycemia and hyopthermia 1. Persistent Symptomatic Hypoglycemia - s/p 4 amps D50 in ED, D10 started - q1h BG checks, can space to q2 hours once 4x nml then further - Hold home insulin - BCx, UCx to evaluate for infection - suspect CAP on CXR 2. Hypothermia - KEVIN hugger improving temperature - Infectious workup as above - Levaquin for CAP and additional cultures pending 3. Possible HFrEF exacerbation - Echo 04/29 with EF 35-39% - BNP elevated and trace edema to BL LE but clinically dry with dry MM - Gentle fluids for hypoglycemia - Resume home lasix and d/c fluids as soon as BG stable 4. CAP - CXR findings consistent with possible infiltrates. - Blood cx pending from ED - Will start levaquin (08/14) for now. Pending procalcitonin 5. 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 Unchanged compared to prior I, Susan Segundo MD, PGY-3, have evaluated this patient and agree with findings/ plan as outlined by ad operations intern resident. Pertinent changes/additions are listed here.
[2018-08-14] MEDS ORDERED: Dextrose 50% Abboject 50 ML SYRINGE ONE ×2 (00:10→00:11)
[2018-08-14] MEDS ORDERED: Dextrose 10% in Water 1,000 ML IV SCH (00:15)
[2018-08-14 01:17] LABS: Troponin I 0.208 ng/mL (< 0.028)
[2018-08-14 03:42] LABS: Troponin I 0.206 ng/mL (< 0.028)
[2018-08-14] MEDS ORDERED: Senokot S 8.6-50 MG TAB PO PRN (04:28)
[2018-08-14] MEDS ORDERED: Acetaminophen 325 MG TAB PO PRN (04:28)
[2018-08-14] MEDS ORDERED: Dextrose 50% Abboject 50 ML SYRINGE SLOW IVP PRN (04:28)
[2018-08-14] MEDS ORDERED: Dextrose 5% in Water 1,000 ML IV PRN (04:28)
[2018-08-14] MEDS ORDERED: Ipratropium Bromide 2.5 ml Neb NEB PRN (05:53)
[2018-08-14] MEDS ORDERED: Furosemide 40 MG/4 ML VIAL SLOW IVP SCH (06:00)
[2018-08-14 06:23] LABS: Bilirubin Negative (Negative); Blood, Urine Negative (Negative); Clarity CLEAR (Clear); Glucose, Urine (Dipstick) Negative (Negative); Leukocyte Negative (Negative); Nitrite Negative (Negative); Protein, Urine (Dipstick) Negative (Neg-Trace); Urobilinogen 0.2 mg/dL (0.2-1.0)
[2018-08-14] MEDS ORDERED: Enoxaparin Sodium 40 MG/0.4 ML SYRINGE ONE (08:48)
[2018-08-14] MEDS: Enoxaparin Sodium 40 MG/0.4 ML SYRINGE SC SCH (08:58)
--- NOTE | 2018-08-14 09:36 | PDOC.FM ---
- Subjective Subjective: Patient more awake, a&o x3. Breathing improved. Denies fevers, productive cough. Says he has baseline cough that is hte same. - Objective MAR Reviewed: Yes Vital Signs & Weight: Vital Signs (12 hours) Temp Pulse Resp BP Pulse Ox 08/14/18 07:00 98.7 F 56 L 16 116/77 98 Result Diagrams: 08/13/18 20:01 08/13/18 20:01 Phys Exam - Physical Examination Constitutional: NAD large boy habitus HEENT: PERRLA, moist MMs skin discoloration on face Neck: full ROM dec breath sounds, no wheezing or crackles appreciated Cardiovascular: RRR, no significant murmur Gastrointestinal: soft 3+ edema, 1+ edema up to mid thights b/l Neurological: non-focal, moves all 4 limbs Psychiatric: normal affect, A&O x 3 Dx/Plan (1) Hypoglycemia Code(s): E16.2 - HYPOGLYCEMIA, UNSPECIFIED Status: Acute (2) CHF exacerbation Code(s): I50.9 - HEART FAILURE, UNSPECIFIED Status: Acute (3) Demand ischemia of myocardium Code(s): I24.8 - OTHER FORMS OF ACUTE ISCHEMIC HEART DISEASE Status: Acute (4) Elevated brain natriuretic peptide (BNP) level Code(s): R79.89 - OTHER SPECIFIED ABNORMAL FINDINGS OF BLOOD CHEMISTRY Status : Acute (5) Hypothermia Code(s): T68.XXXA - HYPOTHERMIA, INITIAL ENCOUNTER Status: Acute (6) CKD (chronic kidney disease) stage 3, GFR 30-59 ml/min Code(s): N18.3 - CHRONIC KIDNEY DISEASE, STAGE 3 (MODERATE) Status: Chronic (7) COPD (chronic obstructive pulmonary disease) Status: Chronic (8) DM2 (diabetes mellitus, type 2) Status: Chronic (9) HLD (hyperlipidemia) Code(s): E78.5 - HYPERLIPIDEMIA, UNSPECIFIED Status: Chronic (10) HTN (hypertension) Code(s): I10 - ESSENTIAL (PRIMARY) HYPERTENSION Status: Chronic - Plan Plan: 88 yo M with PMH IDDM2, CKD, COPD, HFrEF is brought in from [place] for AMS and found to be hypoglycemic and hypothermic. Hypoglycemia - s/p 4 amps D50 in ED - POC glucose improved to 190 after eating, will d/c d5 - can continue q1hr checks while in ED and space out to [facility] if stays stable - Sliding scale to cover, can titrate home insulin as needed Bradycardia -asx. could be 2/2 to hypoglycemia -also check TSH in conjunction with hypothermia -possible malnourishment, will check prealbumin -will continue to monitor on tele HFrEF exacerbation - echo 04/29 with EF 35-39% - takes lasix 40 BID PO at home - CXR with cardiomegaly, bilateral pleural effusions and possible b/l infiltrates - BNP 1500, around levels of where it's been at for prior CHF exacerbations - fluid restrict 1200, daily weights, strict I/Os - Lasix 40 mg IV given in ED. Continue Lasix 20 IV BID and titrate as needed Hypothermia, resolved -likely from hypoglycemia Possible CAP - patient did not meet SIRS criteria. Only point is for hypothermia. CXR findings consistent with possible infiltrates. - Blood cx pending from ED. Ordered urine cultures as well. - No WBC, negative procal, CXR with possible infiltrate. patient with no fever no productive cough. D/c levaquin. 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 Unchanged compared to prior. - trending down, no chest pain CKD3 - Cr 1.6, actually better compared to prior - Will continue to monitor considering diuresis COPD - reportedly quit smoking - continue inhalers - duonebs prn IDDM2 - hold home insulin as above - A1c 7.1 HLD - home atorvastatin HTN - takes coreg, hydralazine, aspirin at home Chronic normocytic anemia, stable - 2/2 chronic disease. Iron studies done recently support this. BPH - hx of urinary retention requiring prolonged bah use - home flomax Chronic venous stasis ulcer - consult wound care Addendum - Attending - Attending Attestation Date/Time: 08/14/18 [id number] I personally evaluated the patient and discussed the management with Dr. Strickland. I agree with the History, Examination, Assessment and Plan documented above with any addition or exceptions noted below. Patient is able to eat and blood sugar is improved. Will stop D5 drip. Also giving lasix IV for the CHF exacerbation. Pleural effusions noted on CXR. Procal is negative, will stop antibiotics as clinically he does not appear to have pneumonia.
[2018-08-14] MEDS ORDERED: Furosemide 80 MG TAB PO SCH (09:45)
[2018-08-14] MEDS ORDERED: Insulin Regular 300 UNITS/3 ML VIAL ONE (12:58)
[2018-08-14] MEDS: HumaLOG 300 UNITS/3 ML VIAL SC PRN (12:59)
[2018-08-14] MEDS ORDERED: Furosemide 40 MG TAB PO SCH (14:00)
[2018-08-14] MEDS: Furosemide 40 MG/4 ML VIAL SLOW IVP SCH (14:22)
[2018-08-14] MEDS ORDERED: Furosemide 20 MG/2 ML VIAL ONE (14:32)
[2018-08-15] MEDS ORDERED: Insulin Regular 300 UNITS/3 ML VIAL SC PRN (01:49)
[2018-08-15] MEDS ORDERED: Nystatin Powder 15 GM BOT TOP PRN (05:28)
--- NOTE | 2018-08-15 05:33 | PDOC.FM ---
Addendum entered and electronically signed by Aminta Strickland MD 08/15/18 11:03 : Plan -lasix 80IV BID since on high home dose -continue diurese, strict i/o Original Note: - Subjective Subjective: NAEO. Pt has no complaints, wants to sit in chair. Breathing about the same. No chest pain. - Objective Vital Signs & Weight: Vital Signs (12 hours) Temp Pulse Resp BP BP Pulse Ox 08/15/18 04:00 98.4 F 56 L 20 150/66 H 94 L 08/14/18 19:30 98.5 F 54 L 19 158/72 H 100 Weight Weight 113.4 g Result Diagrams: 08/15/18 04:47 08/15/18 04:47 Phys Exam - Physical Examination Constitutional: NAD HEENT: moist MMs, sclera anicteric hyperpigmentation of face Neck: full ROM Respiratory: no rales bibasilar crackles Cardiovascular: no significant murmur bradycardic Gastrointestinal: soft, non-tender 3+ edema feet, 1+ up to mid thighs b/l Neurological: moves all 4 limbs Psychiatric: normal affect, A&O x 3 Dx/Plan (1) Sinus bradycardia Code(s): R00.1 - BRADYCARDIA, UNSPECIFIED Status: Acute (2) Hypoglycemia Code(s): E16.2 - HYPOGLYCEMIA, UNSPECIFIED Status: Resolved (3) CHF exacerbation Code(s): I50.9 - HEART FAILURE, UNSPECIFIED Status: Acute (4) Demand ischemia of myocardium Code(s): I24.8 - OTHER FORMS OF ACUTE ISCHEMIC HEART DISEASE Status: Acute (5) Elevated brain natriuretic peptide (BNP) level Code(s): R79.89 - OTHER SPECIFIED ABNORMAL FINDINGS OF BLOOD CHEMISTRY Status : Acute (6) Hypothermia Code(s): T68.XXXA - HYPOTHERMIA, INITIAL ENCOUNTER Status: Resolved (7) CKD (chronic kidney disease) stage 3, GFR 30-59 ml/min Code(s): N18.3 - CHRONIC KIDNEY DISEASE, STAGE 3 (MODERATE) Status: Chronic (8) COPD (chronic obstructive pulmonary disease) Status: Chronic (9) DM2 (diabetes mellitus, type 2) Status: Chronic (10) HLD (hyperlipidemia) Code(s): E78.5 - HYPERLIPIDEMIA, UNSPECIFIED Status: Chronic (11) HTN (hypertension) Code(s): I10 - ESSENTIAL (PRIMARY) HYPERTENSION Status: Chronic - Plan Plan: 88 yo M with PMH IDDM2, CKD, COPD, HFrEF is brought in from [place] for AMS and found to be hypoglycemic and hypothermic. Hypoglycemia, resolved - POC have been 200-300s, no sliding scale given - can continue q1hr checks while in ED and space out to [facility] if stays stable - Will start on lower dose of lantus in AM & PM, adjust today as needed Bradycardia -asx. could be 2/2 to hypoglycemia -also check TSH in conjunction with hypothermia -will continue to monitor on tele HFrEF exacerbation - echo 04/29 with EF 35-39% - takes lasix 80 BID PO at home - CXR with cardiomegaly, bilateral pleural effusions and possible b/l infiltrates - BNP 1500, around levels of where it's been at for prior CHF exacerbations - fluid restrict 1200, daily weights, strict I/Os - IV lasix yesterday x1 only, pt wtih pulm edema, continue IV lasix Hypothermia, resolved -likely from hypoglycemia Possible CAP - patient did not meet SIRS criteria. Only point is for hypothermia. CXR findings consistent with possible infiltrates. - Blood cx pending from ED. Ordered urine cultures as well. - No WBC, negative procal, CXR with possible infiltrate. patient with no fever no productive cough. D/c levaquin. 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 Unchanged compared to prior. - trended down CKD3 - Cr 1.6, actually better compared to prior - Will continue to monitor considering diuresis COPD - reportedly quit smoking - continue inhalers - duonebs prn IDDM2 - hold home insulin as above - A1c 7.1 HLD - home atorvastatin HTN - takes coreg, hydralazine, aspirin at home Chronic normocytic anemia, stable - 2/2 chronic disease. Iron studies done recently support this. BPH - home flomax Chronic venous stasis ulcer - consult wound care dvt ppx: lovenox Dispo: 1) acute CHF exacerbation-continue IV lasix, monitor I/O due to pulm edema. Non hpyosix requiring intermittent N.C. use. 2) IDDM2, uncontrolled. Wlil start on low dose lantus, will titrate as needed. Pt may have new requiremetn. Avoid hypoglycemic episodes. 3) Sinus bradycarida-pt asx, continue to monitor . Records show he has had before intermittently. Addendum - Attending - Attending Attestation Date/Time: 08/15/18 1700 I personally evaluated the patient and discussed the management with Dr. Strickland. I agree with the History, Examination, Assessment and Plan documented above with any addition or exceptions noted below. Patient has crackles still present on lung exam. Home dose of lasix is 80 mg bid. Will give 80 mg IV today to try to diurese. Otherwise pt is sitting up in a chair asking for food. Restarting insulin at a lower dose as well.
[2018-08-15 06:01] LABS: Band 1 % (5-11); Elliptocytes SLIGHT = 2-5 cells (100X) (0-1/hpf); Eosinophils 5 % (0-10); Hemoglobin 9.3 g/dL (14.0-18.0); Hypochromia SLIGHT = 6-15 cells (100X) (0-5/hpf); Lymphocytes 17 % (21-51); MDiff Complete? YES; Mean Corpuscular HGB CONC 28.9 g/dL (32.0-36.0); Mean Corpuscular Hemoglobin 24.2 pg (27.0-31.0); Mean Corpuscular Volume 83.7 fL (78.0-98.0); Mean Platelet Volume 11.5 fL (7.4-10.4); Monocytes 12 % (0-10); Neutrophil 65 % (42-75); Platelet Count 155 thou/uL (130-400); RBC Distribution Width 16.4 % (11.5-14.5); Red Blood Cell (RBC) Count 3.86 mill/uL (4.70-6.10); White Blood Cell (WBC) Count 7.3 thou/uL (4.8-10.8)
[2018-08-15 06:08] LABS: Anion Gap 11 mmol/L (10-20); BUN (Urea Nitrogen) 66 mg/dL (8.4-25.7); Calc. Creatinine Clearance 0 mL/min (70-130); Calcium 8.3 mg/dL (7.8-10.44); Carbon Dioxide 29 mmol/L (23-31); Chloride 103 mmol/L (98-107); Estimated GFR-MDRD 40; Glucose 149 mg/dL (83-110); Potassium 4.1 mmol/L (3.5-5.1); Sodium 139 mmol/L (136-145)
[2018-08-15] MEDS: HumaLOG 300 UNITS/3 ML VIAL SC PRN (06:38)
[2018-08-15] MEDS: Furosemide 40 MG/4 ML VIAL SLOW IVP SCH ×2 (06:44→14:43)
[2018-08-15] MEDS: Insulin Regular 300 UNITS/3 ML VIAL SC PRN ×3 (06:44→13:20)
--- NOTE | 2018-08-15 07:43 | CON ---
DATE OF CONSULTATION: REASON FOR CONSULTATION: Elevated troponin. HISTORY OF PRESENT ILLNESS: Mr. Dodge is an unfortunate 88-year-old gentleman with a history of cardiomyopathy of unknown etiology, chronic kidney disease, who recently presented with hypoglycemia. He also had significant lower extremity edema. His LVEF on echo in the past is estimated at 30% to 35%. His stress study did suggest LVEF of 42%. After reviewing his echo and stress, it appeared that his LVEF is likely 35% to 40%. He has been opposed to any aggressive medical therapy in the past. He has also been opposed to LifeVest. Medical therapy is recommended. He recently presented with hypoglycemia with blood sugar less than 30. Troponin was drawn and was elevated. No chest pain/pressure noted. He has significant lower extremity edema present. PAST MEDICAL HISTORY: Diabetes mellitus, chronic kidney disease, anemia, hypertension, hyperlipidemia, COPD, and urinary retention. PAST SURGICAL HISTORY: Cholecystectomy and prostatectomy. SOCIAL HISTORY: No current tobacco or alcohol use. He does admit to eating out quite often, although denies salt intake and is adamant. REVIEW OF SYSTEMS: A 10-point review of systems is reviewed and as above, otherwise negative. PHYSICAL EXAMINATION: GENERAL: The patient is a pleasant male who is in no acute distress. The patient appears their stated age. VITAL SIGNS: Blood pressure 161/70, pulse , and temperature 97.8. NEUROLOGIC: The patient is alert and oriented x3 with no focal neurologic deficits. HEENT: Sclerae without icterus. Mouth has moist mucous membranes with normal pallor. NECK: No JVD. Carotid upstroke brisk. No bruits bilaterally. LUNGS: Minimal crackles bilaterally. BACK: No scoliosis or kyphosis. CARDIAC: Regular rate and rhythm with normal S1 and S2. No S3 or S4 noted. No significant rubs, murmurs, thrills, or gallops noted throughout the precordium. PMI is not displaced. There is no parasternal heave. ABDOMEN: Soft, nontender, nondistended. No peritoneal signs present. No hepatosplenomegaly. No abnormal striae. EXTREMITIES: 2+ femoral and 2+ dorsalis pedis pulses. No cyanosis or clubbing. 3+ pitting edema. SKIN: No gross abnormalities. PERTINENT LABORATORY DATA: Hemoglobin 10.4 and hematocrit 34.6. Creatinine 1.64. Troponin 0.2, which is less than his previous troponin dated 05/07/2018, which was 0.7. IMPRESSION: 1. Elevated troponin. 2. Lower extremity edema. 3. Chronic systolic failure. 4. Chronic kidney disease. RECOMMENDATIONS: Certainly difficult case from Mr. Dodge. I feel this troponin elevation is multifactorial and likely represent NE type 2. He has chronic kidney disease at present in addition to likely underlying small-vessel disease. We would recommend to continue medical therapy. He does have significant lower extremity edema with mild crackles noted bilaterally. He likely has a component of severe sleep apnea. Continue Lasix as prescribed for diuresis. Avoid beta-trang therapy and DELBERT inhibitor therapy and ARB due to bradycardia and chronic kidney disease respectively. Prognosis appears poor. Job ID: [id number]
[2018-08-15] MEDS ORDERED: Carvedilol 6.25 MG TAB PO SCH ×2 (09:00→09:12)
[2018-08-15] MEDS ORDERED: Simethicone Chewable 80 MG TAB PO PRN (09:00)
[2018-08-15] MEDS ORDERED: Insulin Glargine 10 UNITS in Pre-Filled Syringe 1 EACH SC SCH ×4 (09:00→21:00)
[2018-08-15] MEDS ORDERED: Furosemide 80 MG TAB PO SCH (09:00)
[2018-08-15] MEDS: Atorvastatin Calcium 40 MG TAB PO SCH (09:12)
[2018-08-15] MEDS: Aspirin 81 mg Enteric Coated Tablet PO SCH (09:12)
[2018-08-15] MEDS: Enoxaparin Sodium 40 MG/0.4 ML SYRINGE SC SCH (09:12)
[2018-08-15] MEDS: hydrALAZINE 10 MG TAB PO SCH ×3 (09:13→21:21)
[2018-08-15] MEDS: guaiFENesin ER 600 MG TAB PO SCH ×2 (09:13→21:22)
[2018-08-15] MEDS ORDERED: Furosemide 20 MG/2 ML VIAL SLOW IVP SCH (11:45)
[2018-08-15] MEDS ORDERED: Carvedilol 3.125 MG TAB PO SCH (11:45)
[2018-08-15 13:10] VITALS: BMI 42.7
[2018-08-15] MEDS: Carvedilol 6.25 MG TAB PO SCH (16:58)
[2018-08-15] MEDS ORDERED: Tamsulosin HCl 0.4 MG CAP PO SCH (21:00)
[2018-08-16] MEDS: Furosemide 40 MG/4 ML VIAL SLOW IVP SCH (06:19)
[2018-08-16 06:47] LABS: Hemoglobin 10.2 g/dL (14.0-18.0); Mean Corpuscular HGB CONC 30.6 g/dL (32.0-36.0); Mean Corpuscular Hemoglobin 25.1 pg (27.0-31.0); Mean Corpuscular Volume 82.1 fL (78.0-98.0); Platelet Count 154 thou/uL (130-400); RBC Distribution Width 16.7 % (11.5-14.5); Red Blood Cell (RBC) Count 4.05 mill/uL (4.70-6.10); White Blood Cell (WBC) Count 8.1 thou/uL (4.8-10.8)
[2018-08-16 06:49] LABS: Band 3 % (5-11); Eosinophils 1 % (0-10); Lymphocytes 17 % (21-51); MDiff Complete? YES; Monocytes 7 % (0-10); Neutrophil 72 % (42-75); Platelet Morphology Comment Appears Adequate
[2018-08-16 06:58] LABS: Anion Gap 14 mmol/L (10-20); BUN (Urea Nitrogen) 61 mg/dL (8.4-25.7); Calc. Creatinine Clearance 54 mL/min (70-130); Calcium 8.9 mg/dL (7.8-10.44); Carbon Dioxide 28 mmol/L (23-31); Chloride 102 mmol/L (98-107); Estimated GFR-MDRD 43; Glucose 109 mg/dL (83-110); Potassium 3.9 mmol/L (3.5-5.1); Sodium 140 mmol/L (136-145)
[2018-08-16] MEDS: Carvedilol 6.25 MG TAB PO SCH (08:58)
[2018-08-16] MEDS: Aspirin 81 mg Enteric Coated Tablet PO SCH (08:58)
[2018-08-16] MEDS: guaiFENesin ER 600 MG TAB PO SCH (08:59)
[2018-08-16] MEDS: Atorvastatin Calcium 40 MG TAB PO SCH (08:59)
[2018-08-16] MEDS: hydrALAZINE 10 MG TAB PO SCH (08:59)
[2018-08-16] MEDS: Enoxaparin Sodium 40 MG/0.4 ML SYRINGE SC SCH (08:59)
[2018-08-16] MEDS ORDERED: Lisinopril 2.5 MG TAB PO SCH (09:00)
[2018-08-16] MEDS ORDERED: Insulin Glargine 20 UNITS in Pre-Filled Syringe 1 EACH SC SCH (09:00)
[2018-08-16] MEDS ORDERED: Insulin Glargine 25 UNITS in Pre-Filled Syringe 1 EACH SC SCH (09:00)
--- NOTE | 2018-08-16 09:14 | PDOC.FM ---
- Subjective Subjective: NAEO. Pt reports breathing same. Sugars have been stable, denies hypglycemic episodes - Objective MAR Reviewed: Yes Vital Signs & Weight: Vital Signs (12 hours) Temp Pulse Resp BP BP Pulse Ox 08/16/18 08:46 98.2 F 63 20 140/61 95 08/16/18 02:43 97.7 F 110 H 17 141/91 H 93 L 08/15/18 21:21 62 126/59 L Weight Admit Weight 116.658 kg Weight 115.439 kg I&O: 08/15/18 08/16/18 08/17/18 06:59 06:59 06:59 Intake Total 808 Output Total 1450 Balance -642 Result Diagrams: 08/16/18 06:09 08/16/18 06:09 Phys Exam - Physical Examination Constitutional: NAD HEENT: PERRLA, moist MMs Respiratory: clear to auscultation bilateral mild crackles Cardiovascular: RRR, no significant murmur Gastrointestinal: soft Neurological: non-focal, moves all 4 limbs 3+ pedal edema, 1+ b/l thigh edema Psychiatric: normal affect, A&O x 3 Dx/Plan (1) Sinus bradycardia Code(s): R00.1 - BRADYCARDIA, UNSPECIFIED Status: Acute (2) CHF exacerbation Code(s): I50.9 - HEART FAILURE, UNSPECIFIED Status: Acute (3) Demand ischemia of myocardium Code(s): I24.8 - OTHER FORMS OF ACUTE ISCHEMIC HEART DISEASE Status: Acute (4) Elevated brain natriuretic peptide (BNP) level Code(s): R79.89 - OTHER SPECIFIED ABNORMAL FINDINGS OF BLOOD CHEMISTRY Status : Acute (5) CKD (chronic kidney disease) stage 3, GFR 30-59 ml/min Code(s): N18.3 - CHRONIC KIDNEY DISEASE, STAGE 3 (MODERATE) Status: Chronic (6) COPD (chronic obstructive pulmonary disease) Status: Chronic (7) DM2 (diabetes mellitus, type 2) Status: Chronic (8) HLD (hyperlipidemia) Code(s): E78.5 - HYPERLIPIDEMIA, UNSPECIFIED Status: Chronic (9) HTN (hypertension) Code(s): I10 - ESSENTIAL (PRIMARY) HYPERTENSION Status: Chronic - Plan Plan: 88 yo M with PMH IDDM2, CKD, COPD, HFrEF is brought in from [place] for AMS and found to be hypoglycemic and hypothermic. Hypoglycemia, resolved - Sugars stable, lantus 25 units -space out to [facility] Bradycardia, resolved -asx. could be 2/2 to hypoglycemia -coreg held yesterday HFrEF exacerbation - echo 04/29 with EF 35-39% - takes lasix 80 BID PO at home - CXR with cardiomegaly, bilateral pleural effusions and possible b/l infiltrates - BNP 1500, around levels of where it's been at for prior CHF exacerbations - fluid restrict 1200, daily weights, strict I/Os - IV lasix this AM Hypothermia, resolved -likely from hypoglycemia Possible CAP - patient did not meet SIRS criteria. Only point is for hypothermia. CXR findings consistent with possible infiltrates. - Blood cx pending from ED. Ordered urine cultures as well. - No WBC, negative procal, CXR with possible infiltrate. patient with no fever no productive cough. D/c levaquin. 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 Unchanged compared to prior. - trended down CKD3 - Cr 1.6, actually better compared to prior - Will continue to monitor considering diuresis COPD - reportedly quit smoking - continue inhalers - duonebs prn IDDM2 - hold home insulin as above - A1c 7.1 HLD - home atorvastatin HTN - takes coreg, hydralazine, aspirin at home Chronic normocytic anemia, stable - 2/2 chronic disease. Iron studies done recently support this. BPH - home flomax Chronic venous stasis ulcer - consult wound care dvt ppx: lovenox Dispo: 1) acute CHF exacerbation-continue IV lasix x1 one then transition to oral. Pt much improved. 2) IDDM2, uncontrolled- glucose stable, titrate lantus to 25 units. 3.) Sinus bradycardia, improved. Did shoot up to 100s, will discuss [facility] restarting coreg. Addendum - Attending - Attending Attestation Date/Time: 08/16/18 1008 I personally evaluated the patient and discussed the management with Dr. Strickland. I agree with the History, Examination, Assessment and Plan documented above with any addition or exceptions noted below. Lungs are clear today. We will increase lantus to 25 units. Restarting beta trang due to tachycardia. Will d/c back to [facility].
[2018-08-16 12:14] VITALS: BP 106/53; TEMP 97.7
[2018-08-16] MEDS ORDERED: Furosemide 100 MG/10 ML VIAL SLOW IVP ONE (13:30)
[2018-08-16] MEDS ORDERED: Furosemide 40 MG/4 ML VIAL SLOW IVP SCH (14:00)
[2018-08-16] MEDS ORDERED: Furosemide 80 MG TAB PO SCH (21:00)
--- NOTE | 2018-08-17 04:38 | DIS ---
DATE OF ADMISSION: 08/13/2018 DATE OF DISCHARGE: 08/16/2018 RESIDENT: Aminta Strickland, PGY-1. CONSULTS: Cardiology, Dr. Knowles. PROCEDURES/IMAGIN. Chest x-ray: Bilateral pleural effusions and bilateral lower lobe consolidations (atelectasis or pneumonia?). 2. Cardiomegaly. PRIMARY DIAGNOSES: 1. Acute congestive heart failure exacerbation due to noncompliance. 2. Symptomatic hypoglycemia, resolved. 3. Indeterminate troponins. 4. Chronically elevated BNP. 5. Chronic kidney disease. SECONDARY DIAGNOSES: 1. Hyperlipidemia. 2. Insulin-dependent diabetes mellitus, 2. 3. 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 4. Chronic obstructive pulmonary disease. 5. Hypertension. 6. Chronic kidney disease, 3. 7. Chronic anemia. NEW HOME DISCHARGE MEDICATIONS: 1. Coreg 6.25 mg p.o. b.i.d. 2. Lasix 80 mg p.o. b.i.d. 3. Lantus 25 units q.a.m. diet. Resumed home medications; 1. Gabapentin 100 mg p.o. b.i.d. 2. Aspirin 81 mg p.o. daily. 3. Ventolin. 4. Lipitor 40 mg p.o. daily. 5. Tylenol. 6. Mucinex 600 mg p.o. q.12 hours. 7. Humalog 8 units subcutaneous t.i.d. with meals. 8. Hydralazine 10 mg p.o. t.i.d. 9. DuoNeb. 10. Nicotine 21 mg patch. 11. Nystatin topical b.i.d. p.r.n. 12. Simethicone. 13. Flomax 0.4 mg p.o. at bedtime. 14. Zofran ODT 4 mg p.o. q.6 hours p.r.n. for nausea. DISCONTINUED MEDICATIONS: 1. Coreg 12.5 mg p.o. b.i.d. 2. Lantus 35 units q.a.m. and 15 units at bedtime. HISTORY OF PRESENT ILLNESS/HOSPITAL COURSE: Mr. Dodge is an 88-year-old male with type 2 diabetes, heart failure with reduced ejection fraction, and chronic kidney disease, who presented to the ER from the intermediate for altered mental status. In the ER, he had a glucose of 18 and also required supplemental O2 via nasal cannula. Chest x-ray showed bilateral pleural effusions and bilateral lower lobe consolidations. He was afebrile and did not have a white count and had a negative procalcitonin, thus there was no concern for underlying pneumonia. He was admitted for acute CHF exacerbation and symptomatic hypoglycemia. The patient is on a heavier dose of insulin 35 units q.a.m., 15 units at bedtime. It is unsure as to why patient's sugar is so low. The patient has a very well known history of noncompliance with diet. According to PCP at the intermediate he is often taken out by his family and it is likely thought he does not comply with his fluid restrictive diets, thus explaining he is fluid overloaded today at presentation to the ER. The patient was diuresed with IV Lasix over the course of a few days and his breathing was much improved. In addition, his insulin was held and titrated to 25 units q.a.m. with sliding scale to cover. He was discharged on a lower dose of insulin in order to prevent hypoglycemia. He can continue titration in the outpatient setting. In addition, the patient was discharged on a higher dose of Lasix from 60 to 80 mg b.i.d. due to concern for noncompliance and frequent readmissions for fluid overload. The patient received education and voices understanding of diet exacerbating his current conditions, but still continued to he wanted to eat. In addition, the patient experienced indeterminate troponins. This is nothing new to his medical conditions and has been followed by Dr. Knowles. The patient is a DNR and in prior discussions he would not be a good candidate for cardiac cath. The patient did not experience any chest pain and troponins did trend down, but remained intermediate. This is likely thought to be due to demand ischemia from his severe heart failure with reduced ejection fraction. Upon discharge, it was discussed with the heart failure coordinator that patient may benefit from a p.r.n. diuretic and weight parameters as to when to utilize this at the intermediate. There is a concern that he will continue to be readmitted due to noncompliance, so this discussion was had with his PCP, Dr. Goodrich, in order to follow up on. The patient also on admission was hypothermic, which resolved with a Lola Hugger. It was likely thought to be due to his hypoglycemia. TSH was normal. DISPOSITION: Stable. DISCHARGE INSTRUCTIONS: 1. Location: [facility]. 2. Diet: Fluid-restricted diet, heart healthy, diabetic diet. 3. Activity: Cardiopulmonary limitations, but as tolerated. 4. Followup: a. Please follow up with PCP, Dr. Goodrich. b. Please follow up with the [facility]. 5. Please consider addition of p.r.n. diuretics due to patient's known history of noncompliance. 6. May consider continuing to titrate up on insulin as the patient was discharged with probably suboptimal amount due to expected noncompliance in the outside setting. 7. Please continue wound care for chronic venous stasis ulcers. Job ID: [id number]
--- NOTE | 2018-08-17 23:33 | EKG ---
Test Reason : Blood Pressure : / mmHG Vent. Rate : 053 BPM Atrial Rate : 053 BPM P-R Int : 000 ms QRS Dur : 154 ms QT Int : 494 ms P-R-T Axes : 000 -55 208 degrees QTc Int : 463 ms Sinus bradycardia with A-V dissociation and Wide QRS rhythm Right bundle branch block Left anterior fascicular block Bifascicular block Septal infarct , age undetermined T wave abnormality, consider lateral ischemia Abnormal ECG Confirmed by MARIOLA BURGOS ([id number]), editor magazine FERNANDO ALTMAN ([id number]) on 08/17/2018 11:33:15 PM Referred By: Confirmed By:MARIOLA BURGOS
== END 2018-08-16 14:27 | DRG 291 ==
LOC: ERS 19:51 → ERHOLD 23:35 → 2NO 08-14 15:34
PROVIDERS: ADMIT Family Medicine; ATTEND Family Medicine
DX: I13.0 Hypertensive heart and chronic kidney disease with heart failure and stage 1 through stage 4 chronic kidney disease, or unspecified chronic kidney disease (principal); I50.43 Acute on chronic combined systolic (congestive) and diastolic (congestive) heart failure; J18.9 Pneumonia, unspecified organism; L97.909 Non-pressure chronic ulcer of unspecified part of unspecified lower leg with unspecified severity; Z66 Do not resuscitate; E11.22 Type 2 diabetes mellitus with diabetic chronic kidney disease; J44.9 Chronic obstructive pulmonary disease, unspecified; D63.1 Anemia in chronic kidney disease; N18.3 Chronic kidney disease, stage 3 (moderate); E78.5 Hyperlipidemia, unspecified; I87.8 Other specified disorders of veins; E11.649 Type 2 diabetes mellitus with hypoglycemia without coma; T68.XXXA Hypothermia, initial encounter; N40.0 Benign prostatic hyperplasia without lower urinary tract symptoms; I83.009 Varicose veins of unspecified lower extremity with ulcer of unspecified site; E78.00 Pure hypercholesterolemia, unspecified; F17.210 Nicotine dependence, cigarettes, uncomplicated; Z90.49 Acquired absence of other specified parts of digestive tract; Z91.19 Patient's noncompliance with other medical treatment and regimen; Z79.82 Long term (current) use of aspirin; Z79.4 Long term (current) use of insulin; Z79.51 Long term (current) use of inhaled steroids; Z79.899 Other long term (current) drug therapy
CPT/HCPCS: 36415; 36416; 71045; 80048; 80053; 81003; 82553; 83036; 83605; 83880; 84134; 84145; 84443; 84484; 85007; 85025; 85027; 85610; 87040; 87804; 93005; 93798; 96374; 96375; 96376; J1650; J1815; J1825; J1940; J1956

== ENCOUNTER 2018-10-13 10:33 | Emergency (ER) | payer MEDICARE, MEDICAID ==
--- NOTE | 2018-10-13 11:32 | CT ---
CT Brain WO Con HISTORY: Fall with head injury COMPARISON: None. FINDINGS: There is generalized ventricular and sulcal prominence. Decreased attenuation the periventr icular white matter is noted. There are no signs of intracerebral hemorrhage or extra-axial fluid collections. The mastoid air cells and visualized sinuses are clear. IMPRESSION: No acute intracranial abnormalities.
--- NOTE | 2018-10-13 11:34 | CT ---
CT Cervical Spine WO Con HISTORY: Fall with neck pain. COMPARISON: None. FINDINGS: The vertebral bodies are normal in height. There is marked degenerative changes along the c ourse of the spine. There is marked disc narrowing at C3-4 with a minimal retrolisthesis. Also pronounced disc narrowing at C5-6. The facets are in normal alignment disc bulge and posterior osteop hytic change at the C3-4 level associated moderately severe degree of canal stenosis and mild bilateral foraminal narrowing is noted this level. There is moderate right-sided foraminal narrowing at C5-6. There is no CT evidence for fracture. The lung apices are clear. IMPRESSION: No CT evidence of fracture of the cervical spine.
[2018-10-13 11:43] LABS: #Eosinphils 0.4 thou/uL (0.0-0.7); #Lymphocytes 1.2 thou/uL (1.20-3.40); #Monocytes 0.8 thou/uL (0.11-0.59); %Basophils 0.4 % (0.0-1.0); %Eosinophils 4.7 % (0.0-10.0); %Lymphocytes 13.8 % (21.0-51.0); %Monocytes 9.1 % (0.0-10.0); %Neutrophils 71.9 % (42.0-75.0); Mean Corpuscular HGB CONC 31.6 g/dL (32.0-36.0); Mean Corpuscular Hemoglobin 25.7 pg (27.0-31.0); Mean Corpuscular Volume 81.2 fL (78.0-98.0); Mean Platelet Volume 11.4 fL (7.4-10.4); Platelet Count 172 thou/uL (130-400); RBC Distribution Width 16.1 % (11.5-14.5); Red Blood Cell (RBC) Count 4.27 mill/uL (4.70-6.10); White Blood Cell (WBC) Count 8.4 thou/uL (4.8-10.8)
[2018-10-13 12:04] LABS: ALT (SGPT) 15 U/L (8-55); AST (SGOT) 14 U/L (5-34); Albumin 3.2 g/dL (3.4-4.8); Alkaline Phosphatase 103 U/L (40-150); Anion Gap 15 mmol/L (10-20); BUN (Urea Nitrogen) 74 mg/dL (8.4-25.7); Bilirubin, Total 0.3 mg/dL (0.2-1.2); Calc. Creatinine Clearance 0 mL/min (70-130); Calcium 8.2 mg/dL (7.8-10.44); Carbon Dioxide 27 mmol/L (23-31); Chloride 101 mmol/L (98-107); Estimated GFR-MDRD 33; Globulin 3.5 g/dL (2.4-3.5); Glucose 225 mg/dL (83-110); Protein, Total 6.7 g/dL (5.8-8.1); Sodium 139 mmol/L (136-145)
[2018-10-13 12:26] LABS: CKMB 4.7 ng/mL (0-6.6)
[2018-10-13 12:53] LABS: Bilirubin Negative (Negative); Blood, Urine Negative (Negative); Clarity CLEAR (Clear); Glucose, Urine (Dipstick) Negative (Negative); Leukocyte Negative (Negative); Nitrite Negative (Negative); Protein, Urine (Dipstick) Trace mg/dL (Neg-Trace); Urobilinogen 0.2 mg/dL (0.2-1.0)
[2018-10-13] MEDS ORDERED: Aspirin Chewable 81 MG TAB ONE (12:59)
[2018-10-13 15:37] LABS: Lactic Acid 1.3 mmol/L (0.5-2.2)
== END 2018-10-13 15:45 | disposition home or self-care (01) ==
LOC: ERS 10:33
DX: I95.9 Hypotension, unspecified (principal); N19 Unspecified kidney failure; E78.5 Hyperlipidemia, unspecified; F17.210 Nicotine dependence, cigarettes, uncomplicated; I10 Essential (primary) hypertension; E11.9 Type 2 diabetes mellitus without complications; Z79.4 Long term (current) use of insulin; Z79.82 Long term (current) use of aspirin; Z79.01 Long term (current) use of anticoagulants; Z79.899 Other long term (current) drug therapy; W17.89XA Other fall from one level to another, initial encounter
CPT/HCPCS: 36415; 70450; 72125; 80053; 81003; 82553; 83605; 84145; 84484; 85025; 93005; 96360

== ENCOUNTER 2018-12-02 14:06 | Inpatient (IN) | payer MEDICARE, MEDICAID ==
[2018-12-02 14:52] LABS: #Eosinphils 0.3 thou/uL (0.0-0.7); #Lymphocytes 1.8 thou/uL (1.20-3.40); #Monocytes 0.9 thou/uL (0.11-0.59); %Basophils 0.5 % (0.0-1.0); %Eosinophils 2.8 % (0.0-10.0); %Lymphocytes 17.6 % (21.0-51.0); %Monocytes 9.1 % (0.0-10.0); Hemoglobin 12.2 g/dL (14.0-18.0); Mean Corpuscular Hemoglobin 25.6 pg (27.0-31.0); Mean Corpuscular Volume 82.6 fL (78.0-98.0); Mean Platelet Volume 10.9 fL (7.4-10.4); Platelet Count 209 thou/uL (130-400); RBC Distribution Width 17.4 % (11.5-14.5); Red Blood Cell (RBC) Count 4.77 mill/uL (4.70-6.10); White Blood Cell (WBC) Count 9.9 thou/uL (4.8-10.8)
[2018-12-02 15:13] LABS: ALT (SGPT) 15 U/L (8-55); AST (SGOT) 19 U/L (5-34); Albumin 3.7 g/dL (3.4-4.8); Alkaline Phosphatase 97 U/L (40-150); Anion Gap 13 mmol/L (10-20); BUN (Urea Nitrogen) 57 mg/dL (8.4-25.7); Bilirubin, Total 0.3 mg/dL (0.2-1.2); Calc. Creatinine Clearance 0 mL/min (70-130); Calcium 9.2 mg/dL (7.8-10.44); Carbon Dioxide 29 mmol/L (23-31); Chloride 101 mmol/L (98-107); Estimated GFR-MDRD 38; Globulin 3.9 g/dL (2.4-3.5); Glucose 114 mg/dL (83-110); Potassium 4.2 mmol/L (3.5-5.1); Protein, Total 7.6 g/dL (5.8-8.1); Sodium 139 mmol/L (136-145)
[2018-12-02 15:36] LABS: CKMB 5.2 ng/mL (0-6.6)
--- NOTE | 2018-12-02 16:35 | PDOC.FPRHP ---
- History of Present Illness Chief Complaint: Bradycardia History of Present Illness: Pt is a 88 yo male with PMH significant for who presented with bradycardia, multiple falls. Pt is a poor historian. Pt was noted to be bradycardic at the longterm, EKG revealed a junctional rhythm prompting the ED visit. Patients pulse was 40, normotensive, with o2 sas 96%. At this time his carvedilol and lasix were held. In the ED, EKG revealed bigemy rhythm, not captured on previous EKGs, pulse 60-70's. He states falls secondary to tripping over objects, standing to a rise then falling. - Allergies/Adverse Reactions Allergies Allergy/AdvReac Type Severity Reaction Status Date / Time No Known Drug Allergies Allergy Verified 12/03/18 01:50 - Home Medications Medication Instructions Recorded Confirmed Type Albuterol Sulfate [Ventolin HFA] 8 gm INH PRN PRN 06/23/17 12/02/18 History Aspirin [Ecotrin Low Strength] 81 mg PO DAILY 06/23/17 12/03/18 History Gabapentin 100 mg PO BID 06/23/17 12/03/18 History Atorvastatin Calcium [Lipitor] 40 mg PO DAILY 30 Days #30 tab 06/24/17 12/03/18 Rx Acetaminophen [Tylenol Regular 650 mg PO Q4H PRN tab 05/10/18 12/02/18 Rx Strength] Ipratropium/Albuterol Sulfate 3 ml NEB [id number] PRN neb 05/10/18 12/02/18 Rx [DuoNeb] Nicotine [Nicoderm CQ] 21 mg TD Q24HR patch 05/10/18 12/02/18 Rx Simethicone [Mylicon Chewable] 80 mg PO PCHS PRN tab 05/10/18 12/03/18 Rx Tamsulosin HCl [Flomax] 0.4 mg PO HS cap 05/10/18 12/03/18 Rx guaiFENesin ER [Mucinex] 600 mg PO Q12HR tab 05/10/18 12/03/18 Rx hydrALAZINE [Apresoline] 10 mg PO TID tab 05/10/18 12/03/18 Rx Ondansetron [Zofran ODT] 4 mg PO Q6HR PRN 05/21/18 12/03/18 History Acetaminophen [Tylenol Regular 650 mg PO Q4H PRN tab 08/16/18 12/03/18 Rx Strength] Carvedilol [Coreg] 6.25 mg PO BID #60 tablet 08/16/18 12/03/18 Rx Furosemide [Lasix] 80 mg PO BID tab 08/16/18 12/03/18 Rx Insulin Glargine [Lantus Vial] 25 units SC QAM vial 08/16/18 12/03/18 Rx Sennosides/Docusate Sodium 2 tab PO BID PRN tab 08/16/18 12/03/18 Rx [Senokot S] Benzonatate 200 mg PO TID PRN 12/02/18 12/02/18 History BuPROPion XL [Wellbutrin XL] 150 mg PO DAILY 12/02/18 12/02/18 History Cyclobenzaprine [Flexeril] 10 mg PO TID PRN 12/02/18 12/02/18 History NIFEdipine [Nifedipine ER] 30 mg PO DAILY 12/02/18 12/02/18 History Omeprazole 20 mg PO DAILY 12/02/18 12/02/18 History Tiotropium [Spiriva Handihaler] 18 mcg INH DAILY 12/02/18 12/02/18 History hydrOXYzine [Atarax] 25 mg PO HS PRN 12/02/18 12/03/18 History Albuterol Sulfate [Albuterol 8.5 gm IH Q8HR PRN 12/03/18 12/03/18 History Sulfate Hfa] Insulin Lispro [Humalog Kwikpen 12 units SQ TID-WM 12/03/18 12/03/18 History U-100] Lidocaine [Lidocaine 4% Anesthetic 1 patch TP QAM 12/03/18 12/03/18 History Cream Kit] - History PMHx: COPD, Diabetes, HLD, CHF, HTN PSHx: unable to obtain from pt FHx: unable to obtain from pt Social: Lives at longterm - Review of Systems ENT: denies: nasal congestion, rhinorrhea Respiratory: denies: cough, congestion Gastrointestinal: denies: nausea, vomiting, diarrhea, constipation Genitourinary: denies: incontinence, dysuria - Vital signs BP: [158/97] HR: [70] RR: [14] Tmax: [] Pox: [93]% on [room] Wt: [] - Physical Exam Constitutional: NAD, awake, alert and oriented -Constitutional: AAO x 3, pt responded inappropriately to questions Neck: supple, trachea midline, no JVD Heart: RRR, normal S1/S2, pulses present Lungs: CTAB, no respiratory distress Abdomen: soft, non-tender, bowel sounds present Musculoskeletal: ROM grossly normal -Musculoskeletal: 1 + non-pitting edema, legs bilaterally are erythemtous in nature Neurological: no focal deficit, CN II-XII intact -Neurological: Upper and Lower extremity 5/5 strength bilaterally Skin: capillary refill <2 seconds -Skin: Birthmark on R side of face Heme/Lymphatic: no unusual bruising or bleeding, no petechia FMR H&P: Results - Labs Result Diagrams: 12/03/18 04:27 12/03/18 04:27 Lab results: WBC 9.9 thou/uL (4.8-10.8) 12/02/18 14:28 Hgb 12.2 g/dL (14.0-18.0) L 12/02/18 14:28 Hct 39.4 % (42.0-52.0) L 12/02/18 14:28 MCV 82.6 fL (78.0-98.0) 12/02/18 14:28 Plt Count 209 thou/uL (130-400) 12/02/18 14:28 Neutrophils % 70.0 % (42.0-75.0) 12/02/18 14:28 Sodium 139 mmol/L (136-145) 12/02/18 14:28 Potassium 4.2 mmol/L (3.5-5.1) 12/02/18 14:28 Chloride 101 mmol/L (98-107) 12/02/18 14:28 Carbon Dioxide 29 mmol/L (23-31) 12/02/18 14:28 BUN 57 mg/dL (8.4-25.7) H 12/02/18 14:28 Creatinine 1.72 mg/dL (0.7-1.3) H 12/02/18 14:28 Glucose 114 mg/dL (83-110) H 12/02/18 14:28 Calcium 9.2 mg/dL (7.8-10.44) 12/02/18 14:28 Total Bilirubin 0.3 mg/dL (0.2-1.2) 12/02/18 14:28 AST 19 U/L (5-34) 12/02/18 14:28 ALT 15 U/L (8-55) 12/02/18 14:28 Alkaline Phosphatase 97 U/L (40-150) 12/02/18 14:28 CK-MB (CK-2) 5.2 ng/mL (0-6.6) 12/02/18 14:28 B-Natriuretic Peptide 1031.7 pg/mL (0-100) H 12/02/18 14:28 Serum Total Protein 7.6 g/dL (5.8-8.1) 12/02/18 14:28 Albumin 3.7 g/dL (3.4-4.8) 12/02/18 14:28 - EKG Interpretation EKG: EKG revealed bigeminy rhythm, rate in the 60's, no ST changes FMR H&P: A/P - Problem List (1) Bradycardia Current Visit: Yes Status: Acute Code(s): R00.1 - BRADYCARDIA, UNSPECIFIED (2) Bigeminal rhythm Current Visit: Yes Status: Acute Code(s): I49.9 - CARDIAC ARRHYTHMIA, UNSPECIFIED (3) Diabetes mellitus, type II Current Visit: Yes Status: Acute Qualifiers: Diabetes mellitus long wall shear operator insulin use: with long wall shear operator use Diabetes mellitus complication status: with kidney complications Diabetes mellitus complication detail: with chronic kidney disease Chronic kidney disease stage : stage 3 (moderate) Qualified Code(s): E11.22 - Type 2 diabetes mellitus with diabetic chronic kidney disease; N18.3 - Chronic kidney disease, stage 3 ( moderate); Z79.4 - exterminator helper (current) use of insulin (4) CHF (congestive heart failure) Current Visit: Yes Status: Acute Code(s): I50.9 - HEART FAILURE, UNSPECIFIED Qualifiers: Heart failure type: unspecified Heart failure chronicity: chronic Qualified Code(s): I50.9 - Heart failure, unspecified (5) COPD (chronic obstructive pulmonary disease) Current Visit: No Status: Chronic Qualifiers: COPD type: unspecified COPD Qualified Code(s): J44.9 - Chronic obstructive pulmonary disease, unspecified - Plan # Bradycardia # Bigeminal Rhythm Pt in longterm found to have rate in 40's, in junctional rhythm. Carvedilol and lasix were held at this time. In the ED EKG revealed bigeminal rhythm, rate in 60's, hemodynamically stable. - hold home lasix, carvedilol - admit Tele - Consult cards; appreciate recs # CHF EF 30-35% - held lasix, carvedilol # HTN - held carvedilol -continue nifedipine, hydralazine # DM II w/ Neuropathy - continue glargine, humalog - SSI # HLD - continue Lipitor # COPD - continue spiriva, prn duonebs # GERD - continue protonix # Anxiety - continue home meds Fluids: none Diet: Consistent Carb VTE Prophylaxis: Lovenox Code: DNR Dispo: admitting to obs likely < 48 hour stay FMR H&P: Upper Level - Pertinent history 88 yo M here from [place] with complaint of bradycardia down to the 40s at the IN today. He has a hx of COPD, CAD, HTN, DM2, HFrEF. No recent changes in meds. He complains of multiple recent falls. Today while taking routine vitals at the IN he was found to have an HR in the 40s. PCP was notified and pt was sent to ED. EMS found pt to be juliana with bigeminy. No meds were given by EMS. In the ED his HR had improved to the 60s. He denies any CP, dizziness, SOB, diaphoresis, or n/v. - Pertinent findings See public relations intern note for full ROS, PE, Vitals, and labs ROS General denies fever or chills HEENT denies changes in vision or headache Neuro denies dizziness, peripheral numbness, or peripheral weakness CV denies CP, peripheral edema, orthopnea, diaphoresis or cough Resp denies SOB Abd denies n/v/d/c PE General A&O x3, no acute distress HEENT NCAT Neuro CN II- XII intact, normal sensation normal strength Abd non tender, no distension CV RRR, no murmur, no peripheral edema Resp CTA b/l Extremities weak pedal pulses b/l - Plan Date/Time: 12/02/18 6825 ICharles DO, have evaluated this patient and agree with findings/plan as outlined by public relations intern resident. Pertinent changes/additions are listed here. 1.Bradycardia -Currently normal rate. -Will admit to tele obs -Due to bigeminy will consult cardiology -Trop appears to be at baseline, will check one more -Hold beta blockers 2.HFrEF -Recent echo shows EF 30-35% -Currently euvolemic with no increased O2 demand. -Baseline BNP 3.DM2 -Continue home insulin -Low carb diet -ACHS accucheck 4.COPD -Baseline respiratory status and normal exam -Continue home meds 5.CKD4 -At baseline Cr -Avoid nephrotoxins PPX lovenox Diet CC 1800 Code DNR Dispo: pt is currently stable and has improved since initial concern was identified. Would expect hospitalization less the 48 hours pending cards recommendation Addendum - Attending - Attending Attestation Date/Time: 12/03/18 6587 I personally evaluated the patient and discussed the management with Dr. Gaines and team on 12/02. I agree with the History, Examination, Assessment and Plan documented above with any addition or exceptions noted below.
[2018-12-02 18:05] LABS: Troponin I 0.052 ng/mL (< 0.028)
[2018-12-02] MEDS ORDERED: Ondansetron PF 4 MG/2 ML Vial IVP PRN (19:55)
[2018-12-02] MEDS ORDERED: Acetaminophen 325 MG TAB PO PRN ×3 (19:55→20:02)
[2018-12-02] MEDS ORDERED: Ondansetron ODT 4 MG TAB SL PRN (19:55)
[2018-12-02] MEDS ORDERED: PROVENTIL INHALER 6.7 G (200 INHALATIONS) INH PRN (20:02)
[2018-12-02] MEDS ORDERED: Senokot S 8.6-50 MG TAB PO PRN (20:02)
[2018-12-02] MEDS ORDERED: Benzonatate 100 MG CAP PO PRN (20:02)
[2018-12-02] MEDS ORDERED: hydrOXYzine 25 MG TAB PO PRN (20:02)
[2018-12-02] MEDS ORDERED: Calcium Carbonate 500 MG ChewTAB PO PRN (20:02)
[2018-12-02] MEDS ORDERED: Dextrose 5% in Water 1,000 ML IV PRN (20:21)
[2018-12-02] MEDS ORDERED: Dextrose 50% Abboject 50 ML SYRINGE IVP PRN (20:21)
[2018-12-02] MEDS ORDERED: Ipratropium Bromide 2.5 ml Neb NEB SCH (20:30)
[2018-12-02 20:37] VITALS: BMI 35.9
[2018-12-02] MEDS: Nicotine 21 MG PATCH TD SCH (21:03)
[2018-12-02] MEDS: Gabapentin 100 MG CAP PO SCH (21:04)
[2018-12-02] MEDS: hydrALAZINE 10 MG TAB PO SCH (21:04)
[2018-12-02] MEDS: guaiFENesin ER 600 MG TAB PO SCH (21:05)
[2018-12-02 21:18] LABS: Troponin I 0.047 ng/mL (< 0.028)
[2018-12-03] MEDS: Ipratropium Bromide 2.5 ml Neb NEB SCH ×4 (00:23→18:47)
[2018-12-03] MEDS: Melatonin 3 MG TAB PO PRN ×2 (03:21→21:25)
[2018-12-03 05:48] LABS: #Eosinphils 0.3 thou/uL (0.0-0.7); #Lymphocytes 1.5 thou/uL (1.20-3.40); #Monocytes 0.8 thou/uL (0.11-0.59); #Neutrophils 6.5 thou/uL (1.40-6.50); %Basophils 0.1 % (0.0-1.0); %Eosinophils 2.8 % (0.0-10.0); %Lymphocytes 16.5 % (21.0-51.0); %Neutrophils 71.6 % (42.0-75.0); Hemoglobin 11.2 g/dL (14.0-18.0); Mean Corpuscular HGB CONC 30.9 g/dL (32.0-36.0); Mean Corpuscular Hemoglobin 25.8 pg (27.0-31.0); Mean Corpuscular Volume 83.7 fL (78.0-98.0); Mean Platelet Volume 11.1 fL (7.4-10.4); Platelet Count 202 thou/uL (130-400); RBC Distribution Width 17.2 % (11.5-14.5); Red Blood Cell (RBC) Count 4.33 mill/uL (4.70-6.10); White Blood Cell (WBC) Count 9.1 thou/uL (4.8-10.8)
[2018-12-03 05:57] LABS: Anion Gap 13 mmol/L (10-20); BUN (Urea Nitrogen) 50 mg/dL (8.4-25.7); Calc. Creatinine Clearance 52 mL/min (70-130); Calcium 8.7 mg/dL (7.8-10.44); Carbon Dioxide 26 mmol/L (23-31); Chloride 104 mmol/L (98-107); Estimated GFR-MDRD 49; Glucose 164 mg/dL (83-110); Potassium 4.4 mmol/L (3.5-5.1); Sodium 139 mmol/L (136-145)
--- NOTE | 2018-12-03 06:36 | PDOC.FM ---
- Subjective Subjective: Patient is seen resting comfortably in bedside chair. Patient says he is tired, did not fall asleep until 3AM this morning. He complains of some back pain, which he states he has had for a long time. Patient denies headache, vision changes, chest pain, SOB, nausea/vomiting, stool changes, dysuria, myalgia. Telemetry overnight showed patient in 1st degree BBB, HR 60s. - Objective Vital Signs & Weight: Vital Signs (12 hours) Temp Pulse Resp BP BP Pulse Ox 12/03/18 03:13 98.3 F 60 17 144/65 H 92 L 12/03/18 00:23 73 12 12/02/18 23:36 68 151/66 H 12/02/18 21:04 62 150/78 H 12/02/18 20:59 62 20 95 12/02/18 20:02 97.9 F 68 20 150/78 H 94 L 12/02/18 20:00 94 L Weight Weight 98.611 kg I&O: 12/01/18 12/02/18 12/03/18 06:59 06:59 06:59 Intake Total 240 Output Total 500 Balance -260 Result Diagrams: 12/03/18 04:27 12/03/18 04:27 Phys Exam - Physical Examination Constitutional: NAD HEENT: moist MMs, sclera anicteric, oral pharynx no lesions Black pigmented birthmark on right half of face Neck: no JVD, supple, full ROM Respiratory: no wheezing, no rhonchi, clear to auscultation bilateral Cardiovascular: RRR, no significant murmur Gastrointestinal: soft, non-tender, positive bowel sounds Musculoskeletal: pulses present, edema present 1+ nonpitting edema in bilateral lower extremities Strength 5/5 in extremities. Neurological: normal sensation, moves all 4 limbs Psychiatric: normal affect, A&O x 3 Skin: no rash, normal turgor Dx/Plan (1) Bigeminal rhythm Code(s): I49.9 - CARDIAC ARRHYTHMIA, UNSPECIFIED Status: Acute (2) Bradycardia Code(s): R00.1 - BRADYCARDIA, UNSPECIFIED Status: Acute (3) CHF (congestive heart failure) Code(s): I50.9 - HEART FAILURE, UNSPECIFIED Status: Acute Qualifiers: Heart failure type: unspecified Heart failure chronicity: chronic Qualified Code(s): I50.9 - Heart failure, unspecified (4) Diabetes mellitus, type II Status: Acute Qualifiers: Diabetes mellitus terminal carman insulin use: with group home use Diabetes mellitus complication status: with kidney complications Diabetes mellitus complication detail: with chronic kidney disease Chronic kidney disease stage : stage 3 (moderate) Qualified Code(s): E11.22 - Type 2 diabetes mellitus with diabetic chronic kidney disease; N18.3 - Chronic kidney disease, stage 3 ( moderate); Z79.4 - [facility] (current) use of insulin (5) COPD (chronic obstructive pulmonary disease) Status: Chronic Qualifiers: COPD type: unspecified COPD Qualified Code(s): J44.9 - Chronic obstructive pulmonary disease, unspecified - Plan Plan: # Bradycardia with Bigeminal Rhythm - Pt in [facility] found to have rate in 40's, in junctional rhythm. Carvedilol and lasix were held at that time. - In the ED EKG revealed bigeminal rhythm, rate in 60's, hemodynamically stable. - continue to hold home lasix, carvedilol, flomax - admit Telemetry--overnight patient has 1st degree BBB, HR 60s - trend trops: 0.048 -> 0.052 -> 0.047 - Consult cards-[place], appreciate recs # CHF - recent Echo showed EF 30-35% - held lasix, carvedilol - add Spironolactone # HTN - held carvedilol - continue nifedipine, hydralazine # DM II w/ Neuropathy - continue glargine, humalog - SSI - Creatinine near baseline 1.72 -> 1.37 - daily BMP # HLD - continue Lipitor # COPD - continue spiriva, prn duonebs # GERD - continue protonix # Anxiety - continue home meds Fluids: none Diet: Consistent Carb VTE Prophylaxis: Lovenox Code: DNR Dispo: admitting to obs likely < 48 hour stay, awaiting further recs from Cardiology. May require pacemaker placement. Anticipate [facility] later this afternoon or tomorrow morning once cleared by Cardio. Addendum - Attending - Attending Attestation Date/Time: 12/03/18 4114 I personally evaluated the patient and discussed the management with Dr. Winkler. I agree with the History, Examination, Assessment and Plan documented above with any addition or exceptions noted below.
[2018-12-03] MEDS ORDERED: Spiriva 18 MCG CAP (Box of 5 Caps) INH SCH (07:00)
[2018-12-03] MEDS ORDERED: Enoxaparin Sodium 30 MG/0.3 ML SYRINGE SC SCH (09:00)
[2018-12-03] MEDS: Atorvastatin Calcium 40 MG TAB PO SCH (09:23)
[2018-12-03] MEDS: HumaLOG 300 UNITS/3 ML VIAL SC SCH ×3 (09:23→18:06)
[2018-12-03] MEDS: hydrALAZINE 10 MG TAB PO SCH ×3 (09:23→21:25)
[2018-12-03] MEDS: guaiFENesin ER 600 MG TAB PO SCH ×2 (09:23→21:25)
[2018-12-03] MEDS: Aspirin 81 mg Enteric Coated Tablet PO SCH (09:23)
[2018-12-03] MEDS: Insulin Glargine 25 UNITS in Pre-Filled Syringe 1 EACH SC SCH (09:24)
[2018-12-03] MEDS: Gabapentin 100 MG CAP PO SCH ×2 (09:27→21:25)
[2018-12-03] MEDS: NIFEdipine XL 30 MG TAB PO SCH (09:27)
[2018-12-03] MEDS: buPROPion 75 MG TAB PO SCH (10:32)
[2018-12-03] MEDS ORDERED: Spironolactone 25 MG TAB PO SCH (11:15)
[2018-12-03] MEDS: Cyclobenzaprine 10 MG TAB PO PRN ×2 (11:37→21:25)
[2018-12-03] MEDS: Nicotine 21 MG PATCH TD SCH (21:25)
[2018-12-04] MEDS: Ipratropium Bromide 2.5 ml Neb NEB SCH ×4 (00:20→19:36)
[2018-12-04 05:23] LABS: #Eosinphils 0.5 thou/uL (0.0-0.7); #Lymphocytes 1.5 thou/uL (1.20-3.40); #Monocytes 0.8 thou/uL (0.11-0.59); #Neutrophils 6.7 thou/uL (1.40-6.50); %Basophils 0.1 % (0.0-1.0); %Lymphocytes 16.2 % (21.0-51.0); %Monocytes 8.6 % (0.0-10.0); %Neutrophils 70.2 % (42.0-75.0); Hemoglobin 11.2 g/dL (14.0-18.0); Mean Corpuscular HGB CONC 31.4 g/dL (32.0-36.0); Mean Corpuscular Hemoglobin 26.3 pg (27.0-31.0); Mean Corpuscular Volume 83.7 fL (78.0-98.0); Mean Platelet Volume 10.7 fL (7.4-10.4); Platelet Count 203 thou/uL (130-400); Red Blood Cell (RBC) Count 4.24 mill/uL (4.70-6.10); White Blood Cell (WBC) Count 9.5 thou/uL (4.8-10.8)
[2018-12-04 05:47] LABS: Anion Gap 12 mmol/L (10-20); BUN (Urea Nitrogen) 49 mg/dL (8.4-25.7); Calc. Creatinine Clearance 54 mL/min (70-130); Calcium 8.6 mg/dL (7.8-10.44); Carbon Dioxide 25 mmol/L (23-31); Chloride 103 mmol/L (98-107); Estimated GFR-MDRD 51; Glucose 127 mg/dL (83-110); Potassium 4.3 mmol/L (3.5-5.1); Sodium 136 mmol/L (136-145)
--- NOTE | 2018-12-04 05:57 | PDOC.FM ---
- Subjective Subjective: Patient seen this morning sitting up at bedside. Denies any current complaints. Says overnight he had occasional back pain. Telemetry overnight showed sinus bradycardia in the 40s & 50s. Currently patient HR in 60s with occasional bigeminy and frequent multifocal PVCs. - Objective Vital Signs & Weight: Vital Signs (12 hours) Temp Pulse Resp BP BP Pulse Ox 12/04/18 03:05 98.2 F 61 14 122/57 L 93 L 12/04/18 00:20 63 12 12/03/18 21:25 63 113/55 L 12/03/18 20:00 97.4 F L 63 18 113/55 L 94 L 12/03/18 18:47 61 12 95 Weight Weight 98.611 kg I&O: 12/02/18 12/03/18 12/04/18 06:59 06:59 06:59 Intake Total 240 590 Output Total 500 820 Balance -260 -230 Result Diagrams: 12/04/18 04:25 12/04/18 04:25 Phys Exam - Physical Examination Constitutional: NAD HEENT: moist MMs, sclera anicteric Neck: no JVD, supple, full ROM Respiratory: no wheezing, no rhonchi, clear to auscultation bilateral Cardiovascular: RRR, no significant murmur Gastrointestinal: soft, non-tender, positive bowel sounds Musculoskeletal: pulses present, edema present 1+ nonpitting edema in extremities Neurological: normal sensation, moves all 4 limbs Psychiatric: normal affect, A&O x 3 Skin: no rash, normal turgor Deviation from normal: Black pigmented shaquille on right face Dx/Plan (1) Bigeminal rhythm Code(s): I49.9 - CARDIAC ARRHYTHMIA, UNSPECIFIED Status: Acute (2) Bradycardia Code(s): R00.1 - BRADYCARDIA, UNSPECIFIED Status: Acute (3) CHF (congestive heart failure) Code(s): I50.9 - HEART FAILURE, UNSPECIFIED Status: Acute Qualifiers: Heart failure type: unspecified Heart failure chronicity: chronic Qualified Code(s): I50.9 - Heart failure, unspecified (4) Diabetes mellitus, type II Status: Acute Qualifiers: Diabetes mellitus ferry terminal supervisor insulin use: with ferry terminal supervisor use Diabetes mellitus complication status: with kidney complications Diabetes mellitus complication detail: with chronic kidney disease Chronic kidney disease stage : stage 3 (moderate) Qualified Code(s): E11.22 - Type 2 diabetes mellitus with diabetic chronic kidney disease; N18.3 - Chronic kidney disease, stage 3 ( moderate); Z79.4 - shelter (current) use of insulin (5) COPD (chronic obstructive pulmonary disease) Status: Chronic Qualifiers: COPD type: unspecified COPD Qualified Code(s): J44.9 - Chronic obstructive pulmonary disease, unspecified - Plan Plan: # Bradycardia with Bigeminal Rhythm - Pt in correction found to have rate in 40's, in junctional rhythm. Carvedilol and lasix were held at that time. - In the ED EKG revealed bigeminal rhythm, rate in 60's, hemodynamically stable. 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, HR 60s, overnight 12/03- patient has sinus bradycardia in 50s, currently having bigeminy and occasional multifocal PVCs - trend trops: 0.048 -> 0.052 -> 0.047 - Consult cards-[place], appreciate recs # CHF - recent Echo showed EF 30-35% - held lasix, carvedilol - add Spironolactone # HTN - held carvedilol - continue nifedipine, hydralazine # DM II w/ Neuropathy - continue glargine, humalog - SSI - Creatinine near baseline 1.72 -> 1.37->1.32 - daily BMP # HLD - continue Lipitor # COPD - continue spiriva, prn duonebs # GERD - continue protonix # Anxiety - continue home meds Fluids: none Diet: Consistent Carb VTE Prophylaxis: Lovenox Code: DNR Dispo: admitting to obs likely < 48 hour stay, awaiting further recs from Cardiology. May require pacemaker placement. Anticipate discharge back to [facility] tomorrow morning once cleared by Cardio. Addendum - Attending - Attending Attestation Date/Time: 12/04/18 2173 I personally evaluated the patient and discussed the management with Dr. Winkler. I agree with the History, Examination, Assessment and Plan documented above with any addition or exceptions noted below.
[2018-12-04] MEDS: HumaLOG 300 UNITS/3 ML VIAL SC SCH ×3 (08:13→17:55)
[2018-12-04] MEDS: Insulin Glargine 25 UNITS in Pre-Filled Syringe 1 EACH SC SCH (08:19)
[2018-12-04] MEDS: Enoxaparin Sodium 40 MG/0.4 ML SYRINGE SC SCH (08:20)
[2018-12-04] MEDS: Atorvastatin Calcium 40 MG TAB PO SCH (08:20)
[2018-12-04] MEDS: NIFEdipine XL 30 MG TAB PO SCH (08:20)
[2018-12-04] MEDS: Gabapentin 100 MG CAP PO SCH ×2 (08:20→21:59)
[2018-12-04] MEDS: guaiFENesin ER 600 MG TAB PO SCH ×2 (08:20→21:59)
[2018-12-04] MEDS: buPROPion 75 MG TAB PO SCH (08:20)
[2018-12-04] MEDS: Aspirin 81 mg Enteric Coated Tablet PO SCH (08:20)
[2018-12-04] MEDS: hydrALAZINE 10 MG TAB PO SCH ×3 (08:20→22:00)
--- NOTE | 2018-12-04 14:59 | CON ---
DATE OF CONSULTATION: 12/04/2018 PRIMARY AUTO ELECTRICIAN: Dr. Song Knowles. REASON FOR CONSULTATION: PVCs and bradycardia. HISTORY OF PRESENT ILLNESS: Mr. Dodge is a very pleasant 88-year-old gentleman. The patient previously had been seen and evaluated by Dr. Knowles. The patient has a history of depressed left ventricular function. He had declined aggressive medical therapy. Also, a LifeVest was discussed, but he declined that. The patient was in the detention and apparently he fell. The patient says that he thinks he remembers losing his balance. He is noted to be significantly bradycardic, sent to the emergency room, and had ventricular bigeminy in the emergency room. MEDICATIONS: Medications in the detention included aspirin, albuterol, tamsulosin, hydralazine 10 mg 3 times a day, furosemide, carvedilol 6.25 mg twice a day, and nifedipine long-acting 30 mg a day. REVIEW OF SYSTEMS: CONSTITUTIONAL: No significant weight gain or loss. VISION: No changes. HEARING: No changes. PULMONARY: No cough or wheezing. GASTROINTESTINAL: No nausea, vomiting, or diarrhea. SKIN: No rashes. NEUROLOGIC: No unilateral weakness or numbness. PSYCHIATRIC: No unusual depression or anxiety. PHYSICAL EXAMINATION: GENERAL: This is a pleasant gentleman sitting in the chair. VITAL SIGNS: Blood pressure 128/58, pulse is in the 60s. HEENT: Eyes, sclerae are nonicteric. Mouth, mucous membranes are moist. He has extensive ecchymosis in the right side of his face. LUNGS: Clear. CARDIAC: Normal S1 and normal S2. No heart murmur, rub, or gallop. ABDOMEN: Soft and nontender. EXTREMITIES: Warm and dry. No clubbing. No cyanosis or edema. IMAGING STUDIES: EKG did show ventricular bigeminy, now with frequent PVCs. He also has a bifascicular block. ASSESSMENT: 1. History of depressed left ventricular function. 2. Ventricular bigeminy. 3. Bradycardia, it was felt like it was mostly related to ventricular bigeminy. PLAN: 1. He is off beta trang. 2. Ejection fraction, most recently 30% to 35%. 3. Further care dictated by hospital course. Dr. Knowles to see him tomorrow. From reading the chart, there may not be much further to do at this point. Job ID: [id number]
[2018-12-04] MEDS: Melatonin 3 MG TAB PO PRN (21:59)
[2018-12-04] MEDS: Nicotine 21 MG PATCH TD SCH (22:01)
[2018-12-05] MEDS: Ipratropium Bromide 2.5 ml Neb NEB SCH ×5 (00:04→23:45)
[2018-12-05 05:39] LABS: Anion Gap 14 mmol/L (10-20); BUN (Urea Nitrogen) 50 mg/dL (8.4-25.7); Calc. Creatinine Clearance 48 mL/min (70-130); Calcium 8.6 mg/dL (7.8-10.44); Carbon Dioxide 23 mmol/L (23-31); Chloride 104 mmol/L (98-107); Estimated GFR-MDRD 45; Glucose 125 mg/dL (83-110); Potassium 4.4 mmol/L (3.5-5.1); Sodium 137 mmol/L (136-145)
--- NOTE | 2018-12-05 05:45 | PDOC.FM ---
- Subjective Subjective: Patient doing well this morning. He says he feels constipation and a little full in his abdomen. Otherwise denies other complaints. Telemetry overnight demonstrated 1st degree BBB, no bigeminy. Upon look at strip for 24 hours it appears that the ventricular bigeminy only occurs during waking hours and goes away when patient is sleeping. - Objective Vital Signs & Weight: Vital Signs (12 hours) Temp Pulse Resp BP BP BP Pulse Ox 12/05/18 03:25 98.2 F 72 14 114/56 L 92 L 12/04/18 23:10 98.8 F 73 12 130/58 L 93 L 12/04/18 22:00 71 138/70 12/04/18 20:00 98.1 F 71 18 138/70 97 12/04/18 19:37 96 12/04/18 19:36 96 Weight Weight 98.611 kg I&O: 12/03/18 12/04/18 12/05/18 06:59 06:59 06:59 Intake Total 180 014 0628 Output Total 500 820 Balance -260 -230 1220 Result Diagrams: 12/05/18 04:17 12/05/18 04:17 Phys Exam - Physical Examination Constitutional: NAD HEENT: moist MMs, sclera anicteric Neck: no JVD, supple Respiratory: no wheezing, no rales, no rhonchi, clear to auscultation bilateral Cardiovascular: RRR, no significant murmur Gastrointestinal: soft, non-tender, positive bowel sounds Musculoskeletal: no edema, pulses present Neurological: non-focal, normal sensation, moves all 4 limbs Psychiatric: normal affect, A&O x 3 Skin: no rash, normal turgor Dx/Plan (1) Bigeminal rhythm Code(s): I49.9 - CARDIAC ARRHYTHMIA, UNSPECIFIED Status: Acute (2) Bradycardia Code(s): R00.1 - BRADYCARDIA, UNSPECIFIED Status: Acute (3) CHF (congestive heart failure) Code(s): I50.9 - HEART FAILURE, UNSPECIFIED Status: Acute Qualifiers: Heart failure type: unspecified Heart failure chronicity: chronic Qualified Code(s): I50.9 - Heart failure, unspecified (4) Diabetes mellitus, type II Status: Acute Qualifiers: Diabetes mellitus assisted insulin use: with moth exterminator use Diabetes mellitus complication status: with kidney complications Diabetes mellitus complication detail: with chronic kidney disease Chronic kidney disease stage : stage 3 (moderate) Qualified Code(s): E11.22 - Type 2 diabetes mellitus with diabetic chronic kidney disease; N18.3 - Chronic kidney disease, stage 3 ( moderate); Z79.4 - terminal block assembler (current) use of insulin (5) COPD (chronic obstructive pulmonary disease) Status: Chronic Qualifiers: COPD type: unspecified COPD Qualified Code(s): J44.9 - Chronic obstructive pulmonary disease, unspecified - Plan Plan: # Bradycardia with Bigeminal Rhythm - Pt in [facility] found to have rate in 40's, in junctional rhythm. Carvedilol and lasix were held at that time. - In the ED EKG revealed bigeminal rhythm, rate in 60's, hemodynamically stable. 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 Knowles to see patient this AM, appreciate further recs # CHF - recent Echo showed EF 30-35% - held lasix, carvedilol - add Spironolactone # HTN - held carvedilol - continue nifedipine, hydralazine # DM II w/ Neuropathy - continue glargine, humalog - SSI - Creatinine near baseline 1.72 -> 1.37->1.32-> 1.48 - daily BMP # HLD - continue Lipitor # COPD - continue spiriva, prn duonebs # GERD - continue protonix # Anxiety - continue home meds Fluids: none Diet: Consistent Carb VTE Prophylaxis: Lovenox Code: DNR Dispo: admitting to obs likely < 48 hour stay, awaiting further recs from Cardiology. May require pacemaker placement. Anticipate discharge back to [facility] tomorrow morning once cleared by Cardio. Addendum - Attending - Attending Attestation Date/Time: 12/05/18 0165 I personally evaluated the patient and discussed the management with Dr. Winkler. I agree with the History, Examination, Assessment and Plan documented above with any addition or exceptions noted below.
[2018-12-05 06:19] LABS: #Eosinphils 0.4 thou/uL (0.0-0.7); #Lymphocytes 1.4 thou/uL (1.20-3.40); #Monocytes 0.7 thou/uL (0.11-0.59); #Neutrophils 5.8 thou/uL (1.40-6.50); %Basophils 0.5 % (0.0-1.0); %Eosinophils 4.7 % (0.0-10.0); %Lymphocytes 16.8 % (21.0-51.0); %Monocytes 8.8 % (0.0-10.0); %Neutrophils 69.3 % (42.0-75.0); Hemoglobin 10.7 g/dL (14.0-18.0); Mean Corpuscular Hemoglobin 25.1 pg (27.0-31.0); Mean Corpuscular Volume 83.7 fL (78.0-98.0); Mean Platelet Volume 10.8 fL (7.4-10.4); Platelet Count 197 thou/uL (130-400); RBC Distribution Width 17.4 % (11.5-14.5); Red Blood Cell (RBC) Count 4.27 mill/uL (4.70-6.10); White Blood Cell (WBC) Count 8.3 thou/uL (4.8-10.8)
[2018-12-05] MEDS: buPROPion 75 MG TAB PO SCH (08:50)
[2018-12-05] MEDS: Atorvastatin Calcium 40 MG TAB PO SCH (08:51)
[2018-12-05] MEDS: NIFEdipine XL 30 MG TAB PO SCH (08:51)
[2018-12-05] MEDS: hydrALAZINE 10 MG TAB PO SCH ×3 (08:51→21:15)
[2018-12-05] MEDS: Aspirin 81 mg Enteric Coated Tablet PO SCH (08:51)
[2018-12-05] MEDS: guaiFENesin ER 600 MG TAB PO SCH ×2 (08:51→21:15)
[2018-12-05] MEDS: Gabapentin 100 MG CAP PO SCH ×2 (08:51→21:15)
[2018-12-05] MEDS: HumaLOG 300 UNITS/3 ML VIAL SC SCH ×3 (08:54→17:00)
[2018-12-05] MEDS: Enoxaparin Sodium 40 MG/0.4 ML SYRINGE SC SCH (08:55)
[2018-12-05] MEDS: Insulin Glargine 25 UNITS in Pre-Filled Syringe 1 EACH SC SCH (08:56)
[2018-12-05] MEDS ORDERED: Polyethylene Glycol 3350 17 GM Packet PO PRN (09:59)
[2018-12-05] MEDS ORDERED: Polyethylene Glycol 3350 17 GM Packet PO SCH (10:00)
[2018-12-05] MEDS: Nicotine 21 MG PATCH TD SCH (21:15)
[2018-12-06 05:17] LABS: #Eosinphils 0.4 thou/uL (0.0-0.7); #Lymphocytes 1.3 thou/uL (1.20-3.40); #Monocytes 0.8 thou/uL (0.11-0.59); #Neutrophils 6.3 thou/uL (1.40-6.50); %Basophils 0.5 % (0.0-1.0); %Eosinophils 4.9 % (0.0-10.0); %Lymphocytes 14.8 % (21.0-51.0); %Monocytes 9.3 % (0.0-10.0); %Neutrophils 70.5 % (42.0-75.0); Hemoglobin 11.5 g/dL (14.0-18.0); Mean Corpuscular HGB CONC 31.9 g/dL (32.0-36.0); Mean Corpuscular Hemoglobin 26.8 pg (27.0-31.0); Mean Corpuscular Volume 83.8 fL (78.0-98.0); Mean Platelet Volume 10.6 fL (7.4-10.4); Platelet Count 209 thou/uL (130-400); RBC Distribution Width 17.2 % (11.5-14.5); White Blood Cell (WBC) Count 8.9 thou/uL (4.8-10.8)
[2018-12-06 05:32] LABS: Anion Gap 12 mmol/L (10-20); BUN (Urea Nitrogen) 45 mg/dL (8.4-25.7); Calc. Creatinine Clearance 55 mL/min (70-130); Calcium 8.7 mg/dL (7.8-10.44); Carbon Dioxide 23 mmol/L (23-31); Chloride 105 mmol/L (98-107); Estimated GFR-MDRD 51; Glucose 92 mg/dL (83-110); Potassium 4.3 mmol/L (3.5-5.1); Sodium 136 mmol/L (136-145)
[2018-12-06] MEDS ORDERED: Polyethylene Glycol 3350 17 GM Packet PO SCH (10:00)
[2018-12-06] MEDS: Enoxaparin Sodium 40 MG/0.4 ML SYRINGE SC SCH (10:15)
[2018-12-06] MEDS: NIFEdipine XL 30 MG TAB PO SCH (10:16)
[2018-12-06] MEDS: Gabapentin 100 MG CAP PO SCH (10:16)
[2018-12-06] MEDS: Ipratropium Bromide 2.5 ml Neb NEB SCH ×2 (10:18→13:45)
[2018-12-06] MEDS: guaiFENesin ER 600 MG TAB PO SCH (10:18)
[2018-12-06] MEDS: Insulin Glargine 25 UNITS in Pre-Filled Syringe 1 EACH SC SCH (10:18)
[2018-12-06] MEDS: Atorvastatin Calcium 40 MG TAB PO SCH (10:18)
[2018-12-06] MEDS: hydrALAZINE 10 MG TAB PO SCH ×2 (10:18→15:14)
[2018-12-06] MEDS: Aspirin 81 mg Enteric Coated Tablet PO SCH (10:18)
[2018-12-06] MEDS: buPROPion 75 MG TAB PO SCH (10:18)
[2018-12-06] MEDS: HumaLOG 300 UNITS/3 ML VIAL SC SCH ×2 (10:19→12:52)
--- NOTE | 2018-12-06 11:44 | PDOC.FM ---
- Subjective Subjective: Patient complains of constipation this mornings. States he has not had a BM since admission. Denies abdominal pain but states his abdomen feels full. Otherwise no complaints this morning, just inquiring when he can go back to detention facility. - Objective Vital Signs & Weight: Vital Signs (12 hours) Temp Pulse Resp BP BP Pulse Ox 12/06/18 10:18 81 12/06/18 10:16 81 12/06/18 09:30 98.1 F 81 18 155/67 H 94 L 12/06/18 03:35 98.8 F 80 16 119/55 L 98 Weight Weight 100.561 kg I&O: 12/05/18 12/06/18 12/07/18 06:59 06:59 06:59 Intake Total 1220 1560 Output Total 400 Balance 1220 1160 Result Diagrams: 12/06/18 04:26 12/06/18 04:26 Phys Exam - Physical Examination Constitutional: NAD HEENT: moist MMs, sclera anicteric Neck: no JVD, supple Respiratory: no wheezing, no rales, no rhonchi, clear to auscultation bilateral Cardiovascular: RRR, no significant murmur Gastrointestinal: soft, non-tender, positive bowel sounds Musculoskeletal: no edema, pulses present Neurological: non-focal, normal sensation, moves all 4 limbs Psychiatric: normal affect, A&O x 3 Skin: no rash, normal turgor Dx/Plan (1) Bigeminal rhythm Code(s): I49.9 - CARDIAC ARRHYTHMIA, UNSPECIFIED Status: Acute (2) Bradycardia Code(s): R00.1 - BRADYCARDIA, UNSPECIFIED Status: Acute (3) CHF (congestive heart failure) Code(s): I50.9 - HEART FAILURE, UNSPECIFIED Status: Acute Qualifiers: Heart failure type: unspecified Heart failure chronicity: chronic Qualified Code(s): I50.9 - Heart failure, unspecified (4) Diabetes mellitus, type II Status: Acute Qualifiers: Diabetes mellitus snf insulin use: with snf use Diabetes mellitus complication status: with kidney complications Diabetes mellitus complication detail: with chronic kidney disease Chronic kidney disease stage : stage 3 (moderate) Qualified Code(s): E11.22 - Type 2 diabetes mellitus with diabetic chronic kidney disease; N18.3 - Chronic kidney disease, stage 3 ( moderate); Z79.4 - care home (current) use of insulin (5) COPD (chronic obstructive pulmonary disease) Status: Chronic Qualifiers: COPD type: unspecified COPD Qualified Code(s): J44.9 - Chronic obstructive pulmonary disease, unspecified - Plan Plan: # Bradycardia with Bigeminal Rhythm - Pt in detention found to have rate in 40's, in junctional rhythm. Carvedilol and lasix were held at that time. - In the ED EKG revealed bigeminal rhythm, rate in 60's, hemodynamically stable. 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 Knowles to see patient this AM, appreciate further recs # CHF - recent Echo showed EF 30-35% - held lasix, carvedilol - add Spironolactone # HTN - held carvedilol - continue nifedipine, hydralazine # DM II w/ Neuropathy - continue glargine, humalog - SSI - Creatinine near baseline 1.72 -> 1.37->1.32-> 1.48 - daily BMP # HLD - continue Lipitor # COPD - continue spiriva, prn duonebs # GERD - continue protonix # Anxiety - continue home meds Fluids: none Diet: Consistent Carb VTE Prophylaxis: Lovenox Code: DNR Dispo: admitting to obs likely < 48 hour stay, awaiting further recs from Cardiology--Benson. May require pacemaker placement. Anticipate discharge back to detention tomorrow morning once cleared by Cardio. Addendum - Attending - Attending Attestation Date/Time: 12/07/18 2829 I personally evaluated the patient and discussed the management with Dr. Winkler. I agree with the History, Examination, Assessment and Plan documented above with any addition or exceptions noted below.
--- NOTE | 2018-12-06 14:31 | PRG ---
DATE OF SERVICE: SUBJECTIVE: Mr. Dodge is doing well. He states he has less shortness of breath. He was given Lasix yesterday. No chest pain pressure noted. He would like to go home. OBJECTIVE: GENERAL: Patient is a pleasant gentleman, who is in no acute distress. The patient appears his stated age. VITAL SIGNS: Blood pressure 144/63, pulse 73, temperature 97.5. NEUROLOGIC: The patient is alert and oriented x3 with no focal neurologic deficits. HEENT: Sclerae without icterus. Mouth has moist mucous membranes with normal pallor. NECK: No JVD. Carotid upstroke brisk. No bruits bilaterally. LUNGS: Mild crackles noted at bases bilaterally. BACK: No scoliosis or kyphosis. CARDIAC: Regular rate and rhythm with normal S1 and S2. No S3 or S4 noted. No significant rubs, murmurs, thrills, or gallops noted throughout the precordium. PMI is not displaced. There is no parasternal heave. ABDOMEN: Soft, nontender, nondistended. No peritoneal signs present. No hepatosplenomegaly. No abnormal striae. EXTREMITIES: 1+ pitting edema. SKIN: No gross abnormalities. PERTINENT LABORATORY DATA: Hemoglobin 11.5, white blood cell count 8.9, platelet count 209. Creatinine 1.3. IMPRESSION: 1. 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 2. Acute on chronic renal insufficiency. 3. ? Compliance. RECOMMENDATIONS: 1. The patient is currently doing well. 2. He has opted for conservative therapy. 3. He has refused LifeVest in the past and not interested in ICD. 4. Continue current course. He is currently on atorvastatin in addition to nifedipine. We will add low-dose Coreg 3.125 one p.o. b.i.d. He did have bradycardia, but likely secondary to bigeminy. Job ID: [id number]
[2018-12-06 15:18] VITALS: BP 121/58
[2018-12-06 15:40] VITALS: TEMP 97.9
[2018-12-06] MEDS ORDERED: Carvedilol 3.125 MG TAB PO SCH (21:00)
--- NOTE | 2018-12-07 14:59 | EKG ---
Test Reason : Blood Pressure : / mmHG Vent. Rate : 074 BPM Atrial Rate : 074 BPM P-R Int : 000 ms QRS Dur : 138 ms QT Int : 446 ms P-R-T Axes : 000 -70 094 degrees QTc Int : 495 ms Atrial fibrillation with a competing junctional pacemaker with premature ventricular or aberrantly co nducted complexes Right bundle branch block Left anterior fascicular block Bifascicular block T wave abnormality, consider lateral ischemia or digitalis effect Abnormal ECG Confirmed by MARY SALAZAR ([id number]), news assignment editor BRADEN POOLE ([id number]) on 12/07/2018 2:59:18 PM Referred By: Confirmed By:MARY SALAZAR
--- NOTE | 2018-12-09 00:34 | DIS ---
DATE OF ADMISSION: 12/02/2018 DATE OF DISCHARGE: 12/06/2018 RESIDENT: Rosa Winkler DO ADMITTING ATTENDING: Brianna Mayberry MD DISCHARGE ATTENDING: Florencio Clark MD CONSULT: Cardiology, Dr. Silveira. PRIMARY DIAGNOSIS: Bradycardia with bigeminal rhythm. SECONDARY DIAGNOSES: 1. Congestive heart failure with ejection fraction of 30% to 35%. 2. Hypertension. 3. Diabetes mellitus, type 2 with neuropathy. 4. Hyperlipidemia. 5. Chronic obstructive pulmonary disease. 6. Gastroesophageal reflux disease. 7. Anxiety. DISCHARGE MEDICATIONS: 1. Gabapentin 100 mg p.o. b.i.d. 2. Aspirin 81 mg p.o. daily. 3. Albuterol sulfate (Ventolin HFA) 8 g inhaled p.r.n. 4. Atorvastatin 40 mg p.o. daily. 5. Acetaminophen 650 mg p.o. q.4 hours p.r.n. for pain. 6. Mucinex extended release 600 mg p.o. q.12 hours. 7. Hydralazine 10 mg p.o. t.i.d. 8. DuoNeb 3 mL nebulizer q.4 hours p.r.n. 9. Nicotine 21 mg patch TD q.24 hours. 10. Simethicone 80 mg p.o. p.c. at bedtime p.r.n. 11. Tamsulosin HCl (Flomax) 0.4 mg p.o. at bedtime. 12. Ondansetron 4 mg p.o. q.6 hours p.r.n. 13. Furosemide 80 mg p.o. b.i.d. 14. Insulin glargine (Lantus) 25 units s.c. q.a.m. 15. Senokot two tabs p.o. b.i.d. p.r.n. 16. Hydroxyzine 25 mg p.o. at bedtime p.r.n. 17. Bupropion XL (Wellbutrin XL) 150 mg p.o. daily. 18. Tiotropium (Spiriva) 18 mcg inhaled daily. 19. Omeprazole 20 mg p.o. daily. 20. Nifedipine 30 mg p.o. daily. 21. Cyclobenzaprine 10 mg p.o. t.i.d. p.r.n. 22. Benzonatate 200 mg p.o. t.i.d. p.r.n. 23. Insulin lispro 12 units SQ t.i.d. with meals. 24. Albuterol sulfate 8.5 g inhaled q.8 hours p.r.n. 25. Lidocaine 4% anesthetic cream kit 1 patch TP q.a.m. 26. MiraLAX 17 g p.o. daily p.r.n. for constipation. 27. Coreg 3.125 mg p.o. b.i.d. DISCONTINUED MEDICATIONS: 1. Coreg 6.25 mg p.o. b.i.d. 2. Nystatin one bottle topical b.i.d. p.r.n. HISTORY OF PRESENT ILLNESS/HOSPITAL COURSE: Mr. Dodge is an 88-year-old male, who presented to the [facility] ED with bradycardia and history of multiple falls. The patient is noted to be a poor historian. half-way reported that the patient was bradycardic with heart rate in the 40s. EKG with EMS showed a junctional rhythm. At his arrival at the ED, his carvedilol and Lasix were held. In the ED, EKG revealed bigeminy rhythm, not captured on previous EKGs and a pulse in the 60s to 70s. The patient also reported that he remembers that he has been falling secondary to possibly tripping over objects and also standing to arise, then falling. The patient was determined to be admitted to the medical floor with telemetry. On the morning of December 03, 2018, the patient was seen resting comfortably. Telemetry monitors at night typically showed the patient in first-degree bundle-branch block with a heart rate in the 60s. Cardiology was consulted on this day. Additionally, his home Lasix, carvedilol, and Flomax were continued to be held. Due to recent diagnosis of CHF with an EF of 30% to 35% on recent echo, spironolactone was added to the patient's medications. The patient continued to remain in first-degree bundle branch block with a heart rate in the 60s at night, and was typically in bigeminal rhythm during the daytime with a rate in the 80s. He continued to do well over the following days. On December 04, 2018, the patient saw Dr. Silveira, Cardiology, who stated to discontinue the beta trang and would call Dr. Knowles, who is the patient's normal back up scan coordinator to come see the patient for further management. On December 06, 2018, the patient was seen by Dr. Knowles, who felt that the patient should continue on his current course. He altered his Coreg dosing from 6.25 to 3.125. From prior discussions with the patient, it was determined that the patient has opted for conservative therapy at this time. On the afternoon of December 06, 2018, the patient was deemed stable for discharge back to the halfway with close followup by Cardiology as outpatient. PERTINENT LABORATORY DATA: 1. Labs on December 02, 2018, admission labs. a. CBC: WBC 9.9, hemoglobin 12.12, hematocrit 39.4, and platelet count 209. b. BMP: Sodium 139, potassium 4.2, chloride 101, BUN 57, creatinine 1.72, and glucose 114. c. CK-MB 5.2. d. Troponins; 0.048, 0.052, 0.047. e. BNP 1031. f. TSH 2.60. 2. Labs on December 06, 2018. a. CBC: WBC 8.9, hemoglobin 11.5, hematocrit 36.0, and platelets 209. b. BMP: Sodium 136, potassium 4.3, chloride 105, carbon dioxide 23, BUN 45, creatinine 1.33, and glucose 92. DISPOSITION: Stable. DISCHARGE INSTRUCTIONS: 1. Location: [facility]. 2. Diet: Regular, heart healthy. 3. Activity: As tolerated, with fall precautions. 4. Continue PT/OT therapy at halfway. 5. Follow up with [facility] in 7 days. 6. Follow up with Dr. Song Knowles, Cardiology in 2 weeks. Job ID: [id number] [facility]
== END 2018-12-06 17:00 | DRG 309 ==
LOC: ERS 14:06 → 2NO 16:45
PROVIDERS: ADMIT Family Medicine; ATTEND Family Medicine
DX: I49.8 Other specified cardiac arrhythmias (principal); I13.0 Hypertensive heart and chronic kidney disease with heart failure and stage 1 through stage 4 chronic kidney disease, or unspecified chronic kidney disease; J44.9 Chronic obstructive pulmonary disease, unspecified; E78.5 Hyperlipidemia, unspecified; I50.9 Heart failure, unspecified; E11.22 Type 2 diabetes mellitus with diabetic chronic kidney disease; N18.3 Chronic kidney disease, stage 3 (moderate); E11.40 Type 2 diabetes mellitus with diabetic neuropathy, unspecified; K21.9 Gastro-esophageal reflux disease without esophagitis; K59.00 Constipation, unspecified; I25.5 Ischemic cardiomyopathy; G47.00 Insomnia, unspecified; F41.9 Anxiety disorder, unspecified; F17.210 Nicotine dependence, cigarettes, uncomplicated; I45.4 Nonspecific intraventricular block; Z79.4 Long term (current) use of insulin; Z79.82 Long term (current) use of aspirin; Z79.899 Other long term (current) drug therapy; Z90.79 Acquired absence of other genital organ(s)
CPT/HCPCS: 36415; 36416; 80048; 80053; 82553; 83880; 84443; 84484; 85025; 93005; 94640; J1650; J1815

== ENCOUNTER 2019-04-07 11:13 | Observation (INO) | payer MEDICARE, MEDICAID ==
[2019-04-07 12:09] LABS: #Basophils 0.1 thou/uL (0.0-0.2); #Eosinphils 0.3 thou/uL (0.0-0.7); #Lymphocytes 1.5 thou/uL (1.20-3.40); #Monocytes 0.7 thou/uL (0.11-0.59); #Neutrophils 5.8 thou/uL (1.40-6.50); %Basophils 0.7 % (0.0-1.0); %Eosinophils 4.1 % (0.0-10.0); %Lymphocytes 17.6 % (21.0-51.0); %Monocytes 8.5 % (0.0-10.0); %Neutrophils 69.1 % (42.0-75.0); Mean Corpuscular HGB CONC 32.1 g/dL (32.0-36.0); Mean Corpuscular Hemoglobin 28.2 pg (27.0-31.0); Mean Corpuscular Volume 87.9 fL (78.0-98.0); Mean Platelet Volume 9.7 fL (7.4-10.4); Platelet Count 197 thou/uL (130-400); RBC Distribution Width 13.6 % (11.5-14.5); Red Blood Cell (RBC) Count 4.25 mill/uL (4.70-6.10); White Blood Cell (WBC) Count 8.4 thou/uL (4.8-10.8)
--- NOTE | 2019-04-07 12:20 | CT ---
CT Brain WO Con: 04/07/2019 11:34 AM CLINICAL HISTORY: Diplopia. COMPARISON: 10/13/2018 FINDINGS: Hemorrhage: None. Ventricular system: Normal in size and morphology for the patient's age. Cerebral parenchyma: Microvascular ischemic disease Midline shift: None. Mass: No mass effect. Calvarium: Normal. Visualized Paranasal sinuses: Clear. Decreased pneumatization of right mastoid air cells. IMPRESSION: No acute intracranial abnormalities.
[2019-04-07 12:31] LABS: ALT (SGPT) 10 U/L (8-55); AST (SGOT) 18 U/L (5-34); Albumin 3.7 g/dL (3.4-4.8); Alkaline Phosphatase 111 U/L (40-110); Anion Gap 13 mmol/L (10-20); BUN (Urea Nitrogen) 57 mg/dL (8.4-25.7); Bilirubin, Total 0.4 mg/dL (0.2-1.2); Calc. Creatinine Clearance 0 mL/min (70-130); Calcium 8.8 mg/dL (7.8-10.44); Carbon Dioxide 30 mmol/L (23-31); Chloride 102 mmol/L (98-107); Estimated GFR-MDRD 32; Globulin 3.2 g/dL (2.4-3.5); Glucose 227 mg/dL (83-110); Potassium 4.5 mmol/L (3.5-5.1); Protein, Total 6.9 g/dL (5.8-8.1); Sodium 140 mmol/L (136-145)
--- NOTE | 2019-04-07 13:48 | PDOC.FPRHP ---
- History of Present Illness Chief Complaint: Blurry vision History of Present Illness: Patient sent from alf with complaint of blurry vision. States that when he looks with both eyes his vision is blurry but when he looks with just one eye his vision is okay. He saw his PCP 2 days ago. Pt is alf resident of [facility]. Pt reports seeing double vision starting yesterday. Reported double vision to nursing today and sent over. Pt denies any headache or other symptoms. Reports waking up yesterday and noticing double vision. Reports day prior vision was normal. Pt denies any dizziness. Pt reports vertigo sensation when trying to turn in the bed. Denies any chest pain. Reports SOB as common problem. Dr. Parker is Alarm Signaler. - Allergies/Adverse Reactions Allergies Allergy/AdvReac Type Severity Reaction Status Date / Time No Known Drug Allergies Allergy Verified 12/03/18 01:50 - Home Medications Medication Instructions Recorded Confirmed Type Albuterol Sulfate [Ventolin HFA] 8 gm INH PRN PRN 06/23/17 12/02/18 History Aspirin [Ecotrin Low Strength] 81 mg PO DAILY 06/23/17 12/03/18 History Gabapentin 100 mg PO BID 06/23/17 12/03/18 History Atorvastatin Calcium [Lipitor] 40 mg PO DAILY 30 Days #30 tab 06/24/17 12/03/18 Rx Acetaminophen [Tylenol Regular 650 mg PO Q4H PRN tab 05/10/18 12/02/18 Rx Strength] Ipratropium/Albuterol Sulfate 3 ml NEB [id number] PRN neb 05/10/18 12/02/18 Rx [DuoNeb] Nicotine [Nicoderm CQ] 21 mg TD Q24HR patch 05/10/18 12/02/18 Rx Simethicone [Mylicon Chewable] 80 mg PO PCHS PRN tab 05/10/18 12/03/18 Rx Tamsulosin HCl [Flomax] 0.4 mg PO HS cap 05/10/18 12/03/18 Rx guaiFENesin ER [Mucinex] 600 mg PO Q12HR tab 05/10/18 12/03/18 Rx hydrALAZINE [Apresoline] 10 mg PO TID tab 05/10/18 12/03/18 Rx Ondansetron [Zofran ODT] 4 mg PO Q6HR PRN 05/21/18 12/03/18 History Acetaminophen [Tylenol Regular 650 mg PO Q4H PRN tab 08/16/18 12/03/18 Rx Strength] Furosemide [Lasix] 80 mg PO BID tab 08/16/18 12/03/18 Rx Insulin Glargine [Lantus Vial] 25 units SC QAM vial 08/16/18 12/03/18 Rx Sennosides/Docusate Sodium 2 tab PO BID PRN tab 08/16/18 12/03/18 Rx [Senokot S] Benzonatate 200 mg PO TID PRN 12/02/18 12/02/18 History BuPROPion XL [Wellbutrin XL] 150 mg PO DAILY 12/02/18 12/02/18 History Cyclobenzaprine [Flexeril] 10 mg PO TID PRN 12/02/18 12/02/18 History NIFEdipine [Nifedipine ER] 30 mg PO DAILY 12/02/18 12/02/18 History Omeprazole 20 mg PO DAILY 12/02/18 12/02/18 History Tiotropium [Spiriva Handihaler] 18 mcg INH DAILY 12/02/18 12/02/18 History hydrOXYzine [Atarax] 25 mg PO HS PRN 12/02/18 12/03/18 History Albuterol Sulfate [Albuterol 8.5 gm IH Q8HR PRN 12/03/18 12/03/18 History Sulfate Hfa] Insulin Lispro [Humalog Kwikpen 12 units SQ TID-WM 12/03/18 12/03/18 History U-100] Lidocaine [Lidocaine 4% Anesthetic 1 patch TP QAM 12/03/18 12/03/18 History Cream Kit] Carvedilol [Coreg] 3.125 mg PO BID #60 tab 12/06/18 Rx Pantoprazole [Protonix] 40 mg PO DAILY tab 12/06/18 Rx Polyethylene Glycol 3350 [Miralax] 17 gm PO DAILYPRN PRN pk 12/06/18 Rx - History PMHx: PSHx: FHx: Social: Pt reports hx of smoking, Denies any alcohol use or illicits drug use - Vital signs BP: 186/71 HR: [56] RR: [18] Tmax: [97.7] Pox: [97]% on [RA] Wt: [] - Physical Exam Constitutional: NAD, awake, alert and oriented HEENT: normocephalic and atraumatic, PERRLA, grossly normal hearing -HEENT: Pt reports double vision. Reports vertigo when turning Neck: supple, no LAD, no JVD Chest: no-tender to palpation, no lesions Heart: RRR, normal S1/S2, no murmurs/rubs/gallops, pulses present, no edema -Heart: Bradycardic Lungs: CTAB, no respiratory distress, good air movement, no wheezing Abdomen: soft, non-tender, bowel sounds present, no masses/distention Musculoskeletal: normal structure, normal tone, ROM grossly normal Neurological: no focal deficit, CN II-XII intact, normal sensation Heme/Lymphatic: no unusual bruising or bleeding, no purpura Psychiatric: normal mood and affect, intact recent and remote memory FMR H&P: Results - Labs Result Diagrams: 04/07/19 11:54 04/07/19 11:54 Lab results: WBC 8.4 thou/uL (4.8-10.8) 04/07/19 11:54 Hgb 12.0 g/dL (14.0-18.0) L 04/07/19 11:54 Hct 37.4 % (42.0-52.0) L 04/07/19 11:54 MCV 87.9 fL (78.0-98.0) 04/07/19 11:54 Plt Count 197 thou/uL (130-400) 04/07/19 11:54 Neutrophils % 69.1 % (42.0-75.0) 04/07/19 11:54 ESR Westergren 33 mm/hr (Less than 20) 04/07/19 11:54 Sodium 140 mmol/L (136-145) 04/07/19 11:54 Potassium 4.5 mmol/L (3.5-5.1) 04/07/19 11:54 Chloride 102 mmol/L (98-107) 04/07/19 11:54 Carbon Dioxide 30 mmol/L (23-31) 04/07/19 11:54 BUN 57 mg/dL (8.4-25.7) H 04/07/19 11:54 Creatinine 1.97 mg/dL (0.7-1.3) H 04/07/19 11:54 Glucose 227 mg/dL (83-110) H 04/07/19 11:54 Calcium 8.8 mg/dL (7.8-10.44) 04/07/19 11:54 Total Bilirubin 0.4 mg/dL (0.2-1.2) 04/07/19 11:54 AST 18 U/L (5-34) 04/07/19 11:54 ALT 10 U/L (8-55) 04/07/19 11:54 Alkaline Phosphatase 111 U/L (40-110) H 04/07/19 11:54 C-Reactive Protein 1.62 mg/dL (= or < 0.5) H 04/07/19 11:54 Serum Total Protein 6.9 g/dL (5.8-8.1) 04/07/19 11:54 Albumin 3.7 g/dL (3.4-4.8) 04/07/19 11:54 FMR H&P: Upper Level - Pertinent history I was present with Dr. Winkler during the HPI. I scribed the above document. I agree with above. I have made edits as needed. Pt only symptom he complained about was his double vision. All other ROS were otherwise negative. - Pertinent findings No acute focal neuro defecit could be noted. Pt was able to track with H test. Pt was able to accurately state which numbers we were holding up. There was some possible left sided weakness 4/5. Cardio: Bradycardic. Normal rhythm. No murmurs or gallops. HEENT: Pt has bruising on the R. side of his face. - Plan Date/Time: 04/07/19 1482 I, Gabe Palma PGY-3, have evaluated this patient and agree with findings/ plan as outlined by chief internal auditor resident. Pertinent changes/additions are listed here. I have made changes to the above plan. I agree with above. At this time we will admit patient for stroke vs TIA workup. CT negative. Will get brain MRI. Will consult PT/OT/Speech. Will consult neuro. Will follow recs. Will await results. ESR was mildy elevated and CRP was elevated. Pt denies any headaches or pain. Low suspicion but if everything is negative and still having double vision may consider work up for giant cell arteritis.
[2019-04-07] MEDS ORDERED: Dextrose 50% Abboject 50 ML SYRINGE SLOW IVP PRN (15:58)
[2019-04-07] MEDS ORDERED: Ondansetron PF 4 MG/2 ML Vial IVP PRN (15:58)
[2019-04-07] MEDS ORDERED: HumaLOG 300 UNITS/3 ML VIAL SC PRN ×2 (15:58)
[2019-04-07] MEDS ORDERED: Ondansetron ODT 4 MG TAB PO PRN (15:58)
[2019-04-07] MEDS ORDERED: Acetaminophen 325 MG TAB PO PRN (15:58)
[2019-04-07] MEDS ORDERED: Dextrose 5% in Water 1,000 ML IV PRN (15:58)
[2019-04-07] MEDS ORDERED: Acetaminophen 650 MG Suppository PR PRN (15:58)
[2019-04-07] MEDS ORDERED: Calcium Carbonate 500 MG ChewTAB PO PRN (15:58)
[2019-04-07] MEDS ORDERED: hydrALAZINE 20 MG/ML VIAL SLOW IVP PRN (15:58)
--- NOTE | 2019-04-07 16:12 | PDOC.FPRHP ---
- History of Present Illness Chief Complaint: Blurry vision History of Present Illness: Patient is a 89 yo male sent from assisted to ED earlier this morning with complaint of blurry vision. States that when he looks with both eyes his vision is blurry but when he looks with just one eye his vision is okay. He saw his PCP 2 days ago and was started on some new eye drops, otherwise no recent medication changes. Pt is assisted resident of [facility]. Pt reports seeing double vision starting yesterday when he woke up. Reported double vision to nursing today and sent over. Pt denies any headache or other symptoms. Reports 2 days prior vision was normal. Pt denies any dizziness but does report vertigo sensation when trying to turn in the bed. Denies any chest pain. Reports SOB as common problem. Patient's last admission was in November 2018 for Symptomatic Bradycardia. Opted for medical management only with adjustments to his Coreg dosing. Dr. Knowles is Senior [employer]. ED Course: Per ED physician, was concern on arrival for new onset left cranial nerve 6 palsy, however this was not appreciated when evaluated by myself and Dr. Palma for admission. Did not receive any medications in ED. Had negative CT head. Was found on labwork to have WBC 8.4, Hgb 12.0, Cr 1.97, CRP 1.62, ESR 33. - Allergies/Adverse Reactions Allergies Allergy/AdvReac Type Severity Reaction Status Date / Time No Known Drug Allergies Allergy Verified 12/03/18 01:50 - Home Medications Medication Instructions Recorded Confirmed Type Aspirin [Ecotrin Low Strength] 81 mg PO DAILY 06/23/17 04/07/19 History Gabapentin 100 mg PO BID 06/23/17 04/07/19 History Ipratropium/Albuterol Sulfate 3 ml NEB [id number] PRN neb 05/10/18 04/07/19 Rx [DuoNeb] Simethicone [Mylicon Chewable] 80 mg PO PCHS PRN tab 05/10/18 04/07/19 Rx Tamsulosin HCl [Flomax] 0.4 mg PO HS cap 05/10/18 04/07/19 Rx hydrALAZINE [Apresoline] 10 mg PO TID tab 05/10/18 04/07/19 Rx Ondansetron [Zofran ODT] 4 mg PO Q6HR PRN 05/21/18 04/07/19 History Furosemide [Lasix] 80 mg PO BID tab 08/16/18 04/07/19 Rx Sennosides/Docusate Sodium 2 tab PO BID PRN tab 08/16/18 04/07/19 Rx [Senokot S] hydrOXYzine [Atarax] 25 mg PO HS PRN 12/02/18 04/07/19 History Albuterol Sulfate [Albuterol 8.5 gm IH Q8HR PRN 12/03/18 04/07/19 History Sulfate Hfa] Insulin Lispro [Humalog Kwikpen 14 units SQ TID-WM 12/03/18 04/07/19 History U-100] Carvedilol [Coreg] 3.125 mg PO BID #60 tab 12/06/18 04/07/19 Rx Pantoprazole [Protonix] 40 mg PO DAILY tab 12/06/18 04/07/19 Rx Polyethylene Glycol 3350 [Miralax] 17 gm PO DAILYPRN PRN pk 12/06/18 04/07/19 Rx Acetaminophen [Tylenol Regular 650 mg PO Q6HR 04/07/19 04/07/19 History Strength] Atorvastatin Calcium [Lipitor] 10 mg PO HS 04/07/19 04/07/19 History Carboxymethylcellulose Sodium 1 drop L EYE TID 04/07/19 04/07/19 History [Refresh Celluvisc] Insulin Glargine,Hum.Rec.Anlog 30 unit SQ DAILY 04/07/19 04/07/19 History [Basaglar Kwikpen U-100] Nystatin [Nystatin Powder] 1 applic TOP BID PRN 04/07/19 04/07/19 History Propylene Glycol/PEG 400/PF 1 drop EA EYE SEEPHYS 04/07/19 04/07/19 History [Systane 0.3-0.4% Eye Drop] Witch Nicole [Preparation H] 1 applic TOP Q8HR PRN 04/07/19 04/07/19 History guaiFENesin [Mucinex] 600 mg PO BID 04/07/19 04/07/19 History traZODone HCl [Trazodone HCl] 0.5 tab PO HS 04/07/19 04/07/19 History - History PMHx: COPD, CHF (EF 30-35% 05/04), Frozen L. Shoulder, Neuropathy, DMII, HLD, CKD3, BPH, HTN PSHx: Cholecystecomy, Left shoulder sx, Right thumb, left leg, TURP of prostate FHx: noncontributory, unable to obtain Social: previous tobacco & EtOH use that patient says stopped "many years ago" - Review of Systems General: denies: fever/chills, fatigue Eyes: reports: vision changes (double vision, vertigo when turning head). denies: eye pain ENT: denies: nasal congestion Respiratory: reports: shortness of breath (chronic). denies: cough, congestion Cardiovascular: denies: chest pain, palpitation, edema Gastrointestinal: denies: nausea, vomiting, diarrhea, constipation, abdominal pain Genitourinary: denies: dysuria Skin: denies: rashes, lesions, jaundice Musculoskeletal: reports: arthritis/arthralgias. denies: pain, tenderness Neurological: denies: numbness, syncope, weakness - Vital signs BP: 186/71 HR: 56 RR: 18 Tmax: 97.7 Pox: 97% on RA Wt: 45 kg - Physical Exam Constitutional: NAD, awake, alert and oriented HEENT: normocephalic and atraumatic, PERRLA, EOMI, conjunctiva clear, grossly normal hearing -HEENT: dry mucous membranes Neck: supple, no LAD, no JVD Chest: no-tender to palpation, no lesions Heart: RRR, normal S1/S2, no murmurs/rubs/gallops, pulses present, no edema Lungs: CTAB, no respiratory distress, good air movement, no wheezing Abdomen: soft, non-tender, bowel sounds present, no masses/distention Musculoskeletal: normal structure, normal tone Neurological: no focal deficit, CN II-XII intact, normal sensation Skin: no rash/lesions, good turgor Heme/Lymphatic: no unusual bruising or bleeding Psychiatric: normal mood and affect FMR H&P: Results - Labs Result Diagrams: 04/07/19 11:54 04/07/19 11:54 Lab results: WBC 8.4 thou/uL (4.8-10.8) 04/07/19 11:54 Hgb 12.0 g/dL (14.0-18.0) L 04/07/19 11:54 Hct 37.4 % (42.0-52.0) L 04/07/19 11:54 MCV 87.9 fL (78.0-98.0) 04/07/19 11:54 Plt Count 197 thou/uL (130-400) 04/07/19 11:54 Neutrophils % 69.1 % (42.0-75.0) 04/07/19 11:54 ESR Westergren 33 mm/hr (Less than 20) 04/07/19 11:54 Sodium 140 mmol/L (136-145) 04/07/19 11:54 Potassium 4.5 mmol/L (3.5-5.1) 04/07/19 11:54 Chloride 102 mmol/L (98-107) 04/07/19 11:54 Carbon Dioxide 30 mmol/L (23-31) 04/07/19 11:54 BUN 57 mg/dL (8.4-25.7) H 04/07/19 11:54 Creatinine 1.97 mg/dL (0.7-1.3) H 04/07/19 11:54 Glucose 227 mg/dL (83-110) H 04/07/19 11:54 Calcium 8.8 mg/dL (7.8-10.44) 04/07/19 11:54 Total Bilirubin 0.4 mg/dL (0.2-1.2) 04/07/19 11:54 AST 18 U/L (5-34) 04/07/19 11:54 ALT 10 U/L (8-55) 04/07/19 11:54 Alkaline Phosphatase 111 U/L (40-110) H 04/07/19 11:54 C-Reactive Protein 1.62 mg/dL (= or < 0.5) H 04/07/19 11:54 Serum Total Protein 6.9 g/dL (5.8-8.1) 04/07/19 11:54 Albumin 3.7 g/dL (3.4-4.8) 04/07/19 11:54 - Radiology Interpretation CT scan - head Status: report reviewed by me (no acute pathology) FMR H&P: A/P - Problem List (1) TIA (transient ischemic attack) Current Visit: Yes Status: Acute Code(s): G45.9 - TRANSIENT CEREBRAL ISCHEMIC ATTACK, UNSPECIFIED (2) Acute kidney injury superimposed on chronic kidney disease Current Visit: Yes Status: Acute Code(s): N17.9 - ACUTE KIDNEY FAILURE, UNSPECIFIED; N18.9 - CHRONIC KIDNEY DISEASE, UNSPECIFIED (3) CKD (chronic kidney disease) stage 3, GFR 30-59 ml/min Current Visit: No Status: Chronic Code(s): N18.3 - CHRONIC KIDNEY DISEASE, STAGE 3 (MODERATE) (4) COPD (chronic obstructive pulmonary disease) Current Visit: No Status: Chronic Qualifiers: COPD type: unspecified COPD Qualified Code(s): J44.9 - Chronic obstructive pulmonary disease, unspecified (5) DM2 (diabetes mellitus, type 2) Current Visit: No Status: Chronic Qualifiers: Diabetes mellitus shelter insulin use: with buttermaker continuous churn use Diabetes mellitus complication status: with kidney complications Diabetes mellitus complication detail: with chronic kidney disease Chronic kidney disease stage : stage 3 (moderate) Qualified Code(s): E11.22 - Type 2 diabetes mellitus with diabetic chronic kidney disease; N18.3 - Chronic kidney disease, stage 3 ( moderate); Z79.4 - halfway (current) use of insulin (6) HTN (hypertension) Current Visit: No Status: Chronic Code(s): I10 - ESSENTIAL (PRIMARY) HYPERTENSION Qualifiers: Hypertension type: unspecified Qualified Code(s): I10 - Essential (primary ) hypertension - Plan Patient is an 89 yo male who presents with complaint of blurry vision is admitted for TIA vs CVA r/o: #Supect TIA, r/o CVA -CT head negative -MRI brain ordered -Consult Neurology, appreciate recs -Consult PT/OT, Speech, appreciate recs -ESR 33, CRP 1.62--low suspicion for temporal arteritis at this time but if double vision persists will consider further workup -Vitals q4h, neuro checks #CHRISTIAN on CKD3 -Cr 1.97, increased from baseline of 1.3 #Anemia, appears chronic -admission Hgb 12.0 -continue to monitor #HTN -admission BP 188/73, possible recent BP med changes by Cardiology -continue to monitor vitals, adjust BP meds as necessary -continue home meds #HLD -continue home meds #Hx of Left Frozen Shoulder Syndrome -strength 5/5 in RUE, 4/5 in LUE but likely this is his baseline -continue to monitor for change in exam #Hx of HFrEF -last ECHO in Apr 2018 showed EF 30-35% -appears euvolemic on exam Diet: HH VTE: Lovenox, SCDs Code Status: FULL, was previously DNR with [facility]-will need to contact to confirm code status. Patient currently states he wants interventions. Dispo: Stable, admitted to observation on stroke unit. Brain MRI ordered. Neurology consulted, appreciate recs. Will continue to monitor vitals & neuro checks. Anticipate LOS <48 hrs. FMR H&P: Upper Level - Pertinent history I was present with Dr. Winkler during the HPI. I scribed the above document. I agree with above. I have made edits as needed. Pt only symptom he complained about was his double vision. All other ROS were otherwise negative. - Pertinent findings No acute focal neuro defecit could be noted. Pt was able to track with H test. Pt was able to accurately state which numbers we were holding up. There was some possible left sided weakness 4/5. Cardio: Bradycardic. Normal rhythm. No murmurs or gallops. HEENT: Pt has bruising on the R. side of his face. - Plan Date/Time: 04/07/19 160 I, Gabe Palma PGY-3, have evaluated this patient and agree with findings/ plan as outlined by marketing pr intern resident. Pertinent changes/additions are listed here. I have made changes to the above plan. I agree with above. At this time we will admit patient for stroke vs TIA workup. CT negative. Will get brain MRI. Will consult PT/OT/Speech. Will consult neuro. Will follow recs. Will await results. ESR was mildy elevated and CRP was elevated. Pt denies any headaches or pain. Low suspicion but if everything is negative and still having double vision may consider work up for giant cell arteritis. Addendum - Attending - Attending Attestation Date/Time: 04/07/191826 I personally evaluated the patient and discussed the management with Dr. Winkler I agree with the History, Examination, Assessment and Plan documented above with any addition or exceptions noted below - 89 yo male with h/o HTN, Type 2 DM , HLD, CKD3, CHF, COPD sent from assisted to ED earlier this morning with complaint of double vision. States that when he looks with both eyes his vision is double but when he looks with just one eye his vision is okay. Pt reports seeing double vision starting yesterday when he woke up. Pt denies any headache or other symptoms. . Denies any vertigo. PMH/PSH/Meds/SH reviewed and agree with resident's documentation. BP 150/98 P69 RR18 Exam repeated by me and agree with resident's findings. Labs: CT brain- no acute findings, BUN/cr= 57/ 1.97 A/P: 1) Diplopia- possible TIA/CVA versus isolated CN 6 palsy. Agree with resident's exam of no palsy seen currently. Will check MRI in AM.
[2019-04-07] MEDS ORDERED: Enoxaparin Sodium 40 MG/0.4 ML SYRINGE SC SCH (19:00)
[2019-04-07] MEDS: Lactated Ringer's 1,000 ML IV SCH (19:19)
[2019-04-07] MEDS ORDERED: Atorvastatin Calcium 40 MG TAB PO SCH (21:00)
[2019-04-08 04:59] LABS: #Eosinphils 0.4 thou/uL (0.0-0.7); #Lymphocytes 1.8 thou/uL (1.20-3.40); #Neutrophils 6.9 thou/uL (1.40-6.50); %Eosinophils 3.8 % (0.0-10.0); %Lymphocytes 18.2 % (21.0-51.0); %Monocytes 9.6 % (0.0-10.0); %Neutrophils 68.4 % (42.0-75.0); Hemoglobin 11.5 g/dL (14.0-18.0); Mean Corpuscular HGB CONC 32.1 g/dL (32.0-36.0); Mean Corpuscular Hemoglobin 28.2 pg (27.0-31.0); Mean Corpuscular Volume 87.8 fL (78.0-98.0); Mean Platelet Volume 9.9 fL (7.4-10.4); Platelet Count 200 thou/uL (130-400); RBC Distribution Width 13.5 % (11.5-14.5); Red Blood Cell (RBC) Count 4.09 mill/uL (4.70-6.10)
[2019-04-08 05:23] LABS: ALT (SGPT) 13 U/L (8-55); AST (SGOT) 16 U/L (5-34); Albumin 3.4 g/dL (3.4-4.8); Alkaline Phosphatase 105 U/L (40-110); Anion Gap 12 mmol/L (10-20); BUN (Urea Nitrogen) 52 mg/dL (8.4-25.7); Bilirubin, Total 0.3 mg/dL (0.2-1.2); Calc. Creatinine Clearance 42 mL/min (70-130); Calcium 8.8 mg/dL (7.8-10.44); Carbon Dioxide 29 mmol/L (23-31); Cardiac Risk 2.8 (Less than 4.5); Chloride 102 mmol/L (98-107); Cholesterol 135 mg/dl (< 200 Desired); Estimated GFR-MDRD 38; Globulin 3.5 g/dL (2.4-3.5); Glucose 186 mg/dL (83-110); HDL Cholesterol 49 mg/dL (>60 Neg Risk); LDL Cholesterol, Calculated 56 mg/dL; Protein, Total 6.9 g/dL (5.8-8.1); Sodium 139 mmol/L (136-145); Triglycerides 152 mg/dL (Less than 150)
--- NOTE | 2019-04-08 05:32 | PDOC.FM ---
- Subjective Subjective: Patient states that he continues to have blurry vision with both eyes open. When he closes either eye and only uses one eye then he does not have blurry vision. Patient otherwise has no complaints this morning. - Objective Vital Signs & Weight: Vital Signs (12 hours) Temp Pulse Resp BP Pulse Ox 04/08/19 03:50 97.7 F 84 15 147/63 H 94 L 04/08/19 01:12 94 L 04/07/19 23:48 97.9 F 72 18 151/70 H 92 L 04/07/19 21:00 94 L 04/07/19 20:00 97.8 F 64 12 144/64 H 91 L Weight Weight 99.053 kg I&O: 04/06/19 04/07/19 04/08/19 06:59 06:59 06:59 Intake Total 300 Output Total 590 Balance -290 Result Diagrams: 04/08/19 04:29 04/08/19 04:29 Phys Exam - Physical Examination Constitutional: NAD HEENT: moist MMs Neck: no JVD, supple, full ROM Respiratory: no wheezing, clear to auscultation bilateral Cardiovascular: RRR, no significant murmur Gastrointestinal: soft, positive bowel sounds Musculoskeletal: no edema, pulses present Neurological: moves all 4 limbs Psychiatric: normal affect Dx/Plan (1) TIA (transient ischemic attack) Code(s): G45.9 - TRANSIENT CEREBRAL ISCHEMIC ATTACK, UNSPECIFIED Status: Acute (2) Acute kidney injury superimposed on chronic kidney disease Code(s): N17.9 - ACUTE KIDNEY FAILURE, UNSPECIFIED; N18.9 - CHRONIC KIDNEY DISEASE, UNSPECIFIED Status: Acute (3) CKD (chronic kidney disease) stage 3, GFR 30-59 ml/min Code(s): N18.3 - CHRONIC KIDNEY DISEASE, STAGE 3 (MODERATE) Status: Chronic (4) COPD (chronic obstructive pulmonary disease) Status: Chronic Qualifiers: COPD type: unspecified COPD Qualified Code(s): J44.9 - Chronic obstructive pulmonary disease, unspecified (5) DM2 (diabetes mellitus, type 2) Status: Chronic Qualifiers: Diabetes mellitus senior care insulin use: with senior care use Diabetes mellitus complication status: with kidney complications Diabetes mellitus complication detail: with chronic kidney disease Chronic kidney disease stage : stage 3 (moderate) Qualified Code(s): E11.22 - Type 2 diabetes mellitus with diabetic chronic kidney disease; N18.3 - Chronic kidney disease, stage 3 ( moderate); Z79.4 - [facility] (current) use of insulin (6) HTN (hypertension) Code(s): I10 - ESSENTIAL (PRIMARY) HYPERTENSION Status: Chronic Qualifiers: Hypertension type: unspecified Qualified Code(s): I10 - Essential (primary ) hypertension - Plan Plan: Patient is an 89 yo male who presents with complaint of blurry vision is admitted for TIA vs CVA r/o: #Supect TIA, r/o CVA -possible CN 6 palsy on admission from ED physician, but not appreciated on exam currently -CT head negative -MRI brain ordered -Consult Neurology, appreciate recs -Consult PT/OT, Speech, appreciate recs -ESR 33, CRP 1.62--low suspicion for temporal arteritis at this time but if double vision persists will consider further workup -Vitals q4h, neuro checks #CHRISTIAN on CKD3 -Cr 1.97, increased from baseline of 1.3-> trending down -1/2 maintentance IVF of LR @ 85 ml/hr #Anemia, appears chronic -admission Hgb 12.0 -continue to monitor #HTN -admission BP 188/73, possible recent BP med changes by Cardiology -continue to monitor vitals, adjust BP meds as necessary -continue home meds #HLD -continue home meds #Hx of Left Frozen Shoulder Syndrome -strength 5/5 in RUE, 4/5 in LUE but likely this is his baseline -continue to monitor for change in exam #Hx of HFrEF -last ECHO in Apr 2018 showed EF 30-35% -appears euvolemic on exam Diet: HH VTE: Lovenox, SCDs Code Status: FULL, was previously DNR with [facility]-will need to contact to confirm code status. Patient currently states he wants interventions. Dispo: Stable, admitted to observation on stroke unit. Brain MRI ordered. Neurology consulted, appreciate recs. Will continue to monitor vitals & neuro checks. Anticipate LOS <48 hrs. Addendum - Attending - Attending Attestation Date/Time: 04/08/19 1003 I personally evaluated the patient and discussed the management with Dr. Winkler. I agree with the History, Examination, Assessment and Plan documented above with any addition or exceptions noted below. The patient still notes blurry vision. The patient is being evaluated by therapy. He will have MRI today.
[2019-04-08] MEDS: Lactated Ringer's 1,000 ML IV SCH (06:24)
[2019-04-08] MEDS ORDERED: Aspirin 81 mg Enteric Coated Tablet PO SCH (09:00)
[2019-04-08] MEDS ORDERED: Enoxaparin Sodium 40 MG/0.4 ML SYRINGE SC SCH (09:00)
[2019-04-08] MEDS ORDERED: Enoxaparin Sodium 30 MG/0.3 ML SYRINGE SC SCH (09:00)
[2019-04-08] MEDS ORDERED: Prevnar 13-Val Conj/PF 0.5 ML SYRINGE IM ONE (09:00)
[2019-04-08] MEDS ORDERED: FLU VACC TS2019-20(65YR UP)/PF 180 MCG/0.5 ML SYRINGE IM ONE (09:00)
[2019-04-08] MEDS ORDERED: PROVENTIL INHALER 6.7 G (200 INHALATIONS) INH PRN (09:03)
[2019-04-08] MEDS ORDERED: Nystatin Powder 15 GM BOT TOP PRN (09:03)
[2019-04-08] MEDS ORDERED: Polyethylene Glycol 3350 17 GM Packet PO PRN (09:03)
[2019-04-08] MEDS ORDERED: Simethicone Chewable 80 MG TAB PO PRN (09:03)
[2019-04-08] MEDS ORDERED: hydrOXYzine 25 MG TAB PO PRN (09:03)
[2019-04-08] MEDS ORDERED: Ondansetron ODT 4 MG TAB PO PRN (09:03)
[2019-04-08] MEDS ORDERED: Senokot S 8.6-50 MG TAB PO PRN (09:03)
[2019-04-08] MEDS ORDERED: Preparation H Ointment 28 GM TUBE TOP PRN (09:03)
[2019-04-08] MEDS ORDERED: hydrALAZINE 10 MG TAB PO SCH ×2 (09:15→15:00)
[2019-04-08] MEDS ORDERED: Insulin Glargine 30 UNITS in Pre-Filled Syringe 1 EACH SC SCH (10:00)
--- NOTE | 2019-04-08 10:57 | MRI ---
Brain MRI with and without contrast: 04/08/2019 COMPARISON: None HISTORY: Blurry vision TECHNIQUE: Multiplanar multisequence MR imaging of the brain obtained with and without contrast FINDINGS: The diffusion weighted imaging demonstrates no evidence for acute infarction. The axial gradient echo imaging demonstrates no evidence for intracranial hemorrhage. There is no midline shift or mass effect. No ventricular enlargement. Multifocal periventricular, markell p, and subcortical white matter T2 and FLAIR hyperintensity, evidence of small vessel disease. The postcontrast imaging demonstrates no abnormal enhancement within the brain parenchyma. Regional bone marrow signal intensity appears within normal limits. IMPRESSION: No MR evidence of intracranial hemorrhage or acute infarction.
[2019-04-08] MEDS ORDERED: HumaLOG 300 UNITS/3 ML VIAL SC SCH (12:00)
[2019-04-08] MEDS ORDERED: Acetaminophen 325 MG TAB PO SCH (12:00)
--- NOTE | 2019-04-08 12:17 | CON ---
DATE OF TELEMEDICINE CONSULTATION: 04/08/2019 CHIEF COMPLAINT: Double vision. HISTORY OF PRESENT ILLNESS: The patient is an 89-year-old man, who has diabetes. He reports he has had problems with double vision and this occurred suddenly prior to admission on the and is mainly affecting his left eye, and he lives in a [facility] alf. He saw his primary care doctor two days ago and was given some eyedrops for blurred vision. No weakness or numbness or dizziness or nausea or vomiting was reported. PREVIOUS MEDICAL HISTORY: Positive for diabetes, COPD, congestive heart failure , hyperlipidemia, chronic kidney disease, benign prostatic hypertrophy, and hypertension. SURGICAL HISTORY: Cholecystectomy, left shoulder surgery, right thumb surgery, left leg surgery, TURP for prostate. FAMILY HISTORY: Negative for any strokes. SOCIAL HISTORY: He does have history of previous tobacco and alcohol use, but stopped years ago. REVIEW OF SYSTEMS: PULMONARY: Negative for shortness of breath or cough. GI: Negative for nausea, vomiting, or diarrhea. OPHTHALMOLOGIC: Positive for double vision. DERMATOLOGIC: Negative for any skin lesions. HEMATOLOGIC: Negative for bleeding diathesis or platelet dysfunction. RENAL: Positive for kidney problems. NEUROLOGIC: Positive for double vision. DIAGNOSTIC STUDIES: Current workup; MRI of the brain was completed this morning and it showed no evidence of acute infarct. Lab workup: White count is 10, hemoglobin 11.5, hematocrit 35.9, and platelet count 200. Chemistry; sodium 139, potassium 4.0, chloride 102, bicarb 29, BUN 52, creatinine 1.69, glucose 186 on the blood draw and 200 on fingersticks. Liver function is within normal limits except for mild elevation of alkaline phosphatase. C-reactive protein 1.62. Triglyceride 152, cholesterol 135. LDL and HDL within normal limits, and his lab workup was completed. His carotid Doppler and echocardiogram are pending. PHYSICAL EXAMINATION: VITAL SIGNS: Blood pressure 143/65, pulse 65. Temperature; he is afebrile, temperature 97.7. GENERAL APPEARANCE: Well-built, well-nourished man, who is slightly obese. 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 CHEST: Clear vesicular breathing. CARDIOVASCULAR: S1 and S2, heard. No murmurs. ORTHOPEDIC: He has bilateral shoulder issues with difficulty elevating the shoulders. ABDOMEN: Nontender, soft. NEUROLOGIC: Higher intellectual functions normal. Cranial nerves 2 through 12 , he had abnormal extraocular movements with difficulty with abduction of the left eye, and pupils are 3 mm bilaterally. Normal sensation of face bilaterally. Tongue midline. No atrophy noted. Normal elevation of palate. Motor; bulk normal, tone normal, strength 5/5 throughout in upper and lower extremities bilaterally except for restricted shoulder issues. Deep tendon reflexes 2+. Muscle groups tested, deltoid, biceps, triceps, wrist extension and flexion, finger extension and flexion bilaterally. Sensory, normal to touch bilaterally. Cerebellar; normal [id number], [id number]. Gait, not testable. IMPRESSION: The patient with diabetes, and double vision, mostly from the left eye. 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 He also has bilateral shoulder issues. MRI is negative. This is more of a diabetic 6th nerve lesion rather than central vascular disease. RECOMMENDATIONS: Agree with aspirin for stroke prophylaxis. He has multiple medications on board. He will need better glycemic control in order to prevent future small-vessel events if possible. I advised him to wear an eye patch and perhaps physical therapist in teaching some eye exercises. I will see him as needed. Job ID: [id number] [facility]
[2019-04-08 12:48] VITALS: BMI 36.1
[2019-04-08] MEDS ORDERED: REFRESH PLUS (Carboxymethylcellulose 0.5%) Opth Drops L EYE SCH (15:00)
[2019-04-08] MEDS ORDERED: Polyvinyl Alcohol 1.4%/Povidone 0.6% Opth Drops L EYE SCH (15:00)
[2019-04-08 16:09] VITALS: TEMP 97.5
[2019-04-08 16:24] VITALS: BP 144/74
[2019-04-08] MEDS ORDERED: traZODone HCl 50 MG TAB PO SCH (21:00)
[2019-04-08] MEDS ORDERED: Gabapentin 100 MG CAP PO SCH (21:00)
[2019-04-08] MEDS ORDERED: Atorvastatin Calcium 10 MG TAB PO SCH (21:00)
[2019-04-08] MEDS ORDERED: Carvedilol 3.125 MG TAB PO SCH (21:00)
[2019-04-08] MEDS ORDERED: Furosemide 80 MG TAB PO SCH (21:00)
[2019-04-08] MEDS ORDERED: Tamsulosin HCl 0.4 MG CAP PO SCH (21:00)
[2019-04-08] MEDS ORDERED: guaiFENesin ER 600 MG TAB PO SCH (21:00)
[2019-04-09] MEDS ORDERED: Polyethylene Glycol OPTH DROP 15 ML BOT EA EYE SCH (09:00)
[2019-04-09] MEDS ORDERED: Aspirin 81 mg Enteric Coated Tablet PO SCH (09:00)
[2019-04-09] MEDS ORDERED: Non-Formulary Item 1 EACH (Insulin Glargine,Hum.Rec.Anlog [Basaglar Kwikpen U-100] 30 UNI SQ SCH (09:00)
[2019-04-09] MEDS ORDERED: Insulin Glargine 30 UNITS in Pre-Filled Syringe 1 EACH SC SCH (09:00)
--- NOTE | 2019-04-09 14:23 | DIS ---
DATE OF ADMISSION: 04/07/2019 DATE OF DISCHARGE: 04/08/2019 RESIDENT: Rosa Winkler DO ADMITTING ATTENDING: Brianna Mayberry MD DISCHARGE ATTENDING: Billie Sosa MD CONSULTS: 1. Neurology, Dr. Racquel Sandoval. 2. Occupational Therapy. 3. Physical Therapy. 4. Speech Therapy. PROCEDURES: 1. Brain CT on April 07, 2019: Microvascular ischemic disease. No acute intracranial abnormalities. 2. Brain MRI on April 08, 2019: No evidence of intracranial hemorrhage or acute infarction. PRIMARY DIAGNOSIS: Cranial nerve 6 palsy, secondary to diabetes. SECONDARY DIAGNOSES: 1. Acute kidney injury on chronic kidney disease, stage 3. 2. Anemia, chronic. 3. Hypertension. 4. Hyperlipidemia. 5. History of left frozen shoulder syndrome. 6. History of heart failure with reduced ejection fraction. DISCHARGE MEDICATIONS: 1. Gabapentin 100 mg p.o. b.i.d. 2. Aspirin 81 mg p.o. daily. 3. Hydralazine 10 mg p.o. t.i.d. 4. DuoNeb 3 mL nebulizer q.4 hours p.r.n. 5. Simethicone 80 mg p.o. at bedtime p.r.n. 6. Flomax 0.4 mg p.o. at bedtime. 7. Zofran 4 mg p.o. q.6 hours p.r.n. 8. Furosemide 80 mg p.o. b.i.d. 9. Senokot two tablets p.o. b.i.d. p.r.n. 10. Hydroxyzine 25 mg p.o. at bedtime p.r.n. 11. Insulin lispro 14 units subcu t.i.d. with meals. 12. Albuterol sulfate inhaler q.8 hours p.r.n. 13. Protonix 40 mg p.o. daily. 14. MiraLAX 17 g p.o. daily p.r.n. for constipation. 15. Carvedilol 3.125 mg p.o. b.i.d. 16. Mucinex 600 mg p.o. b.i.d. 17. Insulin glargine 30 units subcu daily. 18. Nystatin 1 g topical b.i.d. p.r.n. for yeast infection. 19. Witch mansi 1 g topical q.8 hours p.r.n. 20. Refresh eyedrops one drop left eye t.i.d. 21. Trazodone 25 mg p.o. at bedtime. 22. Systane eyedrops one drop each eye as directed. 23. Atorvastatin 10 mg p.o. at bedtime. 24. Acetaminophen 650 mg p.o. q.6 hours p.r.n. for pain. DISCONTINUED MEDICATIONS: None. HISTORY OF PRESENT ILLNESS/HOSPITAL COURSE: The patient is an 89-year-old male sent over from [facility] to the emergency department earlier this morning with complaints of blurry vision. The patient states that when he looks with both eyes, his vision is blurry, but when he looks which is one eye, his vision was okay. He saw his PCP, Dr. Goodrich at [facility] 2 days ago and was started on some eyedrops, otherwise no recent medication changes. The patient also reports that he has been seeing an eye doctor as an outpatient with last appointment within the last month. The patient reports he started having double vision about 1 to 2 days ago when he woke up. He reported double vision to [facility] staff today and he was sent over for further evaluation. The patient denies any headache or other symptoms. The patient reports prior to this episode, his vision was normal. The patient denies any dizziness, but does report vertigo sensation when trying to turn over in the bed. Denies any chest pain. Reports shortness of breath as a "common problem." The patient's last admission was in November 2018 for symptomatic bradycardia. He opted for medical management only at that time with adjustments to his Coreg dosing. Within the emergency department, the patient was evaluated for stroke rule out. He had a negative head CT. He did not receive any medications in the ED. Per the ED physician, there was a concern on arrival for new onset left cranial nerve 6 palsy, however, this was not appreciated when evaluated by myself or the attending during admission. The patient was found on lab work to have a white blood cell count of 8.4, hemoglobin 12.0, creatinine 1.97, CRP 1.62, and ESR 33. The patient was admitted to observation on the stroke unit for continued TIA versus CVA versus isolated cranial nerve 6 palsy workup. His home medications were continued. Physical Therapy, Occupational Therapy, and Speech were all consulted for evaluation of the patient. A brain MRI was ordered, which was performed the following day on April 08, 2019. Results did not reveal any acute pathology, no evidence for stroke. Neurology, Dr. Sandoval was consulted. She proposed that the left cranial nerve 6 palsy with difficulty with abduction of his left eye, was indicative of a diabetic palsy on the left side. She felt that this nerve lesion was due more to diabetes rather than central vascular disease. Dr. Sandoval agreed with continuing aspirin for stroke prophylaxis. She also advised the patient to wear an eye patch and work with physical therapy and teaching some eye exercises. On the afternoon of April 08, 2019, the patient was deemed stable for discharge back to the [facility] with close followup with his PCP at [facility] in the next week. The patient will also need outpatient followup with an honing job setter for continued monitoring. DISPOSITION: Stable. DISCHARGE INSTRUCTIONS: 1. Location: [facility]. 2. Diet: Heart healthy. 3. Activity: As tolerated. 4. Continue physical therapy and occupational therapy at [facility]. 5. Followup: Follow up with PCP, Dr. Goodrich at [facility] in 5 to 7 days. Job ID: [id number]
== END 2019-04-08 17:21 ==
LOC: ERS 11:13 → INTOOBSV 16:05 → 2SE 16:05
PROVIDERS: ADMIT Family Medicine; ATTEND Family Medicine
DX: H53.8 Other visual disturbances (principal); I12.9 Hypertensive chronic kidney disease with stage 1 through stage 4 chronic kidney disease, or unspecified chronic kidney disease; E11.22 Type 2 diabetes mellitus with diabetic chronic kidney disease; N18.3 Chronic kidney disease, stage 3 (moderate); D63.1 Anemia in chronic kidney disease; N17.9 Acute kidney failure, unspecified; E78.5 Hyperlipidemia, unspecified; J44.9 Chronic obstructive pulmonary disease, unspecified; N40.0 Benign prostatic hyperplasia without lower urinary tract symptoms; Z79.4 Long term (current) use of insulin; Z79.82 Long term (current) use of aspirin; Z79.899 Other long term (current) drug therapy; Z87.891 Personal history of nicotine dependence
CPT/HCPCS: 70450; 70553; 80053 ×2; 80061; 82962 ×2; 85025 ×2; 85652; 86140; 96360; 96361 ×2; 96372 ×2; 97116; 97139; 97535; 99285; G0378 ×3; 36415; 36416; J1650; J1815